=== PATIENT | female | born 1940 | race Caucasian/White ===

== ENCOUNTER 2017-08-10 02:37 | Inpatient (IN) | payer MEDICARE, OTHER ==
[2017-08-10 03:17] LABS: #Eosinphils 0.1 thou/uL (0.0-0.7); #Lymphocytes 0.9 thou/uL (1.20-3.40); #Monocytes 0.7 thou/uL (0.11-0.59); #Neutrophils 11.5 thou/uL (1.40-6.50); %Basophils 0.2 % (0.0-1.0); %Eosinophils 0.6 % (0.0-10.0); %Lymphocytes 6.7 % (21.0-51.0); %Monocytes 5.3 % (0.0-10.0); %Neutrophils 87.3 % (42.0-75.0); Hemoglobin 10.4 g/dL (12.0-16.0); Mean Corpuscular HGB CONC 31.1 g/dL (32.0-36.0); Mean Corpuscular Hemoglobin 27.3 pg (27.0-31.0); Mean Platelet Volume 6.5 fL (7.4-10.4); Platelet Count 166 thou/uL (130-400); RBC Distribution Width 15.6 % (11.5-14.5); Red Blood Cell (RBC) Count 3.81 mill/uL (4.20-5.40); White Blood Cell (WBC) Count 13.2 thou/uL (4.8-10.8)
[2017-08-10] MEDS ORDERED: Morphine 4 MG/ML VIAL ONE (03:31)
[2017-08-10 03:41] LABS: ALT (SGPT) Less than 7 U/L (8-55); AST (SGOT) 11 U/L (5-34); Alkaline Phosphatase 111 U/L (40-150); Anion Gap 15 mmol/L (10-20); BUN (Urea Nitrogen) 28 mg/dL (9.8-20.1); Bilirubin, Total 0.6 mg/dL (0.2-1.2); Calc. Creatinine Clearance 0 mL/min (70-130); Calcium 9.7 mg/dL (7.8-10.44); Carbon Dioxide 24 mmol/L (23-31); Chloride 107 mmol/L (98-107); Estimated GFR-MDRD 68; Globulin 3.3 g/dL (2.4-3.5); Glucose 126 mg/dL (83-110); Magnesium 1.8 mg/dL (1.6-2.6); Potassium 4.8 mmol/L (3.5-5.1); Protein, Total 7.3 g/dL (6.0-8.3); Sodium 141 mmol/L (136-145)
[2017-08-10 03:45] LABS: CKMB 2.3 ng/mL (0-6.6); Troponin I 0.015 ng/mL (< 0.028)
[2017-08-10] MEDS ORDERED: Acetaminophen 325 MG Suppository ONE (04:45)
[2017-08-10 04:47] LABS: Base Excess-Venous -1.8 mmol/L (0 (+/- 2.5)); Bicarbonate (HCO3v) 23.9 mmol/L (1.0-85.0); CO2 Tension (PvCO2) 43.6 mmHg (41.0-51.0); Calcium, Ionized 1.13 mmol/L (1.12-1.32); Hemoglobin - Calc 11.2 g/dL (12.0-18.0); O2 Tension (PvO2) 111.7 mmHg (35.0-45.0); Potassium 4.6 mmol/L (3.4-4.7); T. Carbon Dioxide 25.2 mmol/L (1.0-85.0); pH (Venous) 7.347 (7.35-7.45); vO2 Saturation-calc 98.1 % (94-98)
[2017-08-10] MEDS ORDERED: Vancomycin HCl 1.25 GM in Sodium Chloride 0.9% 250 ML 250 ML IVPB SCH (05:00)
[2017-08-10 06:23] LABS: Bilirubin Negative (Negative); Blood, Urine Small (Negative); Clarity CLOUDY (Clear); Glucose, Urine (Dipstick) Negative (Negative); Leukocyte Large (Negative); Nitrite Positive (Negative); Protein, Urine (Dipstick) 100 mg/dL (Neg-Trace); Specific Gravity, Urine 1.023 (1.002-1.036); pH, Urine 5.5 (5.0-9.0)
[2017-08-10 06:25] LABS: Bacteria/HPF 4+ HPF (None Seen); Hyaline Casts/LPF 4-6 HYALINE CAST LPF (0-3 Hyaline); Pathc Cast-AUWi Flag 0.94 (0-2.49); Squamous Epithelial None Seen HPF (0-3)
[2017-08-10 07:04] LABS: Lactic Acid 2.1 mmol/L (0.5-2.2)
[2017-08-10] MEDS ORDERED: Ondansetron HCl/PF 4 MG/2 ML Vial IVP PRN (07:26)
[2017-08-10] MEDS ORDERED: Ondansetron ODT 4 MG TAB PO PRN (07:26)
[2017-08-10] MEDS ORDERED: Sodium Chloride 0.9% 1,000 ML IV SCH (07:30)
--- NOTE | 2017-08-10 08:46 | RAD ---
AP CHEST: History: Dyspnea. Pneumonia. Date: 08-10-17 Comparison: 12-20-16 FINDINGS: AP chest demonstrates EKG leads seen over the chest. There is some rotation of the chest radiograph. Areas of airspace opacity seen in the right upper lob e and right midlung. Findings compatible with pneumonia. The left lung is well aerated. IMPRESSION: Areas of airspace opacity in the left upper lobe, and right midlung compatible with right lung pneumo pedro. Follow up films to resolution. POS: JED
--- NOTE | 2017-08-10 08:47 | RAD ---
ABDOMEN 1 VIEW: Date: 08/10/17 HISTORY: 76-year-old female with history of abdominal distention. COMPARISON: 02/02/16. FINDINGS: There are some prominent alveolar parenchymal changes in the visualized right lower lobe, evidence fo r pneumonia. There is some rotation to the right. Dextroscoliosis. Severe spondylosis. There appears to be some fairly extensive solid fecal material throughout the colon. There are some minimally abnor ta dilated small bowel loops in the right lower abdomen, nonspecific. Possibilities include that o f small bowel obstruction versus some focal ileus. IMPRESSION: Evidence for right lower lobe pneumonia. Considerable solid fecal material throughout the colon, poss ibly representing some degree of obstipation. Abnormally dilated small bowel loops, primarily in the right lower quadrant, possibly focal small bowel obstruction versus focal ileus. Depending on concern , short-term follow-up or additional imaging might be of benefit. POS: JED
--- NOTE | 2017-08-10 09:58 | CON ---
DATE OF CONSULTATION: 08/10/2017 Margaret Méndez is a 76[facility]year-[facility]. She presents with right-sided pneumon ia. She is able to verbalize though she clearly is markedly weak. She is short of breath. She is o n noninvasive ventilation after she got up to IMCU now on 4 liters, sats are 92%. She is having difficulty breathing, but she denies any chest pain, chills or sweats. She says she stan[place] s been bedridden for a period of time. MEDICATIONS: Her list of medicine from home includes metoprolol 25 half tablet once a day, metformin 500 two tablets twice a day, levothyroxine 75, gabapentin 300. Cardizem 120, simvastatin 40, aspiri n. PAST MEDICAL HISTORY: Pertinent otherwise for arthritis, hypothyroidism, diabetes, hypertension, CVA in 2007, atrial fibrillation. PAST SURGICAL HISTORY: Hysterectomy, cholecystectomy, amputation of toes, fingers, eye surgery, bob racts. She has had avascular necrosis, left hip which probably prevents her from walking any significant dis tance. She has had dysphagia. ALLERGIES: PENICILLIN. SOCIAL/FAMILY HISTORY: Otherwise unremarkable. Alcohol; none. Tobacco; none. REVIEW OF SYSTEMS: Negative. Please note I reviewed old medical records. No family members at bedside. I reviewed all x-rays and lab personally. She now is on vancomycin and neb treatments. No other home medication initiated. PHYSICAL EXAMINATION: VITAL SIGNS: As noted sats are 93% on 2 liters, blood pressure 112/68, temperature 99. CHEST: Chest reveals bilateral rhonchi and crackles, right greater than left. CARDIAC: Normal S1, S2, no gallops. ABDOMEN: Soft. NEURO: She is awake, alert and responsive. EXTREMITIES: She has 2+ ankle edema. LABORATORY: White count is 30,000, H&H 10 and 31, platelet count is 166, pO2 111, pCO2 43.37, lactic acid 2.5. BUN was normal. Creatinine is normal. X-ray showed left-sided pneumonia. Urine shows greater than 50 WBCs. IMPRESSION: 1. Right-sided pneumonia, probably aspiration. 2. Severe deconditioning. 3. Avascular necrosis. 4. Diabetes. 5. Negative flu. 6. Elevated BNP. PLAN: Broad spectrum antibiotics will be initiated. Neb treatments, supportive care. Speech is being consulted. Family to discuss code status. Overall prognosis is guarded. This is a 70 minute consultation, which 50% was spent in direct patient care at the bedside.
[2017-08-10] MEDS ORDERED: Dextrose 5% in Water 1,000 ML IV PRN (11:18)
[2017-08-10] MEDS ORDERED: Insulin Regular 300 UNITS/3 ML VIAL SC PRN ×2 (11:18)
[2017-08-10] MEDS ORDERED: Dextrose 50% Abboject 50 ML SYRINGE IVP PRN (11:18)
[2017-08-10] MEDS ORDERED: Vancomycin HCl 1 GM in Premix Bag 1 BAG IVPB SCH (13:00)
[2017-08-10] MEDS ORDERED: Moxifloxacin 0.5% Opth Drop 3 ML BOT L EYE SCH (15:00)
[2017-08-10] MEDS: Ciprofloxacin 0.3% Ophth Drops 2.5 ml Bottle L EYE SCH ×3 (16:55→20:50)
--- NOTE | 2017-08-10 18:05 | HP ---
DATE OF ADMISSION: 08/10/2017 CHIEF COMPLAINT: Shortness of breath, hypoxia and cough. HISTORY OF PRESENT ILLNESS: Ms. Margaret Méndez is a 76-year-old female with past medical history of diabetes mellitus, avascular necrosis of left hip and sudden onset of shortness of breath over the last night. The patient has been having some cough, also developed fever. Cough is productive with yellow sputum. The patient became hypoxic with saturation of 89% on room air , so with fever, cough, and shortness of breath and hypoxia, the patient was sent to the hospital. EMS found the patient with respiratory distress and hypoxia and was put on nonrebreather and brought her to the emergency room. In the ER, the patient was evaluated and found to have possible pneumonia and aspiration, so the patient received antibiotics with Levaquin and vancomycin, also given IV fluid bolus as well, given two nebulizer treatments and admitted for further evaluation and management. The patient was put on BiPAP and admitted to [facility]. PAST MEDICAL HISTORY: 1. Avascular necrosis of left hip with severe chronic left hip pain, severe degenerative joint disease. 2. Hypertension. 3. Hypothyroidism. 4. Chronic atrial fibrillation. 5. History of CVA. 6. Coronary artery disease, status post stent in the right coronary artery. PAST SURGICAL HISTORY: 1. Status post hysterectomy. 2. Status post hip surgery. 3. Status post multiple amputations of fingers and toes. 4. Status post cholecystectomy. 5. Status post surgery to right hand. CURRENT MEDICATIONS: The patient is on diltiazem 120 mg daily, aspirin 162 mg daily, Tylenol with Codeine q.i.d. p.r.n., levothyroxine 75 mcg daily, metoprolol 12.5 daily, multivitamin daily, Senokot daily, simvastatin 40 mg daily, metformin 1000 b.i.d. ALLERGIES: PENICILLIN and LATEX. FAMILY HISTORY: Nothing of interest. SOCIAL HISTORY: Patient lives in the correction. No history of smoking, no history of alcohol intake. REVIEW OF SYSTEMS: Cardiovascular: No chest pain. Mild shortness of breath. Respiratory: Fever, cough productive with yellow sputum. Gastrointestinal: No nausea or vomiting, no abdominal pain. Genitourinary: No dysuria or hematuria. Central nervous system: No headache or dizziness. PHYSICAL EXAMINATION: GENERAL: The patient is alert, awake, oriented x2. VITAL SIGNS: Temperature 101.8, pulse 111, respirations 28, blood pressure 150/ 116. HEENT: Head is normocephalic, atraumatic. Pupils equal and reactive to light. Left eye, conjunctiva with redness present and drainage present. Nasopharynx is pale and dry. Hard and soft palate, no lesions seen. SKIN: Turgor decreased. NECK: Supple. No JVD. LUNGS: Breath sounds diminished bilaterally. Percussion not dull bilaterally. Crackles in the right base, rhonchi present. CARDIAC: S1, S2, irregularly irregular. ABDOMEN: Soft, no distention, no tenderness. Normal bowel sounds present. RECTAL: Deferred. CENTRAL NERVOUS SYSTEM: The patient is alert, awake, oriented x3. Motor system power 3-4/5 in all extremities. Deep tendon reflexes 2+ bilaterally. Plantar downgoing. Sensory intact. Left hip area markedly tender. Range of movements markedly decreased. LABORATORY DATA AND X-RAY FINDINGS: CBC shows WBC 13,000, hemoglobin 10.5, hematocrit 33, platelets 166. Metabolic panel: Sodium 141, potassium 4.8, chloride 107, CO2 25, urea nitrogen 28, creatinine 0.8, glucose 126. Lactic acid 2.5. BNP was 689, CK-MB 2.6, troponin I 0.015. ABG showed pH 7.3, pCO2 of 43, PO2 of 111, saturation 98%. Urinalysis shows wbc greater than 15, bacteria 4+. Chest x-ray showed airspace opacity in the right mid lung, compatible with right lung pneumonia. Abdominal x-ray showed fecal material throughout the colon, also showed dilated small bowel loops with possibly focal small-bowel obstruction versus focal ileus. ASSESSMENT: 1. Aspiration pneumonia, right lower lobe, middle lung. 2. Acute respiratory failure. 3. Hypoxia. 4. ? focal bowel obstruction. 5. Severe constipation. 6. Elevated BNP. 7. Avascular necrosis of left hip. 8. Diabetes mellitus. 9. Hypertension. 10. Left eye conjunctivitis. PLAN: 1. Vital signs q.4 hours. 2. Activity as tolerated. 3. Allergies: PENICILLIN and LATEX. 4. IV fluids 1/2 normal at 70 mL per hour. 5. Cefepime 1 gram IV piggyback q.8 hours. 6. DuoNeb q.i.d. 7. Levaquin 750 mg IV piggyback daily. 8. Intake and output. 9. Diet n.p.o. 10. GI consult. 11. Vigamox eyedrops for her left eye infection. MUKESH
[2017-08-10] MEDS: Dextrose 5 %-0.45 % NaCl 1,000 ML IV SCH (18:43)
[2017-08-10] MEDS: Cefepime 1 GM, Admixture Fee 1 EACH in Sodium Chloride 0.9% 10 ML SLOW IVP SCH (20:50)
[2017-08-10] MEDS ORDERED: Cefepime 1 GM in Sodium Chloride 0.9% 100 ML IVPB SCH (21:00)
[2017-08-11] MEDS: Ciprofloxacin 0.3% Ophth Drops 2.5 ml Bottle L EYE SCH ×10 (01:36→22:07)
--- NOTE | 2017-08-11 02:03 | CON ---
DATE OF CONSULTATION: 08/10/2017 GI INPATIENT CONSULTATION NOTE REQUESTING PHYSICIAN: Dr. Miller. REASON FOR CONSULTATION: Abnormal x-ray suggesting ileus versus possible bowel obstruction. HISTORY OF PRESENT ILLNESS: Margaret Méndez is a 76-year-old woman, who has previously been seen by my GI colleague, Dr. Isra Arriaza. She had a normal EGD back in 2011. More pertinent, she has a signi ficant history of prior CVA, atrial fibrillation, and coronary artery disease. She is obese. She is bedbound, has history of severe diabetes with multiple amputations of toes and fingers. [facility] with somewhat acute onset of shortness of breath and hypoxia in the presence of productive cough, and upon admission, was found to have a right lower lobe pneumo pedro concerning for aspiration pneumonia. She is being treated with nebulizers and broad spectrum ant ibiotics at this time, and she says her breathing is a lot easier today. Upon evaluation, she had an abdominal x-ray and this demonstrated a large amount of stool throughout the colon as well as some m ild dilation of distal small bowel loops in the right lower quadrant, which was read as suggestive of possible ileus versus bowel obstruction. Clinically, the patient has not been having any abdominal pain. She states that up until yesterday she has been eating and drinking just fine. She denies any nausea. She has not had any vomiting since arrival here. She is unable to really tell me what her bowel movements have been like. She has had a small smear of stool since arrival here. I see her [facility] the [facility] include Tylenol with Codeine as well as daily Senokot. It is uncle ar whether she has ever had a colonoscopy in the past. Speech Therapy was consulted, but has not yet evaluated her formally due to this concern for possible ileus or bowel obstruction. Again, the chasity ent is not having any abdominal pain, nausea, or vomiting. REVIEW OF SYSTEMS: Difficult to obtain as the patient has difficulty expressing herself or even answ ering yes/no questions regarding her symptoms with any specificity. PAST MEDICAL HISTORY: Coronary artery disease with right coronary stent, arthritis, hypothyroidism, diabetes, hypertension, atrial fibrillation, CVA in 2007, hysterectomy, cholecystectomy, multiple amp utations of toes and fingers, avascular necrosis of the left hip, obesity. ALLERGIES: PENICILLIN and LATEX. OUTPATIENT MEDICATIONS: Metoprolol, metformin, Synthroid, gabapentin, Cardizem, Zocor, aspirin, Tyle nol with Codeine, Senokot daily. SOCIAL HISTORY: [facility]. No smoking or alcohol use. FAMILY HISTORY: Noncontributory. PHYSICAL EXAMINATION: VITAL SIGNS: Temperature 97.6, pulse 92, blood pressure 111/40, 94% oxygen saturation on 4 liters of nasal cannula. GENERAL: Obese, 76-year-old woman, lying in bed comfortably, in no distress. MENTAL: She is alert and oriented. She seems to have some word finding difficulty and is unable to be specific with answers regarding some symptoms. SKIN: No jaundice, no rash visible or palpable. Wound photodocumentation was reviewed including dec ubitus ulceration and ulcerations to her lower extremities. EYES: No scleral icterus. Extraocular movements intact. ENT: Mucous membranes moist, no oral lesions. LYMPH: No submandibular or supraclavicular lymphadenopathy. THYROID: Nontender to palpation. HEART: Regular rate and rhythm. LUNGS: Distant lung sounds, some soft crackles at the right base. ABDOMEN: Mildly distended, dull to percussion throughout. Bowel sounds hypoactive, but present, sof t and nontender to palpation. EXTREMITIES: A 1+ bilateral lower extremity edema. LABORATORY STUDIES: WBC 13.2, hemoglobin 10.4, platelets 166. BUN 28, creatinine 0.81. BNP 689.9. Troponin negative. Lactic acid 2.1. LFTs normal with total bilirubin 0.6, alkaline phosphatase 111 , AST 11, ALT 7, albumin 4.0. Urinalysis shows greater than 50 wbc's. IMAGING STUDIES: Chest x-ray shows right lower lobe pneumonia. Abdominal x-ray demonstrates solid s tool throughout the colon and some mild dilation of small bowel loops in the right lower quadrant. ASSESSMENT AND PLAN: 1. Constipation. Clinically, the patient is not really presenting like an ileus or certainly not li ke a mechanical bowel obstruction. Her colon is full of stool, so I really do not feel small bowel o bstructive process is likely, small bowel dilation is likely reactive from her severe constipation. Note that she is essentially bedbound, and I see Tylenol with Codeine on [facility] medication [facility] from the [facility]. Narcotics should be avoided. She needs to be on a more aggressive bowel regimen. I understand a CT scan has been ordered for tomorrow and will follow with those results. 2. Aspiration pneumonia. This was the primary reason for admission. Awaiting Speech Pathology asse ssment to assess for oropharyngeal dysphagia and safety for oral intake. If it is felt that she is n ot safe to take in food orally, PEG tube could be considered, although the procedure would be higher risk certainly given her body habitus and comorbidities. GI will follow along tomorrow, with the results of the CT scan. We will await Speech Pathology recom mendations for her diet, but from a GI perspective, she could eat well, whatever textures appropriate . Thank you for the consultation. Please call with questions or concerns.
[2017-08-11 04:39] LABS: #Eosinphils 0.1 thou/uL (0.0-0.7); #Lymphocytes 1.1 thou/uL (1.20-3.40); #Monocytes 0.7 thou/uL (0.11-0.59); #Neutrophils 7.6 thou/uL (1.40-6.50); %Basophils 0.2 % (0.0-1.0); %Eosinophils 0.7 % (0.0-10.0); %Lymphocytes 11.9 % (21.0-51.0); %Monocytes 7.5 % (0.0-10.0); %Neutrophils 79.7 % (42.0-75.0); Hemoglobin 8.4 g/dL (12.0-16.0); Mean Corpuscular Hemoglobin 27.3 pg (27.0-31.0); Mean Corpuscular Volume 87.8 fl (81.0-99.0); Platelet Count 130 thou/uL (130-400); RBC Distribution Width 15.3 % (11.5-14.5); Red Blood Cell (RBC) Count 3.08 mill/uL (4.20-5.40); White Blood Cell (WBC) Count 9.6 thou/uL (4.8-10.8)
[2017-08-11 04:55] LABS: Anion Gap 10 mmol/L (10-20); BUN (Urea Nitrogen) 23 mg/dL (9.8-20.1); Calc. Creatinine Clearance 76 mL/min (70-130); Calcium 8.9 mg/dL (7.8-10.44); Carbon Dioxide 24 mmol/L (23-31); Chloride 109 mmol/L (98-107); Estimated GFR-MDRD 75; Glucose 111 mg/dL (83-110); Potassium 4.4 mmol/L (3.5-5.1); Sodium 139 mmol/L (136-145)
[2017-08-11] MEDS ORDERED: Prevnar 13-Val Conj/PF 0.5 ML SYRINGE IM ONE (09:00)
[2017-08-11] MEDS ORDERED: FLU VACC TS2017-18 (>65YR) 0.5 ML SYRINGE IM ONE (09:00)
--- NOTE | 2017-08-11 09:28 | PRG ---
DATE OF SERVICE: 08/11/2017 This morning she is awake, alert, responsive. Complains of left leg pain, but no shortness of breath . PHYSICAL EXAMINATION: VITAL SIGNS: Sats 93% on 3 liters, respiration 22, temperature 98, blood pressure 140/68. CHEST: Chest reveals bilateral rhonchi or crackles. HEART: Normal S1, S2, no gallops. LABORATORY DATA: White count 11,000, H&H 8 and 27. Electrolytes are normal. IMPRESSION: 1. Right-sided pneumonia. 2. Constipation. PLAN: From a pulmonary standpoint of view, continue antibiotics, neb treatments, supportive care. S he can be transferred out of the [facility] to an unmonitored bed.
[2017-08-11] MEDS: Cefepime 1 GM, Admixture Fee 1 EACH in Sodium Chloride 0.9% 10 ML SLOW IVP SCH ×2 (10:12→21:36)
[2017-08-11] MEDS ORDERED: metFORMIN 500 MG TAB PO SCH (13:00)
[2017-08-11] MEDS ORDERED: Gabapentin 300 MG CAP PO SCH (13:00)
[2017-08-11] MEDS ORDERED: Metoprolol Tartrate 25 MG TAB PO SCH (13:00)
[2017-08-11] MEDS ORDERED: Aspirin 81 mg Enteric Coated Tablet PO SCH (13:00)
[2017-08-11] MEDS: Dextrose 5 %-0.45 % NaCl 1,000 ML IV SCH (14:07)
--- NOTE | 2017-08-11 14:48 | CT ---
CT OF ABDOMEN AND PELVIS: DATE: 08/11/17. COMPARISON: 03/20/11. HISTORY: Abdominal pain, left leg pain, constipation, ileus versus small bowel obstruction. FINDINGS: Imaged lung bases demonstrate nonspecific irregular airspace disease in the visualized right middle l obe and partial consolidation of right lower lobe with trace left pleural effusion and small incomple tely visualized right pleural effusion. The hepatic parenchyma is somewhat heterogeneous, which may be on the basis of hepatocellular disease or passive congestion. There is no free intraperitoneal air appreciated. The gallbladder appears surgically absent. The spleen is unremarkable. 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 In addition, within the left upper quadrant, there is a fat-containing lesion a nterior to the mid pole left kidney inseparable from the left adrenal gland measuring 4.8 cm, similar when compared to the prior exam, suggesting either an additional exophytic left renal angio myelolip ivana or a left adrenal myelolipoma. The pancreas and right adrenal gland appear grossly unremarkable. The right kidney demonstrates no acute findings. There is a Boyce catheter in the urinary bladder. There is dense stool within the colon from the level of the proximal descending colon through the r ectum with a rectum which is filled and expanded with dense stool suggesting impaction. There is no evidence for small bowel obstruction. There is extensive calcified plaque within the abdominal aorta and involving its branches as well as the arterial structures of the pelvis, incompletely assessed on this examination. No pelvic lymphadenopathy is seen. The bones appear somewhat demineralized with age-indeterminate an terior wedge compression fracture noted at T12 and mild age-indeterminate superior end plate fracture at L1. There is severe degenerative change involving the left hip with left femoral head irregulari ty and flattening as well as severe osteophyte formation and joint space narrowing with subchondral s clerotic change. There is an old fracture of the inferior pubic ramus on the right. IMPRESSION: 1. No free intraperitoneal air or evidence of small bowel obstruction. 2. Small bilateral pleural effusions. Nonspecific airspace disease in the right lung base may repre sent infectious pneumonitis or asymmetric edema. 3. Mottled heterogeneous appearance of the hepatic parenchyma. 4. Fat-containing left upper quadrant lesions as described above. 5. No evidence for free intraperitoneal air or small bowel obstruction. 6. Findings suggesting fecal impaction with dense stool filling and expanding the distal sigmoid col on and rectum. POS: JED
[2017-08-11] MEDS: Gabapentin 300 MG CAP PO SCH ×2 (16:20→21:35)
[2017-08-11] MEDS: metFORMIN 500 MG TAB PO SCH (16:21)
[2017-08-11] MEDS ORDERED: Polyethylene Glycol 3350 17 GM Packet PO SCH (18:15)
[2017-08-11] MEDS ORDERED: Magnesium Citrate 300 ML BOT PO SCH (18:15)
--- NOTE | 2017-08-11 18:20 | PRG ---
DATE OF SERVICE: 08/11/2017 GASTROINTESTINAL INPATIENT DAILY PROGRESS NOTE SUBJECTIVE: Mrs. Méndez was able to come out of the ICU. She feels she is breathing well. Vital sig ns have been stable. She has not had a bowel movement yet today. CT of the abdomen and pelvis did n ot show any evidence of small-bowel obstruction. There is a large amount of stool in the distal colo n. She has been tolerating her diet just fine. OBJECTIVE: VITAL SIGNS: Temperature 97.2, pulse 75, blood pressure 118/48, 96% oxygen saturation on room air. GENERAL: No acute distress. HEART: Regular rate and rhythm. LUNGS: Soft crackles in the right base. ABDOMEN: Mild distention. Dull to percussion. Bowel sounds hypoactive, soft, nontender to palpatio n. EXTREMITIES: No peripheral edema. LABORATORY STUDIES: WBC 9.6, hemoglobin 8.4, platelets 130. Sodium 139, potassium 4.4, BUN 23, crea tinine 0.75, glucose 177. Blood cultures growing gram positive cocci. ASSESSMENT AND PLAN: 1. Constipation. The patient has not yet had a bowel movement today, but is not having any abdomina l pain. There is no evidence of bowel obstruction or ileus. Due to her chronic immobility, it appea rs chronic narcotic use she is certainly at risk for further constipation episodes. She is on Senoko t. At this point, I will go ahead and add MiraLax 17 grams daily. We will also order one bottle of magnesium citrate tonight. 2. Right lower lobe pneumonia. The patient has been cleared for oral intake by Speech and antibioti c therapy per Primary Service.
[2017-08-11] MEDS: Polyethylene Glycol 3350 17 GM Packet PO SCH ×2 (21:35→21:59)
[2017-08-11] MEDS: Senokot S 8.6-50 MG TAB PO SCH (21:35)
[2017-08-11] MEDS: Atorvastatin Calcium 20 MG TAB PO SCH (21:35)
[2017-08-11] MEDS: Magnesium Citrate 300 ML BOT PO SCH ×2 (21:36→21:56)
[2017-08-12] MEDS: Dextrose 5 %-0.45 % NaCl 1,000 ML IV SCH ×2 (05:34→21:16)
[2017-08-12] MEDS: Levothyroxine Sodium 75 MCG TAB PO SCH (05:34)
[2017-08-12] MEDS: Ciprofloxacin 0.3% Ophth Drops 2.5 ml Bottle L EYE SCH ×9 (05:45→21:55)
[2017-08-12] MEDS: Multivit, Therapeutic 1 TAB PO SCH (08:47)
[2017-08-12] MEDS: metFORMIN 500 MG TAB PO SCH ×2 (08:47→16:30)
[2017-08-12] MEDS: Polyethylene Glycol 3350 17 GM Packet PO SCH (08:47)
[2017-08-12] MEDS: Gabapentin 300 MG CAP PO SCH ×3 (08:47→21:07)
[2017-08-12] MEDS: Aspirin 81 mg Enteric Coated Tablet PO SCH (08:48)
[2017-08-12] MEDS: Cefepime 1 GM, Admixture Fee 1 EACH in Sodium Chloride 0.9% 10 ML SLOW IVP SCH ×2 (08:48→21:07)
[2017-08-12] MEDS: Metoprolol Tartrate 25 MG TAB PO SCH (08:48)
--- NOTE | 2017-08-12 09:25 | PRG ---
DATE OF SERVICE: 08/12/2017 She is awake, alert and responsive. Less short of breath. PHYSICAL EXAMINATION: VITAL SIGNS: Blood pressure 166/78, sats 92% on 4 liters, temperature 99, respirations 18. CHEST: Chest revealed decreased breath sounds, no wheezing. CARDIAC: Normal S1, S2. ABDOMEN: Soft, no masses. IMPRESSION: 1. Pneumonia. 2. Hypertension., 3. Severe deconditioning. 4. Advanced age. PLAN: X-ray is being ordered. All cultures so far are negative. We will consider de-escalation. Blood is growing gram positive cocci, probably contamination.
--- NOTE | 2017-08-12 10:45 | RAD ---
UPRIGHT PORTABLE CHEST 1 VIEW: Date: 08/12/17 HISTORY: 76-year-old female with history of pneumonia. COMPARISON: 08/10/17. FINDINGS: Persistent abnormal alveolar opacities in the right mid and lower lung zone, showing some improvement in the upper lobe region. Stable increased markings in the left chest. IMPRESSION: Some improvement in the right upper lobe confluent alveolar parenchymal changes with persistent paren chymal changes in the right mid and lower lung zone. POS: JED
[2017-08-12 13:16] VITALS: BMI 28.1
--- NOTE | 2017-08-12 15:41 | PRG ---
DATE OF SERVICE: 08/12/2017 SUBJECTIVE: Ms. Méndez did not take very much of her magnesium citrate, but after 2 doses of MiraLax, this morning she had a very large nonbloody bowel movement. She says she is feeling quite a bit bet ter. There is less abdominal bloating. She has been able to eat some today. OBJECTIVE: VITAL SIGNS: Temperature 98.2, pulse 78, blood pressure 150/93, and 94% oxygen saturation on room ai r. GENERAL: No acute distress. HEART: Regular rate and rhythm. LUNGS: Clear to auscultation bilaterally. ABDOMEN: Bowel sounds present, soft, nontender to palpation throughout. EXTREMITIES: No peripheral edema. LABORATORY STUDIES: Glucose 157. No other new labs today. ASSESSMENT AND PLAN: Constipation. She has had a great response to the addition of MiraLax. Upon d ischarge, I would have her continue MiraLax 17 grams daily as well as the Senokot that she was alread y on, try to avoid any narcotics if possible. GI will go ahead and sign off. Please call back with any questions or concerns.
[2017-08-12] MEDS: Atorvastatin Calcium 20 MG TAB PO SCH (21:07)
[2017-08-12] MEDS: Senokot S 8.6-50 MG TAB PO SCH (21:07)
[2017-08-13] MEDS: Levothyroxine Sodium 75 MCG TAB PO SCH (05:03)
[2017-08-13] MEDS: Ciprofloxacin 0.3% Ophth Drops 2.5 ml Bottle L EYE SCH ×9 (05:05→21:39)
[2017-08-13] MEDS: Aspirin 81 mg Enteric Coated Tablet PO SCH (08:08)
[2017-08-13] MEDS: metFORMIN 500 MG TAB PO SCH ×2 (08:08→17:44)
[2017-08-13] MEDS: Gabapentin 300 MG CAP PO SCH ×3 (08:09→21:41)
[2017-08-13] MEDS: Metoprolol Tartrate 25 MG TAB PO SCH ×2 (08:09→21:42)
[2017-08-13] MEDS: Multivit, Therapeutic 1 TAB PO SCH (08:10)
[2017-08-13] MEDS: Polyethylene Glycol 3350 17 GM Packet PO SCH ×2 (08:11→08:35)
[2017-08-13] MEDS: Cefepime 1 GM, Admixture Fee 1 EACH in Sodium Chloride 0.9% 10 ML SLOW IVP SCH (08:13)
--- NOTE | 2017-08-13 12:46 | PRG ---
DATE OF SERVICE: 08/13/2017 SUBJECTIVE: Ms. Méndez still got cough, afebrile. X-rays shows rather impressive right-sided pneumon ia. OBJECTIVE: VITAL SIGNS: Temperature is 98, sats are 92% on 2 liters, blood pressure 169/96. CHEST: Reveals bilateral rhonchi and crackles. CARDIAC: Normal S1, S2. ABDOMEN: Soft. No masses. IMPRESSION: 1. Right-sided pneumonia. 2. Urinary tract infection, Escherichia coli. 3. Severe deconditioning. PLAN: I will switch her over to oral antibiotics, nebulizer treatments and supportive care. Resistant to Levaquin for the UTI. We will add Omnicef. We will follow.
[2017-08-13] MEDS: Dextrose 5 %-0.45 % NaCl 1,000 ML IV SCH (14:23)
[2017-08-13] MEDS: Cefdinir 300 MG CAP PO SCH (21:41)
[2017-08-13] MEDS: Atorvastatin Calcium 20 MG TAB PO SCH (21:41)
[2017-08-13] MEDS: Senokot S 8.6-50 MG TAB PO SCH (21:42)
[2017-08-13] MEDS: Acetaminophen/Codeine 30-300mg Tablet PO PRN (23:37)
[2017-08-14 05:01] LABS: #Eosinphils 0.2 thou/uL (0.0-0.7); #Lymphocytes 1.7 thou/uL (1.20-3.40); #Neutrophils 5.7 thou/uL (1.40-6.50); %Basophils 0.1 % (0.0-1.0); %Eosinophils 2.6 % (0.0-10.0); %Lymphocytes 19.2 % (21.0-51.0); %Monocytes 11.8 % (0.0-10.0); %Neutrophils 66.2 % (42.0-75.0); Hemoglobin 9.1 g/dL (12.0-16.0); Mean Corpuscular HGB CONC 31.4 g/dL (32.0-36.0); Mean Corpuscular Hemoglobin 27.7 pg (27.0-31.0); Mean Corpuscular Volume 88.2 fl (81.0-99.0); Platelet Count 175 thou/uL (130-400); RBC Distribution Width 15.3 % (11.5-14.5); Red Blood Cell (RBC) Count 3.29 mill/uL (4.20-5.40); White Blood Cell (WBC) Count 8.6 thou/uL (4.8-10.8)
[2017-08-14] MEDS: Ciprofloxacin 0.3% Ophth Drops 2.5 ml Bottle L EYE SCH ×9 (05:20→22:04)
[2017-08-14] MEDS: Levothyroxine Sodium 75 MCG TAB PO SCH (05:21)
[2017-08-14] MEDS: Dextrose 5 %-0.45 % NaCl 1,000 ML IV SCH ×2 (05:23→18:32)
[2017-08-14] MEDS: Acetaminophen/Codeine 30-300mg Tablet PO PRN ×2 (05:27→21:34)
[2017-08-14 05:43] LABS: Anion Gap 11 mmol/L (10-20); BUN (Urea Nitrogen) 8 mg/dL (9.8-20.1); Calc. Creatinine Clearance 84 mL/min (70-130); Calcium 9.1 mg/dL (7.8-10.44); Carbon Dioxide 23 mmol/L (23-31); Chloride 108 mmol/L (98-107); Estimated GFR-MDRD 82; Glucose 130 mg/dL (83-110); Potassium 3.1 mmol/L (3.5-5.1); Sodium 139 mmol/L (136-145)
[2017-08-14] MEDS: metFORMIN 500 MG TAB PO SCH ×2 (08:02→16:38)
[2017-08-14] MEDS: Cefdinir 300 MG CAP PO SCH ×2 (08:04→21:17)
[2017-08-14] MEDS: Gabapentin 300 MG CAP PO SCH ×3 (08:04→21:17)
[2017-08-14] MEDS: Aspirin 81 mg Enteric Coated Tablet PO SCH (08:04)
[2017-08-14] MEDS: Metoprolol Tartrate 25 MG TAB PO SCH ×2 (08:04→21:17)
[2017-08-14] MEDS: Multivit, Therapeutic 1 TAB PO SCH (08:04)
[2017-08-14] MEDS: Polyethylene Glycol 3350 17 GM Packet PO SCH (08:04)
[2017-08-14] MEDS: Potassium Chloride 20 MEQ TAB PO SCH ×3 (12:05→18:06)
--- NOTE | 2017-08-14 14:13 | PRG ---
DATE OF SERVICE: 08/14/2017 SUBJECTIVE: Méndez this morning she said she is less short of breath. OBJECTIVE: VITAL SIGNS: Sats 90% on 2 liters, blood pressure 146/86, temperature 98, pulse 64. CHEST: Minimal crackles in right lung. CARDIAC: Normal S1, S2. LABORATORY DATA: White count 8,000. Electrolytes are normal. Urine is growing E. coli and Proteus. IMPRESSION: 1. Urinary tract infection. 2. Chronic obstructive pulmonary disease. 3. Severe deconditioning. 4. Right-sided pneumonia. PLAN: Appears to be doing well on the present antibiotic coverage, Levaquin and Omnicef. DISPOSITION: As per primary care physician.
[2017-08-14] MEDS: Senokot S 8.6-50 MG TAB PO SCH (21:17)
[2017-08-14] MEDS: Atorvastatin Calcium 20 MG TAB PO SCH (21:17)
[2017-08-15] MEDS: Dextrose 5 %-0.45 % NaCl 1,000 ML IV SCH ×2 (05:16→20:40)
[2017-08-15] MEDS: Acetaminophen/Codeine 30-300mg Tablet PO PRN (05:18)
[2017-08-15] MEDS: Levothyroxine Sodium 75 MCG TAB PO SCH (05:18)
[2017-08-15] MEDS: Ciprofloxacin 0.3% Ophth Drops 2.5 ml Bottle L EYE SCH ×9 (05:24→22:24)
[2017-08-15 06:06] LABS: Anion Gap 10 mmol/L (10-20); BUN (Urea Nitrogen) 9 mg/dL (9.8-20.1); Calc. Creatinine Clearance 78 mL/min (70-130); Calcium 9.1 mg/dL (7.8-10.44); Carbon Dioxide 24 mmol/L (23-31); Chloride 110 mmol/L (98-107); Estimated GFR-MDRD 76; Glucose 112 mg/dL (83-110); Potassium 4.1 mmol/L (3.5-5.1); Sodium 140 mmol/L (136-145)
[2017-08-15] MEDS: Aspirin 81 mg Enteric Coated Tablet PO SCH (07:51)
[2017-08-15] MEDS: Cefdinir 300 MG CAP PO SCH ×2 (07:51→20:27)
[2017-08-15] MEDS: metFORMIN 500 MG TAB PO SCH ×2 (07:51→17:04)
[2017-08-15] MEDS: Gabapentin 300 MG CAP PO SCH ×3 (07:52→20:27)
[2017-08-15] MEDS: Metoprolol Tartrate 25 MG TAB PO SCH ×2 (07:52→20:27)
[2017-08-15] MEDS: Polyethylene Glycol 3350 17 GM Packet PO SCH (07:53)
[2017-08-15] MEDS: Multivit, Therapeutic 1 TAB PO SCH (07:53)
--- NOTE | 2017-08-15 09:07 | PRG ---
DATE OF SERVICE: 08/15/2017 This morning she appears to be better, less short of breath. PHYSICAL EXAMINATION: VITAL SIGNS: Sats are 90% on room air, temperature 97, blood pressure 125/69. CHEST: Chest reveals minimal crackles. CARDIAC: Normal S1-S2. No gallops. ABDOMEN: Soft, no masses. LABORATORY: Electrolytes are normal. IMPRESSION: Right-sided pneumonia, improved. PLAN: She can probably be transferred back to her longterm. Continue antibiotics for a total of 10 days.
--- NOTE | 2017-08-15 10:27 | RAD ---
CHEST 1 VIEW: HISTORY: Pneumonia. COMPARISON: 08/12/17. FINDINGS: There is interval improvement in the right lower mid lung airspace consolidation. No pneumothorax. There is a small right effusion. The left lung is relatively clear. Cardiac silhouette and mediastinal contours are similar. IMPRESSION: Improving right lower lobe airspace consolidation. POS: TPC
[2017-08-15] MEDS: Atorvastatin Calcium 20 MG TAB PO SCH (20:27)
[2017-08-15] MEDS: Senokot S 8.6-50 MG TAB PO SCH (20:28)
[2017-08-16] MEDS: Acetaminophen/Codeine 30-300mg Tablet PO PRN (01:39)
[2017-08-16] MEDS: Ciprofloxacin 0.3% Ophth Drops 2.5 ml Bottle L EYE SCH ×2 (05:53→08:16)
[2017-08-16] MEDS: Levothyroxine Sodium 75 MCG TAB PO SCH (05:54)
[2017-08-16 07:45] VITALS: BP 153/68; TEMP 97.4
[2017-08-16] MEDS: metFORMIN 500 MG TAB PO SCH (08:19)
[2017-08-16] MEDS: Aspirin 81 mg Enteric Coated Tablet PO SCH (08:20)
[2017-08-16] MEDS: Cefdinir 300 MG CAP PO SCH (08:21)
[2017-08-16] MEDS: Multivit, Therapeutic 1 TAB PO SCH (08:23)
[2017-08-16] MEDS: Gabapentin 300 MG CAP PO SCH (08:23)
[2017-08-16] MEDS: Metoprolol Tartrate 25 MG TAB PO SCH (08:23)
[2017-08-16] MEDS: Polyethylene Glycol 3350 17 GM Packet PO SCH (08:24)
--- NOTE | 2017-08-16 14:42 | PRG ---
DATE OF SERVICE: 08/16/2017 PHYSICAL EXAMINATION: VITAL SIGNS: Blood pressure 134/68, pulse 78, O2 sat 96% on room air, temperature 97. GENERAL: No distress. CHEST: Clear. CARDIAC: Normal S1-S2. ABDOMEN: Soft, no masses. LABORATORY AND X-RAY FINDINGS: X-ray shows much improvement in the right-sided pneumonia. IMPRESSION: 1. Right pneumonia. 2. Respiratory aspiration. DISPOSITION: Home. Follow up with the primary care physician.
--- NOTE | 2017-08-17 14:02 | DIS ---
DATE OF ADMISSION: 08/10/2017 DATE OF DISCHARGE: 08/16/2017 ADMITTING DIAGNOSES: 1. Aspiration pneumonia, right lower lobe and middle lung. 2. Acute respiratory failure, secondary to #1. 3. Hypoxia. 4. Questionable bowel obstruction. 5. Severe constipation. 6. Elevated BNP. 7. Avascular necrosis of left hip. 8. Diabetes mellitus. 9. Hypertension. 10. Left eye conjunctivitis. FINAL DIAGNOSES: 1. Aspiration pneumonia, right lung, improved. 2. Hypoxia, improved. 3. Severe constipation, resolved. 4. No evidence of small-bowel obstruction. 5. Elevated BNP, improved. 6. Avascular necrosis of left hip. 7. Diabetes mellitus. 8. Hypertension. 9. Left eye conjunctivitis, resolved. BRIEF SUMMARY OF HOSPITAL COURSE: Ms. Méndez is a 76-year-old female, admitted because of cough, fever and hypoxia. The patient was found to have pneumonia, right lung, possibly aspiration. The patient was admitted to [facility] for close monitoring. She was started on IV antibiotics with cefepime and Levaquin. The patient's abdominal x-ray revealed possible bowel obstruction. CT abdomen showed evidence of stool in the large bowel, distended small bowel, but no evidence of obstruction. The patient was given laxative, magnesium citrate, after which her constipation resolved. The patient's cough and fever gradually improved and her hypoxia improved. Her IV antibiotic changed to p.o. Omnicef and p.o. Levaquin. The patient was also started on physical therapy while in the hospital. Consults done with Pulmonary and GI. In view of improvement, the patient was discharged. At the time of discharge, she was stable. Her vital signs were stable. Lungs clear. Heart sounds regular. Abdomen, soft, nontender. Bowel sounds present. DISCHARGE MEDICATIONS: Include aspirin 162 mg daily, gabapentin 600 t.i.d., diltiazem 120 daily, simvastatin 40 mg daily, metoprolol 12.5 b.i.d., levothyroxine 75 mcg daily, metformin 1000 b.i.d., multivitamin daily, Senokot daily, MiraLax daily 17 grams, Tylenol with Codeine b.i.d. p.r.n., levofloxacin 500 mg daily for 10 days, Omnicef 300 b.i.d. for 10 days. DISCHARGE INSTRUCTIONS: The patient is still FULL CODE. Her code status was discussed with the patient. Patient wants to be FULL CODE. She will be followed up in detention. MUKESH
== END 2017-08-16 11:01 | DRG 177 ==
LOC: ERS 02:37 → IMCU/EMU 04:34 → T4-B 08-11 16:25
PROVIDERS: ADMIT Internal Medicine; ATTEND Internal Medicine
DX: J69.0 Pneumonitis due to inhalation of food and vomit (principal); J96.01 Acute respiratory failure with hypoxia; N39.0 Urinary tract infection, site not specified; M87.9 Osteonecrosis, unspecified; I48.2 Chronic atrial fibrillation; E11.9 Type 2 diabetes mellitus without complications; B96.20 Unspecified Escherichia coli [E. coli] as the cause of diseases classified elsewhere; R79.89 Other specified abnormal findings of blood chemistry; I10 Essential (primary) hypertension; E03.9 Hypothyroidism, unspecified; K59.00 Constipation, unspecified; I25.10 Atherosclerotic heart disease of native coronary artery without angina pectoris; H10.9 Unspecified conjunctivitis; J44.9 Chronic obstructive pulmonary disease, unspecified; E66.9 Obesity, unspecified; Z68.28 Body mass index [BMI] 28.0-28.9, adult; Z74.01 Bed confinement status; Z88.0 Allergy status to penicillin; Z91.040 Latex allergy status; Z79.84 Long term (current) use of oral hypoglycemic drugs; Z79.82 Long term (current) use of aspirin; Z79.899 Other long term (current) drug therapy; Z95.5 Presence of coronary angioplasty implant and graft; Z89.422 Acquired absence of other left toe(s); Z89.421 Acquired absence of other right toe(s)
CPT/HCPCS: 36415; 36416; 51703; 71045; 74018; 74177; 80048; 80053; 81003; 81015; 82330; 82553; 82803; 83605; 83735; 83880; 84484; 85025; 87040; 87077; 87086; 87149; 87186; 87804; 93005; 94640; 94760; 96361; 96365; 96375; A4216; A4353; G8996-GN-CI; G8997-GN-CI; J0692; J1956; J2270; J3370; J7050; J7620

== ENCOUNTER 2017-11-22 16:41 | Inpatient (IN) | payer MEDICARE, OTHER ==
[~2017-11-22 16:41] MED LIST: ISOVUE-370 76%-LOCM 1 ML ONE
[2017-11-22] MEDS ORDERED: Diltiazem 125 MG/25 ML ONE (17:10)
[2017-11-22] MEDS ORDERED: MEROPENEM 1 GM/50 ML 1 GM in Premix Bag 1 BAG IVPB SCH (17:15)
[2017-11-22 17:16] LABS: Bilirubin Negative (Negative); Blood, Urine Negative (Negative); Clarity CLEAR (Clear); Glucose, Urine (Dipstick) Negative (Negative); Leukocyte Negative (Negative); Nitrite Negative (Negative); Protein, Urine (Dipstick) Trace mg/dL (Neg-Trace); Specific Gravity, Urine 1.009 (1.002-1.036)
[2017-11-22 17:20] LABS: #Eosinphils 0.2 thou/uL (0.0-0.7); #Lymphocytes 1.7 thou/uL (1.20-3.40); #Monocytes 1.1 thou/uL (0.11-0.59); #Neutrophils 11.3 thou/uL (1.40-6.50); %Basophils 0.2 % (0.0-1.0); %Eosinophils 1.6 % (0.0-10.0); %Lymphocytes 12.1 % (21.0-51.0); %Monocytes 7.4 % (0.0-10.0); %Neutrophils 78.6 % (42.0-75.0); Hemoglobin 10.3 g/dL (12.0-16.0); Mean Corpuscular HGB CONC 31.1 g/dL (32.0-36.0); Mean Corpuscular Volume 86.8 fL (78.0-98.0); Mean Platelet Volume 7.1 fL (7.4-10.4); Platelet Count 166 thou/uL (130-400); RBC Distribution Width 17.5 % (11.5-14.5); Red Blood Cell (RBC) Count 3.82 mill/uL (4.20-5.40); White Blood Cell (WBC) Count 14.3 thou/uL (4.8-10.8)
--- NOTE | 2017-11-22 17:35 | RAD ---
RADIOGRAPH CHEST 1 VIEW: Date: 11/22/17 Time: 5:09 p.m. HISTORY: 76-year-old female with cough and chest pain. COMPARISON: 08/15/17. FINDINGS: There is a dense moderate sized irregularly shaped opacity overlying the right lower lung zone. There are less dense air space opacities throughout the rest of the right mid and lower lung zones and a p ortion of the upper lung zone. The apex is spared. The right sided infiltrates are all new since the prior study. In the contralateral left lung, there is pulmonary vascular engorgement and prominent interstitial ma rkings. No pneumothorax. There is cardiomegaly. IMPRESSION: 1. Evidence for right sided pneumonia: extensive right sided alveolar infiltrates, plus an area of consolidation or mass in the right lower lung zone. 2. Recommend serial followup chest radiographs until complete resolution, beginning in one week. ONOFRE [] POS: JED
[2017-11-22 17:45] LABS: Troponin I Less than 0.010 ng/mL (< 0.028)
[2017-11-22 17:46] LABS: ALT (SGPT) 12 U/L (8-55); AST (SGOT) 19 U/L (5-34); Albumin 3.9 g/dL (3.4-4.8); Alkaline Phosphatase 118 U/L (40-150); Anion Gap 15 mmol/L (10-20); BUN (Urea Nitrogen) 18 mg/dL (9.8-20.1); Bilirubin, Total 0.7 mg/dL (0.2-1.2); Calc. Creatinine Clearance 0 mL/min (70-130); Calcium 9.4 mg/dL (7.8-10.44); Carbon Dioxide 23 mmol/L (23-31); Chloride 105 mmol/L (98-107); Estimated GFR-MDRD 73; Globulin 3.7 g/dL (2.4-3.5); Glucose 146 mg/dL (83-110); Potassium 4.2 mmol/L (3.5-5.1); Protein, Total 7.6 g/dL (6.0-8.3); Sodium 139 mmol/L (136-145)
[2017-11-22] MEDS ORDERED: Acetaminophen 650 MG Suppository ONE (18:35)
--- NOTE | 2017-11-22 19:12 | CT ---
CTA THORAX WITH CONTRAST: 11/22/17 at 6:29 p.m. (Computed Tomographic Angiography, chest(noncoronary) with contrast material, and image postprocessin g) (PE protocol) HISTORY: 76-year-old female with chest pain, cough, and fever. Rule out pulmonary embolism. TECHNIQUE: IV injection of iodinated contrast: 100 mL Isovue 370. Scan acquisition timing attempted to coincide with iodinated contrast bolus reaching maximal density in pulmonary arteries. 3D MIP reconstructions. COMPARISON: 12/18/16 FINDINGS: Again noted is the approximately 4.5 cm mixed fatty and soft tissue density mass exophytically protru ding from the posterior aspect of the left renal upper pole. Also again demonstrated is the larger, b ut similar appearing 5 cm mass anterior to the left renal upper pole, arising either from the left ad renal gland or from left anterior renal cortex. These are unchanged. Previously, there were patchy in filtrates throughout the right lower lobe and right middle lobe, and to a much lesser degree right up per lobe, consistent with pneumonia. Currently, there are alveolar infiltrates throughout the right l ower lobe that are more dense and more nodular than on the previous CT. Furthermore, there are not on ly such nodular infiltrates, but also a region of central consolidation in the right middle lobe. The re are also right upper lobe nodular air space densities which are worse than in the prior study, but less severe than in the right middle lobe and right lower lobe. No such infiltrates are demonstrated in the contralateral left lung. Tiny right pleural effusion. No left pleural effusion. No pneumothor ax. Atherosclerosis, ectasia and tortuosity of the thoracic aorta. Cardiomegaly. Calcification of LAD . Diffuse, severe osteopenia. The peripheral, basilar branches of the bilateral pulmonary arteries ar e difficult to evaluate for PE because of breathing motion. There is no evidence of pulmonary thrombo embolism elsewhere in the rest of the pulmonary arteries. Trachea and left and right mainstem bronchi are patent and clear. Cholecystectomy clips. IMPRESSION: 1. No evidence of pulmonary thromboembolism. 2. Evidence for right sided pneumonia: Air space densities in the right upper lobe, right middle lobe and right lower lobe,. 3. Coronary atherosclerotic disease. 4. 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 jn[] POS: [facility]
[2017-11-22] MEDS ORDERED: Acetaminophen 325 MG TAB PO PRN (21:50)
[2017-11-22] MEDS ORDERED: Ondansetron ODT 4 MG TAB SL PRN (21:50)
[2017-11-22] MEDS ORDERED: Ondansetron HCl/PF 4 MG/2 ML Vial IVP PRN (21:50)
[2017-11-22 22:27] LABS: Lactic Acid 1.2 mmol/L (0.5-2.2)
[2017-11-23] MEDS: Sodium Chloride 0.45% 1,000 ML IV SCH (09:53)
[2017-11-23] MEDS: Acetaminophen/Codeine 30-300mg Tablet PO PRN (10:23)
--- NOTE | 2017-11-23 10:46 | HP ---
CHIEF COMPLAINT: Chest pain. HISTORY OF PRESENT ILLNESS: Ms. Méndez is a 76-year-old female with past medical history of hypertension, diabetes mellitus, avascular necrosis of the left hip, atrial fibrillation, was sent to the hospital from retirement because she complained of chest pain in the retrosternal area and also on the right side. The pain was sharp in nature. She also says she has been coughing since yesterday. Cough is productive with yellow sputum and also had low grade fever, but no nausea, vomiting, no shortness of breath, no headache, no dizziness. According to retirement staff, the patient was doing well in the morning, she was normal herself, eating and alert, cheerful, but in the evening is when she started complaining of these symptoms so she was sent to the hospital. In the ER, the patient was evaluated and found to have extensive right lung pneumonia and temp of 101. She received a dose of meropenem as well as Levaquin. She also received a dose of Diltiazem because of atrial fibrillation with RVR. The patient is admitted for further evaluation and management. The patient was treated in July for a pneumonia of the right lung at that time. PAST MEDICAL HISTORY: 1. Avascular necrosis, left hip with severe chronic left hip pain. 2. Hypertension. 3. Hypothyroidism. 4. Chronic atrial fibrillation, not on anticoagulation. 5. Coronary artery disease, status post stent. 6. History of cerebrovascular accident. 7. Degenerative joint disease. 8. History of aspiration pneumonia, right lung. PAST SURGICAL HISTORY: 1. Status post hysterectomy. 2. Status post multiple amputations of fingers and toes. 3. Status post cholecystectomy. CURRENT MEDICATIONS: The patient is on diltiazem 120 mg daily, aspirin 162 mg daily, Tylenol with codeine q.i.d. p.r.n., levothyroxine 75 mcg daily, metoprolol 12.5 daily, multivitamin daily, Senokot daily, simvastatin 40 mg daily, metformin 500 b.i.d. ALLERGIES: PENICILLIN and LATEX. FAMILY HISTORY: Nothing contributory. SOCIAL HISTORY: Patient lives in [facility]. No history of smoking. No history of alcohol intake. REVIEW OF SYSTEMS: CARDIOVASCULAR: Has pain in the chest, but no shortness of breath. RESPIRATORY: Has cough, fever. GASTROINTESTINAL: No nausea, vomiting, abdominal pain. GENITOURINARY: No dysuria. CENTRAL NERVOUS SYSTEM: No headache, no dizziness. PHYSICAL EXAMINATION: GENERAL: The patient is alert, awake, oriented x3. VITAL SIGNS: Temperature 101.6, pulse 94, respirations 20, blood pressure 130/ 80. HEENT: Head is normocephalic, atraumatic. Pupils are equal and reactive to light. Nasopharynx is pale and dry. Hard and soft palate, no lesions. SKIN: Skin turgor decreased. NECK: Supple. No JVD. LUNGS: Breath sounds diminished right side. Crackles present right side. No wheezing. CARDIAC: S1, S2 irregular, irregular. ABDOMEN: Soft, no distention, no tenderness. Normal bowel sounds present. SKIN: Showed stage II decubiti on the back. EXTREMITIES: Tender in the left hip area. LABORATORY AND X-RAY FINDINGS: CBC shows WBC 14,000, hemoglobin 10, hematocrit 33, platelets 166. Metabolic panel; sodium 139, potassium 4.2, chloride 105, CO2 of 23, urea nitrogen 18, creatinine 0.7, glucose 146. Lactic acid 2.9. Urinalysis negative. Chest x-ray shows extensive right lung infiltrates. CT of the chest, no evidence of pulmonary embolism, showed right-sided pneumonia. EKG shows atrial fibrillation with RVR. ASSESSMENT: 1. Right lung pneumonia, possible aspiration. 2. Chest pain, atypical. 3. Hypertension. 4. Diabetes mellitus. 5. Status post cerebrovascular accident. 6. Avascular necrosis, left hip. 7. Atrial fibrillation with rapid ventricular response. PLAN: 1. Vital signs q.4h. 2. Activities as tolerated. 3. Allergies: PENICILLIN AND LATEX. 4. IV fluids 1/2 normal at 80 mL per hour. 5. Diet; n.p.o. 6. Speech therapy for swallow evaluation. 7. Cefepime 1 gram IV piggyback q.8 hours. 8. Levaquin 750 IV piggyback daily. 9. Accu-Chek a.c. and at bedtime. 10. Sliding scale mild with regular insulin. 11. Continue retirement medications after swallow evaluation. 12. Pulmonary consult. MUKESH
[2017-11-23] MEDS: Metoprolol Tartrate 25 MG TAB PO SCH ×2 (11:50→20:17)
--- NOTE | 2017-11-23 11:57 | CON ---
DATE OF CONSULTATION: 11/23/2017 CONSULTING PHYSICIAN: Dr. Miller REASON FOR CONSULTATION: Pneumonia. HISTORY OF PRESENT ILLNESS: Ms. Méndez is a 76-year-old female who lives in a alf. She was brought to the emergency room last night because she was having chest pain and cough. She underwent evaluation with a chest x-ray and CT scan. CT scan demonstrated significant alveolar infiltrate in the right lung consistent with pneumonia. This patient was seen in the hospital by my partner, Dr. Schroeder, back in July. At that time, she had a right-sided pneumonia that was thought to be aspiration in origin. She had a speech therapy evaluation at that time. She was cleared by Speech to eat at that time. I am not sure if she had any follow up x-rays after that pneumonia. PAST MEDICAL HISTORY: 1. Pneumonia. 2. Hypertension. 3. Hypothyroidism. 4. Chronic atrial fibrillation and is not on anticoagulation. 5. Coronary artery disease requiring coronary stent placement. 6. Cerebrovascular accident. 7. Degenerative joint disease. 8. Hysterectomy. 9. Multiple amputations of fingers and toes. 10. Cholecystectomy. MEDICATIONS PRIOR TO ADMISSION: Diltiazem, aspirin, Tylenol, levothyroxine, metoprolol, multivitamin, Senokot, simvastatin, metformin, doses are listed on the chart. ALLERGIES: PENICILLIN and LATEX. FAMILY MEDICAL HISTORY: Unremarkable. SOCIAL HISTORY: She lives at [facility]. She is never a smoker. Does not consume alcohol. REVIEW OF SYSTEMS: Twelve point review of systems otherwise negative. PHYSICAL EXAMINATION: VITAL SIGNS: Temperature 98.5, pulse 69, respirations 17, O2 sat 94% on room air, blood pressure 124/88. GENERAL: The patient is awake and alert and is in no respiratory distress. HEENT: Pupils react. Sclerae icteric. Oropharynx clear. NECK: No adenopathy, no JVD or bruits. LUNGS: She has some crackles in the right base, best heard posteriorly. Left side is clear. CARDIAC: S1, S2 regular, without murmur or gallop. ABDOMEN: Soft, nontender, nondistended. EXTREMITIES: No clubbing, cyanosis, or edema. Micro cultures show no growth to date. LABORATORY DATA: Sodium 139, potassium 4.2, chloride 105, CO2 23, BUN 18, creatinine 0.7, glucose 146. Lactate was initially 2.9, repeat was 1.2. White blood count 14.3, hematocrit 33.2, platelet count 166. CT and chest x-ray were reviewed by myself personally. ASSESSMENT: 1. Right-sided pneumonia. 2. Acute hypoxic respiratory failure. 3. Other medical problems listed above. RECOMMENDATIONS: 1. The patient needs to continue on current antibiotics - I think cefepime and Levaquin is a reasonable choice. If she worsens, consider adding vancomycin. 2. I will notify Dr. Schroeder of the patient's admission. The above encompassed 70 minutes of time. Of that 70 minutes, >50% was spent with the patient and/or on the patient's hospital unit. MUKESH
[2017-11-23] MEDS: Aspirin 81 mg Enteric Coated Tablet PO SCH (12:03)
[2017-11-23] MEDS: Gabapentin 300 MG CAP PO SCH ×3 (12:03→20:17)
[2017-11-23] MEDS: Polyethylene Glycol 3350 17 GM Packet PO SCH (12:04)
[2017-11-23] MEDS: Ascorbic Acid 500 mg Chewable Tablet PO SCH ×2 (12:04→20:17)
[2017-11-23] MEDS: Multivit, Therapeutic 1 TAB PO SCH (12:04)
[2017-11-23] MEDS ORDERED: Cefepime 1 GM in Sodium Chloride 0.9% 100 ML IVPB SCH (14:00)
--- NOTE | 2017-11-23 14:57 | RAD ---
MODIFIED BARIUM SWALLOW: Date: 11-23-17 History: Possible aspiration, pneumonia, unspecified dysphagia, feeding difficulties. Technique: A modified barium swallow is performed in conjunction with member of the division of speec h pathology. The patient is imaged on the lateral projecting swallowing various consistencies of edvin um. FINDINGS: With mechanical soft there was prominent penetration/aspiration. There is premature spill into the va llecula and pyriform sinuses will all other consistencies. Evaluation of the nectar and thin liquids is limited secondary to issues with patient cooperation. IMPRESSION: Aspiration with mechanical soft. POS: JED
[2017-11-23] MEDS: ASPARTAME TOP SCH (20:17)
[2017-11-23] MEDS: CHOLESTYRAMINE TOP SCH (20:17)
[2017-11-23] MEDS: AQUAPHOR TOP SCH (20:17)
[2017-11-23] MEDS: Atorvastatin Calcium 20 MG TAB PO SCH (20:17)
[2017-11-23] MEDS: Senokot S 8.6-50 MG TAB PO SCH (20:17)
[2017-11-24] MEDS: Acetaminophen/Codeine 30-300mg Tablet PO PRN ×2 (01:24→22:06)
[2017-11-24] MEDS: Sodium Chloride 0.45% 1,000 ML IV SCH ×3 (01:27→22:11)
[2017-11-24] MEDS: Levothyroxine Sodium 75 MCG TAB PO SCH (05:57)
--- NOTE | 2017-11-24 07:42 | CON ---
DATE OF CONSULTATION: 11/23/2017 REASON FOR CONSULTATION: Possible pneumonia. HISTORY OF PRESENT ILLNESS: A 76-year-old patient whom I had seen in 2012 when she presented with fe peg, foot ulcers, right knee pain in a setting of type 2 diabetes, coronary artery disease, and hyper tension with prior amputations. This time, she was brought in with worsening cough, productive of ye llow sputum, fever at the [facility]. According to the nursing staff, she was doing well, just imm ediately before the development of symptoms which occurred in the evening of the same day of admissio n and was sent to the hospital. Initial evaluation showed abnormal chest x-ray with a right-sided pn eumonia, temperature 101. She was given broad-spectrum coverage. Currently, she is feeling a little better. She knew she was in the hospital in [place], but could not tell me the date. Denied any headaches, no sore throat, was hungry and thirsty. No neck pain. No joint symptoms. Cough still p resent. No chest pain, no abdominal pain. She is voiding in the diaper. PAST MEDICAL HISTORY: Avascular necrosis, left hip; hypertension; hypothyroidism; atrial fibrillatio n, not on anticoagulation; coronary artery disease; prior CVA; aspiration pneumonia. PAST SURGICAL HISTORY: Includes hysterectomy, amputations of two fingers and toes, cholecystectomy. MEDICATIONS: Tylenol, vitamin C, cefepime, levofloxacin, Synthroid. SOCIAL HISTORY: [facility], never smoker. FAMILY HISTORY: Noncontributory. PHYSICAL EXAMINATION: VITAL SIGNS: T-max 99.3, blood pressure 140/70, pulse 94, respirations 16, O2 sat 94% on 2 liters. SKIN: Area of erythema, I believe it is in fourth toe, right foot. Some intertriginous maceration a nd ulceration. This shows a little pressure area in the right ischial region, stage II, some intertr iginous maceration in the intergluteal region. Peripheral IV access. No lymphadenopathy. HEENT: Ocular movements conjugate. Sclerae white. Conjunctivae normal. Nasal passages patent. Ar tificial dentures. Oral cavity is moist, no lesions. NECK: Supple. No jugular vein distention. LUNGS: With symmetric breath sounds. HEART: S1, S2 with irregular rate. No S3. ABDOMEN: Soft, not distended or tender. No ascites. Quite prominent panniculus. No bladder disten tion. EXTREMITIES: No joint inflammatory activity. Pulses are 1+ in dorsalis pedis. NEUROLOGIC: Plantar responses are flexure. She is awake, knows her name, but not the date, recollec tion is limited, could not remember the name of the [facility]. LABORATORY DATA: She has a white cell count 14,000, hemoglobin 10, platelets 166 with predominance o f mature neutrophils. Chemistry is fairly unremarkable except for lactic acid 2.9. Liver profile no rmal. Albumin 3.9, globulin 2.7. Urinalysis was normal. Microbiology with pending blood cultures a nd urine culture. Speech Pathology evaluation showed aspiration with mechanical soft. ASSESSMENT: Prior cerebrovascular, atrial fibrillation with evidence of aspiration pneumonia. She h as no teeth, so anaerobes are not an issue in this kind of situation. Lately, the guidelines recomme nd the same management for [facility] as well as the community-acquired pneumonia events or would d iscontinue cefepime, just maintain her on quinolone. If she does not improve in her swallowing funct ion, we will need placement of gastrostomy tube if family is willing to do that.
--- NOTE | 2017-11-24 08:15 | PQF ---
CLINICAL DOCUMENTATION IMPROVEMENT CLARIFICATION FORM: ICD-10 Updated PLEASE DO AN ADDENDUM TO THE PROGRESS NOTE WITH ANY DOCUMENTATION UPDATES OR ADDITIONS AND CARRY THROUGH TO DC SUMMARY. THANK YOU. DATE: 11/24 ATTN: DR. Obed QUINTERO Please exercise your independent, professional judgment in responding to the clarification form. Clinical indicators are provided on the bottom of this form for your review. Please check appropriate box(es): [ ] Sepsis due to: (PNA, UTI, gangrenous gall bladder, etc.) [ ] with organ dysfunction [ ] without organ dysfunction [ ] Severe sepsis with acute organ dysfunction of: (Examples: respiratory failure, encephalopathy, acute kidney failure, other) [ y ] Localized infection without sepsis [ ] Other diagnosis [ ] Unable to determine For continuity of documentation, please document condition throughout progress notes and discharge summary. Thank You. CLINICAL INDICATORS - SIGNS / SYMPTOMS / LABS ER PRESENTATION 11/22: T: 101.6 RR: 36 HR: 141 WBC: 14.3 LACTIC ACID: 2.9 RA SAT: 86% ER TREATMENT 11/22: 1L NS, IV LEVAQUIN, MEROPENEM & VANCOMYCIN ER PHYSICIAN DIAGNOSES 11/22: SEPSIS, PNEUMONIA RISK FACTORS: ASPIRATION PNEUMONIA ACUTE HYPOXIC RESPIRATORY FAILURE (PULMONOLOGY DOCUMENTATION 11/23) TREATMENTS: IV ANTIBIOTICS (LEVAQUIN 11/22 - PRESENT; CEFEPIME 11/23 INFECTIOUS DX CONSULT IVF (NS 11/22 - PRESENT) THANK YOU! Christelle (This form is maintained as a part of the permanent medical record) 2014 [employer]. All Rights Reserved Christelle Mckeon RN, BSN [email or web address] Office: [phone] [facility]
[2017-11-24 09:01] VITALS: BMI 29.1
[2017-11-24] MEDS: Multivit, Therapeutic 1 TAB PO SCH (09:13)
[2017-11-24] MEDS: Ascorbic Acid 500 mg Chewable Tablet PO SCH ×2 (09:13→19:57)
[2017-11-24] MEDS: Gabapentin 300 MG CAP PO SCH ×3 (09:13→19:57)
[2017-11-24] MEDS: Metoprolol Tartrate 25 MG TAB PO SCH ×2 (09:13→19:57)
[2017-11-24] MEDS: CHOLESTYRAMINE TOP SCH ×2 (09:14→19:58)
[2017-11-24] MEDS: ASPARTAME TOP SCH ×2 (09:14→19:58)
[2017-11-24] MEDS: Polyethylene Glycol 3350 17 GM Packet PO SCH (09:14)
[2017-11-24] MEDS: AQUAPHOR TOP SCH ×2 (09:14→19:58)
--- NOTE | 2017-11-24 09:24 | PRG ---
DATE OF SERVICE: 11/24/2017 The patient is about the same. She had no acute complaints. PHYSICAL EXAMINATION: VITAL SIGNS: Temperature is 99.0, T-max 99.6, pulse 69, respirations 18, O2 sat 100%, blood pressure 153/75. HEENT: Unremarkable. NECK: No JVD. LUNGS: She has inspiratory crackles in the right mid lung. CARDIAC: S1 and S2 regular. ABDOMEN: Soft. EXTREMITIES: No edema. ASSESSMENT: Pneumonia - suspect it to be aspiration in origin. RECOMMENDATIONS: She is continuing on cefepime and Levaquin. I would agree with Dr. Lozoya that a fe eding tube may need to be considered. I think she can probably be moved to the medical floor.
[2017-11-24] MEDS: Aspirin 81 mg Enteric Coated Tablet PO SCH (11:33)
[2017-11-24] MEDS: Senokot S 8.6-50 MG TAB PO SCH (19:57)
[2017-11-24] MEDS: Atorvastatin Calcium 20 MG TAB PO SCH (19:57)
[2017-11-25] MEDS: Levothyroxine Sodium 75 MCG TAB PO SCH (05:10)
[2017-11-25] MEDS: Metoprolol Tartrate 25 MG TAB PO SCH ×2 (08:21→21:02)
[2017-11-25] MEDS: Gabapentin 300 MG CAP PO SCH ×3 (08:22→21:02)
[2017-11-25] MEDS: Multivit, Therapeutic 1 TAB PO SCH (08:23)
[2017-11-25] MEDS: Ascorbic Acid 500 mg Chewable Tablet PO SCH ×2 (08:23→21:02)
[2017-11-25] MEDS: ASPARTAME TOP SCH ×2 (08:34→21:09)
[2017-11-25] MEDS: CHOLESTYRAMINE TOP SCH ×2 (08:34→21:09)
[2017-11-25] MEDS: Polyethylene Glycol 3350 17 GM Packet PO SCH (08:34)
[2017-11-25] MEDS: AQUAPHOR TOP SCH ×2 (08:34→21:09)
--- NOTE | 2017-11-25 10:44 | PRG ---
DATE OF SERVICE: 11/25/2017 SUBJECTIVE: Ms. Méndez has no new complaints. PHYSICAL EXAMINATION: VITAL SIGNS: She is afebrile, heart rate 70, blood pressure 166/79, respiratory rate 14, oximetry is 98% on 2 liters. LUNGS: Clear anteriorly and laterally. HEART: Regular rhythm. ABDOMEN: Soft and nontender. EXTREMITIES: Without asymmetry. She appears quite weak and deconditioned. She says she feels a lit tle bit better. IMPRESSION: 1. Pneumonia. 2. Extreme deconditioning. She appears to still be a FULL CODE. 3. Hypertension. 4. Chronic atrial fibrillation. 5. History of avascular necrosis of her hip. 6. History of coronary stenting. 7. History of cerebrovascular accident. 8. History of peripheral vascular disease with multiple amputations of digits. 9. group home resident. PLAN: Continue antimicrobial therapy. We will continue to follow.
[2017-11-25] MEDS: Acetaminophen/Codeine 30-300mg Tablet PO PRN (15:31)
[2017-11-25] MEDS: Sodium Chloride 0.45% 1,000 ML IV SCH (15:34)
[2017-11-25 16:55] LABS: #Eosinphils 0.3 thou/uL (0.0-0.7); #Lymphocytes 1.1 thou/uL (1.20-3.40); #Monocytes 0.5 thou/uL (0.11-0.59); #Neutrophils 4.4 thou/uL (1.40-6.50); %Basophils 0.1 % (0.0-1.0); %Eosinophils 4.4 % (0.0-10.0); %Lymphocytes 17.6 % (21.0-51.0); %Monocytes 7.8 % (0.0-10.0); %Neutrophils 70.1 % (42.0-75.0); Hemoglobin 9.1 g/dL (12.0-16.0); Mean Corpuscular HGB CONC 31.1 g/dL (32.0-36.0); Mean Corpuscular Hemoglobin 27.2 pg (27.0-31.0); Mean Corpuscular Volume 87.4 fL (78.0-98.0); Mean Platelet Volume 7.4 fL (7.4-10.4); Platelet Count 121 thou/uL (130-400); Red Blood Cell (RBC) Count 3.34 mill/uL (4.20-5.40); White Blood Cell (WBC) Count 6.3 thou/uL (4.8-10.8)
--- NOTE | 2017-11-25 18:06 | PRG ---
DATE OF SERVICE: 11/25/2017 SUBJECTIVE: Some cough, no dyspnea, no chest pain, no abdominal pain. Having shooting pains in the left lower extremity, probably related to the left hip aseptic necrosis. OBJECTIVE: VITAL SIGNS: T-max 98.9, blood pressure 160/81, pulse 70, respirations 16, O2 sat 100%. SKIN: Shows the area of erythema in the left ischial region and some intertriginous maceration in th e right foot toe webspace fourth and fifth. ASSESSMENT AND DISCUSSION: Prior cerebrovascular accident with atrial fibrillation, left hip aseptic necrosis. No evidence of aspiration pneumonia. Recheck CBC. Eventual transition to oral antimicro bial therapy for discharge planning.
[2017-11-25] MEDS: Atorvastatin Calcium 20 MG TAB PO SCH (21:02)
[2017-11-25] MEDS: Senokot S 8.6-50 MG TAB PO SCH (21:02)
[2017-11-26] MEDS: Acetaminophen/Codeine 30-300mg Tablet PO PRN ×2 (03:09→14:51)
[2017-11-26] MEDS: Sodium Chloride 0.45% 1,000 ML IV SCH ×2 (03:19→18:15)
[2017-11-26 05:33] LABS: #Eosinphils 0.3 thou/uL (0.0-0.7); #Lymphocytes 1.1 thou/uL (1.20-3.40); #Monocytes 0.8 thou/uL (0.11-0.59); #Neutrophils 5.1 thou/uL (1.40-6.50); %Basophils 0.3 % (0.0-1.0); %Eosinophils 4.2 % (0.0-10.0); %Lymphocytes 14.5 % (21.0-51.0); %Monocytes 10.4 % (0.0-10.0); %Neutrophils 70.6 % (42.0-75.0); Hemoglobin 8.4 g/dL (12.0-16.0); Mean Corpuscular HGB CONC 30.6 g/dL (32.0-36.0); Mean Corpuscular Hemoglobin 27.4 pg (27.0-31.0); Mean Corpuscular Volume 89.5 fL (78.0-98.0); Mean Platelet Volume 7.8 fL (7.4-10.4); Platelet Count 122 thou/uL (130-400); RBC Distribution Width 17.2 % (11.5-14.5); Red Blood Cell (RBC) Count 3.07 mill/uL (4.20-5.40); White Blood Cell (WBC) Count 7.3 thou/uL (4.8-10.8)
[2017-11-26 05:43] LABS: Anion Gap 11 mmol/L (10-20); BUN (Urea Nitrogen) 10 mg/dL (9.8-20.1); Calc. Creatinine Clearance 83 mL/min (70-130); Calcium 9.1 mg/dL (7.8-10.44); Carbon Dioxide 24 mmol/L (23-31); Chloride 109 mmol/L (98-107); Estimated GFR-MDRD 90; Glucose 123 mg/dL (83-110); Potassium 3.8 mmol/L (3.5-5.1); Sodium 140 mmol/L (136-145)
[2017-11-26] MEDS: Levothyroxine Sodium 75 MCG TAB PO SCH (05:56)
[2017-11-26] MEDS: Gabapentin 300 MG CAP PO SCH ×3 (08:10→20:00)
[2017-11-26] MEDS: Multivit, Therapeutic 1 TAB PO SCH (08:11)
[2017-11-26] MEDS: Metoprolol Tartrate 25 MG TAB PO SCH ×2 (08:11→20:01)
[2017-11-26] MEDS: Ascorbic Acid 500 mg Chewable Tablet PO SCH ×2 (08:11→20:00)
[2017-11-26] MEDS: CHOLESTYRAMINE TOP SCH ×2 (08:12→20:10)
[2017-11-26] MEDS: AQUAPHOR TOP SCH ×2 (08:12→20:10)
[2017-11-26] MEDS: ASPARTAME TOP SCH ×2 (08:12→20:10)
[2017-11-26] MEDS: Polyethylene Glycol 3350 17 GM Packet PO SCH (08:12)
--- NOTE | 2017-11-26 14:48 | PRG ---
DATE OF SERVICE: 11/26/2017 SUBJECTIVE: This morning, she is better. She denies any difficulty breathing. No coughing or wheezing. OBJECTIVE: VITAL SIGNS: Sats are 90% on 1 L, blood pressure 116/79, temperature 98. CHEST: Decreased breath sounds without any wheezing. CARDIAC: Normal S1 and S2, no gallops. ABDOMEN: Soft, no masses. LABORATORY DATA: White count 7000, H and H 8 and 27, platelet count 122. Electrolytes are normal. IMPRESSION: Pneumonia, sepsis, severe deconditioning. PLAN: Levaquin by mouth. Supportive care. We will follow.
--- NOTE | 2017-11-26 15:35 | EKG ---
Test Reason : Blood Pressure : / mmHG Vent. Rate : 133 BPM Atrial Rate : 131 BPM P-R Int : 000 ms QRS Dur : 080 ms QT Int : 312 ms P-R-T Axes : 000 051 200 degrees QTc Int : 464 ms Atrial fibrillation with rapid ventricular response Marked ST abnormality, possible inferolateral subendocardial injury Abnormal ECG Confirmed by NITA MORRIS M.D. ([id number]), offline editor IMANI AVINA ([id number]) on 11/26/2017 3:34:47 PM Referred By: Confirmed By:NITA MORRIS M.D.
[2017-11-26] MEDS: Atorvastatin Calcium 20 MG TAB PO SCH (20:00)
[2017-11-26] MEDS: Senokot S 8.6-50 MG TAB PO SCH (20:00)
[2017-11-27] MEDS: Levothyroxine Sodium 75 MCG TAB PO SCH (04:22)
[2017-11-27] MEDS: Sodium Chloride 0.45% 1,000 ML IV SCH ×3 (04:29→20:33)
[2017-11-27] MEDS: Acetaminophen/Codeine 30-300mg Tablet PO PRN (04:30)
[2017-11-27] MEDS: Metoprolol Tartrate 25 MG TAB PO SCH ×2 (09:02→20:36)
[2017-11-27] MEDS: Gabapentin 300 MG CAP PO SCH ×3 (09:03→20:35)
[2017-11-27] MEDS: Multivit, Therapeutic 1 TAB PO SCH (09:03)
[2017-11-27] MEDS: Ascorbic Acid 500 mg Chewable Tablet PO SCH ×2 (09:03→20:35)
[2017-11-27] MEDS: ASPARTAME TOP SCH ×2 (09:04→22:00)
[2017-11-27] MEDS: AQUAPHOR TOP SCH ×2 (09:04→22:00)
[2017-11-27] MEDS: CHOLESTYRAMINE TOP SCH ×2 (09:04→22:00)
[2017-11-27] MEDS: Polyethylene Glycol 3350 17 GM Packet PO SCH (09:04)
--- NOTE | 2017-11-27 13:19 | PRG ---
DATE OF SERVICE: 11/27/2017 SUBJECTIVE: This morning, she said that she is feeling somewhat better. OBJECTIVE: VITAL SIGNS: Sats are 97% on 2 liters, respirations 14, blood pressure is 163/81, temperature 97. CHEST: Decreased breath sounds, no wheezing. CARDIAC: Normal S1 and S2. No gallops. ABDOMEN: Soft, without any mass. IMPRESSION: Pneumonia with deconditioning CVA. PLAN: Levaquin, continue PT and supportive care. Probably we can switch her over to oral medication .
[2017-11-27] MEDS: Senokot S 8.6-50 MG TAB PO SCH (20:35)
[2017-11-27] MEDS: Atorvastatin Calcium 20 MG TAB PO SCH (20:36)
[2017-11-28] MEDS: Levothyroxine Sodium 75 MCG TAB PO SCH (05:56)
[2017-11-28] MEDS: Sodium Chloride 0.45% 1,000 ML IV SCH ×2 (05:59→18:22)
[2017-11-28] MEDS: Polyethylene Glycol 3350 17 GM Packet PO SCH (09:14)
[2017-11-28] MEDS: AQUAPHOR TOP SCH ×2 (09:15→20:29)
[2017-11-28] MEDS: ASPARTAME TOP SCH ×2 (09:15→20:29)
[2017-11-28] MEDS: CHOLESTYRAMINE TOP SCH ×2 (09:15→20:29)
[2017-11-28] MEDS: Multivit, Therapeutic 1 TAB PO SCH (09:16)
[2017-11-28] MEDS: Gabapentin 300 MG CAP PO SCH ×3 (09:16→20:27)
[2017-11-28] MEDS: Ascorbic Acid 500 mg Chewable Tablet PO SCH ×2 (09:16→20:27)
[2017-11-28] MEDS: Metoprolol Tartrate 25 MG TAB PO SCH ×2 (09:17→20:28)
--- NOTE | 2017-11-28 11:41 | PQF ---
CLINICAL DOCUMENTATION IMPROVEMENT CLARIFICATION FORM: ICD-10 Updated PLEASE DO AN ADDENDUM TO THE PROGRESS NOTE WITH ANY DOCUMENTATION UPDATES OR ADDITIONS AND CARRY THROUGH TO DC SUMMARY. THANK YOU. DATE: 11/28 ATTN: DR. Obed QUINTERO Please exercise your independent, professional judgment in responding to the clarification form. Clinical indicators are provided on the bottom of this form for your review. Please check appropriate box(s): [ y] Aspiration Pneumonia [ ] Empirically treating Gram Negative Pneumonia [ ] Pneumonia secondary to (specify organism / underlying disease) [ ] Other diagnosis [ ] Unable to determine For continuity of documentation, please document condition throughout progress notes and discharge summary. Thank You. CLINICAL INDICATORS - SIGNS / SYMPTOMS / LABS PHYSICIAN H&P 11/22: HX OF PRESENT ILLNESS: IN THE ER, THE PT WAS EVALUATED & FOUND TO HAVE EXTENSIVE R LUNG PNEUMONIA. PAST MEDICAL HX: 8) HX OF ASPIRATION PNEUMONIA, R LUNG. CXR (11/22) SHOWS EXTENSIVE R LUNG INFILTRATES, CT CHEST (11/22) SHOWED R SIDED PNEUMONIA ASSESSMENT: 1) R LUNG PNEUMONIA, POSSIBLE ASPIRATION ATTENDING PHYSICIAN PN 11/23 & : 1) PNEUMONIA R LUNG, ASPIRATION; PN & 11/27 - 1) PNEUMONIA R LUNG PULMONOLOGY PN 11/24: PNEUMONIA - SUSPECT ASPIRATION IN ORIGIN INFECTIOUS DX PN 11/25: ASPIRATION PNEUMONIA, RULED OUT MODIFIED BARIUM SWALLOW 11/23: IMPRESSION: ASPIRATION WITH MECHANICAL SOFT RISK FACTORS: HX OF ASPIRATION PNEUMONIA ACUTE HYPOXIC RESPIRATORY FAILURE POSITIVE ASPIRATION ON MODIFIED BARIUM SWALLOW (11/23) TREATMENTS: IV ANTIBIOTICS (LEVAQUIN 11/22 - 11/27; CEFEPIME 11/23) PULMONARY CONSULT INFECTIOUS DX CONSULT THANK YOU! Christelle (This form is maintained as a part of the permanent medical record) 2014 [employer]. All Rights Reserved Christelle Mckeon RN, BSN [email or web address] Office: [phone] [facility]
--- NOTE | 2017-11-28 12:50 | PRG ---
DATE OF SERVICE: 11/28/2017 SUBJECTIVE: Margaret Méndez is in no distress. She was taking her medicines and pudding when I saw her this morning. OBJECTIVE: VITAL SIGNS: She is afebrile, heart rate 72, blood pressure is 179/99, respiratory rate is 20, oxime try is 97 on 2 liters. LUNGS: Clear. She is adequately clearing her secretions. HEART: Regular rhythm. ABDOMEN: Soft. IMPRESSION: 1. Pneumonia. 2. Extreme deconditioning. 3. History of cerebrovascular accident. PLAN: Continue supportive care.
[2017-11-28] MEDS ORDERED: cloNIDine 0.1 MG TAB PO PRN (13:43)
[2017-11-28] MEDS: Acetaminophen/Codeine 30-300mg Tablet PO PRN (16:49)
[2017-11-28] MEDS: Atorvastatin Calcium 20 MG TAB PO SCH (20:27)
[2017-11-28] MEDS: Senokot S 8.6-50 MG TAB PO SCH (20:28)
[2017-11-29 05:40] LABS: #Eosinphils 0.3 thou/uL (0.0-0.7); #Lymphocytes 1.3 thou/uL (1.20-3.40); #Monocytes 0.6 thou/uL (0.11-0.59); %Basophils 0.2 % (0.0-1.0); %Eosinophils 4.6 % (0.0-10.0); %Lymphocytes 17.9 % (21.0-51.0); %Monocytes 8.8 % (0.0-10.0); %Neutrophils 68.5 % (42.0-75.0); Hemoglobin 8.7 g/dL (12.0-16.0); Mean Corpuscular HGB CONC 31.6 g/dL (32.0-36.0); Mean Corpuscular Hemoglobin 27.6 pg (27.0-31.0); Mean Corpuscular Volume 87.4 fL (78.0-98.0); Mean Platelet Volume 7.8 fL (7.4-10.4); Platelet Count 121 thou/uL (130-400); RBC Distribution Width 16.7 % (11.5-14.5); Red Blood Cell (RBC) Count 3.17 mill/uL (4.20-5.40); White Blood Cell (WBC) Count 7.2 thou/uL (4.8-10.8)
[2017-11-29] MEDS: Levothyroxine Sodium 75 MCG TAB PO SCH (05:44)
[2017-11-29] MEDS: Sodium Chloride 0.45% 1,000 ML IV SCH ×2 (05:49→20:32)
[2017-11-29 05:59] LABS: Anion Gap 9 mmol/L (10-20); BUN (Urea Nitrogen) 11 mg/dL (9.8-20.1); Calc. Creatinine Clearance 80 mL/min (70-130); Calcium 9.6 mg/dL (7.8-10.44); Carbon Dioxide 31 mmol/L (23-31); Chloride 107 mmol/L (98-107); Estimated GFR-MDRD 87; Glucose 127 mg/dL (83-110); Potassium 3.6 mmol/L (3.5-5.1); Sodium 143 mmol/L (136-145)
[2017-11-29] MEDS: Gabapentin 300 MG CAP PO SCH ×3 (08:23→20:31)
[2017-11-29] MEDS: Multivit, Therapeutic 1 TAB PO SCH (08:24)
[2017-11-29] MEDS: Metoprolol Tartrate 25 MG TAB PO SCH ×2 (08:24→20:31)
[2017-11-29] MEDS: Ascorbic Acid 500 mg Chewable Tablet PO SCH ×2 (08:24→20:30)
[2017-11-29] MEDS: ASPARTAME TOP SCH ×2 (08:34→20:32)
[2017-11-29] MEDS: AQUAPHOR TOP SCH ×2 (08:34→20:32)
[2017-11-29] MEDS: Polyethylene Glycol 3350 17 GM Packet PO SCH (08:34)
[2017-11-29] MEDS: CHOLESTYRAMINE TOP SCH ×2 (08:34→20:32)
[2017-11-29] MEDS: Acetaminophen/Codeine 30-300mg Tablet PO PRN (20:30)
[2017-11-29] MEDS: Atorvastatin Calcium 20 MG TAB PO SCH (20:31)
[2017-11-29] MEDS: Senokot S 8.6-50 MG TAB PO SCH (20:31)
[2017-11-30] MEDS: Levothyroxine Sodium 75 MCG TAB PO SCH (05:22)
[2017-11-30] MEDS: Acetaminophen/Codeine 30-300mg Tablet PO PRN (05:39)
[2017-11-30] MEDS: Polyethylene Glycol 3350 17 GM Packet PO SCH (07:28)
[2017-11-30] MEDS: Gabapentin 300 MG CAP PO SCH (07:28)
[2017-11-30] MEDS: Metoprolol Tartrate 25 MG TAB PO SCH (07:29)
[2017-11-30] MEDS: Multivit, Therapeutic 1 TAB PO SCH (07:29)
[2017-11-30] MEDS: Ascorbic Acid 500 mg Chewable Tablet PO SCH (07:29)
[2017-11-30] MEDS: Sodium Chloride 0.45% 1,000 ML IV SCH (07:30)
[2017-11-30 07:36] VITALS: BP 144/74; TEMP 98.4
[2017-11-30] MEDS: ASPARTAME TOP SCH (07:40)
[2017-11-30] MEDS: AQUAPHOR TOP SCH (07:40)
[2017-11-30] MEDS: CHOLESTYRAMINE TOP SCH (07:40)
--- NOTE | 2017-12-01 12:43 | DIS ---
ADMITTING DIAGNOSIS: 1. Right lung pneumonia, possible aspiration. 2. Chest pain, atypical. 3. Hypertension. 4. Diabetes mellitus. 5. Status post cerebrovascular accident. 6. Avascular necrosis, left hip. 7. Atrial fibrillation with rapid ventricular response. FINAL DIAGNOSES: 1. Aspiration pneumonia, right lung, improving. 2. Atypical chest pain, resolved. 3. Atrial fibrillation with rapid ventricular rate, improved. 4. Hypertension, uncontrolled, improved. 5. Diabetes mellitus. 6. Status post cerebrovascular accident. 7. History of avascular necrosis of left hip. BRIEF SUMMARY OF HOSPITAL COURSE: Ms. Méndez is a 76-year-old female admitted because of ch est pain, cough and fever. The patient was found to have right lung pneumonia, possibly due to aspir ation. The patient was started on IV antibiotics initially with cefepime and Levaquin. A consultati on was done with Infectious Disease. The patient was seen by Dr. Lozoya. He says the patient possibl y has aspiration pneumonia, suggested to continue with Levaquin and discontinue cefepime as per the l atest guidelines for pneumonia in the jail patients. The patient was also seen by Pulmonary. She was seen by Dr. Hess. He says to continue IV antibiotics for the pneumonia. 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 So, in the next few days, the patient markedly impr zachery. Her fever resolved, cough better, chest pain resolved. Her atrial fibrillation was controlled . The patient's blood pressure was initially elevated, but later it came down with adjustment of med ication. So in view of improvement, the patient was discharged. At the time of discharge, she was s table. Her vital signs were stable. Lungs clear. Heart sounds regular. Abdomen soft. Bowel sound s present. DISCHARGE MEDICATIONS: Aspirin 162 mg daily, gabapentin 600 t.i.d., simvastatin 40 mg daily, levothy roxine 5 mcg daily, metformin 1000 b.i.d., multivitamin daily, Senokot daily, Tylenol with codeine p. r.n., MiraLax daily 17 grams. Clonidine p.r.n., metoprolol 25 mg b.i.d., levofloxacin 750 daily for 10 days, Cardizem 180 mg daily, Lipitor 20 mg daily. FOLLOWUP: The [facility] will be [facility] up at the jail.
== END 2017-11-30 09:18 | DRG 177 ==
LOC: ERS 16:41 → 2NO 18:06 → T4-B 11-24 11:32
PROVIDERS: ADMIT Internal Medicine; ATTEND Internal Medicine
DX: J69.0 Pneumonitis due to inhalation of food and vomit (principal); J96.01 Acute respiratory failure with hypoxia; M87.9 Osteonecrosis, unspecified; I10 Essential (primary) hypertension; E11.9 Type 2 diabetes mellitus without complications; I48.2 Chronic atrial fibrillation; E03.9 Hypothyroidism, unspecified; I25.10 Atherosclerotic heart disease of native coronary artery without angina pectoris; L89.312 Pressure ulcer of right buttock, stage 2; I73.9 Peripheral vascular disease, unspecified; Z86.73 Personal history of transient ischemic attack (TIA), and cerebral infarction without residual deficits; Z88.0 Allergy status to penicillin; Z91.040 Latex allergy status; Z95.5 Presence of coronary angioplasty implant and graft; Z79.84 Long term (current) use of oral hypoglycemic drugs; Z79.82 Long term (current) use of aspirin; Z79.899 Other long term (current) drug therapy
CPT/HCPCS: 36415; 36416; 51701; 71045; 71275; 74230; 80048; 80053; 81003; 83605; 84484; 85025; 87040; 87086; 93005; 94760; 96361; 96365; 96367; 96375; A4216; A4353; G8996-GN-CL; G8996-GN-CM; G8997-GN-CK; J0692; J1956; J2185; J3370; J7050

== ENCOUNTER 2017-12-07 15:33 | Emergency (ER) | payer MEDICARE, OTHER | END 2017-12-07 17:07 | disposition home or self-care (01) | LOC: ERS 15:33 | DX: I73.9 Peripheral vascular disease, unspecified (principal); E78.5 Hyperlipidemia, unspecified; Z86.73 Personal history of transient ischemic attack (TIA), and cerebral infarction without residual deficits; E03.9 Hypothyroidism, unspecified; E11.9 Type 2 diabetes mellitus without complications; I10 Essential (primary) hypertension; I48.91 Unspecified atrial fibrillation | CPT/HCPCS: 99283 ==

== ENCOUNTER 2017-12-23 13:50 | Inpatient (IN) | payer MEDICARE, OTHER ==
[2017-12-23 14:20] LABS: #Eosinphils 0.5 thou/uL (0.0-0.7); #Lymphocytes 1.4 thou/uL (1.20-3.40); #Monocytes 0.5 thou/uL (0.11-0.59); #Neutrophils 6.4 thou/uL (1.40-6.50); %Basophils 0.1 % (0.0-1.0); %Eosinophils 5.1 % (0.0-10.0); %Lymphocytes 16.1 % (21.0-51.0); %Monocytes 5.8 % (0.0-10.0); %Neutrophils 72.9 % (42.0-75.0); Mean Corpuscular HGB CONC 31.7 g/dL (32.0-36.0); Mean Corpuscular Hemoglobin 27.6 pg (27.0-31.0); Mean Corpuscular Volume 87.3 fL (78.0-98.0); Platelet Count 124 thou/uL (130-400); RBC Distribution Width 17.4 % (11.5-14.5); Red Blood Cell (RBC) Count 3.24 mill/uL (4.20-5.40); White Blood Cell (WBC) Count 8.8 thou/uL (4.8-10.8)
--- NOTE | 2017-12-23 14:35 | RAD ---
RADIOGRAPH CHEST 1 VIEW: Date: 12-23-17 Time: 2:11 p.m. HISTORY: 76-year-old female with chest pain. COMPARISON: 11-22-17 FINDINGS: Alveolar infiltrate at right lower lung zone has improved. There is cardiomegaly. No pneumothorax. IMPRESSION: 1. Right lower lobe pneumonia has improved, but significant infiltrate remains. 2. Cardiomegaly. ONOFRE POS: JED
[2017-12-23 14:44] LABS: ALT (SGPT) 13 U/L (8-55); AST (SGOT) 18 U/L (5-34); Albumin 3.4 g/dL (3.4-4.8); Alkaline Phosphatase 94 U/L (40-150); Anion Gap 9 mmol/L (10-20); BUN (Urea Nitrogen) 19 mg/dL (9.8-20.1); Bilirubin, Total 1.1 mg/dL (0.2-1.2); Calc. Creatinine Clearance 0 mL/min (70-130); Calcium 9.1 mg/dL (7.8-10.44); Carbon Dioxide 26 mmol/L (23-31); Chloride 109 mmol/L (98-107); Estimated GFR-MDRD 77; Glucose 124 mg/dL (83-110); Potassium 4.1 mmol/L (3.5-5.1); Protein, Total 6.4 g/dL (6.0-8.3); Sodium 140 mmol/L (136-145)
[2017-12-23 14:48] LABS: CKMB 1.1 ng/mL (0-6.6); Troponin I Less than 0.010 ng/mL (< 0.028)
[2017-12-23] MEDS ORDERED: Cefepime 2 GM VIAL ONE (16:04)
[2017-12-23 17:58] LABS: Troponin I 0.016 ng/mL (< 0.028)
[2017-12-23] MEDS ORDERED: Ondansetron HCl/PF 4 MG/2 ML Vial IVP PRN (18:35)
[2017-12-23] MEDS ORDERED: Ondansetron ODT 4 MG TAB SL PRN (18:35)
[2017-12-23] MEDS ORDERED: Vancomycin HCl 1 GM in Premix Bag 1 BAG IVPB SCH (18:45)
[2017-12-23 18:51] VITALS: BMI 24.4
[2017-12-23 20:54] LABS: Troponin I 0.022 ng/mL (< 0.028)
[2017-12-23] MEDS ORDERED: Dextrose 50% Abboject 50 ML SYRINGE IVP PRN (21:07)
[2017-12-23] MEDS ORDERED: Dextrose 5% in Water 1,000 ML IV PRN (21:07)
[2017-12-23] MEDS ORDERED: Ondansetron ODT 4 MG TAB PO PRN (21:09)
[2017-12-23] MEDS ORDERED: cloNIDine 0.1 MG TAB PO PRN (21:10)
[2017-12-24] MEDS: Cefepime 1 GM in Sodium Chloride 0.9% 100 ML IVPB SCH ×3 (02:51→17:18)
[2017-12-24] MEDS: Acetaminophen/Codeine 30-300mg Tablet PO PRN ×2 (03:16→20:55)
[2017-12-24] MEDS: Levothyroxine Sodium 75 MCG TAB PO SCH (05:48)
[2017-12-24] MEDS: Polyethylene Glycol 3350 17 GM Packet PO SCH (08:33)
[2017-12-24] MEDS: Multivit, Therapeutic 1 TAB PO SCH (08:35)
[2017-12-24] MEDS: Gabapentin 300 MG CAP PO SCH ×3 (08:35→20:55)
[2017-12-24] MEDS: Ascorbic Acid 500 mg Chewable Tablet PO SCH ×2 (08:36→20:53)
[2017-12-24] MEDS: Metoprolol Tartrate 25 MG TAB PO SCH ×2 (08:36→20:55)
[2017-12-24] MEDS: metFORMIN 500 MG TAB PO SCH ×2 (08:36→17:17)
[2017-12-24] MEDS: Nystatin Powder 15 GM BOT TOP SCH ×2 (08:37→20:56)
--- NOTE | 2017-12-24 14:42 | CON ---
DATE OF CONSULTATION: 12/24/2017 REASON FOR CONSULTATION: Chest pain. PRIMARY CARE PROVIDER: Dr. Karan Miller. HISTORY OF PRESENT ILLNESS: Ms. Méndez is a very pleasant 68-year-old woman who recently presented wi th chest pain. She states this as left upper chest. It is reproducible. It is sharp in nature, wor se with deep breath. No associated ameliorating or exacerbating factors present. PAST MEDICAL HISTORY: Avascular necrosis of left hip, hypertension, hypothyroidism, previous CVA, as piration pneumonia, CAD. PAST SURGICAL HISTORY: Hysterectomy and cholecystectomy. SOCIAL HISTORY: She currently resides in a fpc. FAMILY HISTORY: Negative for CAD. HOME MEDICATIONS: Metformin, clonidine, simvastatin, multivitamin, metoprolol, levothyroxine, gabape ntin, aspirin, ascorbic acid, Zofran, nystatin and diltiazem. REVIEW OF SYSTEMS: Ten-point review of systems is reviewed as above, otherwise negative. PHYSICAL EXAMINATION: GENERAL: Patient is a pleasant female who is in no acute distress. The patient appears her stated a ge. VITAL SIGNS: Blood pressure 142/61, pulse 66, temperature 98.3. NEUROLOGIC: The patient is alert and oriented times 3 with no focal neurologic deficits. HEENT: Sclerae without icterus. Mouth has moist mucous membranes with normal pallor. NECK: No JVD. Carotid upstroke brisk. No bruits bilaterally. LUNGS: Clear to auscultation with unlabored respirations. Pain noted to the right upper chest regio n that is moderately painful to palpation.. BACK: No scoliosis or kyphosis. CARDIAC: Regular rate and rhythm with normal S1 and S2. No S3 or S4 noted. No significant rubs, mu rmurs, thrills, or gallops noted throughout the precordium. PMI is not displaced. There is no emma ternal heave. ABDOMEN: Soft, nontender, nondistended. No peritoneal signs present. No hepatosplenomegaly. No ab normal striae. EXTREMITIES: 2+ femoral and 2+ dorsalis pedis pulses. No cyanosis, clubbing, or edema. SKIN: No gross abnormalities. PERTINENT LABORATORY DATA: CK and troponin negative. Hemoglobin 9. BNP of 460. IMPRESSION: Chest pain. RECOMMENDATIONS: Ms. Méndez's symptoms are not felt to be consistent with angina. Her symptoms are r eproducible. This is likely musculoskeletal in origin. Her heart score is estimated at 3. Her hemo globin is also 9. At this point, I recommend conservative therapy. May consider anti-inflammatory t reatment. This is discussed with Dr. Karan Miller. From my standpoint, it would be okay to tra nsfer to medical if her hospitalization is felt to be longer than several days. Dr. Steph Crockett, h primary commercial specialist.
[2017-12-24] MEDS: Senokot S 8.6-50 MG TAB PO SCH (20:55)
[2017-12-24] MEDS: Simvastatin 40 MG TAB PO SCH (20:56)
--- NOTE | 2017-12-24 20:58 | CON ---
DATE OF CONSULTATION: 12/24/2017 HISTORY OF PRESENT ILLNESS: Ms. Méndez is an unfortunate 76-year-old female from the long term, o presents to the hospital yesterday with symptoms of left-sided chest pain, but no shortness of patrick th, coughing or wheezing. She has a residual right-sided infiltrate which has been improved, stable since the last several corey hs. EKG was abnormal. She was admitted. Cardiology has been consulted. This morning, she says she is feeling somewhat better. She was seen in 07/2017, pulmonary mishra, right lower lobe pneumonia, which has since improved. She is very weak. PAST MEDICAL HISTORY: Pertinent for CVA in 2007, chronic atrial fibrillation, arthritis, hypothyroid ism, diabetes and hypertension. PAST SURGICAL HISTORY: Hysterectomy, cholecystectomy, amputation of toes and fingers, eye surgery, c ataracts, swallow study. MEDICATIONS: From home includes metformin 1000 twice a day, Catapres 0.1, simvastatin 40, Lopressor 25 b.i.d., Synthroid 75, gabapentin 600, Cardizem 180. She is now started on Maxipime. ALLERGIES: PENICILLIN. REVIEW OF SYSTEMS: Otherwise, 10-point negative. SOCIAL HISTORY: No tobacco or alcohol abuse. PHYSICAL EXAMINATION: VITAL SIGNS: This morning, her sats are 95% on room air, respirations 14, temperature 99, blood pres sure 140/81. CHEST: Decreased breath sounds, no wheezing, minimal crackles. CARDIAC: Normal S1, S2. No gallops. ABDOMEN: Soft, no masses. All cultures are negative. LABORATORY DATA AND IMAGING: Shows BUN and creatinine are normal. White count was only 8,000, H&H 9 and 28 and platelet count 124. X-ray as mentioned, improving right pneumonia. IMPRESSION: 1. Right pneumonia. 2. Congestive heart failure. 3. Chest pain. 4. Cerebrovascular accident. 5. Hypertension. 6. Hypothyroidism. PLAN: Agree with Maxipime. I am not so sure what she has is residual scarring, pneumonia or actuall y a new infection. She has a normal white count. I may suggest switching over to an oral antibiotic in the next 24-48 h ours. Await cardiac input. Consultation note, 70 minutes, 50% in direct patient care.
[2017-12-25] MEDS: Cefepime 1 GM in Sodium Chloride 0.9% 100 ML IVPB SCH ×3 (01:09→15:30)
[2017-12-25] MEDS: Levothyroxine Sodium 75 MCG TAB PO SCH (06:44)
--- NOTE | 2017-12-25 07:35 | HP ---
DATE OF ADMISSION: 12/23/2017 REASON FOR ADMISSION AND CHIEF COMPLAINT: Chest pain on the left side and cough. HISTORY OF PRESENT ILLNESS: Ms. Méndez is a 76-year-old female with past medical history of hypertension, diabetes, chronic pain left hip due to avascular necrosis, came because the patient started complaining of pain in the left side of the chest. No shortness of breath. No nausea or vomiting. The patient also has cough productive with yellow sputum. No fever. The patient was recently treated for pneumonia in the right side. So, the patient was sent to the hospital because of this pain. In the ER, the patient was evaluated. The patient's chest pain has improved, but she was found to have an infiltrate in the right lower lobe in the right lung. The ER physician felt patient still has pneumonia, persistent, though improved from the previous chest x-ray. So, the patient was given antibiotics with cefepime, vancomycin, and gentamicin and admitted for further evaluation and management, also recent bolus of 500 mL normal saline. Currently, the patient does complain of pain in the left side of the chest. PAST MEDICAL HISTORY: 1. Hypertension. 2. Diabetes mellitus. 3. Hyperlipidemia. 4. Hypothyroidism. 5. Peripheral vascular disease. 6. Chronic atrial fibrillation. 7. Coronary artery disease, status post stent. 8. History of cerebrovascular disease. 9. Degenerative joint disease. 10. History of aspiration pneumonia, right lung. PAST SURGICAL HISTORY: 1. Status post hysterectomy. 2. Status post multiple amputations of fingers and toes. 3. Status post cholecystectomy. CURRENT MEDICATIONS: The patient is on Tylenol with codeine 1 q.4-6 h., p.r.n. , vitamin C 500 mg b.i.d., aspirin 162 mg daily, clonidine p.r.n. and Cardizem CD 180 mg daily, gabapentin 600 mg t.i.d., levothyroxine 75 mcg daily, metformin 1000 mg b.i.d., metoprolol 25 b.i.d., multivitamin daily, Nystatinpowder daily,, MiraLax 17 grams daily, Senokot daily, and Zocor 40 mg daily. ALLERGIES: PENICILLIN AND LATEX. FAMILY HISTORY: Nothing of interest. SOCIAL HISTORY: The patient is a resident of [facility]. No history of smoking. No history of alcohol intake. REVIEW OF SYSTEMS: Cardiovascular: Has chest pain, sharp in the left side. No diaphoresis, no shortness of breath. Respiratory: No fever. Has cough. Gastrointestinal: No nausea, vomiting, or abdominal pain. Genitourinary: No dysuria or hematuria. Central nervous system: No headache, no dizziness. PHYSICAL EXAMINATION: GENERAL: The patient is alert, awake, oriented x3. VITAL SIGNS: Temperature is 98, pulse 75, respiration 20, and blood pressure 130/60. HEENT: Head is normocephalic and atraumatic. Pupils are equal and reactive to light. Nasopharynx is pale and dry. Hard and soft palate, no lesions seen. SKIN: Turgor decreased. NECK: Supple. No JVD. CHEST: Chest wall tender on the left side. LUNGS: Breath sounds diminished bilaterally. Percussion dull bilaterally. No rales, no rhonchi CARDIAC: S1 and S2. Irregularly irregular. ABDOMEN: Soft, no distention, no tenderness. No organomegaly. Bowel sounds present. RECTAL: Deferred. CENTRAL NERVOUS SYSTEM: No focal deficit. LABORATORY AND X-RAY FINDINGS: CBC shows WBC 8.8, hemoglobin 9, hematocrit 28, platelets 124. Metabolic panel: Sodium 140, potassium 4.1, chloride 109, CO2 of 26, urea nitrogen 19, creatinine 0.7, glucose 124. BNP 450. CK-MB 1.1, troponin I less than 0.010. Chest x-ray shows infiltrate in the right lower lobe and . EKG shows atrial fibrillation with controlled ventricular rate , no acute ST-T wave changes seen. ASSESSMENT: 1. Possible pneumonia, right lower lobe. 2. Chest wall pain, left side. 3. Hypertension. 4. Diabetes mellitus. 5. Dementia. 6. Avascular necrosis, left hip. 7. Peripheral vascular disease. 8. Status post cerebrovascular accident. PLAN: 1. Vital signs q.4 hours. 2. Activity: As tolerated. 3. Allergies: PENICILLIN, LATEX. 4. Hep-Lock. 5. Cefepime 1 gram IV piggyback q.8 hours. 6. Continue her longterm medication. 7. Diet: ADA. 8. Tylenol with codeine p.r.n. We will give an injection with Toradol 1 dose. MTDD
[2017-12-25] MEDS: metFORMIN 500 MG TAB PO SCH ×2 (09:12→17:29)
[2017-12-25] MEDS: Gabapentin 300 MG CAP PO SCH ×3 (09:12→20:27)
[2017-12-25] MEDS: Ascorbic Acid 500 mg Chewable Tablet PO SCH ×2 (09:12→20:27)
[2017-12-25] MEDS: Metoprolol Tartrate 25 MG TAB PO SCH ×2 (09:13→20:27)
[2017-12-25] MEDS: Multivit, Therapeutic 1 TAB PO SCH (09:13)
[2017-12-25] MEDS: Nystatin Powder 15 GM BOT TOP SCH ×2 (09:15→20:27)
[2017-12-25] MEDS: Polyethylene Glycol 3350 17 GM Packet PO SCH (09:16)
--- NOTE | 2017-12-25 10:16 | PDOC.CTH ---
Cardiology Progress Note - Subjective Patient with c/o left leg pain due to arthritis. No CP/SOB or palpitations. - Objective Vital Signs Temp Pulse Resp BP BP Pulse Ox 12/25/17 09:14 183/92 H 12/25/17 08:06 98.7 F 88 18 183/92 H 94 L 12/25/17 04:56 98.0 F 70 18 178/88 H 93 L Admit Weight 151 lb Weight 151 lb 3.2 oz 12/24/17 12/25/17 12/26/17 06:59 06:59 06:59 Intake Total 340 1140 Balance 340 1140 - Physical Examination General/Neuro: alert & oriented x3 Lungs: CTA Heart: other: (IRR) Abdomen: NT/ND Extremities: other: (no edema) - Telemetry Telemetry Rhythm: AF, rate controlled - Labs Result Diagrams: 12/23/17 14:13 12/23/17 14:13 Troponin/CKMB CK-MB (CK-2) 1.1 ng/mL (0-6.6) 12/23/17 14:13 Troponin I 0.022 ng/mL (< 0.028) 12/23/17 20:16 - Assessment/Plan 1. CP 2. Chronic AF 3. PNA 4. HTN 5. PAD CP thought to be atypical and now completely resolved. HR controlled. Ok for transfer to medical. Will s/o for now, but please call if needed again.
[2017-12-25] MEDS: Insulin Regular 300 UNITS/3 ML VIAL SC PRN (11:35)
--- NOTE | 2017-12-25 15:47 | PRG ---
DATE OF SERVICE: 12/25/2017 SUBJECTIVE: This morning, he is still complaining of a cough that is productively clear. As mention ed, x-ray shows a right-sided infiltrate, which is probably chronic. I doubt it is an acute process. PHYSICAL EXAMINATION: VITAL SIGNS: Sats are 94% on room air, respirations 18, temperature 98, blood pressure is 183/92. CHEST: No wheezing, no crackles. CARDIAC: Normal S1 and S2, no gallops. ABDOMEN: Soft, no mass. IMPRESSION: Congestive heart failure, severe deconditioning, right-sided pneumonia. PLAN: I would try and switch over to oral antibiotics. She can be transferred out of the telemetry unit. We will follow.
[2017-12-25] MEDS: Mometasone/Formoterol 120 PUFF INHALER INH SCH (19:10)
[2017-12-25] MEDS: Senokot S 8.6-50 MG TAB PO SCH (20:26)
[2017-12-25] MEDS: Simvastatin 40 MG TAB PO SCH (20:27)
[2017-12-26] MEDS: Cefepime 1 GM in Sodium Chloride 0.9% 100 ML IVPB SCH ×3 (01:58→15:08)
[2017-12-26] MEDS: Levothyroxine Sodium 75 MCG TAB PO SCH (05:30)
[2017-12-26] MEDS: Mometasone/Formoterol 120 PUFF INHALER INH SCH ×2 (06:47→18:13)
[2017-12-26] MEDS: Gabapentin 300 MG CAP PO SCH ×3 (08:24→20:56)
[2017-12-26] MEDS: metFORMIN 500 MG TAB PO SCH ×2 (08:25→16:57)
[2017-12-26] MEDS: Metoprolol Tartrate 25 MG TAB PO SCH ×2 (08:26→20:56)
[2017-12-26] MEDS: Polyethylene Glycol 3350 17 GM Packet PO SCH (08:27)
[2017-12-26] MEDS: Multivit, Therapeutic 1 TAB PO SCH (08:27)
[2017-12-26] MEDS: Ascorbic Acid 500 mg Chewable Tablet PO SCH ×2 (08:27→20:56)
[2017-12-26] MEDS: Nystatin Powder 15 GM BOT TOP SCH ×2 (08:27→20:57)
--- NOTE | 2017-12-26 12:20 | PRG ---
DATE OF SERVICE: 12/26/2017 SUBJECTIVE: Margaret Méndez still complains of a cough. OBJECTIVE: VITAL SIGNS: Sats are 92% on room air, temperature is 98, blood pressure 140/70. CHEST: With no wheezing, no crackles. CARDIAC: Normal S1, S2. No gallops. ABDOMEN: Soft, no masses. IMPRESSION: 1. Recurrent aspiration. Cultures are all negative. 2. Dysphagia. 3. Chest pain. PLAN: Switch over to oral medication. She can be discharged home anytime. Pulmonary has nothing ad ditional to offer.
--- NOTE | 2017-12-26 14:27 | PQF ---
ERIKA GARCIA VENKAT R MD [id number] [facility]284 [id number] CLINICAL DOCUMENTATION IMPROVEMENT CLARIFICATION FORM: ICD-10 Updated PLEASE DO AN ADDENDUM TO THE PROGRESS NOTE WITH ANY DOCUMENTATION UPDATES OR ADDITIONS AND CARRY THROUGH TO DC SUMMARY. THANK YOU. DATE: 12-26-17 ATTN: DR. QUINTERO Please exercise your independent, professional judgment in responding to the clarification form. Clinical indicators are provided on the bottom of this form for your review Please check appropriate box(s): [ ] Aspiration Pneumonia [ ] Empirically treating Gram Negative Pneumonia [ ] Simple Pneumonia (community acquired - nosocomial) [ y] Pneumonia of unknown etiology [ ] Other diagnosis [ ] Unable to determine In addition, please specify: Present on Admission (POA): [ y] Yes [ ] No [ ] Unable to determine For continuity of documentation, please document condition throughout progress notes and discharge summary. Thank You. CLINICAL INDICATORS - SIGNS / SYMPTOMS / LABS ED: CP / PNA WILL TREAT FOR HCAP AND CP WORK UP TEMP 99.6 ORAL; 93% ON RA - 93-100% ON 2LNC RESP -12-23 BNP 460.1 12-23 H&P (THADAREDDY) HX ASPIRATION PNA; CXR - INFILTRATE IN RIGHT LOWER LOBE IN RIGHT LUNG 12-24 (AVALOS): PNA; CHF; 12-24 (MORENO): CP LIKELY MUSCULOSKELETAL IN ORIGIN 12-25 (AVALOS): CHF; SEVERE DECONDITIONING, RIGHT SIDED PNA 12-26 (AVALOS): RECURRENT ASPIRATION - CULTURES ARE ALL NEGATIVE; DYSPHAGIA; RISK FACTORS 12-23 H&P (THADAREDDY) HX ASPIRATION PNA RIGHT LUNG HX CVA TREATMENTS: ED: 12-23 VANCOMYCIN / GENTAMICIN/ CEFEPIME MAR: MAXIPIME IV 12-24 / 12-25 / 12-26 THANK YOU, MAYRA (This form is maintained as a part of the permanent medical record) 2015 [employer]. All Rights Reserved Mayra Ryan RN, BS [email or web address]
--- NOTE | 2017-12-26 14:35 | PQF ---
ERIKA GARCIA VENKAT R MD [id number] [facility]-284 [id number] CLINICAL DOCUMENTATION IMPROVEMENT CLARIFICATION FORM: ICD-10 Updated PLEASE DO AN ADDENDUM TO THE PROGRESS NOTE WITH ANY DOCUMENTATION UPDATES OR ADDITIONS AND CARRY THROUGH TO DC SUMMARY. THANK YOU. DATE: 12-26-17 ATTN: DR. QUINTERO Please exercise your independent, professional judgment in responding to the clarification form. Clinical indicators are provided on the bottom of this form for your review Please check appropriate box(s): HEART FAILURE: A. TYPE: [ ] Systolic / HFrEF [ ] Diastolic / HFpEF [ ] Combined Systolic / Diastolic B. ACUITY [ ] Acute [ ] Acute on Chronic [ ] Chronic [ y] Other diagnosis __chest wall pain [ ] Unable to determine In addition, please specify: Present on Admission (POA): [ y] Yes [ ] No [ ] Unable to determine For continuity of documentation, please document condition throughout progress notes and discharge summary. Thank You. CLINICAL INDICATORS - SIGNS / SYMPTOMS / LABS 12-23 BNP 460.1 12-24 (AVALOS) PNA / CHF 12-25 (AVALOS) CHF; SEVERE DECONDITIONING; RIGHT SIDED PNA RISKS: 12-23 H&P (LEON) HTN; DM; HLD; CAD S/P STENT TREATMENTS: MAR: METOPROLOL CPOE: TELEMETRY MONITORING 12-23 / 07-27 THANK YOU, MAYRA (This form is maintained as a part of the permanent medical record) 2014 [employer]. All Rights Reserved Mayra Ryan RN, BS [email or web address]
[2017-12-26] MEDS: Simvastatin 40 MG TAB PO SCH (20:56)
[2017-12-26] MEDS: Senokot S 8.6-50 MG TAB PO SCH (20:56)
[2017-12-27] MEDS: Cefepime 1 GM in Sodium Chloride 0.9% 100 ML IVPB SCH ×2 (01:49→08:51)
[2017-12-27 05:01] LABS: #Basophils 0.1 thou/uL (0.0-0.2); #Eosinphils 0.4 thou/uL (0.0-0.7); #Lymphocytes 1.5 thou/uL (1.20-3.40); #Monocytes 0.7 thou/uL (0.11-0.59); #Neutrophils 5.9 thou/uL (1.40-6.50); %Basophils 0.6 % (0.0-1.0); %Eosinophils 4.7 % (0.0-10.0); %Lymphocytes 17.4 % (21.0-51.0); %Monocytes 7.8 % (0.0-10.0); %Neutrophils 69.5 % (42.0-75.0); Hemoglobin 9.7 g/dL (12.0-16.0); Mean Corpuscular HGB CONC 32.3 g/dL (32.0-36.0); Mean Corpuscular Volume 86.8 fL (78.0-98.0); Platelet Count 143 thou/uL (130-400); RBC Distribution Width 17.5 % (11.5-14.5); Red Blood Cell (RBC) Count 3.47 mill/uL (4.20-5.40); White Blood Cell (WBC) Count 8.5 thou/uL (4.8-10.8)
[2017-12-27 05:12] LABS: Anion Gap 12 mmol/L (10-20); BUN (Urea Nitrogen) 14 mg/dL (9.8-20.1); Calc. Creatinine Clearance 80 mL/min (70-130); Calcium 9.8 mg/dL (7.8-10.44); Carbon Dioxide 25 mmol/L (23-31); Chloride 108 mmol/L (98-107); Estimated GFR-MDRD Greater than 90; Glucose 125 mg/dL (83-110); Sodium 141 mmol/L (136-145)
[2017-12-27] MEDS: Levothyroxine Sodium 75 MCG TAB PO SCH (05:44)
[2017-12-27] MEDS: Mometasone/Formoterol 120 PUFF INHALER INH SCH ×2 (07:57→18:42)
[2017-12-27] MEDS: Gabapentin 300 MG CAP PO SCH ×3 (08:51→20:15)
[2017-12-27] MEDS: Metoprolol Tartrate 25 MG TAB PO SCH ×2 (08:51→20:14)
[2017-12-27] MEDS: Multivit, Therapeutic 1 TAB PO SCH (08:51)
[2017-12-27] MEDS: Ascorbic Acid 500 mg Chewable Tablet PO SCH ×2 (08:51→20:14)
[2017-12-27] MEDS: Nystatin Powder 15 GM BOT TOP SCH ×2 (08:52→20:15)
[2017-12-27] MEDS: metFORMIN 500 MG TAB PO SCH ×2 (08:52→18:02)
[2017-12-27] MEDS: Polyethylene Glycol 3350 17 GM Packet PO SCH (08:53)
--- NOTE | 2017-12-27 12:58 | PRG ---
DATE OF SERVICE: 12/27/2017 SUBJECTIVE: This morning, she is better. OBJECTIVE: VITAL SIGNS: She is afebrile with a temperature of 98, respirations 16, sats 90 on room air, blood p ressure 136/62. GENERAL: She is still choking on her food, which I personally witnessed. CHEST: Decreased breath sounds, no wheezing. CARDIAC: Normal S1 and S2. No gallops. ABDOMEN: Soft, no masses. LABORATORY DATA: White count 8000, H and H unremarkable. ____ IMPRESSION: Recurrent coughing, probably silent aspiration. X-ray showed chronic finding. I sugges t switching over to oral medication. Pulmonary will follow at a distance. Call if needed.
[2017-12-27] MEDS: Insulin Regular 300 UNITS/3 ML VIAL SC PRN (18:03)
[2017-12-27] MEDS: Senokot S 8.6-50 MG TAB PO SCH (20:10)
[2017-12-27] MEDS: Simvastatin 40 MG TAB PO SCH (20:15)
[2017-12-27] MEDS: Guaifenesin DM 100-10/5 ML UDCUP PO PRN (21:23)
[2017-12-28] MEDS: Levothyroxine Sodium 75 MCG TAB PO SCH (05:52)
[2017-12-28] MEDS: Mometasone/Formoterol 120 PUFF INHALER INH SCH ×2 (07:40→18:35)
[2017-12-28] MEDS: metFORMIN 500 MG TAB PO SCH ×2 (08:51→16:04)
[2017-12-28] MEDS: Ascorbic Acid 500 mg Chewable Tablet PO SCH ×2 (08:51→21:18)
[2017-12-28] MEDS: Gabapentin 300 MG CAP PO SCH ×3 (08:52→21:18)
[2017-12-28] MEDS: Metoprolol Tartrate 25 MG TAB PO SCH ×2 (08:53→21:18)
[2017-12-28] MEDS: Multivit, Therapeutic 1 TAB PO SCH (08:53)
[2017-12-28] MEDS: Nystatin Powder 15 GM BOT TOP SCH ×2 (08:53→21:19)
[2017-12-28] MEDS: Polyethylene Glycol 3350 17 GM Packet PO SCH (08:54)
[2017-12-28] MEDS: Simvastatin 40 MG TAB PO SCH (21:18)
[2017-12-28] MEDS: Senokot S 8.6-50 MG TAB PO SCH (21:18)
[2017-12-28] MEDS: Guaifenesin DM 100-10/5 ML UDCUP PO PRN (21:19)
[2017-12-29] MEDS: Mometasone/Formoterol 120 PUFF INHALER INH SCH (05:59)
[2017-12-29] MEDS: Levothyroxine Sodium 75 MCG TAB PO SCH (06:03)
[2017-12-29] MEDS: Ascorbic Acid 500 mg Chewable Tablet PO SCH (09:27)
[2017-12-29] MEDS: metFORMIN 500 MG TAB PO SCH (09:27)
[2017-12-29] MEDS: Metoprolol Tartrate 25 MG TAB PO SCH (09:28)
[2017-12-29] MEDS: Multivit, Therapeutic 1 TAB PO SCH (09:28)
[2017-12-29] MEDS: Gabapentin 300 MG CAP PO SCH (09:28)
[2017-12-29] MEDS: Nystatin Powder 15 GM BOT TOP SCH (09:28)
[2017-12-29] MEDS: Polyethylene Glycol 3350 17 GM Packet PO SCH (09:29)
[2017-12-29 11:49] VITALS: BP 117/71; TEMP 98.3
== END 2017-12-29 13:19 | DRG 194 ==
LOC: ERS 13:50 → 2NO 18:20 → T4-B 12-25 13:18
PROVIDERS: ADMIT Internal Medicine; ATTEND Internal Medicine
DX: J18.9 Pneumonia, unspecified organism (principal); M87.852 Other osteonecrosis, left femur; E03.9 Hypothyroidism, unspecified; E78.5 Hyperlipidemia, unspecified; I48.2 Chronic atrial fibrillation; I25.10 Atherosclerotic heart disease of native coronary artery without angina pectoris; Z87.820 Personal history of traumatic brain injury; E11.51 Type 2 diabetes mellitus with diabetic peripheral angiopathy without gangrene; Z88.0 Allergy status to penicillin; Z91.040 Latex allergy status; F03.90 Unspecified dementia, unspecified severity, without behavioral disturbance, psychotic disturbance, mood disturbance, and anxiety; R13.10 Dysphagia, unspecified; I11.0 Hypertensive heart disease with heart failure; I50.9 Heart failure, unspecified
CPT/HCPCS: 36415; 36416; 71045; 80048; 80053; 82553; 83880; 84484; 85025; 87040; 93005; 94664; 96361; 96365; 96367; A4216; J0692; J1580; J1815; J7050; Q0162

== ENCOUNTER 2018-11-04 21:06 | Observation (INO) | payer MEDICARE, OTHER ==
[2018-11-04 21:30] LABS: #Basophils 0.1 thou/uL (0.0-0.2); #Eosinphils 0.5 thou/uL (0.0-0.7); #Lymphocytes 2.1 thou/uL (1.20-3.40); #Monocytes 0.8 thou/uL (0.11-0.59); %Basophils 0.6 % (0.0-1.0); %Eosinophils 5.7 % (0.0-10.0); %Lymphocytes 21.8 % (21.0-51.0); %Monocytes 8.5 % (0.0-10.0); %Neutrophils 63.5 % (42.0-75.0); Hemoglobin 9.9 g/dL (12.0-16.0); Mean Corpuscular HGB CONC 30.7 g/dL (32.0-36.0); Mean Corpuscular Hemoglobin 25.9 pg (27.0-31.0); Mean Corpuscular Volume 84.4 fL (78.0-98.0); Mean Platelet Volume 7.9 fL (7.4-10.4); Platelet Count 136 thou/uL (130-400); RBC Distribution Width 17.4 % (11.5-14.5); White Blood Cell (WBC) Count 9.5 thou/uL (4.8-10.8)
--- NOTE | 2018-11-04 21:50 | RAD ---
RADIOGRAPH CHEST 1 VIEW: DATE: 11/04/2018 TIME: 9:20 PM HISTORY: 77-year-old female with chest pain COMPARISON: 12/23/2018 FINDINGS: The previously demonstrated right lower lobe pneumonia is no longer visualized. There is cardiomegaly . There is pulmonary venous engorgement. No consolidation or pneumothorax. IMPRESSION: Cardiomegaly and pulmonary venous congestion
[2018-11-04 21:51] LABS: ALT (SGPT) 9 U/L (8-55); AST (SGOT) 10 U/L (5-34); Albumin 3.7 g/dL (3.4-4.8); Alkaline Phosphatase 98 U/L (40-150); Anion Gap 14 mmol/L (10-20); BUN (Urea Nitrogen) 28 mg/dL (9.8-20.1); Bilirubin, Total 0.7 mg/dL (0.2-1.2); CK (CPK) 19 U/L (29-168); Calc. Creatinine Clearance 0 mL/min (70-130); Calcium 9.4 mg/dL (7.8-10.44); Carbon Dioxide 24 mmol/L (23-31); Chloride 107 mmol/L (98-107); Estimated GFR-MDRD 65; Globulin 2.7 g/dL (2.4-3.5); Glucose 151 mg/dL (83-110); Lipase 39 U/L (8-78); Potassium 4.6 mmol/L (3.5-5.1); Protein, Total 6.4 g/dL (6.0-8.3); Sodium 140 mmol/L (136-145)
[2018-11-05] MEDS ORDERED: Ondansetron ODT 4 MG TAB SL PRN (00:45)
[2018-11-05] MEDS ORDERED: Acetaminophen 325 MG TAB PO PRN (00:45)
[2018-11-05] MEDS ORDERED: Ondansetron PF 4 MG/2 ML Vial IVP PRN (00:45)
[2018-11-05] MEDS ORDERED: Sodium Chloride 0.9% 1,000 ML IV SCH (00:45)
[2018-11-05 00:59] LABS: Troponin I 0.019 ng/mL (< 0.028)
[2018-11-05 04:55] LABS: Troponin I 0.026 ng/mL (< 0.028)
[2018-11-05] MEDS: Aspirin 325 MG TAB PO SCH ×2 (08:51→09:04)
[2018-11-05] MEDS ORDERED: Ondansetron ODT 4 MG TAB PO PRN (09:38)
[2018-11-05] MEDS ORDERED: Nitroglycerin 0.4 MG TAB (25 Tab Bottle) SL PRN (09:38)
[2018-11-05] MEDS ORDERED: cloNIDine 0.1 MG TAB PO PRN (09:40)
[2018-11-05] MEDS ORDERED: HYDROcodone/Acetaminophen 7.5/325 mg Tablet PO PRN (09:41)
[2018-11-05] MEDS ORDERED: Milk Of Magnesia 30 ML UDCUP PO PRN (09:42)
[2018-11-05] MEDS: Gabapentin 300 MG CAP PO SCH ×2 (15:36→20:20)
[2018-11-05] MEDS ORDERED: Insulin Regular 300 UNITS/3 ML VIAL SC PRN (16:57)
[2018-11-05] MEDS ORDERED: Dextrose 5% in Water 1,000 ML IV PRN (16:57)
[2018-11-05] MEDS ORDERED: Dextrose 50% Abboject 50 ML SYRINGE IVP PRN (16:57)
[2018-11-05] MEDS: Metoprolol Tartrate 25 MG TAB PO SCH (20:16)
[2018-11-05] MEDS ORDERED: Simvastatin 40 MG TAB PO SCH (21:00)
[2018-11-05] MEDS ORDERED: Senokot S 8.6-50 MG TAB PO SCH (21:00)
--- NOTE | 2018-11-05 21:33 | HP ---
CHIEF COMPLAINT: Chest pain. HISTORY OF PRESENT ILLNESS: Ms. Méndez is a 77-year-old female with past medical history of coronary artery disease, hypertension, diabetes, and hyperlipidemia, came because of sudden onset of pain, but it is mainly on the right side, radiates down, sharp in nature associated with some shortness of breath. No diaphoresis. No nausea or vomiting. No headache. No dizziness. The patient was sent to the hospital for risk factors because it is sudden onset chest pain. The patient woke up because of the pain. In the ER, the patient was evaluated. At that time, she did not have any more pain, found to have normal cardiac enzymes and EKG. She is being admitted to rule out myocardial infarction. PAST MEDICAL HISTORY: 1. Diabetes mellitus. 2. Hypertension. 3. Hyperlipidemia. 4. Coronary artery disease, status post stent. 5. Peripheral vascular disease. 6. Hypothyroidism. 7. Chronic atrial fibrillation. 8. History of cerebrovascular accident. 9. Degenerative joint disease. 10. Avascular necrosis of left hip with chronic pain. PAST SURGICAL HISTORY: Status post hysterectomy, status post multiple amputations, status post cholecystectomy. CURRENT MEDICATIONS: The patient is on; 1. Vitamin C 500 mg daily. 2. Aspirin 81 mg daily. 3. Clonidine 0.1 q.6 hours p.r.n. 4. Diltiazem 180 mg daily. 5. Benadryl p.r.n. 6. Gabapentin 600 mg t.i.d. 7. [place] p.r.n. 8. Levothyroxine 75 mcg daily. 9. Milk of magnesia p.r.n. 10. Metformin 1000 b.i.d. 11. Metoprolol 25 b.i.d. 12. Multivitamin daily. 13. Nitroglycerin p.r.n. 14. Zofran p.r.n. 15. MiraLAX 17 g daily. 16. simvastatin 40 mg daily ALLERGIES: PENICILLIN AND LATEX. FAMILY HISTORY: Nothing contributory. SOCIAL HISTORY: Patient lives in [facility]. No history of smoking. REVIEW OF SYSTEMS: Unremarkable except for the chest pain. PHYSICAL EXAMINATION: GENERAL: The patient is alert, awake, and oriented x3. VITAL SIGNS: Temperature 98, pulse 50, respirations 20, blood pressure 113/70. HEENT: Head is normocephalic, atraumatic. Pupils are equal and reactive. Nasopharynx is pale and dry. Hard and soft palate, no lesions. SKIN: Turgor decreased. NECK: Supple. No JVD. LUNGS: Bilateral air entry. No rales, no rhonchi. HEART: S1, S2 regular. ABDOMEN: Soft. No distention. No tenderness. Normal bowel sounds. RECTAL: Deferred. CENTRAL NERVOUS SYSTEM: No focal deficit. LABORATORY DATA: CBC shows WBC 9.5, hemoglobin 9.9, hematocrit 32, platelets 136. Metabolic panel; sodium 140, potassium 4.6, chloride 107, CO2 of 24, BUN 28, creatinine 0.8, glucose 150. Troponin less than 0.01. Chest x-ray, cardiomegaly, mild, pulmonary venous congestion. EKG shows atrial fibrillation with controlled ventricular rate. No acute ST-T changes seen. ASSESSMENT: 1. Atypical chest pain, rule out myocardial infarction. 2. Diabetes mellitus. 3. Hypertension. 4. Coronary artery disease, status post stent. 5. Avascular necrosis of left hip. 6. Status post CVA. 7. Hyperlipidemia. PLAN: 1. Vital signs q.4 hours. 2. Activities as tolerated. 3. Allergies, penicillin and latex. 4. Diet, cardiac and ADA. 5. Continue [facility] medications. 6. Troponin I q.6 hours x2. 7. Accu-Chek before meals and at bedtime. 8. Sliding scale mildly with regular insulin. Job ID: [id number] [facility]
[2018-11-06] MEDS ORDERED: Levothyroxine Sodium 75 MCG TAB PO SCH (06:00)
[2018-11-06] MEDS: Metoprolol Tartrate 25 MG TAB PO SCH (08:14)
[2018-11-06] MEDS: Gabapentin 300 MG CAP PO SCH (08:14)
[2018-11-06] MEDS ORDERED: Ascorbic Acid 500 mg Chewable Tablet PO SCH (09:00)
[2018-11-06] MEDS ORDERED: Polyethylene Glycol 3350 17 GM Packet PO SCH (09:00)
[2018-11-06] MEDS ORDERED: Aspirin 81 mg Enteric Coated Tablet PO SCH (09:00)
[2018-11-06] MEDS ORDERED: Multivit, Therapeutic 1 TAB PO SCH (09:00)
[2018-11-06 11:06] VITALS: BP 148/68; TEMP 98.2
--- NOTE | 2018-11-07 10:14 | DIS ---
DATE OF ADMISSION: 11/04/2018 DATE OF DISCHARGE: 11/06/2018 ADMITTING DIAGNOSES: 1. Atypical chest pain, rule out myocardial infarction. 2. Diabetes mellitus. 3. Hypertension. 4. Hyperlipidemia. 5. Coronary artery disease, status post stent. 6. Avascular necrosis of left hip. 7. Status post cerebrovascular accident. FINAL DIAGNOSES: 1. Atypical chest pain on right side. No evidence of acute myocardial infarction. 2. Hypertension. 3. Diabetes mellitus. 4. Coronary artery disease, status post stent. 5. Avascular necrosis of left hip. 6. Status post cerebrovascular accident. BRIEF SUMMARY/HOSPITAL COURSE: Ms. Margaret Méndez is a 77-year-old female admitted because of pain in the right side of the chest, mainly sharp in nature, associated with shortness of breath. No nausea or vomiting. No diaphoresis. In view of her risk factor, the patient was admitted to rule out myocardial infarction. Serial cardiac enzymes were done. Her second troponin was 0.019 and third one was 0.026. The patient was monitored next day. She did not have any more chest pain. It was mainly chest wall pain. Blood pressure and everything were remained stable. In view of that, the patient is being [facility] back to the [facility]. At the time of discharge, she was stable. Her vital signs were stable. Lungs clear. Heart sounds regular. Abdomen is soft and nontender. Bowel sounds present. DISCHARGE MEDICATIONS: Include: 1. Aspirin 81 mg daily. 2. Gabapentin 600 mg t.i.d. 3. Simvastatin 40 mg at bedtime. 4. Levothyroxine 75 mcg daily. 5. Metformin 1000 mg b.i.d. 6. Multivitamin daily. 7. Senokot daily. 8. MiraLAX 17 g daily. 9. Clonidine 0.1 q.6 p.r.n. 10. Metoprolol 25 b.i.d. 11. Zofran p.r.n. 12. Diltiazem 180 daily. 13. Nitroglycerin p.r.n. sublingual. 14. Milk of magnesia p.r.n. 15. Benadryl p.r.n. 16. Gardner 7.5/325 q.i.d. p.r.n. 17. Vitamin C 500 mg daily. The patient will be followed up in the [facility]. Job ID: [id number]
--- NOTE | 2018-11-10 21:34 | EKG ---
Test Reason : Blood Pressure : / mmHG Vent. Rate : 058 BPM Atrial Rate : 057 BPM P-R Int : 000 ms QRS Dur : 078 ms QT Int : 456 ms P-R-T Axes : 000 064 144 degrees QTc Int : 447 ms Atrial fibrillation with slow ventricular response Nonspecific ST abnormality Abnormal QRS-T angle, consider primary T wave abnormality Abnormal ECG Confirmed by Jayro GARCES ([id number]) on 11/10/2018 9:34:20 PM Referred By: Confirmed By:Jayro GARCES
== END 2018-11-06 14:12 ==
LOC: ERS 21:06 → 2SW 23:26 → 2NO 11-05 00:10
PROVIDERS: ADMIT Internal Medicine; ATTEND Internal Medicine
DX: R07.89 Other chest pain (principal); R06.02 Shortness of breath; I25.10 Atherosclerotic heart disease of native coronary artery without angina pectoris; I10 Essential (primary) hypertension; E11.9 Type 2 diabetes mellitus without complications; I48.2 Chronic atrial fibrillation; I73.9 Peripheral vascular disease, unspecified; E03.9 Hypothyroidism, unspecified; M19.90 Unspecified osteoarthritis, unspecified site; M87.052 Idiopathic aseptic necrosis of left femur; Z79.82 Long term (current) use of aspirin; Z79.84 Long term (current) use of oral hypoglycemic drugs; Z79.899 Other long term (current) drug therapy; Z86.73 Personal history of transient ischemic attack (TIA), and cerebral infarction without residual deficits; Z88.0 Allergy status to penicillin; Z91.040 Latex allergy status; Z95.5 Presence of coronary angioplasty implant and graft
CPT/HCPCS: 71045; 80053; 82550; 82962 ×2; 83690; 84484 ×3; 85025; 93005; 94760; 99285; G0378 ×2; 36415; 36416

== ENCOUNTER 2019-03-08 16:35 | Emergency (ER) | payer MEDICARE, OTHER ==
[2019-03-08] MEDS ORDERED: Ondansetron PF 4 MG/2 ML Vial ONE (17:19)
[2019-03-08 17:26] LABS: #Basophils 0.1 thou/uL (0.0-0.2); #Eosinphils 0.4 thou/uL (0.0-0.7); #Lymphocytes 1.7 thou/uL (1.20-3.40); #Monocytes 0.7 thou/uL (0.11-0.59); %Basophils 0.8 % (0.0-1.0); %Eosinophils 5.2 % (0.0-10.0); %Neutrophils 62.9 % (42.0-75.0); Hemoglobin 11.4 g/dL (12.0-16.0); Mean Corpuscular HGB CONC 30.4 g/dL (32.0-36.0); Mean Corpuscular Hemoglobin 25.8 pg (27.0-31.0); Mean Corpuscular Volume 84.6 fL (78.0-98.0); Mean Platelet Volume 8.8 fL (7.4-10.4); Platelet Count 123 thou/uL (130-400); Red Blood Cell (RBC) Count 4.44 mill/uL (4.20-5.40); White Blood Cell (WBC) Count 7.9 thou/uL (4.8-10.8)
[2019-03-08 17:47] LABS: ALT (SGPT) 8 U/L (8-55); AST (SGOT) 9 U/L (5-34); Albumin 3.7 g/dL (3.4-4.8); Alkaline Phosphatase 101 U/L (40-110); Anion Gap 12 mmol/L (10-20); BUN (Urea Nitrogen) 32 mg/dL (9.8-20.1); Bilirubin, Total 0.5 mg/dL (0.2-1.2); CK (CPK) 23 U/L (29-168); Calc. Creatinine Clearance 0 mL/min (70-130); Calcium 9.5 mg/dL (7.8-10.44); Carbon Dioxide 27 mmol/L (23-31); Chloride 102 mmol/L (98-107); Estimated GFR-MDRD 34; Glucose 127 mg/dL (83-110); Lipase 12 U/L (8-78); Potassium 4.9 mmol/L (3.5-5.1); Protein, Total 6.7 g/dL (6.0-8.3); Sodium 136 mmol/L (136-145)
[2019-03-08 18:17] LABS: Bilirubin Negative (Negative); Blood, Urine 2+ (Negative); Clarity Extra Turbid (Clear); Glucose, Urine (Dipstick) Normal (Negative); Leukocyte 500 Leu/uL (Negative); Nitrite Negative (Negative); Protein, Urine (Dipstick) 300 mg/dL (Neg-Trace)
[2019-03-08 18:22] LABS: Bacteria/HPF 4+ HPF (None Seen); Squamous Epithelial 0-3 HPF (0-3); WBC/HPF Greater Than 50 HPF (0-3)
--- NOTE | 2019-03-08 18:41 | CT ---
CT Abdomen Pelvis W Con History: Abdominal pain Comparison: CT abdomen and pelvis July 2017 Findings: Moderate right pleural effusion. Left lung base is relatively clear. No significant pericar dial fluid. Moderate perihepatic ascites. Mild free fluid within the pelvis. Extensive third spacing of fluid. Large peripherally calcified left renal angiomyolipoma. Mild perisplenic ascites. There is a heteroge neous appearance of the liver likely chronic reflux from elevated right heart pressure. Hepatic hypodensity hepatic segment 5 is unchanged statistically likely cysts. There is rectal prolapse. No dilated loops of large or small bowel. No hydronephrosis. The aortic con tour is nonaneurysmal. Small reactive iliac lymph nodes. Severe degenerative disease left hip with articular surface flattening coxa magna deformity as well a s enlargement of the left acetabulum. Wedge compression fracture of T12 has approximately 60% height loss with retropulsion of the posterior superior endplate 2 mm. This finding is relatively sim ilar. Old pelvic fractures including the pubic rami. Visualized posterior ribs are without fracture. No acu te sacral fracture appreciated. Severe paraspinal muscle atrophy including gluteus muscle atrophy. High-grade soft tissue swelling about the lateral left thigh. No evidence for bowel obstruction. No free intraperitoneal gas. Impression: 1. Similar appearance of the moderate to large right and small left effusion although the intrahepati c ascites has increased as well as a third spacing of fluid. 2. Heterogeneous appearance of the liver likely from increased intraparenchymal pressure from diastol ic dysfunction. 3. Unchanged large left renal angiomyolipoma. 4. Compression fracture of T12 is relatively similar. 5. No evidence for bowel obstruction. 6. Severe degenerative disease of left hip. 7. Rectal prolapse.
== END 2019-03-08 19:48 | disposition home or self-care (01) ==
LOC: ERS 16:35
DX: N30.00 Acute cystitis without hematuria (principal); E78.5 Hyperlipidemia, unspecified; M19.90 Unspecified osteoarthritis, unspecified site; E03.9 Hypothyroidism, unspecified; E11.9 Type 2 diabetes mellitus without complications; I10 Essential (primary) hypertension; I48.91 Unspecified atrial fibrillation; Z79.82 Long term (current) use of aspirin; Z79.899 Other long term (current) drug therapy; Z79.84 Long term (current) use of oral hypoglycemic drugs; Z86.73 Personal history of transient ischemic attack (TIA), and cerebral infarction without residual deficits
CPT/HCPCS: 51701; 74177; 80053; 81003; 81015; 82550; 83605; 83690; 83880; 84484; 85025; 93005; 96361; 96374; A4353; J2405; Q9966

== ENCOUNTER 2019-03-15 11:01 | Inpatient (IN) | payer MEDICARE, OTHER ==
--- NOTE | 2019-03-15 11:25 | RAD ---
Portable chest: HISTORY: Mental status change COMPARISON: 11/04/2018 FINDINGS:Mild cardiomegaly. Mild vascular congestion. No focal infiltrate. No significant interval ch queenie. IMPRESSION: No acute finding
[2019-03-15 11:30] LABS: Bilirubin Moderate (Negative); Blood, Urine Large (Negative); Glucose, Urine (Dipstick) Negative (Negative); Leukocyte Large (Negative); Nitrite Negative (Negative); Protein, Urine (Dipstick) > or equal to 300 mg/dL (Neg-Trace); Urobilinogen 0.2 mg/dL (Less than 2)
[2019-03-15 11:32] LABS: #Basophils 0.1 thou/uL (0.0-0.2); #Eosinphils 0.1 thou/uL (0.0-0.7); #Lymphocytes 2.1 thou/uL (1.20-3.40); #Neutrophils 13.1 thou/uL (1.40-6.50); %Basophils 0.3 % (0.0-1.0); %Eosinophils 0.9 % (0.0-10.0); %Lymphocytes 12.6 % (21.0-51.0); %Monocytes 5.9 % (0.0-10.0); %Neutrophils 80.3 % (42.0-75.0); Hemoglobin 11.3 g/dL (12.0-16.0); Mean Corpuscular HGB CONC 29.1 g/dL (32.0-36.0); Mean Corpuscular Hemoglobin 25.6 pg (27.0-31.0); Mean Corpuscular Volume 87.8 fL (78.0-98.0); Mean Platelet Volume 8.8 fL (7.4-10.4); Platelet Count 142 thou/uL (130-400); RBC Distribution Width 17.3 % (11.5-14.5); Red Blood Cell (RBC) Count 4.41 mill/uL (4.20-5.40); White Blood Cell (WBC) Count 16.3 thou/uL (4.8-10.8)
[2019-03-15 11:34] LABS: Clarity Opaque (Clear)
[2019-03-15 11:50] LABS: Bacteria/HPF 4+ HPF (None Seen); RBC/HPF Greater than 50 HPF (0-3); WBC/HPF Greater Than 50 HPF (0-3)
[2019-03-15 11:53] LABS: MDiff Complete? YES; Ovalocytes SLIGHT = 2-5 cells (100X) (0-1/hpf); Platelet Morphology Comment Appears Adequate; Polychromasia SLIGHT = 2-3 cells (100X) (0-2/hpf); Tear Drops SLIGHT = 2-5 cells (100X) (0-1/hpf)
--- NOTE | 2019-03-15 11:56 | CT ---
CT BRAIN WITHOUT CONTRAST: HISTORY: Altered mental status. FINDINGS: Comparison is made with exam of 01/01/2015. Posterior left cerebral hemispheric encephalomalacia with associated ex vacuo dilatation to the left lateral ventricle is again seen and stable. Bilateral basal ganglia calcifications are again noted. No evidence of acute infarct, hemorrhage, midline shift, or abnormal extraaxial fluid collections is seen. The basilar cisterns are patent. The bony calvarium is intact. There is mucosal lesion in t he paranasal sinuses. IMPRESSION: Stable exam. No CT evidence of acute intracranial process. POS: [facility]
[2019-03-15 12:02] LABS: ALT (SGPT) 8 U/L (8-55); AST (SGOT) 15 U/L (5-34); Albumin 3.4 g/dL (3.4-4.8); Alkaline Phosphatase 87 U/L (40-110); Anion Gap 16 mmol/L (10-20); BUN (Urea Nitrogen) 47 mg/dL (9.8-20.1); Bilirubin, Total 0.7 mg/dL (0.2-1.2); Calc. Creatinine Clearance 0 mL/min (70-130); Calcium 8.4 mg/dL (7.8-10.44); Carbon Dioxide 17 mmol/L (23-31); Chloride 106 mmol/L (98-107); Estimated GFR-MDRD 19; Globulin 2.6 g/dL (2.4-3.5); Glucose 131 mg/dL (83-110); Lipase 5 U/L (8-78); Magnesium 1.6 mg/dL (1.6-2.6); Sodium 132 mmol/L (136-145)
[2019-03-15 12:05] LABS: Potassium 6.7 mmol/L (3.5-5.1)
[2019-03-15] MEDS ORDERED: Calcium Gluc 4.6 MEQ/10 ML (100 MG/ML) ONE (12:13)
[2019-03-15] MEDS ORDERED: Dextrose 50% Abboject 50 ML SYRINGE ONE (12:13)
[2019-03-15] MEDS ORDERED: Insulin Regular 300 UNITS/3 ML VIAL ONE (12:13)
[2019-03-15] MEDS ORDERED: cefTRIAXone\\ROCEPHIN 2 GM VIAL ONE (12:13)
[2019-03-15] MEDS ORDERED: Sodium Bicarb 50 MEQ/50 ML VIAL ONE ×2 (12:13→14:26)
[2019-03-15] MEDS ORDERED: Dextrose 5 % And 0.9 % NaCl 1,000 ML IV SCH (13:30)
[2019-03-15 13:38] VITALS: BMI 30.5
[2019-03-15] MEDS ORDERED: Dextrose 50% Abboject 50 ML SYRINGE SLOW IVP PRN (14:12)
[2019-03-15] MEDS ORDERED: Dextrose 5% in Water 1,000 ML IV PRN (14:12)
[2019-03-15] MEDS ORDERED: DOBUTamine 500 mg/250 ml 250 ML ONE (14:13)
[2019-03-15] MEDS ORDERED: Meropenem 1 GM in Sodium Chloride 0.9% 100 ML IVPB SCH (14:15)
[2019-03-15] MEDS ORDERED: DOBUTamine 500 mg/250 ml 250 ML IVPB SCH (14:15)
[2019-03-15 14:23] LABS: Base Excess (BEa) -11.7 mEq/L (-2.0 to +3.0); CO2 Tension 59.3 mmHg (35.0-45.0); Calcium, Ionized 1.17 mmol/L (1.12-1.30); Carboxyhemoglobin (COHb) 1.2 gm% (0.0-3.0); Hemoglobin (Hb) 10.7 g/dL (12.0-16.0); O2 Tension (PaO2) 113.9 mmHg (> 60.0); Potassium - ABG Lab 5.62 mmol/L (3.70-5.30)
[2019-03-15 14:27] LABS: ALV-art Gradient 40.135 (0-20); Puncture Site RRA
[2019-03-15] MEDS ORDERED: Midazolam HCl 2 mg/2 ml Vial ONE (14:32)
[2019-03-15] MEDS ORDERED: Midazolam HCl 2 mg/2 ml Vial SLOW IVP SCH (14:45)
[2019-03-15] MEDS ORDERED: Ventilator Sedation Protocol 1 EACH FS SCH (14:45)
[2019-03-15] MEDS ORDERED: MEROPENEM 1 GM/50 ML 1 GM in Premix Bag 1 BAG IVPB SCH (15:00)
[2019-03-15] MEDS ORDERED: Sodium Bicarb 50 MEQ/50 ML VIAL IVP SCH (15:00)
[2019-03-15] MEDS ORDERED: Propofol 1,000 MG/100 ML VIAL IV PRN (15:01)
[2019-03-15] MEDS ORDERED: Lorazepam 2 MG/ML VIAL SLOW IVP PRN (15:01)
[2019-03-15] MEDS ORDERED: fentaNYL Citrate/PF 2,000 MCG in Sodium Chloride 0.9% 60 ML IV SCH (15:01)
[2019-03-15] MEDS ORDERED: Fentanyl BOLUS 250 ML IVPB PRN (15:01)
[2019-03-15] MEDS ORDERED: Propofol BOLUS 1,000 MG/100 ML VIAL IV PRN (15:01)
--- NOTE | 2019-03-15 15:03 | RAD ---
EXAM: Single view of the chest HISTORY: Respiratory failure. Ventilated patient. COMPARISON: 03/15/2019 FINDINGS: Single view of the chest shows an enlarged but stable cardiomediastinal silhouette. An end otracheal tube is seen with its tip just above the madyson. An NG tube courses off the inferior aspect of the film. There are are small bilateral pleural effusions, right greater than left. The kailash inder are unremarkable. IMPRESSION: 1. Appropriate position of lines and tubes 2. Small bilateral pleural effusions.
[2019-03-15 16:11] LABS: Actual Bicarbonate (HCO3v) 19 mEq/L (22-28); Base Excess -7.1 mEq/L (-2.0 to +3.0); Calcium, Ionized 1.07 mmol/L (1.16-1.32); Chloride (ABG LAB) 97 mmol/L (98-106); Hemoglobin (Hb) 9.7 g/dL (11.7-16.1); Sodium 133.6 mmol/L (133-146); pH (venous) 7.31 (7.32-7.43)
--- NOTE | 2019-03-15 16:23 | CON ---
DATE OF CONSULTATION: 03/15/2019 SERVICE: Pulmonary Medicine. REASON FOR CONSULTATION: ICU patient. HISTORY OF PRESENT ILLNESS: The patient is an 78-year-old white female with past medical history significant for chronic debility and some degree of volume overload. She has a chronic history of atrial fibrillation. Recently, she has an aversion for food and had decreased p.o. intake. She had some abdominal discomfort and presented to the emergency department. This happened about a week ago. At that time, she underwent a CT of the abdomen and pelvis. Nothing true fluids revealed there. At that point, she had an acute kidney injury. She was discharged from the emergency department. No pulse rate was recorded. On the CT scan, she had extensive third spacing of fluid and diffuse edema present. Diastolic dysfunction was suggested. She had a large left renal growth. This had been unchanged. There was also compression fracture noted, but no evidence of bowel obstruction was present. She was returned to the nursing facility. She had increasing altered mentation, was subsequently brought to the emergency department. They were concerned about hyperkalemia and this was treated. She was subsequently placed in the ICU. She was completely encephalopathic and poorly responsive, so we got a stat ABG demonstrating combined metabolic and respiratory acidosis. We immediately intubated her and gave her some bicarb. We also put her on some dobutamine in order to help mobilize her heart. With this, her blood pressures actually improved remarkably. We intubated her and started hyperventilating a touch. She became more responsive to the point where we needed to give her a bit of sedation to keep her comfortable. Panculture has been initiated, she was placed on some broad- spectrum antibiotics that covered gram-negative and anaerobic organisms (GI/ seda). She cannot provide any additional elements of the history at this point. As such, everything that I have below via chart review. PAST MEDICAL HISTORY: 1. Hypertension. 2. Dyslipidemia. 3. Type 2 diabetes mellitus. 4. Hypothyroidism. 5. Peripheral vascular disease, severe. 6. Atrial fibrillation, permanent. 7. Coronary artery disease, status post stent placement. 8. Degenerative joint disease. 9. Oropharyngeal dysphagia with history of aspiration. PAST SURGICAL HISTORY: 1. Hysterectomy. 2. Amputations, multiple. 3. Cholecystectomy. ALLERGIES: PENICILLIN AND LASIX. MEDICATIONS: List of all the patient's inpatient and outpatient medications was reviewed. No specific updates were made at this time. FAMILY HISTORY: Noncontributory. SOCIAL HISTORY: She is currently a resident at [facility]. She has no history of smoking or alcohol intake. REVIEW OF SYSTEMS: This cannot be obtained as the patient is currently encephalopathic. PHYSICAL EXAMINATION: VITAL SIGNS: Afebrile, pulse 66 (on dobutamine, she was in the low 30s prior to dobutamine). Blood pressure 108/55, respirations 17, and saturation 97% on 23% FiO2 and a PEEP of 5. GENERAL: The patient is intubated. She requiring a little bit of sedation at this point. HEENT: Normocephalic and atraumatic. Sclerae white. Conjunctivae pink. Oral mucosa is moist without lesions. LUNGS: Decent air entry. I do not actually hear any crackles. HEART: Normal rate. Regular. ABDOMEN: Soft. Distended. Bowel sounds are hypoactive. : Boyce catheter in place. A little bit hematuria is present. MUSCULOSKELETAL: No cyanosis or clubbing. There is diffuse 2 to 3+ pitting throughout. LABORATORY DATA: WBC 16.3, hemoglobin 11.3, platelets 142,000. A pH 7.1, pCO2 of 55, pO2 is 150 on 3 L nasal cannula. Potassium 6.7. Creatinine 2.49, basic metabolic profile and liver function studies are otherwise unremarkable. BNP 1300, troponin is negative x1, lactate 4.6. Urinalysis is significant for pyuria and hematuria. There is large amount of blood and leukocyte esterase, though nitrites are positive. Minimal proteinuria is present. IMAGING: Chest x-ray demonstrates endotracheal tube, which is a little bit deep , though it has subsequently been retracted by 1 cm. The enteric catheter courses midline below the level of the diaphragm and out of the field of view. There are bibasilar pleural parenchymal changes, which could be soft tissue attenuation versus true pulmonary edema versus pneumonia, which I actually doubt. CT of the brain demonstrates no acute intracranial abnormality. ASSESSMENT: 1. Cardiogenic shock. 2. Atrial fibrillation with slow rate (likely calcium-channel bridger overdose associated with acute kidney injury and long-acting medication). 3. Anion gap metabolic acidosis. 4. Respiratory acidosis. 5. Severe sepsis, possible. 6. Urinary tract infection, possible. 7. Acute kidney injury. 8. Metabolic encephalopathy. 9. Hyperkalemia (this is a function of her elevated hydronium ion and does not require treatment presently). 10. History of oropharyngeal dysphagia. DISCUSSION AND PLAN: At this point, I think the patient developed an acute kidney injury secondary to abdominal pain and decreased PO intake. She then got a contrast load 6 days ago. This is most likely caused decreased clearance of long-acting calcium-channel bridger resulting in cardiogenic shock. There may be an infection that precipitated this whole thing. We will empirically put her on meropenem, and I will give her some steroids. She has already been intubated. We will watch her blood pressures closely and if her MAPS are low, she will get a central line and Levophed. For the time being, we will continue the dobutamine, which has had a wonderful effect on her heart rate. Once her blood pressures firm up, she will require frequent doses of Lasix in order to expedite fluid removal. She remains in critical condition. Hopefully over the next 24 to 48 hours, however, things will defervesce. It is reassuring to see her mentation improved slightly after intubation. CRITICAL CARE TIME: 30 minutes. Job ID: [id number] MTDD
[2019-03-15] MEDS ORDERED: Calcium Gluc 4.6 MEQ/10 ML (100 MG/ML) SLOW IVP SCH (17:49)
[2019-03-15 17:54] LABS: Anion Gap 17 mmol/L (10-20); BUN (Urea Nitrogen) 46 mg/dL (9.8-20.1); Calc. Creatinine Clearance 25 mL/min (70-130); Calcium 8.3 mg/dL (7.8-10.44); Carbon Dioxide 18 mmol/L (23-31); Chloride 107 mmol/L (98-107); Estimated GFR-MDRD 20; Glucose 111 mg/dL (83-110); Potassium 5.8 mmol/L (3.5-5.1); Sodium 136 mmol/L (136-145)
[2019-03-15] MEDS: Morphine 2 MG/ML SYRINGE SLOW IVP PRN (17:59)
[2019-03-15] MEDS: methylPREDNISolone Sod Succ 40 MG VIAL IVP SCH (18:03)
[2019-03-15 18:05] LABS: Lactic Acid 5.5 mmol/L (0.5-2.2)
[2019-03-15 19:13] LABS: Thyroid Stimulating Hormone 4.6637 uIU/mL (0.35-4.94)
[2019-03-15] MEDS: Meropenem 500 MG in Sodium Chloride 0.9% 100 ML IVPB SCH (22:29)
[2019-03-16] MEDS: methylPREDNISolone Sod Succ 40 MG VIAL IVP SCH ×4 (00:03→17:23)
--- NOTE | 2019-03-16 00:56 | OP ---
DATE OF PROCEDURE: 03/15/2019 SERVICE: Pulmonary Medicine. PROCEDURE PERFORMED: Emergent endotracheal intubation. CONSENT: This was performed emergently secondary to clinical deterioration, and respiratory failure. MEDICATIONS USED: Versed 2 mg IV push. PREPROCEDURE DIAGNOSES: 1. Metabolic acidosis. 2. Respiratory acidosis. POSTPROCEDURE DIAGNOSES: 1. Metabolic acidosis. 2. Respiratory acidosis. DESCRIPTION OF PROCEDURE: Vital sign monitoring was accomplished by noninvasive hemodynamic monitoring, pulse oximetry, and telemetry. In the supine position, the patient was preoxygenated with [id number] ventilation and maintained with saturations of 100%. Following induction anesthesia, a #4 GlideScope was inserted through the mouth offering clear identification of the posterior oropharynx and laryngeal structures with a grade 1 view. A 7.5-Italian endotracheal tube was visualized passing through the vocal cords. Placement was confirmed by condensation in endotracheal tube, color metric capnography, and bi-axillary chest auscultation. The endotracheal tube was secured at 23 cm, measured at the gums. The patient was placed on mechanical ventilation with good return of volumes. Postprocedure, chest x-ray showed the tube was a touch deep, so it was retracted by 1 cm and secured at 22 cm. ESTIMATED BLOOD LOSS: None. COMPLICATIONS: None. Job ID: [id number]
--- NOTE | 2019-03-16 01:19 | HP ---
CHIEF COMPLAINT: Altered mental status. HISTORY OF PRESENT ILLNESS: Ms. Méndez is an 78-year-old female with past medical history of chronic atrial fibrillation, diabetes mellitus, coronary artery disease, peripheral vascular disease, and status post CVA, was found to be unresponsive in the senior care. The patient was recently seen in the ER a week ago for not eating well. She was evaluated and had CT of the abdomen done and was released, but since then she has not been doing that well, now she became unresponsive. In the ER, she was found to be in septic shock with hypotension with possible urosepsis. The patient received IV fluids as well as IV antibiotics with vancomycin and Zosyn. Blood pressure marginally improved only and she was admitted to the ICU for further management. After admitting to the ICU, patient was seen by the shipping and receiving specialist who felt the patient is poorly responsive and also has metabolic and respiratory acidosis, so she was intubated and further on ventilator support as well as dobutamine infusion. Her blood pressure improved after that. She was started on meropenem. PAST MEDICAL HISTORY: 1. Hypertension. 2. Diabetes mellitus. 3. Peripheral vascular disease. 4. Coronary artery disease, status post stent. 5. Hyperlipidemia. 6. Hypothyroidism. 7. Chronic atrial fibrillation. 8. History of CVA. 9. Degenerative joint disease. 10. Avascular necrosis of left hip with chronic pain. PAST SURGICAL HISTORY: 1. Status post hysterectomy. 2. Status post cholecystectomy. 3. Status post multiple amputations of toes. CURRENT MEDICATIONS: The patient is on; 1. Lexapro 10 mg daily. 2. Diltiazem 180 mg daily. 3. Aspirin 81 mg daily. 4. Milk of magnesia p.r.n. 5. Levothyroxine 75 mcg daily. 6. Sandwich p.r.n. 7. Gabapentin 600 t.i.d. 8. Multivitamin daily. 9. Metoprolol 25 b.i.d. 10. Senokot p.r.n. at bedtime. 11. Clonidine p.r.n. 12. Simvastatin 40 mg at bedtime. 13. Vitamin C daily. 14. Metformin 1000 b.i.d. 15. Milk of magnesia p.r.n. ALLERGIES: PENICILLIN AND LATEX. FAMILY HISTORY: Nothing contributory. SOCIAL HISTORY: Patient lives in senior care. No history of smoking. REVIEW OF SYSTEMS: Unable to obtain because the patient is intubated now and sedated. PHYSICAL EXAMINATION: GENERAL: Patient is on vent support. VITAL SIGNS: Temperature 98, pulse 50, blood pressure 90/60. HEENT: Head is normal atraumatic. LUNGS: Bilateral air entry. No rhonchi. No wheezing. HEART: S1-S2 irregular. ABDOMEN: Soft. Slightly distended. No guarding. No rigidity. Bowel sounds heard. RECTAL: Deferred. CENTRAL NERVOUS SYSTEM: Patient moves all extremities. LABORATORY DATA: CBC shows WBC 16, hemoglobin 11, hematocrit 38, platelets 142. Metabolic panel; sodium 132, potassium 6.7, chloride 106, CO2 of 17, BUN 47, creatinine 2.4, glucose 131. Lactic acid 4.6. BNP of 1309. Urinalysis revealed wbc greater than 50, bacteria 4+. Chest x-ray negative. ASSESSMENT: 1. Possible cardiogenic shock. 2. Urinary tract infection with sepsis. 3. Hypotension. 4. Metabolic acidosis. 5. Chronic atrial fibrillation with slow rate. 6. Acute kidney injury. 7. Metabolic encephalopathy. 8. Severe hyperkalemia. 9. History of avascular necrosis of left hip. 10. History of CVA. 11. Diabetes mellitus. 12. Peripheral vascular disease. PLAN: 1. Ventilator support. 2. Hep-Lock. 3. Dobutamine infusion. 4. Diet, n.p.o. 5. Meropenem 500 mg IV piggyback q.8 hours. 6. lovenox 40 mg s/q daily 7. pulmonary consult 8. echo. CONDITION: Critical. PROGNOSIS: guarded. Job ID: [id number] [facility] [place]
[2019-03-16] MEDS: Meropenem 500 MG in Sodium Chloride 0.9% 100 ML IVPB SCH ×2 (05:37→17:23)
[2019-03-16 05:52] LABS: #Lymphocytes 0.7 thou/uL (1.20-3.40); #Monocytes 0.1 thou/uL (0.11-0.59); #Neutrophils 7.4 thou/uL (1.40-6.50); %Basophils 0.4 % (0.0-1.0); %Eosinophils 0.1 % (0.0-10.0); %Lymphocytes 8.5 % (21.0-51.0); %Monocytes 1.2 % (0.0-10.0); %Neutrophils 89.8 % (42.0-75.0); Hemoglobin 10.1 g/dL (12.0-16.0); Mean Corpuscular HGB CONC 30.6 g/dL (32.0-36.0); Mean Corpuscular Hemoglobin 25.6 pg (27.0-31.0); Mean Corpuscular Volume 83.9 fL (78.0-98.0); Mean Platelet Volume 9.6 fL (7.4-10.4); Platelet Count 117 thou/uL (130-400); RBC Distribution Width 17.2 % (11.5-14.5); Red Blood Cell (RBC) Count 3.95 mill/uL (4.20-5.40); White Blood Cell (WBC) Count 8.2 thou/uL (4.8-10.8)
[2019-03-16 06:03] LABS: Phosphorus 3.3 mg/dL (2.3-4.7)
[2019-03-16 06:04] LABS: Lactic Acid 2.8 mmol/L (0.5-2.2)
[2019-03-16 06:52] LABS: Calcium 8.5 mg/dL (7.8-10.44); Chloride 106 mmol/L (98-107); Potassium 5.8 mmol/L (3.5-5.1); Sodium 138 mmol/L (136-145)
[2019-03-16 06:53] LABS: Glucose 148 mg/dL (83-110)
[2019-03-16 06:54] LABS: Anion Gap 17 mmol/L (10-20); Carbon Dioxide 21 mmol/L (23-31)
[2019-03-16 06:56] LABS: Calc. Creatinine Clearance 29 mL/min (70-130); Estimated GFR-MDRD 22
[2019-03-16 06:57] LABS: BUN (Urea Nitrogen) 46 mg/dL (9.8-20.1)
[2019-03-16 06:58] LABS: Magnesium 1.4 mg/dL (1.6-2.6)
--- NOTE | 2019-03-16 09:42 | PRG ---
DATE OF SERVICE: 03/16/2019 SUBJECTIVE: This is an 78-year-old female, who is intubated yesterday with progressive respiratory failure. She now is on Diprivan. She presented to the hospital with mental status change, pH was 7.1. She was recently here with abdominal pain, [facility] patient. She became bradycardic, rates in the 20s, probably secondary to multiple medications that she is getting. OBJECTIVE: GENERAL: Blood pressure is 90/63, pulse 90, sats 98%, and respiratory rate 18. CHEST: Decreased breath sounds. No wheezing. CARDIAC: Normal S1 and S2. No gallops. ABDOMEN: No masses. LABORATORY DATA: Creatinine is 2.12, BUN is 46. Lactic acid is 2.8. White count 8000, H and H 10 and 30, platelet count is low at 117. Chest x-ray shows chronic bilateral changes. CT of brain shows no evidence of any acute intracranial process. X-ray shows chronic changes. Small bilateral pleural effusion. Respiratory failure, encephalopathy, pneumonia, recurrent Escherichia coli, and chronic pain. Continue present treatment, steroids, neb treatments, and supportive care. We will follow. One-half hour of critical time. Job ID: [id number]
[2019-03-16] MEDS: Famotidine/PF 20 mg/2ml Vial SLOW IVP SCH (09:43)
[2019-03-16] MEDS: Furosemide 40 MG/4 ML VIAL SLOW IVP SCH (09:43)
[2019-03-16] MEDS: Morphine 2 MG/ML SYRINGE SLOW IVP PRN (11:15)
[2019-03-16] MEDS ORDERED: DC Sedation Protocol FS ONE (11:50)
[2019-03-16] MEDS: HumaLOG 300 UNITS/3 ML VIAL SC PRN ×2 (12:00→18:22)
[2019-03-16] MEDS ORDERED: Milk Of Magnesia 30 ML UDCUP PO PRN (12:54)
[2019-03-16] MEDS: Gabapentin 300 MG CAP PO SCH ×2 (15:57→21:15)
[2019-03-16] MEDS ORDERED: Potassium Chloride 20 MEQ TAB PO PRN (16:07)
[2019-03-16] MEDS ORDERED: Potassium Chloride 40 MEQ in Sodium Chloride 0.9% 250 ML 250 ML IVPB PRN (16:07)
[2019-03-16] MEDS ORDERED: PHOS-NAK 1 PKT PACK PO PRN ×2 (16:07)
[2019-03-16] MEDS ORDERED: Magnesium Oxide 400 MG TAB PO PRN (16:07)
[2019-03-16] MEDS ORDERED: Potassium Phosphate 12 MMOL in Sodium Chloride 0.9% 250 ML 250 ML IV PRN (16:07)
[2019-03-16] MEDS ORDERED: CCU ELECTROLYTE REPLACEMENT PROTOCOL FS PRN (16:07)
[2019-03-16] MEDS ORDERED: Magnesium 2 GM/50 ML 2 GM in Premix Bag 1 BAG IVPB PRN (16:07)
[2019-03-16] MEDS ORDERED: Potassium Phosphate 9 MMOL in Sodium Chloride 0.9% 100 ML IVPB PRN (16:07)
[2019-03-16] MEDS ORDERED: Potassium Phosphate 15 MMOL in Sodium Chloride 0.9% 250 ML 250 ML IV PRN (16:07)
[2019-03-16] MEDS ORDERED: Potassium Chloride 40 MEQ in Premix Bag 1 BAG IVPB PRN (16:07)
[2019-03-16] MEDS: Senokot S 8.6-50 MG TAB PO SCH (21:15)
[2019-03-16] MEDS: Metoprolol Tartrate 25 MG TAB PO SCH (21:15)
[2019-03-16] MEDS: Atorvastatin Calcium 20 MG TAB PO SCH (21:15)
--- NOTE | 2019-03-17 | CON ---
DATE OF CONSULTATION: HISTORY OF PRESENT ILLNESS: Margaret Méndez is an 78-year-old white female, who in July 2011, had a drug-eluting stent-Promus 2.75 x 24 mm stent placed in the distal right coronary artery. She was evaluated by Dr. Crocktet in June 2013 and underwent repeat catheterization. She had plaquing of the LAD and the first obtuse marginal. There was 30-40 percent mid RCA stenosis. There continued to be excellent previous stent result. She now is admitted with being found unresponsive at the long-term. In the ER, she was hypotensive, possible urosepsis, had been given vancomycin and Zosyn. She also had episodes of slow ventricular response with her chronic atrial fibrillation with heart rate in the 30s. She was placed on dobutamine for a time. She was intubated and ultimately has been extubated. She no longer is bradycardic. PAST MEDICAL HISTORY: Coronary artery disease, history of CVA, chronic atrial fibrillation, hypertension, diabetes, peripheral vascular disease, hyperlipidemia, hypothyroidism, avascular necrosis of the left hip with chronic pain. OPERATIONS: Include hysterectomy, cholecystectomy, coronary artery stent placement, multiple amputation of toes. MEDICATIONS: 1. Diltiazem 180 daily. 2. Aspirin 81 daily. 3. Lexapro 10 daily. 4. Levothyroxine 75 mcg daily. 5. Gabapentin 600 t.i.d. 6. Multivitamin daily. 7. Metoprolol 25 b.i.d. 8. Senokot p.r.n. 9. Simvastatin 40 at bedtime. 10. Metformin 1000 b.i.d. 11. Milk of magnesia p.r.n. ALLERGIES: PENICILLIN AND LATEX. SOCIAL HISTORY: She does not smoke. REVIEW OF SYSTEMS: Unobtainable at this time 129/92, pulse of 95, dobutamine drip has been discontinued. HEENT: PERRL. NECK: Supple. CHEST: Reveals some rhonchi on the right. CARDIOVASCULAR: S1 and S2 normal without any S3, S4 or murmurs. ABDOMEN: Normal bowel sounds without tenderness. EXTREMITIES: Revealed 1+ pedal edema. NEUROLOGIC: Patient moves all extremities and is conversant. LABORATORY DATA: EKG revealed atrial fibrillation with slow ventricular response of 59 per minute, nonspecific T-waves. Hemoglobin 10.1, hematocrit 33.1, white count 8200, platelets 117,000. pH on admission 7.10, pCO2 59.3, pO2 113.9. Sodium 138, potassium 5.8, chloride 106, carbon dioxide 21, BUN 46, creatinine 2.12. In October, her creatinine was 0.85. BNP 941.0. Lactic acid 5.5. TSH is normal. Urine revealed 4+ bacteria, greater than 50 rbcs, greater than 50 wbcs. Urine cultures presumptively grown E. coli. IMPRESSION: 1. Probable urosepsis. 2. Chronic atrial fibrillation. However, with acute kidney injury and sepsis, she was significantly bradycardic. Cardizem and metoprolol have been held. However , current rate is around 100. I think this probably would need to be resumed tomorrow. 3. Coronary artery disease, status post drug-eluting stent placed in the distal right coronary artery in 2011. 4. Hypertension. 5. Diabetes. 6. Hyperlipidemia. 7. Peripheral vascular disease. 8. History of stroke. 9. Hypothyroidism, under good control. PLAN: The patient will continue to be monitored and as her blood pressure and pulse rate improve, metoprolol and Cardizem will need to be resumed for rate control. Job ID: [id number] MTDD
[2019-03-17] MEDS: methylPREDNISolone Sod Succ 40 MG VIAL IVP SCH ×3 (00:27→20:19)
[2019-03-17] MEDS: HumaLOG 300 UNITS/3 ML VIAL SC PRN ×3 (00:27→17:14)
[2019-03-17] MEDS: Levothyroxine Sodium 75 MCG TAB PO SCH (06:03)
[2019-03-17] MEDS: Meropenem 500 MG in Sodium Chloride 0.9% 100 ML IVPB SCH (06:03)
[2019-03-17 06:17] LABS: #Lymphocytes 0.4 thou/uL (1.20-3.40); #Monocytes 0.3 thou/uL (0.11-0.59); #Neutrophils 8.1 thou/uL (1.40-6.50); %Basophils 0.1 % (0.0-1.0); %Eosinophils 0.2 % (0.0-10.0); %Monocytes 3.1 % (0.0-10.0); %Neutrophils 91.7 % (42.0-75.0); Hemoglobin 9.7 g/dL (12.0-16.0); Mean Corpuscular HGB CONC 30.6 g/dL (32.0-36.0); Mean Corpuscular Hemoglobin 25.3 pg (27.0-31.0); Mean Corpuscular Volume 82.9 fL (78.0-98.0); Mean Platelet Volume 8.4 fL (7.4-10.4); Platelet Count 150 thou/uL (130-400); RBC Distribution Width 17.2 % (11.5-14.5); Red Blood Cell (RBC) Count 3.83 mill/uL (4.20-5.40); White Blood Cell (WBC) Count 8.8 thou/uL (4.8-10.8)
[2019-03-17 06:37] LABS: Phosphorus 4.3 mg/dL (2.3-4.7)
[2019-03-17 06:38] LABS: Anion Gap 14 mmol/L (10-20); BUN (Urea Nitrogen) 51 mg/dL (9.8-20.1); Calc. Creatinine Clearance 29 mL/min (70-130); Calcium 8.6 mg/dL (7.8-10.44); Carbon Dioxide 25 mmol/L (23-31); Chloride 104 mmol/L (98-107); Estimated GFR-MDRD 23; Glucose 185 mg/dL (83-110); Potassium 5.2 mmol/L (3.5-5.1); Sodium 138 mmol/L (136-145)
[2019-03-17] MEDS: Ascorbic Acid 500 mg Chewable Tablet PO SCH (08:31)
[2019-03-17] MEDS: Escitalopram Oxalate 10 mg Tablet PO SCH (08:31)
[2019-03-17] MEDS: Aspirin 81 mg Enteric Coated Tablet PO SCH (08:31)
[2019-03-17] MEDS: Metoprolol Tartrate 25 MG TAB PO SCH ×2 (08:32→20:19)
[2019-03-17] MEDS: Gabapentin 300 MG CAP PO SCH ×3 (08:32→20:15)
[2019-03-17] MEDS: Multivit, Therapeutic 1 TAB PO SCH (08:32)
[2019-03-17] MEDS: Enoxaparin Sodium 30 MG/0.3 ML SYRINGE SC SCH (08:33)
[2019-03-17] MEDS: Famotidine/PF 20 mg/2ml Vial SLOW IVP SCH (08:33)
[2019-03-17] MEDS: Furosemide 40 MG/4 ML VIAL SLOW IVP SCH (08:37)
--- NOTE | 2019-03-17 09:45 | RAD ---
PORTABLE CHEST: HISTORY: CCU followup. Shortness of breath. COMPARISON: 03/15/2019. ET tube and NG tube have been removed. Borderline cardiomegaly. Mild vascular engorgement. Bibasil ar infiltrates or atelectasis and small bilateral effusions. Findings have not significantly changed when compared to the prior study. POS: [facility]
--- NOTE | 2019-03-17 10:23 | PRG ---
DATE OF SERVICE: 03/17/2019 SUBJECTIVE: An 78-year-old female who was extubated yesterday. She remains encephalopathic, having some dysphagia. OBJECTIVE: VITAL SIGNS: Sats are 100% on 2 L, pulse 112, blood pressure , respiratory rate 19. GENERAL: She is awake, alert, responsive. CHEST: Decreased breath sounds without any wheezing. CARDIAC: Normal S1 and S2. No gallops. ABDOMEN: No masses. IMPRESSION: 1. Status post respiratory failure. 2. Severe bradycardia. 3. Hypotension. 4. Bilateral pleural effusion. 5. Speech to see her again. 6. Continue supportive care. 7. Await input from Cardiology. Prognosis is guarded. Job ID: [id number]
[2019-03-17] MEDS: cefTRIAXone\\ROCEPHIN 1 GM in Sodium Chloride 0.9% 100 ML IVPB SCH (10:24)
--- NOTE | 2019-03-17 15:48 | EKG ---
Test Reason : Blood Pressure : / mmHG Vent. Rate : 059 BPM Atrial Rate : 065 BPM P-R Int : 000 ms QRS Dur : 082 ms QT Int : 510 ms P-R-T Axes : 000 080 148 degrees QTc Int : 504 ms Atrial fibrillation with slow ventricular response Nonspecific T wave abnormality Prolonged QT Abnormal ECG Confirmed by LINDA ESTRELLA ([id number]), associate entertainment editor IMANI AVINA ([id number]) on 03/17/2019 3:47:58 PM Referred By: Confirmed By:LINDA ESTRELLA
[2019-03-17] MEDS ORDERED: Metoprolol Tartrate 5 MG/5 ML VIAL IVP SCH (16:00)
[2019-03-17] MEDS: Senokot S 8.6-50 MG TAB PO SCH (20:19)
[2019-03-17] MEDS: Atorvastatin Calcium 20 MG TAB PO SCH (20:19)
[2019-03-18 05:16] LABS: #Lymphocytes 0.8 thou/uL (1.20-3.40); #Monocytes 0.4 thou/uL (0.11-0.59); #Neutrophils 13.9 thou/uL (1.40-6.50); %Basophils 0.1 % (0.0-1.0); %Eosinophils 0.2 % (0.0-10.0); %Lymphocytes 5.5 % (21.0-51.0); %Monocytes 2.9 % (0.0-10.0); %Neutrophils 91.4 % (42.0-75.0); Hemoglobin 10.4 g/dL (12.0-16.0); Mean Corpuscular HGB CONC 30.5 g/dL (32.0-36.0); Mean Corpuscular Hemoglobin 25.3 pg (27.0-31.0); Mean Corpuscular Volume 83.1 fL (78.0-98.0); Mean Platelet Volume 8.8 fL (7.4-10.4); Platelet Count 158 thou/uL (130-400); Red Blood Cell (RBC) Count 4.09 mill/uL (4.20-5.40); White Blood Cell (WBC) Count 15.2 thou/uL (4.8-10.8)
[2019-03-18 05:32] LABS: Phosphorus 3.9 mg/dL (2.3-4.7)
[2019-03-18 05:37] LABS: Anion Gap 15 mmol/L (10-20); BUN (Urea Nitrogen) 58 mg/dL (9.8-20.1); Calc. Creatinine Clearance 31 mL/min (70-130); Calcium 8.4 mg/dL (7.8-10.44); Carbon Dioxide 22 mmol/L (23-31); Chloride 106 mmol/L (98-107); Estimated GFR-MDRD 25; Glucose 202 mg/dL (83-110); Magnesium 1.9 mg/dL (1.6-2.6); Potassium 5.3 mmol/L (3.5-5.1); Sodium 138 mmol/L (136-145)
[2019-03-18] MEDS: Levothyroxine Sodium 75 MCG TAB PO SCH (06:27)
[2019-03-18] MEDS: HumaLOG 300 UNITS/3 ML VIAL SC PRN ×4 (06:32→21:09)
[2019-03-18] MEDS: Escitalopram Oxalate 10 mg Tablet PO SCH (08:55)
[2019-03-18] MEDS: Enoxaparin Sodium 30 MG/0.3 ML SYRINGE SC SCH (08:55)
[2019-03-18] MEDS: Famotidine/PF 20 mg/2ml Vial SLOW IVP SCH (08:55)
[2019-03-18] MEDS: Gabapentin 300 MG CAP PO SCH ×3 (08:55→21:08)
[2019-03-18] MEDS: Aspirin 81 mg Enteric Coated Tablet PO SCH (08:55)
[2019-03-18] MEDS: Magnesium Oxide 400 MG TAB PO PRN ×2 (08:56→14:45)
[2019-03-18] MEDS: Multivit, Therapeutic 1 TAB PO SCH (08:56)
[2019-03-18] MEDS: Metoprolol Tartrate 25 MG TAB PO SCH ×2 (08:56→21:08)
[2019-03-18] MEDS: Ascorbic Acid 500 mg Chewable Tablet PO SCH (08:57)
[2019-03-18] MEDS: methylPREDNISolone Sod Succ 40 MG VIAL IVP SCH (08:57)
[2019-03-18] MEDS: cefTRIAXone\\ROCEPHIN 1 GM in Sodium Chloride 0.9% 100 ML IVPB SCH (09:06)
[2019-03-18] MEDS: Furosemide 40 MG/4 ML VIAL SLOW IVP SCH (09:08)
[2019-03-18] MEDS ORDERED: Furosemide 40 MG/4 ML VIAL SLOW IVP SCH (09:15)
--- NOTE | 2019-03-18 09:15 | RAD ---
RADIOGRAPH CHEST 1 VIEW: DATE: 03/18/2019 TIME: 4:28 AM HISTORY: 78-year-old female in respiratory distress COMPARISON: 03/17/2019 FINDINGS: Airspace opacity occupying right mid and lower lung zones, unchanged. Possible bilateral pleural effu sions. Haziness at the left base, mild. No pneumothorax. No interval change. IMPRESSION: No significant interval change.
--- NOTE | 2019-03-18 11:13 | PRG ---
DATE OF SERVICE: 03/18/2019 SUBJECTIVE: Margaret Méndez appears to be doing well. OBJECTIVE: VITAL SIGNS: Saturations 99% on 2 L, blood pressure 145/85, respirations 18, and pulse 80. I's and O's have been consistently negative. CHEST: Decreased breath sounds. CARDIAC: Normal S1 and S2. No gallops. ABDOMEN: No masses. LABORATORY DATA: Creatinine is 1.96 and elevated, BUN is 58 . ASSESSMENT: Urinary tract infection, respiratory failure, congestive heart failure, bilateral pleural effusions, and advanced age. PLAN: From the pulmonary standpoint of view, switch over to oral antibiotics, continue aggressive cardiac care. Disposition as per primary care physician. Job ID: [id number]
[2019-03-18] MEDS: Senokot S 8.6-50 MG TAB PO SCH (21:08)
[2019-03-18] MEDS: Atorvastatin Calcium 20 MG TAB PO SCH (21:08)
[2019-03-18] MEDS: Cefdinir 300 MG CAP PO SCH (21:09)
[2019-03-19 05:08] LABS: #Lymphocytes 0.8 thou/uL (1.20-3.40); #Monocytes 0.6 thou/uL (0.11-0.59); %Eosinophils 0.1 % (0.0-10.0); %Lymphocytes 9.4 % (21.0-51.0); %Monocytes 7.2 % (0.0-10.0); %Neutrophils 83.4 % (42.0-75.0); Hemoglobin 9.2 g/dL (12.0-16.0); Mean Corpuscular Hemoglobin 25.8 pg (27.0-31.0); Mean Corpuscular Volume 83.3 fL (78.0-98.0); Mean Platelet Volume 8.6 fL (7.4-10.4); Platelet Count 125 thou/uL (130-400); RBC Distribution Width 16.6 % (11.5-14.5); Red Blood Cell (RBC) Count 3.58 mill/uL (4.20-5.40); White Blood Cell (WBC) Count 8.4 thou/uL (4.8-10.8)
[2019-03-19 05:23] LABS: Phosphorus 3.3 mg/dL (2.3-4.7)
[2019-03-19 05:25] LABS: Anion Gap 14 mmol/L (10-20); BUN (Urea Nitrogen) 60 mg/dL (9.8-20.1); Calc. Creatinine Clearance 36 mL/min (70-130); Calcium 8.4 mg/dL (7.8-10.44); Carbon Dioxide 24 mmol/L (23-31); Chloride 107 mmol/L (98-107); Estimated GFR-MDRD 30; Glucose 172 mg/dL (83-110); Magnesium 1.9 mg/dL (1.6-2.6); Potassium 4.8 mmol/L (3.5-5.1); Sodium 140 mmol/L (136-145)
[2019-03-19] MEDS: Levothyroxine Sodium 75 MCG TAB PO SCH (06:25)
[2019-03-19] MEDS: HumaLOG 300 UNITS/3 ML VIAL SC PRN ×3 (06:25→17:35)
[2019-03-19] MEDS ORDERED: Famotidine 20 MG TAB PO SCH (09:00)
[2019-03-19] MEDS ORDERED: Furosemide 40 MG TAB PO SCH (09:00)
[2019-03-19] MEDS: Enoxaparin Sodium 30 MG/0.3 ML SYRINGE SC SCH (09:22)
[2019-03-19] MEDS: Gabapentin 300 MG CAP PO SCH ×3 (09:22→21:17)
[2019-03-19] MEDS: Ascorbic Acid 500 mg Chewable Tablet PO SCH (09:23)
[2019-03-19] MEDS: Multivit, Therapeutic 1 TAB PO SCH (09:23)
[2019-03-19] MEDS: Aspirin 81 mg Enteric Coated Tablet PO SCH (09:23)
[2019-03-19] MEDS: predniSONE 20 MG TAB PO SCH (09:23)
[2019-03-19] MEDS: Escitalopram Oxalate 10 mg Tablet PO SCH (09:23)
[2019-03-19] MEDS: Cefdinir 300 MG CAP PO SCH ×2 (09:23→21:17)
[2019-03-19] MEDS: Metoprolol Tartrate 25 MG TAB PO SCH ×2 (09:23→21:17)
--- NOTE | 2019-03-19 11:21 | PRG ---
DATE OF SERVICE: 03/19/2019 SUBJECTIVE: This morning, she is doing better, less short of breath. OBJECTIVE: VITAL SIGNS: Saturations are 93% on room air, blood pressure 142/69, respiratory rate 18, pulse 80. I's and O's are negative. CHEST: Decreased breath sounds. No wheezing. CARDIAC: Normal S1, S2. No gallops. ABDOMEN: No masses. LABORATORY DATA: BUN is 62 and creatinine 1.6. ASSESSMENT: Congestive heart failure, bilateral pleural effusion, diastolic dysfunction, and respiratory failure. PLAN: She is on p.o. Lasix. PT and supportive care. She can be transferred out of the MICU. Job ID: [id number]
[2019-03-19] MEDS: Senokot S 8.6-50 MG TAB PO SCH (21:17)
[2019-03-19] MEDS: Atorvastatin Calcium 20 MG TAB PO SCH (21:17)
[2019-03-20 03:52] LABS: #Lymphocytes 0.8 thou/uL (1.20-3.40); #Monocytes 0.6 thou/uL (0.11-0.59); #Neutrophils 5.4 thou/uL (1.40-6.50); %Basophils 0.4 % (0.0-1.0); %Eosinophils 0.2 % (0.0-10.0); %Lymphocytes 11.2 % (21.0-51.0); %Monocytes 9.2 % (0.0-10.0); Hemoglobin 9.1 g/dL (12.0-16.0); Mean Corpuscular HGB CONC 30.5 g/dL (32.0-36.0); Mean Corpuscular Hemoglobin 25.5 pg (27.0-31.0); Mean Corpuscular Volume 83.6 fL (78.0-98.0); Mean Platelet Volume 8.7 fL (7.4-10.4); Platelet Count 124 thou/uL (130-400); RBC Distribution Width 16.8 % (11.5-14.5); Red Blood Cell (RBC) Count 3.57 mill/uL (4.20-5.40); White Blood Cell (WBC) Count 6.8 thou/uL (4.8-10.8)
[2019-03-20 04:19] LABS: Anion Gap 13 mmol/L (10-20); BUN (Urea Nitrogen) 58 mg/dL (9.8-20.1); Calc. Creatinine Clearance 42 mL/min (70-130); Calcium 8.6 mg/dL (7.8-10.44); Carbon Dioxide 27 mmol/L (23-31); Chloride 108 mmol/L (98-107); Estimated GFR-MDRD 36; Glucose 224 mg/dL (83-110); Magnesium 1.8 mg/dL (1.6-2.6); Potassium 4.3 mmol/L (3.5-5.1); Sodium 144 mmol/L (136-145)
[2019-03-20] MEDS: Levothyroxine Sodium 75 MCG TAB PO SCH (06:14)
[2019-03-20] MEDS: HumaLOG 300 UNITS/3 ML VIAL SC PRN ×3 (06:29→16:53)
[2019-03-20] MEDS: Escitalopram Oxalate 10 mg Tablet PO SCH (09:25)
[2019-03-20] MEDS: Aspirin 81 mg Enteric Coated Tablet PO SCH (09:25)
[2019-03-20] MEDS: Furosemide 20 MG TAB PO SCH (09:25)
[2019-03-20] MEDS: predniSONE 20 MG TAB PO SCH (09:25)
[2019-03-20] MEDS: Gabapentin 300 MG CAP PO SCH ×2 (09:25→15:24)
[2019-03-20] MEDS: Cefdinir 300 MG CAP PO SCH ×2 (09:26→20:47)
[2019-03-20] MEDS: Enoxaparin Sodium 30 MG/0.3 ML SYRINGE SC SCH (09:26)
[2019-03-20] MEDS: Multivit, Therapeutic 1 TAB PO SCH (09:26)
[2019-03-20] MEDS: Ascorbic Acid 500 mg Chewable Tablet PO SCH (09:26)
[2019-03-20] MEDS: Metoprolol Tartrate 25 MG TAB PO SCH ×2 (09:26→20:47)
--- NOTE | 2019-03-20 09:37 | PRG ---
DATE OF SERVICE: 03/20/2019 SUBJECTIVE: Appears to be lethargic this morning, though her saturations are 98% on room air. OBJECTIVE: VITAL SIGNS: Pulse 65 and blood pressure 120/65. CHEST: Decreased breath sounds, no wheezing. CARDIAC: Normal S1 and S2. No gallops. ABDOMEN: No masses. LABORATORY DATA: Creatinine is 1.4. White count 6000, H and H 9 and 28. IMPRESSION: Respiratory failure, bilateral pleural effusion, diastolic dysfunction, and dementia. Continue aggressive PT and supportive care. Eventually placement. Job ID: [id number]
--- NOTE | 2019-03-20 13:01 | CT ---
CT HEAD WITHOUT CONTRAST: 03/20/2019 HISTORY: Altered mental status. Lethargy. COMPARISON: 03/15/2019 TECHNIQUE: Axial CT imaging at 5 mm intervals from the vertex through the skull base without contrast. FINDINGS: The visualized paranasal sinuses/mastoid air cells are well aerated. There is no displaced calvarial fracture. There is no intracranial hemorrhage, midline shift or mass effect. There is extensive encephalomalacia within the temporal and parietal lobe posteriorly on the left, st able when compared to the prior examination, evidence of prior insult/infarction. There is stable pro minence of the lateral ventricles. There is no intracranial hemorrhage, midline shift or mass effect. IMPRESSION: Stable head CT. No evidence for intracranial hemorrhage. If symptoms persist brain MRI is recommended . POS: [facility]
--- NOTE | 2019-03-20 19:03 | PRG ---
DATE OF SERVICE: 03/20/2019 SUBJECTIVE: Ms. Méndez is sleeping now. No complaints. She is resting comfortably. OBJECTIVE: VITAL SIGNS: Her blood pressure 130/60, pulse is in the low 60s, it is atrial fibrillation sometimes in low 70s. LUNGS: Clear. CARDIAC: Irregularly irregular. ABDOMEN: Soft and nontender. EXTREMITIES: No edema. ASSESSMENT: 1. Chronic atrial fibrillation. 2. Coronary artery disease. 3. Recent sepsis. PLAN: 1. Reduce diltiazem to 120 mg a day. We wished to avoid bradycardia. 2. The patient should be transferred to telemetry from my standpoint. Job ID: [id number]
[2019-03-20] MEDS: Atorvastatin Calcium 20 MG TAB PO SCH (20:47)
[2019-03-20] MEDS: Senokot S 8.6-50 MG TAB PO SCH (20:48)
[2019-03-21 02:39] LABS: #Lymphocytes 0.7 thou/uL (1.20-3.40); #Monocytes 0.6 thou/uL (0.11-0.59); #Neutrophils 5.6 thou/uL (1.40-6.50); %Basophils 0.1 % (0.0-1.0); %Eosinophils 0.5 % (0.0-10.0); %Lymphocytes 9.8 % (21.0-51.0); %Monocytes 8.1 % (0.0-10.0); %Neutrophils 81.5 % (42.0-75.0); Hemoglobin 9.4 g/dL (12.0-16.0); Mean Corpuscular HGB CONC 30.2 g/dL (32.0-36.0); Mean Corpuscular Hemoglobin 25.3 pg (27.0-31.0); Mean Corpuscular Volume 83.9 fL (78.0-98.0); Mean Platelet Volume 9.8 fL (7.4-10.4); Platelet Count 101 thou/uL (130-400); RBC Distribution Width 16.8 % (11.5-14.5); Red Blood Cell (RBC) Count 3.71 mill/uL (4.20-5.40); White Blood Cell (WBC) Count 6.9 thou/uL (4.8-10.8)
[2019-03-21 03:08] LABS: Phosphorus 2.5 mg/dL (2.3-4.7)
[2019-03-21 03:09] LABS: Anion Gap 14 mmol/L (10-20); BUN (Urea Nitrogen) 12 mg/dL (9.8-20.1); Calc. Creatinine Clearance 73 mL/min (70-130); Calcium 8.5 mg/dL (7.8-10.44); Carbon Dioxide 24 mmol/L (23-31); Chloride 109 mmol/L (98-107); Estimated GFR-MDRD 67; Glucose 181 mg/dL (83-110); Magnesium 1.6 mg/dL (1.6-2.6); Potassium 3.9 mmol/L (3.5-5.1); Sodium 143 mmol/L (136-145)
[2019-03-21 03:37] LABS: Thyroid Stimulating Hormone 0.7868 uIU/mL (0.35-4.94)
[2019-03-21 04:54] LABS: Free T4 (Free Thyroxine) 0.84 ng/dL (0.70-1.48)
[2019-03-21] MEDS: HumaLOG 300 UNITS/3 ML VIAL SC PRN ×2 (06:12→17:11)
[2019-03-21] MEDS: Levothyroxine Sodium 75 MCG TAB PO SCH (06:13)
[2019-03-21] MEDS: Magnesium Oxide 400 MG TAB PO PRN ×2 (06:13→21:04)
[2019-03-21] MEDS: Ascorbic Acid 500 mg Chewable Tablet PO SCH (09:35)
[2019-03-21] MEDS: Multivit, Therapeutic 1 TAB PO SCH (09:39)
[2019-03-21] MEDS: Furosemide 20 MG TAB PO SCH (09:39)
[2019-03-21] MEDS: Cefdinir 300 MG CAP PO SCH ×2 (09:39→21:04)
[2019-03-21] MEDS: Aspirin 81 mg Enteric Coated Tablet PO SCH (09:39)
[2019-03-21] MEDS: Metoprolol Tartrate 25 MG TAB PO SCH ×2 (09:39→21:04)
[2019-03-21] MEDS: Enoxaparin Sodium 30 MG/0.3 ML SYRINGE SC SCH (09:40)
[2019-03-21] MEDS: predniSONE 20 MG TAB PO SCH (09:40)
--- NOTE | 2019-03-21 09:42 | PRG ---
DATE OF SERVICE: 03/21/2019 SUBJECTIVE: Ms. Méndez is doing fine. She is more awake and alert today. No complaints. OBJECTIVE: VITAL SIGNS: Blood pressure 135/68, pulse 70 and it is irregular. LUNGS: Clear. CARDIAC: Irregularly irregular. ASSESSMENT: 1. Chronic atrial fibrillation, rate controlled. 2. Diltiazem dose has been reduced. 3. She is on low-dose enoxaparin. PLAN: Consider increasing to full anticoagulation and stopping aspirin. Job ID: [id number]
--- NOTE | 2019-03-21 09:50 | PRG ---
DATE OF SERVICE: 03/21/2019 SUBJECTIVE: Margaret Méndez this morning is more awake, more responsive. OBJECTIVE: VITAL SIGNS: 96% saturation on 0.5 L, respiratory rate 20, pulse 69, blood pressure 135/68. CHEST: Decreased breath sounds. No wheezing. CARDIAC: Normal S1 and S2. No gallops. ABDOMEN: No masses. IMPRESSION: Respiratory failure, congestive heart failure, pleural effusion, chronic obstructive pulmonary disease, and encephalopathy. PLAN: At this stage, Pulmonary has nothing additional to offer. Disposition as per primary care physician. She can be transferred out of the MICU. Job ID: [id number]
[2019-03-21] MEDS: Senokot S 8.6-50 MG TAB PO SCH (21:04)
[2019-03-21] MEDS: Atorvastatin Calcium 20 MG TAB PO SCH (21:04)
[2019-03-22 04:40] LABS: #Eosinphils 0.1 thou/uL (0.0-0.7); #Lymphocytes 1.4 thou/uL (1.20-3.40); #Monocytes 0.9 thou/uL (0.11-0.59); #Neutrophils 7.4 thou/uL (1.40-6.50); %Basophils 0.1 % (0.0-1.0); %Eosinophils 1.1 % (0.0-10.0); %Lymphocytes 14.1 % (21.0-51.0); %Monocytes 9.4 % (0.0-10.0); %Neutrophils 75.3 % (42.0-75.0); Hemoglobin 9.1 g/dL (12.0-16.0); Mean Corpuscular Hemoglobin 24.9 pg (27.0-31.0); Mean Corpuscular Volume 82.9 fL (78.0-98.0); Platelet Count 109 thou/uL (130-400); RBC Distribution Width 16.5 % (11.5-14.5); Red Blood Cell (RBC) Count 3.65 mill/uL (4.20-5.40); White Blood Cell (WBC) Count 9.8 thou/uL (4.8-10.8)
[2019-03-22 04:59] LABS: Anion Gap 10 mmol/L (10-20); BUN (Urea Nitrogen) 32 mg/dL (9.8-20.1); Calc. Creatinine Clearance 73 mL/min (70-130); Calcium 8.4 mg/dL (7.8-10.44); Carbon Dioxide 29 mmol/L (23-31); Chloride 106 mmol/L (98-107); Estimated GFR-MDRD 66; Glucose 177 mg/dL (83-110); Magnesium 1.4 mg/dL (1.6-2.6); Phosphorus 1.9 mg/dL (2.3-4.7); Potassium 3.6 mmol/L (3.5-5.1); Sodium 141 mmol/L (136-145)
[2019-03-22] MEDS: HumaLOG 300 UNITS/3 ML VIAL SC PRN (05:22)
[2019-03-22] MEDS: Levothyroxine Sodium 75 MCG TAB PO SCH (05:23)
[2019-03-22] MEDS: Magnesium Oxide 400 MG TAB PO PRN (05:23)
[2019-03-22] MEDS: Cefdinir 300 MG CAP PO SCH ×2 (08:41→21:02)
[2019-03-22] MEDS: Multivit, Therapeutic 1 TAB PO SCH (08:41)
[2019-03-22] MEDS: predniSONE 20 MG TAB PO SCH (08:41)
[2019-03-22] MEDS: Enoxaparin Sodium 40 MG/0.4 ML SYRINGE SC SCH (08:41)
[2019-03-22] MEDS: Furosemide 20 MG TAB PO SCH (08:41)
[2019-03-22] MEDS: Ascorbic Acid 500 mg Chewable Tablet PO SCH (08:41)
[2019-03-22] MEDS: Metoprolol Tartrate 25 MG TAB PO SCH (08:41)
[2019-03-22] MEDS: Aspirin 81 mg Enteric Coated Tablet PO SCH (08:42)
[2019-03-22] MEDS ORDERED: Escitalopram Oxalate 10 mg Tablet PO SCH (09:00)
--- NOTE | 2019-03-22 09:26 | PRG ---
DATE OF SERVICE: 03/22/2019 SUBJECTIVE: Ms. Méndez is sleeping now. No complaints. OBJECTIVE: VITAL SIGNS: Her blood pressure 144/98 and pulse is 70 to 80, it is irregular. LUNGS: Clear. CARDIAC: Irregularly irregular. ASSESSMENT: 1. Chronic atrial fibrillation, rate controlled. 2. Status post sepsis. PLAN: 1. She is on diltiazem CD 120 mg a day. 2. Low-dose enoxaparin. 3. Also on metoprolol. I would go ahead and stop the metoprolol to try to avoid bradycardia. No other changes at this time. Job ID: [id number]
--- NOTE | 2019-03-22 09:41 | PRG ---
DATE OF SERVICE: 03/22/2019 SUBJECTIVE: Margaret Méndez this morning is awake, is still lethargic, but no distress. LABORATORY DATA: Labs are unremarkable. H and H unremarkable, platelet count 109. OBJECTIVE: VITAL SIGNS: Blood pressure is 144/98, sats 100%, temperature 98, pulse 63. CHEST: No wheezing or crackles. CARDIAC: Normal S1 and S2. No gallops. ABDOMEN: Soft. ASSESSMENT: Chronic atrial fibrillation, encephalopathy, congestive heart failure, pleural effusion, diastolic dysfunction, and advanced age. At this stage, nothing additional to offer pulmonary mishra. I will minimize medication as much as possible. She can be transferred out of the MICU. Continue aggressive PT. Eventually placement. Job ID: [id number]
[2019-03-22] MEDS: Atorvastatin Calcium 20 MG TAB PO SCH (21:02)
[2019-03-22] MEDS: Senokot S 8.6-50 MG TAB PO SCH (21:02)
[2019-03-23] MEDS ORDERED: Potassium Chloride 20 MEQ TAB PO SCH ×2 (00:15→08:00)
[2019-03-23] MEDS: Levothyroxine Sodium 75 MCG TAB PO SCH (05:19)
[2019-03-23 06:11] LABS: #Eosinphils 0.3 thou/uL (0.0-0.7); #Lymphocytes 1.3 thou/uL (1.20-3.40); #Neutrophils 10.3 thou/uL (1.40-6.50); %Basophils 0.1 % (0.0-1.0); %Eosinophils 2.4 % (0.0-10.0); %Lymphocytes 9.7 % (21.0-51.0); %Neutrophils 79.8 % (42.0-75.0); Hemoglobin 9.3 g/dL (12.0-16.0); Mean Corpuscular HGB CONC 29.9 g/dL (32.0-36.0); Mean Corpuscular Hemoglobin 25.1 pg (27.0-31.0); Mean Corpuscular Volume 83.8 fL (78.0-98.0); Mean Platelet Volume 9.4 fL (7.4-10.4); Platelet Count 118 thou/uL (130-400); RBC Distribution Width 16.5 % (11.5-14.5); Red Blood Cell (RBC) Count 3.71 mill/uL (4.20-5.40); White Blood Cell (WBC) Count 12.9 thou/uL (4.8-10.8)
[2019-03-23 06:17] LABS: Anion Gap 10 mmol/L (10-20); BUN (Urea Nitrogen) 21 mg/dL (9.8-20.1); Calc. Creatinine Clearance 86 mL/min (70-130); Calcium 8.6 mg/dL (7.8-10.44); Carbon Dioxide 31 mmol/L (23-31); Chloride 103 mmol/L (98-107); Estimated GFR-MDRD 81; Glucose 155 mg/dL (83-110); Magnesium 1.4 mg/dL (1.6-2.6); Potassium 3.7 mmol/L (3.5-5.1); Sodium 140 mmol/L (136-145)
[2019-03-23 06:25] LABS: Phosphorus 1.8 mg/dL (2.3-4.7)
[2019-03-23] MEDS ORDERED: Magnesium 2 GM/50 ML 2 GM in Premix Bag 1 BAG IVPB SCH (08:15)
[2019-03-23] MEDS ORDERED: PHOS-NAK 1 PKT PACK PO SCH (08:15)
[2019-03-23] MEDS ORDERED: Escitalopram Oxalate 10 mg Tablet PO SCH (09:00)
[2019-03-23] MEDS ORDERED: Magnesium Oxide 400 MG TAB PO SCH (09:00)
--- NOTE | 2019-03-23 09:29 | PRG ---
DATE OF SERVICE: 03/23/2019 SUBJECTIVE: Margaret Méndez this morning appears to be at her baseline. OBJECTIVE: VITAL SIGNS: Saturations are 97% on 1 L, respiratory rate 20, temperature 99, blood pressure 150/83. CHEST: Decreased breath sounds, no wheezing. CARDIAC: Normal S1, S2. No gallops. ABDOMEN: No masses. LABORATORY DATA: Blood sugar is 174. Magnesium and phosphorus are normal. White count 83171. ASSESSMENT: Respiratory failure, encephalopathy, cardiac arrhythmias, hypothyroidism, congestive heart failure, pleural effusion, diastolic dysfunction. Pulmonary has nothing to offer at this stage. Disposition as per primary care physician. Some one needs to talk to the family regarding ongoing comfort care. Job ID: [id number]
[2019-03-23] MEDS: Aspirin 81 mg Enteric Coated Tablet PO SCH (10:10)
[2019-03-23] MEDS: predniSONE 20 MG TAB PO SCH (10:11)
[2019-03-23] MEDS: Cefdinir 300 MG CAP PO SCH (10:11)
[2019-03-23] MEDS: Enoxaparin Sodium 40 MG/0.4 ML SYRINGE SC SCH (10:12)
[2019-03-23] MEDS: Ascorbic Acid 500 mg Chewable Tablet PO SCH (10:12)
[2019-03-23] MEDS: Furosemide 20 MG TAB PO SCH (10:12)
[2019-03-23] MEDS: Multivit, Therapeutic 1 TAB PO SCH (10:12)
[2019-03-23 12:04] VITALS: BP 161/88; TEMP 99.8
[2019-03-23] MEDS ORDERED: metFORMIN XR 500 MG TAB PO SCH (17:00)
--- NOTE | 2019-03-26 09:38 | DIS ---
DATE OF ADMISSION: 03/15/2019 DATE OF DISCHARGE: 03/23/2019 ADMITTING DIAGNOSES: 1. Possible cardiogenic shock. 2. Urinary tract infection with sepsis. 3. Hypotension. 4. Metabolic acidosis. 5. Chronic obstructive pulmonary disease. 6. Chronic atrial fibrillation with slow rate. 7. Acute kidney injury. 8. Anemia. 9. Metabolic encephalopathy. 10. Severe hyperkalemia. 11. History of avascular necrosis of left hip. 12. History of cerebrovascular accident. 13. Diabetes mellitus. 14. Peripheral vascular disease. FINAL DIAGNOSES: 1. Sepsis with shock. 2. Acute respiratory failure. 3. Metabolic encephalopathy, improved. 4. Hallucinations, improved. 5. Chronic atrial fibrillation, slow ventricular rate. 6. Diastolic heart failure. 7. Hypothyroidism. 8. Pleural effusion. 9. Diabetes mellitus. 10. Hypertension. BRIEF SUMMARY OF HOSPITAL COURSE: Ms. Méndez is an 78-year-old female with past medical history of diabetes, hypertension, peripheral vascular disease, brought in because of change in mental status, in which she was very unresponsive, in respiratory failure. She was intubated, admitted to the ICU. The patient was put on ventilator support. She was thought to have initially cardiogenic shock as well as sepsis. The patient has seen Dr. Martinez. He gave a dose of Lasix and started her on IV antibiotics with meropenem. The patient was monitored in ICU for a couple of days and she was extubated and after extubation, the patient became more alert, awake, as well as started on a diet. Her atrial fibrillation had slow ventricular rate. The cardiology consult was also done in the ER for possible CHF. The patient is seen by Dr. Kimbrough. He felt the patient has urosepsis with shock as well as diastolic heart failure. Her medications were adjusted because of the slow ventricular rate. Her Cardizem dose was decreased and metoprolol dose was also decreased. Eventually, metoprolol was completely stopped because of the bradycardia. Her echocardiogram showed normal LV function with ejection fraction 55% with diastolic dysfunction. The patient transferred to [facility] for close monitoring. She was continued on medications and started on diet and physical therapy. The patient did have episodes of hallucinations there. Her medication [place] was stopped as well as her gabapentin was stopped. Benadryl was also stopped and Lexapro dose was decreased and then stopped. With these, her mental status improved as well as her hallucinations resolved and her infection is under control. Her vital signs remained stable. In view of that, the patient is being discharged back to long term. At the time of discharge, she was stable. Her vital signs were stable. Lungs clear. Heart sounds regular. Abdomen is soft and nontender. Bowel sounds present. DISCHARGE MEDICATIONS: Include; 1. Aspirin 81 mg daily. 2. Gabapentin was discontinued. 3. Simvastatin 40 mg at bedtime. 4. Levothyroxine 75 mcg daily. 5. Metformin ER 500 mg b.i.d. 6. Multivitamin daily. 7. Senokot daily. 8. Clonidine p.r.n. 9. Diltiazem 180 mg daily. 10. Milk of magnesia p.r.n. 11. Vitamin C 500 mg daily. 12. Omnicef 300 b.i.d. for 1 week. 13. Lexapro 5 mg daily. 14. Lasix 20 mg daily. 15. Magnesium oxide 400 b.i.d. 16. KCl 20 mEq daily. 17. Prednisone 10 mg daily for 2 days. 18. DuoNebs q.i.d. 19. Macrobid 100 b.i.d. for 1 week. The patient will be followed up in long term in 2 weeks. Job ID: [id number]
== END 2019-03-23 15:40 | DRG 871 ==
LOC: ERS 11:01 → CCU 13:19 → IMCU/EMU 03-17 13:17 → T4-A 03-22 12:18
PROVIDERS: ADMIT Internal Medicine; ATTEND Internal Medicine
PROC: 0BH18EZ Insertion of Endotracheal Airway into Trachea, Via Natural or Artificial Opening Endoscopic (ICD-10-PCS; principal; 2019-03-15)
PROC: 5A1945Z Respiratory Ventilation, 24-96 Consecutive Hours (ICD-10-PCS; 2019-03-15)
DX: A41.9 Sepsis, unspecified organism (principal); R65.21 Severe sepsis with septic shock; G93.41 Metabolic encephalopathy; J96.00 Acute respiratory failure, unspecified whether with hypoxia or hypercapnia; I48.20 Chronic atrial fibrillation, unspecified; N39.0 Urinary tract infection, site not specified; N17.9 Acute kidney failure, unspecified; I10 Essential (primary) hypertension; E11.9 Type 2 diabetes mellitus without complications; I73.9 Peripheral vascular disease, unspecified; I25.10 Atherosclerotic heart disease of native coronary artery without angina pectoris; Z95.5 Presence of coronary angioplasty implant and graft; E78.5 Hyperlipidemia, unspecified; E03.9 Hypothyroidism, unspecified; M19.90 Unspecified osteoarthritis, unspecified site; E87.5 Hyperkalemia
CPT/HCPCS: 36415; 36416; 51702; 70450; 71045; 80048; 80053; 81003; 81015; 82140; 82805; 83605; 83690; 83735; 83880; 84100; 84145; 84439; 84443; 84484; 85025; 87040; 87086; 87186; 93005; 93306; 94002; 94003; 94640; 96361; 96365; 96374; 96375; J0696; J1250; J1650; J1815; J1940; J2185; J2250; J2270; J2704; J2920; J3370; J3475; J3490; J7512; J7620; S0028

== ENCOUNTER 2019-03-24 15:34 | Inpatient (IN) | payer MEDICARE, OTHER ==
[2019-03-24 16:33] LABS: #Lymphocytes 0.7 thou/uL (1.20-3.40); #Monocytes 0.9 thou/uL (0.11-0.59); #Neutrophils 10.3 thou/uL (1.40-6.50); %Basophils 0.2 % (0.0-1.0); %Eosinophils 0.3 % (0.0-10.0); %Lymphocytes 6.2 % (21.0-51.0); %Monocytes 7.4 % (0.0-10.0); Hemoglobin 7.9 g/dL (12.0-16.0); Mean Corpuscular HGB CONC 30.4 g/dL (32.0-36.0); Mean Corpuscular Hemoglobin 25.6 pg (27.0-31.0); Mean Corpuscular Volume 84.2 fL (78.0-98.0); Mean Platelet Volume 9.7 fL (7.4-10.4); Platelet Count 110 thou/uL (130-400); RBC Distribution Width 17.1 % (11.5-14.5); White Blood Cell (WBC) Count 11.9 thou/uL (4.8-10.8)
[2019-03-24 16:47] LABS: ALT (SGPT) 21 U/L (8-55); AST (SGOT) 12 U/L (5-34); Albumin 3.3 g/dL (3.4-4.8); Alkaline Phosphatase 68 U/L (40-110); Anion Gap 15 mmol/L (10-20); BUN (Urea Nitrogen) 17 mg/dL (9.8-20.1); Bilirubin, Total 1.8 mg/dL (0.2-1.2); Calc. Creatinine Clearance 0 mL/min (70-130); Calcium 8.9 mg/dL (7.8-10.44); Carbon Dioxide 25 mmol/L (23-31); Chloride 102 mmol/L (98-107); Estimated GFR-MDRD 81; Globulin 2.4 g/dL (2.4-3.5); Glucose 199 mg/dL (83-110); Lipase 22 U/L (8-78); Potassium 3.4 mmol/L (3.5-5.1); Protein, Total 5.7 g/dL (6.0-8.3); Sodium 139 mmol/L (136-145)
[2019-03-24 17:07] LABS: CKMB 1.4 ng/mL (0-6.6)
--- NOTE | 2019-03-24 17:36 | RAD ---
PORTABLE CHEST ONE VIEW: 03/24/19 at 4:43 p.m. HISTORY: Dyspnea. FINDINGS/IMPRESSION: Comparison made with exam of 03/18/19. The heart size is stable. There is pulmonary vascular congesti on with bibasilar infiltrates and effusions. No pneumothoraces are seen. POS: [facility]
--- NOTE | 2019-03-24 17:44 | CT ---
CT ABDOMEN AND PELVIS WITH IV CONTRAST: 03/24/19 HISTORY: Abdominal pain, vomiting, diarrhea. COMPARISON: 03/08/19. There has been interval development of a small left pleural effusion with adjacent atelectatic change . Moderate sized right pleural effusion is again seen. Heterogeneity in the liver is likely due to in creased intraparenchymal pressure from diastolic dysfunction. Spleen, pancreas, adrenal glands and ri ght kidney are normal. The large left renal angiomyolipoma is stable. No free air is seen. There is mild increase in the amount of ascites since the last exam. There are vascular calcifications without evidence of aneurysmal dilatation of the abdominal aorta. Compression fracture of T12 is stable. There is edema in the subcutaneous fat. The small bowel loops are not abnormally dilated. There are degenerative changes in the spine and hip joints, worse on the left. Old pelvic fractures are again seen. IMPRESSION: 1. Interval development of small left pleural effusion since 03/08/19. 2. Mild interval increase in amount of ascites since the last exam. 3. Remainder of the exam is otherwise stable. POS: [facility]
[2019-03-24] MEDS ORDERED: Pantoprazole 40 MG VIAL ONE (17:45)
[2019-03-24 17:57] LABS: INR-International Normal Ratio 1.3; PTT 29.1 SEC (22.9-36.1); Prothrombin Time 16.2 SEC (12.0-14.7)
[2019-03-24 19:40] LABS: Troponin I 0.115 ng/mL (< 0.028)
[2019-03-24 22:59] LABS: Troponin I 0.074 ng/mL (< 0.028)
[2019-03-25] MEDS ORDERED: Hydrocortisone 1% Cream 30 GM TUBE TOP PRN (02:43)
[2019-03-25] MEDS ORDERED: Pantoprazole 40 MG VIAL IVP SCH (02:45)
[2019-03-25] MEDS ORDERED: Sodium Chloride 0.9% (PF) 10 ML VIAL FS PRN (02:46)
[2019-03-25] MEDS ORDERED: Sodium Chloride 0.9% 1,000 ML IV SCH (03:00)
[2019-03-25 06:00] LABS: #Lymphocytes 0.9 thou/uL (1.20-3.40); #Monocytes 0.8 thou/uL (0.11-0.59); #Neutrophils 7.4 thou/uL (1.40-6.50); %Basophils 0.1 % (0.0-1.0); %Eosinophils 0.4 % (0.0-10.0); %Lymphocytes 9.9 % (21.0-51.0); %Monocytes 8.5 % (0.0-10.0); %Neutrophils 81.2 % (42.0-75.0); Hemoglobin 7.3 g/dL (12.0-16.0); Mean Corpuscular HGB CONC 30.8 g/dL (32.0-36.0); Mean Corpuscular Hemoglobin 25.9 pg (27.0-31.0); Mean Corpuscular Volume 84.2 fL (78.0-98.0); Platelet Count 99 thou/uL (130-400); Red Blood Cell (RBC) Count 2.83 mill/uL (4.20-5.40); White Blood Cell (WBC) Count 9.1 thou/uL (4.8-10.8)
[2019-03-25 06:06] LABS: Anion Gap 10 mmol/L (10-20); BUN (Urea Nitrogen) 15 mg/dL (9.8-20.1); Calc. Creatinine Clearance 82 mL/min (70-130); Calcium 8.7 mg/dL (7.8-10.44); Carbon Dioxide 30 mmol/L (23-31); Chloride 102 mmol/L (98-107); Estimated GFR-MDRD 83; Glucose 151 mg/dL (83-110); Iron 31 ug/dL (50-170); Iron Binding Capacity, Total 283 mcg/dL (265-497); Magnesium 1.5 mg/dL (1.6-2.6); Potassium 3.3 mmol/L (3.5-5.1); Sodium 139 mmol/L (136-145)
[2019-03-25] MEDS ORDERED: Potassium Chloride 20 MEQ/100 ML PREMIX BAG IVPB SCH (06:30)
[2019-03-25] MEDS ORDERED: Magnesium 2 GM/50 ML 2 GM in Premix Bag 1 BAG IVPB SCH (06:30)
[2019-03-25] MEDS ORDERED: Potassium Chloride 20 MEQ in Premix Bag 1 BAG IVPB SCH (06:30)
[2019-03-25] MEDS ORDERED: FLU VACC TS2019-20(65YR UP)/PF 180 MCG/0.5 ML SYRINGE IM ONE (09:00)
[2019-03-25] MEDS: Pantoprazole 40 MG VIAL IVP SCH ×2 (09:50→22:12)
[2019-03-25] MEDS ORDERED: HumaLOG 300 UNITS/3 ML VIAL SC PRN ×2 (12:53)
[2019-03-25] MEDS ORDERED: Dextrose 50% Abboject 50 ML SYRINGE SLOW IVP PRN (12:53)
[2019-03-25] MEDS ORDERED: Ondansetron PF 4 MG/2 ML Vial IVP PRN (12:53)
[2019-03-25] MEDS ORDERED: hydrALAZINE 20 MG/ML VIAL SLOW IVP PRN (12:53)
[2019-03-25] MEDS ORDERED: Dextrose 5% in Water 1,000 ML IV PRN (12:53)
[2019-03-25] MEDS ORDERED: Ondansetron ODT 4 MG TAB PO PRN (12:53)
[2019-03-25] MEDS ORDERED: cloNIDine 0.1 MG TAB PO PRN (12:53)
[2019-03-25] MEDS ORDERED: Furosemide 20 MG/2 ML VIAL SLOW IVP SCH (13:15)
[2019-03-25] MEDS ORDERED: Saccharomyces boulardii 250 MG CAP PO SCH (13:15)
[2019-03-25 13:23] LABS: Hemoglobin 7.7 g/dL (12.0-16.0)
--- NOTE | 2019-03-25 16:36 | PDOC.CPN ---
- Subjective Date: 03/25/19 Time: 16:47 Interval history: The pt seen and examined. She was discharged from hospital yesterday and came back due to worsening of ABD pain with dark stool. Occluded stool has been negative. She is confused; however, she denied any cardiac complaints at this moment. - Objective Allergies/Adverse Reactions: Allergies Allergy/AdvReac Type Severity Reaction Status Date / Time Penicillins Allergy Severe Verified 11/05/18 00:48 latex Allergy Verified 11/05/18 00:48 Visit Medications: Current Medications Acetaminophen (Tylenol) 1,000 mg PO Q6H PRN PRN Reason: Mild Pain (1-3) Albuterol/Ipratropium (Duoneb) 3 ml NEB [id number] ELISSA Last Admin: 03/25/19 13:54 Dose: 3 ml Ascorbic Acid (Vitamin C) 500 mg PO DAILY ELISSA Clonidine (Catapres) 0.1 mg PO Q6H PRN PRN Reason: Blood Pressure Systolic >180 Dextrose/Water (Dextrose 50%) 25 gm SLOW IVP PRN PRN PRN Reason: Hypoglycemia Diltiazem HCl (Cardizem Cd) 180 mg PO DAILY [facility] Escitalopram Oxalate (Lexapro) 5 mg PO DAILY ELISAS Glucagon (Glucagon) 1 mg IM PRN PRN PRN Reason: Hypoglycemia Hydralazine HCl (Apresoline) 10 mg SLOW IVP Q4H PRN PRN Reason: SBP > 180 and HR < 70 Hydrocortisone/Aloe (Hydrocortisone 1% Cream) 0 gm TOP BIDPRN PRN PRN Reason: Vaginal Irritation Last Admin: 03/25/19 06:21 Dose: 1 unit Dextrose/Water (D5w) 1,000 mls @ 0 mls/hr IV .Q0M PRN PRN Reason: Hypoglycemia Insulin Human Lispro (Humalog) 0 units SC .MILD SLIDING SCALE PRN PRN Reason: Mild Correctional Scale Insulin Human Lispro (Humalog) 0 units SC .BEDTIME SLIDING SC PRN PRN Reason: Bedtime Correctional Scale Iron/Minerals/Multivitamins (Theragran M) 1 tab PO DAILY [facility] Levothyroxine Sodium (Synthroid) 75 mcg PO 0600 [facility] Magnesium Oxide (Magnesium Oxide) 400 mg PO BID [facility] Metformin HCl (Glucophage) 500 mg PO BID[facility] Nystatin (Mycostatin Powder) 0 gm TOP BIDPRN PRN PRN Reason: Topical Irritations Ondansetron HCl (Zofran Odt) 4 mg PO Q6H PRN PRN Reason: Nausea/Vomiting Ondansetron HCl (Zofran) 4 mg IVP Q6H PRN PRN Reason: Nausea/Vomiting Pantoprazole Sodium (Protonix) 40 mg IVP Q12HR ELISSA Last Admin: 03/25/19 09:50 Dose: 40 mg Potassium Chloride (K-Dur) 20 meq PO DAILY ELISSA Saccharomyces Boulardii (Florastor) 250 mg PO DAILY ELISSA Vital Signs & Weight: Vital Signs Temp Pulse Resp BP Pulse Ox 03/25/19 15:47 98.1 F 81 16 122/90 98 03/25/19 13:54 81 16 99 03/25/19 12:53 98.8 F 62 16 151/84 H 97 03/25/19 11:45 98.8 F 62 16 151/84 H 97 03/25/19 08:00 99 Weight 173 lb 6.4 oz - Physical Exam General: other (confused; lethergic) Cardiac: irregularly regular Lungs: decreased breath sounds Abdomen: firm, distended Extremities: 2+ LE edema, 2+ femoral Musculoskeletal: decreased range of motion - Labs Result Diagrams: 03/25/19 13:05 03/25/19 04:28 Troponin/CKMB CK-MB (CK-2) 1.4 ng/mL (0-6.6) 03/24/19 16:16 Troponin I 0.074 ng/mL (< 0.028) H 03/24/19 22:34 - Telemetry Supraventricular conduction: atrial fibrillation - Assessment/Plan Assessment/Plan: 1. Acute on Chronic Diastolic HF with BNP > 1900 on 03/24/2019; The pt reviewed Lasix 20mg IV x 1 dose today; stable with 2LNC, but still have pitting BLE edema and distended ABD; May start more Diuretic, BBlocker and/or EVI/ARB with stable VS 2. chronic Afib - well controlled HR with diltiazem 180mg qd; Not on ASA or OAC for now due to dark stool with low Hgb 3. CAD with hx of stent in RCA in 2011 and another C in 2013 with 30-40% stenosis in RCA and plaque in LAD and OM1 - asymptomatic; not on ASA due to dark stool and low Hgb; will start BBlocker or EVI/ARB 4. HTN - stable 5. DM type 2 6. HLD - will resume statin when her condition is more stable 7. PVD with hx of multiple toe amputations 8. hypothyroidism 9. Hx of CVA 10. Anemia - Occluded stool has been negative. MAR reviewed * Echo on 03/16/2019 with EF 55-60%, mild ERV, mild dilated LA, mild MR, mild- mod TR, and mild ID * Dr Crockett's pt
[2019-03-25] MEDS: Magnesium Oxide 400 MG TAB PO SCH (22:12)
--- NOTE | 2019-03-26 03:21 | CON ---
DATE OF CONSULTATION: 03/25/2019 HISTORY OF PRESENT ILLNESS: We were asked to see Mrs. Méndez on 03/25/2019. She was just recently discharged from the hospital in the last 24 to 48 hours and presented again with abdominal discomfort and anemia. Cardiac enzymes were obtained and were found to be abnormal and we were asked to see her. Recently, this lady was in the hospital, but presented again to the emergency room at this time for some nausea and vomiting. She had been just discharged from the hospital and in the fdc, it was noted that she was having some dark stools and also had some abdominal distention. There was some history also of some nosebleeds and patient was then presented again to the emergency room. She has had no significant chest discomfort that I can determine from the patient, but she does have significant anemia now and I believe most likely that the elevated cardiac enzymes are due to the demand ischemia associated with the anemia. Her hemoglobin was 7.9 yesterday and then today was 7.3 and repeated was 7.7. Her hematocrit was 25.2 at the last evaluation. She has always been anemic as far back as 2015. Her hemoglobin had been as low as 8.7. The highest I saw was back in February of this year and that perhaps was after blood transfusion. On March 08, she was at 11.4 and since that time, it is continued to drift downwards. For her further information, please refer to the consultation that was done by Dr. Kimbrough on 03/16/2019. There has been no other significant change. She does have a history of coronary artery disease, has undergone angioplasty and stent placement. She has multitude of other problems which include diabetes, hypertension, hyperlipidemia, and peripheral vascular disease. She suffered a stroke in the past. She has chronic atrial fibrillation. Obviously, she is not a candidate for oral anticoagulation due to her significant anemia. She does take an aspirin apparently though and this may be contributing some to the overall anemia, just may be anemia of chronic disease or with perhaps other etiologies, but there is no overt. I can determine there has been no significant area that has been identified as the bleeding problem, but appears that she does have a GI bleed. She did have a CT scan of the abdomen performed yesterday, which did show a small left pleural effusion and also some ascites. She did have an echocardiogram which showed an ejection fraction of 55% to 60%, which was performed on her last admission, just a few days ago. She did have a moderately enlarged right ventricle as well as mildly enlarged right atrium and left atrium with mild mitral valve regurgitation and [id number] tricuspid valve regurgitation. Her EKG does not show any acute changes of ischemia. She does have evidence of underlying atrial fibrillation. She has some nonspecific changes with some T-wave flattening and T-wave inversions in the inferior and lateral leads but no ST-segment elevation is appreciated. PHYSICAL EXAMINATION: VITAL SIGNS: Blood pressure 122/90. She is afebrile. Heart rates in the 80s with her atrial fibrillation. Respiratory rate 16 to 18. GENERAL: She appears to be very fatigued. She gives very little information. CHEST: Actually appears to be clear. HEENT: Unremarkable. CARDIOVASCULAR: Reveals an irregular rhythm. ABDOMEN: Soft. She has what appears to be possible ascites, but she has no tenderness that I can elicit. EXTREMITIES: Show 1 to 2+ lower extremity edema. Pedal pulses are difficult to palpate. NEUROLOGIC: Again, the patient appears to be very fatigued or either this may be her baseline mental status. IMPRESSION: 1. Most likely gastrointestinal bleed with gastrointestinal blood loss, but apparently the guaiacs have been negative, but the significant anemia, which may be multifactorial, most likely is unless she has had a bleed and then stop, but she has had chronic anemia for several years now. 2. Abnormal cardiac enzymes, which most likely due to demand ischemia. She is not a candidate for further evaluation at this time due to the severe anemia. 3. Atrial fibrillation. The rate is under good control. We will continue with her present medications for rate control. If she is able to tolerate the aspirin, then we will continue the aspirin. 4. Diabetes. She is being given metformin. We will continue these medications. 5. Hypertension. Blood pressure is under relatively reasonable control, is still on the high side at times, but this evening was lower at 122/90. Dr. Crockett will visit with the patient tomorrow, but overall prognosis obviously is not good in this elderly lady with multiple problems and continued anemia of uncertain etiology. Please note that she did her cardiac catheterization in 2013 that showed single-vessel coronary artery disease with a patent stent in the right coronary artery with no significant stenosis and a normal left ventricular systolic function. She did have some plaque formation noted also in the proximal right coronary artery, but this had remained patent without other compromise to the flow. Job ID: [id number]
[2019-03-26] MEDS ORDERED: Levothyroxine Sodium 50 MCG TAB PO SCH (06:00)
[2019-03-26] MEDS: Levothyroxine Sodium 75 MCG TAB PO SCH (06:06)
[2019-03-26 06:44] LABS: Band 3 % (5-11); Elliptocytes SLIGHT = 2-5 cells (100X) (0-1/hpf); Eosinophils 2 % (0-10); Hemoglobin 7.1 g/dL (12.0-16.0); Lymphocytes 14 % (21-51); MDiff Complete? YES; Mean Corpuscular Hemoglobin 25.7 pg (27.0-31.0); Mean Corpuscular Volume 85.6 fL (78.0-98.0); Mean Platelet Volume 9.9 fL (7.4-10.4); Monocytes 1 % (0-10); Neutrophil 80 % (42-75); Platelet Count 111 thou/uL (130-400); Platelet Morphology Comment Appears Decreased; RBC Distribution Width 17.5 % (11.5-14.5); Red Blood Cell (RBC) Count 2.74 mill/uL (4.20-5.40); White Blood Cell (WBC) Count 7.6 thou/uL (4.8-10.8)
[2019-03-26] MEDS ORDERED: Potassium Chloride 20 MEQ TAB PO SCH ×2 (08:00→09:00)
--- NOTE | 2019-03-26 08:13 | PDOC.HOSPP ---
- Subjective Encounter Date: 03/26/19 Encounter Time: 07:50 Subjective: f/u for GI bleed with Hgb in the 7 range currently. Dark stool noted per nursing but pt without complaints. Denies abd pain, fever, N/V. - Objective Vital Signs & Weight: Vital Signs (12 hours) Temp Pulse Resp BP Pulse Ox 03/26/19 03:10 98 F 81 15 138/70 98 03/26/19 02:07 82 18 100 03/25/19 23:20 97.7 F 70 19 156/68 H 99 03/25/19 20:23 83 18 100 Weight Weight 170 lb 4 oz I&O: 03/25/19 03/26/19 03/27/19 06:59 06:59 06:59 Intake Total 120 Balance 120 Result Diagrams: 03/26/19 05:58 03/25/19 04:28 Additional Labs: Accuchecks 03/26/19 03/25/19 03/25/19 05:14 20:09 16:37 POC Glucose 128 H 148 H 146 H Laboratory Tests 03/24/19 03/24/19 03/25/19 16:16 16:16 04:28 Hgb 7.9 L Plt Count 110 L Potassium 3.4 L Magnesium 1.5 L Iron 31 L TIBC 283 Ferritin 03/25/19 03/25/19 03/25/19 04:28 04:28 13:05 Hgb 7.3 L 7.7 L Plt Count 99 L Potassium Magnesium Iron TIBC Ferritin 95.25 EKG Reviewed by me: Yes (Tele - A-fib in 's) Hospitalist ROS - Medication Medications: Active Medications Generic Name Dose Route Start Last Admin Trade Name Freq PRN Reason Stop Dose Admin Albuterol/Ipratropium 3 ml 03/25/19 13:00 03/26/19 02:07 Duoneb NEB 3 ml [id number] ELISSA Administration Hydrocortisone/Aloe 0 gm 03/25/19 02:43 03/25/19 06:21 Hydrocortisone 1% Cream TOP 1 unit BIDPRN PRN Administration Vaginal Irritation Levothyroxine Sodium 75 mcg 03/26/19 06:00 03/26/19 06:06 Synthroid PO 75 mcg 0600 ELISSA Administration Magnesium Oxide 400 mg 03/25/19 21:00 03/25/19 22:12 Magnesium Oxide PO 400 mg BID ELISSA Administration Pantoprazole Sodium 40 mg 03/25/19 09:00 03/25/19 22:12 Protonix IVP 40 mg Q12HR ELISSA Administration - Exam General Appearance: NAD, awake alert Eye: PERRL, anicteric sclera ENT: normocephalic atraumatic, no oropharyngeal lesions Neck: supple, symmetric, no JVD, no thyromegaly, no lymphadenopathy Heart: no murmur, no gallops, no rubs, irregular Respiratory: CTAB, no wheezes, no rales Gastrointestinal: soft, non-tender, non-distended, normal bowel sounds, no palpable masses Extremities: no cyanosis, 1+ LE edema Extremities - other findings: multiple amputated toes bilat(chronic) Skin: normal turgor Neurological: cranial nerve grossly intact, no new deficit Musculoskeletal: generalized weakness Musculoskeletal - other findings: bedbound Psychiatric: oriented to person Hosp A/P (1) GI bleed Code(s): K92.2 - GASTROINTESTINAL HEMORRHAGE, UNSPECIFIED Status: Acute Plan: Continue Protonix 40mg IV BID, transfuse 1u PRBC's today, serial H/H monitoring , hold ASA and anticoagulation (2) Acute blood loss anemia Code(s): D62 - ACUTE POSTHEMORRHAGIC ANEMIA Status: Acute Plan: Transfuse 1u PRBC's today, see above (3) Abdominal pain Code(s): R10.9 - UNSPECIFIED ABDOMINAL PAIN Status: Acute Plan: Resolved (4) Hypokalemia Code(s): E87.6 - HYPOKALEMIA Status: Acute Plan: KCL supplementation, serial K+ monitoring (5) Chronic atrial fibrillation Code(s): I48.20 - CHRONIC ATRIAL FIBRILLATION, UNSPECIFIED Status: Chronic Plan: Rate-controlled, no anticoagulation due to GI bleeding (6) NSTEMI (non-ST elevated myocardial infarction) Code(s): I21.4 - NON-ST ELEVATION (NSTEMI) MYOCARDIAL INFARCTION Status: Acute Plan: Type II due to demand ischemia, supportive mgmt, holding ASA currently due to GI bleed (7) DM II (diabetes mellitus, type II), controlled Code(s): E11.9 - TYPE 2 DIABETES MELLITUS WITHOUT COMPLICATIONS Status: Chronic Plan: Continue ISS, Metformin - 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
[2019-03-26 09:13] LABS: Anion Gap 14 mmol/L (10-20); BUN (Urea Nitrogen) 14 mg/dL (9.8-20.1); Calc. Creatinine Clearance 78 mL/min (70-130); Carbon Dioxide 30 mmol/L (23-31); Chloride 102 mmol/L (98-107); Estimated GFR-MDRD 81; Glucose 151 mg/dL (83-110); Potassium 3.6 mmol/L (3.5-5.1); Sodium 142 mmol/L (136-145)
[2019-03-26 09:15] LABS: Anion Gap 14 mmol/L (10-20); BUN (Urea Nitrogen) 14 mg/dL (9.8-20.1); Calc. Creatinine Clearance 76 mL/min (70-130); Carbon Dioxide 30 mmol/L (23-31); Chloride 103 mmol/L (98-107); Estimated GFR-MDRD 78; Potassium 3.7 mmol/L (3.5-5.1); Sodium 143 mmol/L (136-145)
[2019-03-26 09:16] LABS: ALT (SGPT) 17 U/L (8-55); AST (SGOT) 9 U/L (5-34); Albumin 3.4 g/dL (3.4-4.8); Alkaline Phosphatase 65 U/L (40-110); Bilirubin, Total 1.9 mg/dL (0.2-1.2); Calcium 8.9 mg/dL (7.8-10.44); Globulin 2.1 g/dL (2.4-3.5); Glucose 151 mg/dL (83-110); Protein, Total 5.5 g/dL (6.0-8.3)
--- NOTE | 2019-03-26 10:21 | PRG ---
DATE OF SERVICE: 03/26/2019 SUBJECTIVE: Ms. Méndez is breathing comfortably. No complaints. She knows that she is in the hospital. OBJECTIVE: VITAL SIGNS: Her blood pressure 138/70, pulse is variable between 80 and 110, atrial fibrillation. LUNGS: Clear. CARDIAC: Irregularly irregular. ABDOMEN: Soft, nontender. EXTREMITIES: No edema. ASSESSMENT: 1. Chronic atrial fibrillation. 2. Iron deficiency anemia. 3. Heart rate is faster than ideal. PLAN: 1. We will add low-dose beta blockers. 2. Give her intravenous iron. 3. Long-term prognosis appears guarded to poor. Job ID: [id number]
--- NOTE | 2019-03-26 10:57 | CON ---
DATE OF CONSULTATION: REASON FOR THE CONSULTATION: Abdominal pain, nausea and vomiting, history of passing dark stool. HISTORY OF PRESENT ILLNESS: Ms. Margaret Méndez is a very pleasant 78-year-old female, appears very fragile and came to the ER with abdominal pain, nausea, vomiting, and also has had 2 loose stools. The stool was dark as per the patient's nurses in the prison. When she came to the ER, she had a fecal occult blood testing done for blood. The occult blood test came back negative. The patient's stools as per the nurses were more of a dark green than black. The patient was hospitalized recently here with urosepsis, unresponsiveness, and also respiratory failure. An IV was also subsequently extubated. Also seen by Cardiology System because of atrial fibrillation with slow ventricular response. Dr. Corbin Kimbrough and also group. The patient actually was discharged home yesterday from the hospital. She went to the prison. The prison felt her abdomen was more bloated than before. She also had 2 episodes of nausea and vomiting. The patient did not vomit any blood or any coffee-ground material. She had 2 stools and the stools are dark and black as per the nurses in the prison. However, the stool for occult blood was negative. I spoke to the nurses this morning in the floor and they told me she had 2 stools today, more stools of dark green and not black. She has had no more nausea or vomiting, she is n.p.o. Last admission, she received antibiotic because of urosepsis and respiratory failure. The stool was sent for C. difficile and stool studies are pending. The patient appears very comfortable, in no acute distress. 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 The patient has no relevant history. MEDICAL ILLNESSES: 1. . 2. Hyperlipidemia. 3. Osteoarthritis. 4. TIA. 5. Coronary artery disease, status post stent placement. 6. Atrial fibrillation. 7. Hypothyroidism. 8. Diabetes mellitus. 9. Hypertension. 10. sepsis. 11. . 12. Peripheral vascular disease. SURGERIES: 1. Appendectomy. 2. Open cholecystectomy. 3. Hysterectomy. 4. Multiple amputations of toes . ALLERGIES: LATEX, PENICILLIN. MEDICATIONS: 1. . 2. Vitamin C. 3. Benadryl. 4. Catapres. 5. . 6. . 7. Levothyroxine. 8. . 9. Gabapentin. 10. . 11. multivitamins. 12. . REVIEW OF SYSTEMS: Not able to obtain as she is not a very good historian except for some abdominal pain and nausea. Denies any chest pain, any difficulty bleeding. PHYSICAL EXAMINATION: GENERAL: She is an elderly, fragile looking female, appears very comfortable. VITAL SIGNS: She is afebrile. Pulse is 81 and blood pressure HEENT: Conjunctivae are clear CARDIOVASCULAR SYSTEM: First and second heard sounds are normal. LUNGS: Clear to auscultation. ABDOMEN: Mildly protuberant. Abdomen is soft, but she is tender over the right lower quadrant and also right lumbar area She has an operative scar over the midline and also No rebound or guarding. EXTREMITIES: LABORATORY DATA: On admission, WBC 11,900, dropping down to 9100; hemoglobin dropping down to 7.3; platelet count is 110,000, polymorphs 86, lymphocytes 2, monocytes Chem-7 from today, sodium potassium 3.3, chloride 102, bicarb 30, BUN is creatinine calcium Troponin is 0.04. Abdominal CAT scan done on admission pathology. She does have ascites C. difficile toxin and antigen, both are negative. CLINICAL IMPRESSION: 1. 78-year-old female came back from prison after few days of staying in this hospital. She actually went back to prison came back yesterday with this abdominal pain, nausea and vomiting, also passing some dark stool. However, the stools for occult blood is negative. The nurse tells me the stool is more of dark green. She appears to have anemia of chronic disease. 2. Abdominal pain, nausea and vomiting. She does have ascites from previous admission . 3. Urosepsis . 4. . 5. Atrial fibrillation. 6. Coronary artery disease. 7. Diabetes mellitus. 8. Hypertension. 9. . 10. GI bleeding stool is negative for C. difficile and also negative for occult blood. 11. . 12. Ascites . RECOMMENDATIONS: 1. Clear liquid diet and advance diet as tolerated. 2. If tolerates clear liquid diet, may advance to 4 g sodium diet. 3. Follow up H and H. 4. May transfuse as needed. 5. I will follow along with you and decide whether she needs any further workup. Job ID: [id number]
[2019-03-26] MEDS: metFORMIN 500 MG TAB PO SCH ×2 (11:01→17:05)
[2019-03-26] MEDS: Escitalopram Oxalate 10 mg Tablet PO SCH (11:01)
[2019-03-26] MEDS: Ascorbic Acid 500 mg Chewable Tablet PO SCH (11:01)
[2019-03-26] MEDS: Multivitamin W/ Minerals 1 TAB PO SCH (11:01)
[2019-03-26] MEDS: Potassium Chloride 20 MEQ TAB PO SCH (11:02)
[2019-03-26] MEDS: Saccharomyces boulardii 250 MG CAP PO SCH (11:02)
[2019-03-26] MEDS: Magnesium Oxide 400 MG TAB PO SCH ×2 (11:02→21:43)
[2019-03-26] MEDS: Pantoprazole 40 MG VIAL IVP SCH ×2 (11:03→21:46)
--- NOTE | 2019-03-26 11:18 | HP ---
PRIMARY CARE PROVIDER: Dr. Miller. CHIEF COMPLAINT: Nausea and vomiting. HISTORY OF PRESENT ILLNESS: This is an 78-year-old female, who was recently admitted to [facility] from 03/15/2019 through 03/23/2019 for sepsis secondary to urinary tract infection. Urine culture from 03/15/2019 positive for E coli species, at which point the patient transitioned to oral Omnicef and Macrobid at discharge on 03/23/2019. The patient discharged back to her residence at [facility]; however, returned within 24 hours for evaluation due to nausea, vomiting, and concern for GI bleed. senior care staff apparently noticed dark stools with associated nosebleed and abdominal distention. The alf staff became concerned as the patient was more lethargic and was placed on recent antibiotics for urinary tract infection. The patient does take chronic aspirin as well as was placed on prednisone for a short course of outpatient treatment. The patient does admit to some abdominal discomfort, which has improved in the last 24 hours and has taken clear liquids according to nursing staff. The patient was also noted with hemoglobin in the 7.5 range, previously noted 9 after discharge on 03/23/2019. Stool Hemoccult was tested; however, negative as reported by nursing personnel. The rest of the history is obtained after review of electronic medical record as well as discussions with nursing staff as the patient is a poor historian. In the emergency room, the patient received Protonix 40 mg IV push and underwent evaluation by CT of the abdomen and pelvis, showing interval development of small left pleural effusion with mild interval increase in the amount of ascites since previous exam on 03/08/2019. The patient was transferred to the telemetry unit for further evaluation. PAST MEDICAL HISTORY: 1. Sepsis secondary to urinary tract infection with recent hospitalization from 03/15/2019 through 03/23/2019. 2. Hypertension. 3. Diabetes mellitus, type 2, on oral hypoglycemics. 4. Peripheral vascular disease. 5. Coronary artery disease status post cardiac stent placement. 6. Hyperlipidemia. 7. Hypothyroidism. 8. Chronic atrial fibrillation without anticoagulation. 9. Status post CVA. 10. Bedbound status. 11. Degenerative joint disease. 12. 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 PAST SURGICAL HISTORY: 1. Status post hysterectomy. 2. Status post cholecystectomy. 3. Status post multiple amputations of the toes. CURRENT MEDICATIONS: 1. Lexapro 5 mg p.o. daily. 2. Diltiazem 180 mg p.o. daily. 3. Enteric-coated aspirin 81 mg p.o. daily. 4. Levothyroxine 75 mcg p.o. daily. 5. Gabapentin 600 mg p.o. t.i.d. 6. Multivitamin one tablet p.o. daily. 7. Metoprolol 25 mg p.o. b.i.d. 8. Senokot as needed and nightly. 9. Simvastatin 40 mg p.o. nightly. 10. Vitamin C 500 mg p.o. daily. 11. Omnicef 300 mg p.o. b.i.d. 12. . 13. Lasix 20 mg p.o. daily. 14. DuoNeb 3 mL nebulized q.i.d. p.r.n. 15. Magnesium oxide 400 mg p.o. b.i.d. 16. Metformin 500 mg p.o. b.i.d. 17. Macrobid 100 mg p.o. b.i.d. 18. K-Dur 20 mEq p.o. daily. 19. Prednisone 10 mg p.o. daily. ALLERGIES: PENICILLIN AND LATEX. FAMILY HISTORY: No inheritable diseases per the patient's report. SOCIAL HISTORY: The patient resides at [facility]. No alcohol, tobacco, or illicit drug use. Nonambulatory status. REVIEW OF SYSTEMS: Unable to obtain due to the patient with altered mentation and poor historian. PHYSICAL EXAMINATION: VITAL SIGNS: Currently. Blood pressure 151/84, pulse 62, respiratory rate 16, temperature 98.8 degrees Fahrenheit, O2 saturation 97% on 2L/minute by nasal cannula. GENERAL APPEARANCE: This is an 78-year-old female, ill appearing, pale, alert to name, and answers questions slowly. HEENT: Pupils are equal, round, and reactive to light and accommodation. Extraocular muscles were intact. No scleral icterus. No conjunctival injection. Nares patent. OP is clear. Oral mucosa dry. NECK: Supple. No cervical adenopathy. No thyromegaly. No carotid bruits. No JVD appreciated. Cervical spine with full active and passive range of motion. No meningeal signs noted. CHEST: Diminished breath sounds in the bases bilaterally. CARDIOVASCULAR: S1 and S2 with irregular rate and rhythm. ABDOMEN: Obese, distended with diminished bowel sounds in all 4 quadrants. EXTREMITIES: Warm and dry with fair turgor. Mild edema to the lower extremities bilaterally. Pulses diminished at the dorsalis pedis and posterior tibial arteries. Postsurgical changes noted with multiple amputations of the toes. Generalized lower extremity muscle atrophy noted. NEUROLOGIC: Cranial nerves 2 through 12 are grossly intact. Alert and oriented x1. Nonambulatory status at baseline. PERTINENT LABORATORY AND X-RAY FINDINGS: Sodium 139, potassium 3.4, chloride 102, CO2 of 25, BUN 17, creatinine 0.70, estimated GFR of 81, glucose 199, and calcium 8.9. Magnesium 1.5. Serum iron level 31, TIBC 283, and ferritin 95.25. Total bilirubin 1.8, AST 12, ALT 21, and alkaline phosphatase 68. Troponin I ranged between 0.074 to 0.126 and BNP 1949 and previously on 03/16/2019 at 941. Lipase 22. CBC showed a white blood cell count ranging between 9.1 to 11.9, hemoglobin ranged between 7.3 to 7.9, platelet count ranged between 99 to 110 with 86% neutrophilia. PT 16.2, INR 1.3, and PTT 29.1. C difficile antigen and toxin on 03/25/2019, negative. Stool Hemoccult x1 dated 03/24/2019, negative. Portable chest x-ray, dated 03/24/2019, showed vascular congestion bilaterally with bibasilar infiltrates and effusions. CT of the abdomen and pelvis, dated 03/24/2019, showed bilateral pleural effusions. Mild interval increase in ascites. EKG, dated 03/24/2019, by my interpretation shows atrial fibrillation with rapid ventricular response, heart rate is in the low 110s. Attenuated R-waves noted in the precordial leads. Normal axis. T-wave flattening in leads V4 through V6 and leads II through F. ASSESSMENT AND PLAN: 1. Gastrointestinal bleed, suspected after initial presentation. We will continue to trend serial hemoglobin. Repeat hemoglobin at 1300 hours. Consult GI Service for any further recommendations. Continue Protonix 40 mg IV q.12 h. Initial Hemoccult negative x1. Hold aspirin and prednisone. 2. Abdominal pain. Etiology unclear. Suspect related to ascites. We will initiate a trial of Lasix 20 mg IV x1 now. Continue to monitor for clinical response. No initial evidence of bowel obstruction. 3. [id number] myocardial infarction, type 2. Appears related to demand ischemia in the context of #1 and #2. We will consult Cardiology Service for any further recommendations. Review of recent 2D transthoracic echocardiogram on 03/16/2019, showed preserved ejection fraction of 55% to 60%. Hold aspirin secondary to #1. 4. Hypokalemia. Potassium chloride supplementation with serial potassium monitoring. 5. Chronic atrial fibrillation. Rate variable. Resume diltiazem 180 mg daily. 6. Diabetes mellitus, type 2. Resume metformin 500 mg b.i.d. Insulin sliding scale for reflexive coverage. Serial Accu-Cheks a.c. and at bedtime. 7. Prophylaxis. Sequential compression devices while in bed. Protonix 40 mg IV q.12 h. General fall risk precautions. Speech therapy evaluation due to concern for dysphagia. 8. Code status is full. Surrogate medical decision maker is Karol Mosleyshakeel, daughter. Job ID: [id number]
[2019-03-26] MEDS ORDERED: Metoprolol Tartrate 25 MG TAB PO SCH (11:30)
[2019-03-26] MEDS: Iron, Sodium Ferric Gluconate 250 MG in Sodium Chloride 0.9% 100 ML IVPB SCH ×2 (11:50→22:33)
[2019-03-26 18:51] LABS: Hemoglobin 8.4 g/dL (12.0-16.0); Platelet Count 105 thou/uL (130-400)
[2019-03-26] MEDS: Metoprolol Tartrate 25 MG TAB PO SCH (21:43)
[2019-03-27] MEDS: Levothyroxine Sodium 75 MCG TAB PO SCH (05:28)
[2019-03-27 08:54] LABS: Hemoglobin 8.3 g/dL (12.0-16.0); Mean Corpuscular HGB CONC 30.9 g/dL (32.0-36.0); Mean Corpuscular Hemoglobin 26.5 pg (27.0-31.0); Mean Corpuscular Volume 85.7 fL (78.0-98.0); Mean Platelet Volume 9.2 fL (7.4-10.4); Platelet Count 127 thou/uL (130-400); RBC Distribution Width 17.6 % (11.5-14.5); Red Blood Cell (RBC) Count 3.14 mill/uL (4.20-5.40); White Blood Cell (WBC) Count 12.3 thou/uL (4.8-10.8)
[2019-03-27 08:57] LABS: Anion Gap 15 mmol/L (10-20); BUN (Urea Nitrogen) 11 mg/dL (9.8-20.1); Calc. Creatinine Clearance 88 mL/min (70-130); Calcium 8.3 mg/dL (7.8-10.44); Carbon Dioxide 24 mmol/L (23-31); Chloride 104 mmol/L (98-107); Estimated GFR-MDRD Greater than 90; Glucose 117 mg/dL (83-110); Potassium 4.2 mmol/L (3.5-5.1); Sodium 139 mmol/L (136-145)
[2019-03-27] MEDS: Multivitamin W/ Minerals 1 TAB PO SCH (09:13)
[2019-03-27] MEDS: Potassium Chloride 20 MEQ TAB PO SCH (09:13)
[2019-03-27] MEDS: Escitalopram Oxalate 10 mg Tablet PO SCH (09:14)
[2019-03-27] MEDS: metFORMIN 500 MG TAB PO SCH ×2 (09:15→17:36)
[2019-03-27] MEDS: Ascorbic Acid 500 mg Chewable Tablet PO SCH (09:15)
[2019-03-27] MEDS: Saccharomyces boulardii 250 MG CAP PO SCH (09:15)
[2019-03-27] MEDS: Pantoprazole 40 MG VIAL IVP SCH ×2 (09:16→20:55)
[2019-03-27] MEDS: Metoprolol Tartrate 25 MG TAB PO SCH ×2 (09:16→20:53)
[2019-03-27] MEDS: Magnesium Oxide 400 MG TAB PO SCH ×2 (09:17→20:53)
[2019-03-27 10:01] LABS: Band 7 % (5-11); Bite Cells SLIGHT = 2-5 cells (100X) (0-1/hpf); Eosinophils 1 % (0-10); Hypochromia SLIGHT = 6-15 cells (100X) (0-5/hpf); Lymphocytes 14 % (21-51); MDiff Complete? YES; Monocytes 4 % (0-10); Neutrophil 74 % (42-75); Platelet Morphology Comment Appears Decreased; Polychromasia SLIGHT = 2-3 cells (100X) (0-2/hpf); Schistocytes SLIGHT = 2-5 cells (100X) (0-1/hpf)
[2019-03-27] MEDS: Acetaminophen 500 MG TAB PO PRN (17:36)
[2019-03-27] MEDS: Clobetasol 0.05% Cream 15 gm Tube TOP SCH ×2 (20:55→21:08)
[2019-03-28] MEDS: Acetaminophen 500 MG TAB PO PRN (01:32)
[2019-03-28] MEDS: Levothyroxine Sodium 75 MCG TAB PO SCH (05:28)
[2019-03-28 06:03] LABS: Anion Gap 14 mmol/L (10-20); BUN (Urea Nitrogen) 11 mg/dL (9.8-20.1); Calc. Creatinine Clearance 90 mL/min (70-130); Calcium 8.2 mg/dL (7.8-10.44); Carbon Dioxide 23 mmol/L (23-31); Chloride 105 mmol/L (98-107); Estimated GFR-MDRD Greater than 90; Glucose 115 mg/dL (83-110); Potassium 4.7 mmol/L (3.5-5.1); Sodium 137 mmol/L (136-145)
[2019-03-28 06:41] LABS: #Eosinphils 0.3 thou/uL (0.0-0.7); #Lymphocytes 1.3 thou/uL (1.20-3.40); #Neutrophils 9.2 thou/uL (1.40-6.50); %Basophils 0.1 % (0.0-1.0); %Eosinophils 2.2 % (0.0-10.0); %Lymphocytes 11.2 % (21.0-51.0); %Monocytes 8.5 % (0.0-10.0); Elliptocytes SLIGHT = 2-5 cells (100X) (0-1/hpf); Hemoglobin 8.8 g/dL (12.0-16.0); MDiff Complete? YES; Mean Corpuscular HGB CONC 30.5 g/dL (32.0-36.0); Mean Corpuscular Hemoglobin 26.6 pg (27.0-31.0); Mean Corpuscular Volume 87.2 fL (78.0-98.0); Mean Platelet Volume 11.5 fL (7.4-10.4); Platelet Count 87 thou/uL (130-400); Platelet Morphology Comment Appears Decreased; RBC Distribution Width 18.5 % (11.5-14.5); Red Blood Cell (RBC) Count 3.32 mill/uL (4.20-5.40); Schistocytes SLIGHT = 2-5 cells (100X) (0-1/hpf); White Blood Cell (WBC) Count 11.8 thou/uL (4.8-10.8)
[2019-03-28] MEDS: metFORMIN 500 MG TAB PO SCH ×2 (09:26→17:30)
[2019-03-28] MEDS: Metoprolol Tartrate 25 MG TAB PO SCH ×2 (09:33→20:21)
[2019-03-28] MEDS: Saccharomyces boulardii 250 MG CAP PO SCH (09:34)
[2019-03-28] MEDS: Multivitamin W/ Minerals 1 TAB PO SCH (09:34)
[2019-03-28] MEDS: Magnesium Oxide 400 MG TAB PO SCH ×2 (09:34→20:21)
--- NOTE | 2019-03-28 09:34 | PRG ---
DATE OF SERVICE: 03/28/2019 SUBJECTIVE: Ms. Méndez is sleeping, looks comfortable. OBJECTIVE: VITAL SIGNS: Blood pressure 124/63, pulse 70s, irregular. LUNGS: Clear. CARDIAC: Irregularly irregular. ABDOMEN: Soft and nontender. ASSESSMENT: 1. Atrial fibrillation, chronic, rate controlled. 2. Anemia. PLAN: 1. Continue diltiazem CD 180 mg a day. 2. Metoprolol 12.5 mg twice a day. 3. Cannot be anticoagulated due to recurrent anemia. 4. Plan okay to discontinue telemetry. Okay with me to move to Medical. Job ID: [id number]
[2019-03-28] MEDS: Potassium Chloride 20 MEQ TAB PO SCH (09:37)
[2019-03-28] MEDS: Ascorbic Acid 500 mg Chewable Tablet PO SCH (09:37)
[2019-03-28] MEDS: Clobetasol 0.05% Cream 15 gm Tube TOP SCH ×2 (09:37→20:27)
[2019-03-28] MEDS: Pantoprazole 40 MG VIAL IVP SCH (09:37)
[2019-03-28] MEDS: Escitalopram Oxalate 10 mg Tablet PO SCH (09:37)
[2019-03-28 15:11] LABS: Bilirubin Negative (Negative); Blood, Urine Negative (Negative); Clarity Clear (Clear); Glucose, Urine (Dipstick) Normal (Negative); Leukocyte Negative Leu/uL (Negative); Nitrite Negative (Negative); Protein, Urine (Dipstick) 200 mg/dL (Neg-Trace); RBC/HPF 0-3 HPF (0-3); Squamous Epithelial 0-3 HPF (0-3); Urobilinogen Normal mg/dL (Less than 2)
[2019-03-28 15:14] LABS: Bacteria/HPF 1+ HPF (None Seen)
[2019-03-28 15:15] LABS: Urine Culture Reflex Yes Yes
--- NOTE | 2019-03-28 16:38 | PRG ---
DATE OF SERVICE: 03/28/2019 SUBJECTIVE: GI was called back to see Ms. Méndez today regarding diarrhea and her anemia. Dr. Lemus had seen her over the weekend. She is a patient previously seen by Dr. Arriaza. Briefly, we saw her back in July 2017, at which time, she was dealing with some constipation in the context of an aspiration pneumonia that all evidently passed without incident. Her last EGD was in 2011. It does not appear she has ever gone undergone any colonoscopy. She was admitted to the hospital here on 03/24/2019 with concern for nausea and vomiting in the context of recent hospitalization for urosepsis. A CT of the abdomen and pelvis demonstrates increasing fluid retention with a small left pleural effusion and mild interval increase in ascites. She has been seen by Cardiology for her diastolic heart failure. She has been found to be chronically anemic with baseline hemoglobin in the 7 to 9 range. She has been taken off her anticoagulation. There was initially some concern for dark stools, but repeated FOBT testing here has been negative and stool for at least the past several days has been greenish or brown. That being said, nursing reports that she has had diarrhea, essentially liquid stools throughout the day at least the past couple of days. The patient denies any abdominal pain, nausea, or vomiting at this time. The patient declines any endoscopic investigation. C difficile was checked upon admission and was negative. OBJECTIVE: VITAL SIGNS: Temperature 98.3, pulse 79, blood pressure 119/57, and oxygen saturation 92% on 1 L nasal cannula. GENERAL: Frail, but nontoxic-appearing 78-year-old woman, lying in bed comfortably, in no distress. HEART: Regular rate and rhythm. LUNGS: Bibasilar crackles. No respiratory distress. ABDOMEN: Mild distention. Tympanitic. No fluid wave. Bowel sounds are active. The abdomen is essentially nontender to palpation. EXTREMITIES: No peripheral edema. LABORATORY STUDIES: WBC 11.8; hemoglobin 8.8, stable this admission after 1 unit of RBC transfusion several days ago; and platelets 87. INR 1.3. Sodium 137, potassium 4.7, BUN 11, creatinine 0.62, and glucose 156. C difficile antigen and toxin negative. FOBT is negative x2. ASSESSMENT AND PLAN: 1. Chronic anemia, stable this admission. Note that her ferritin is normal. This likely represents anemia of chronic disease. There has been concern for possible melenic stools on presentation, but note FOBT has been negative on 2 occasions this admission. Stool certainly do not appear melenic today. I see no evidence of brisk gastrointestinal bleeding. Occult gastrointestinal bleeding remains a possibility. I discussed endoscopic workup with the patient. She declines this. Given her overall frailty, I think this is very reasonable. 2. Diarrhea, somewhat acute. C difficile assay was negative 3 days ago. The patient declines any endoscopic investigation. We will expand stool studies to include stool culture, fecal lactoferrin, etc. 3. Ascites, this is not very prominent, likely secondary to right heart failure and passive hepatic congestion. We would not recommend sending for paracentesis at this time. No signs of peritonitis. Job ID: [id number]
[2019-03-28] MEDS: Famotidine 20 MG TAB PO SCH (20:21)
[2019-03-29] MEDS: Levothyroxine Sodium 75 MCG TAB PO SCH (06:02)
[2019-03-29 06:20] LABS: #Eosinphils 0.3 thou/uL (0.0-0.7); #Lymphocytes 1.1 thou/uL (1.20-3.40); #Monocytes 0.8 thou/uL (0.11-0.59); #Neutrophils 9.1 thou/uL (1.40-6.50); %Basophils 0.2 % (0.0-1.0); %Eosinophils 2.2 % (0.0-10.0); %Lymphocytes 9.9 % (21.0-51.0); %Monocytes 7.4 % (0.0-10.0); %Neutrophils 80.2 % (42.0-75.0); Hemoglobin 7.8 g/dL (12.0-16.0); Mean Corpuscular HGB CONC 30.2 g/dL (32.0-36.0); Mean Corpuscular Hemoglobin 26.5 pg (27.0-31.0); Mean Corpuscular Volume 87.7 fL (78.0-98.0); Mean Platelet Volume 8.4 fL (7.4-10.4); Platelet Count 140 thou/uL (130-400); Red Blood Cell (RBC) Count 2.93 mill/uL (4.20-5.40); White Blood Cell (WBC) Count 11.3 thou/uL (4.8-10.8)
[2019-03-29 06:44] LABS: Anion Gap 12 mmol/L (10-20); BUN (Urea Nitrogen) 10 mg/dL (9.8-20.1); Calc. Creatinine Clearance 83 mL/min (70-130); Calcium 8.5 mg/dL (7.8-10.44); Carbon Dioxide 28 mmol/L (23-31); Chloride 105 mmol/L (98-107); Estimated GFR-MDRD 85; Glucose 101 mg/dL (83-110); Potassium 4.4 mmol/L (3.5-5.1); Sodium 141 mmol/L (136-145)
[2019-03-29] MEDS: Potassium Chloride 20 MEQ TAB PO SCH (09:15)
[2019-03-29] MEDS: Magnesium Oxide 400 MG TAB PO SCH ×2 (09:15→21:42)
[2019-03-29] MEDS: Ascorbic Acid 500 mg Chewable Tablet PO SCH (09:15)
[2019-03-29] MEDS: Escitalopram Oxalate 10 mg Tablet PO SCH (09:15)
[2019-03-29] MEDS: Metoprolol Tartrate 25 MG TAB PO SCH ×2 (09:16→21:42)
[2019-03-29] MEDS: Multivitamin W/ Minerals 1 TAB PO SCH (09:16)
[2019-03-29] MEDS: Famotidine 20 MG TAB PO SCH ×2 (09:16→21:42)
[2019-03-29] MEDS: Saccharomyces boulardii 250 MG CAP PO SCH (09:16)
[2019-03-29] MEDS: Clobetasol 0.05% Cream 15 gm Tube TOP SCH ×2 (09:18→21:42)
[2019-03-29] MEDS: Acetaminophen 500 MG TAB PO PRN (10:54)
[2019-03-29] MEDS ORDERED: Nitrofurantoin Monohyd/M-Cryst 100 MG CAP PO SCH (11:00)
--- NOTE | 2019-03-29 17:38 | PRG ---
DATE OF SERVICE: 03/29/2019 SUBJECTIVE: The patient was seen lying in bed, alert and looks comfortable. She has had four loose bowels with urine today. Stool finally was collected for studies. The patient denies nausea, vomiting, or abdominal pain. She is eating better according to the nursing staff. PHYSICAL EXAMINATION: VITAL SIGNS: Temperature is 98.8, blood pressure 120/65, and pulse of 71. GENERAL: She is alert, elderly female, in no distress. HEENT: Shows anicteric sclerae. Oropharynx is moist. CV: Shows normal S1 and S2. Regular rate and rhythm. CHEST: Shows bilateral breath sounds. ABDOMEN: Protuberant, but no distention. No tympany. Soft diffusely without tenderness. She has active bowel sounds. EXTREMITIES: Shows no pedal edema. LABORATORY DATA: Electrolytes within normal range. Creatinine 0.67. Hemoglobin 7.8, hematocrit 25.7, and platelet count of 140. ASSESSMENT: 1. Nausea, vomiting, and abdominal pain on admission from correction, resolved. The patient's oral intake is improving. 2. Diarrhea, negative stool Clostridium difficile. Stool study is pending. I suspect this could be just antibiotic-associated diarrhea. 3. Chronic anemia. No evidence of active gastrointestinal blood loss. 4. Ascites in context of bilateral pleural effusion, likely from heart failure. RECOMMENDATION: 1. Overall stable and slowly improving from GI standpoint. 2. Continue with the Florastor probiotic. 3. If bowel movement and diarrhea do not further improve, we will discontinue magnesium oxide that she is taking 400 mg b.i.d. for now. 4. We will follow. Job ID: [id number]
[2019-03-29] MEDS: Nitrofurantoin Monohyd/M-Cryst 100 MG CAP PO SCH (21:42)
[2019-03-30] MEDS: Levothyroxine Sodium 75 MCG TAB PO SCH (05:07)
[2019-03-30] MEDS: Escitalopram Oxalate 10 mg Tablet PO SCH (08:11)
[2019-03-30] MEDS: Famotidine 20 MG TAB PO SCH ×2 (08:12→20:00)
[2019-03-30] MEDS: Multivitamin W/ Minerals 1 TAB PO SCH (08:12)
[2019-03-30] MEDS: Potassium Chloride 20 MEQ TAB PO SCH (08:13)
[2019-03-30] MEDS: Ascorbic Acid 500 mg Chewable Tablet PO SCH (08:13)
[2019-03-30] MEDS: Magnesium Oxide 400 MG TAB PO SCH ×2 (08:13→20:00)
[2019-03-30] MEDS: Metoprolol Tartrate 25 MG TAB PO SCH ×2 (08:13→20:01)
[2019-03-30] MEDS: Nitrofurantoin Monohyd/M-Cryst 100 MG CAP PO SCH ×2 (08:14→20:01)
[2019-03-30] MEDS: Saccharomyces boulardii 250 MG CAP PO SCH (08:14)
[2019-03-30] MEDS: Nystatin Powder 15 GM BOT TOP PRN (08:21)
[2019-03-30] MEDS: Clobetasol 0.05% Cream 15 gm Tube TOP SCH ×2 (08:22→20:00)
--- NOTE | 2019-03-30 15:11 | PRG ---
DATE OF SERVICE: 03/30/2019 SUBJECTIVE: The patient has rather flat affect, lying in bed. She reports eating fine, which I did confirm with her nurse. She has had one bowel movement over the last 12 hours with more consistency. PHYSICAL EXAMINATION: VITAL SIGNS: Temperature is 98.4, blood pressure 156/75, pulse of 84. GENERAL: She is alert, not very conversant. HEENT: Shows anicteric sclerae. Oropharynx is moist. CV: Shows normal S1 and S2. Regular rate and rhythm. CHEST: Shows breath sounds but poor excursion. ABDOMEN: Protuberant but soft. No distention. No tympany. She has diffusely active bowel sounds. EXTREMITIES: Show no edema. LABORATORY DATA: No lab work today. Stool culture thus far normal enteric seda, negative for Campylobacter and E coli toxin and negative screen (C diff toxin was negative from four days ago). ASSESSMENT: 1. Symptoms of nausea, vomiting, and abdominal pain on admission, have largely resolved. The patient's intake is much improved. 2. Diarrhea, resolving with only one episode over the last 12 hours. Stool studies are negative for infectious etiology. Etiology is likely from antibiotic-associated diarrhea. 3. Chronic anemia, no evidence of gastrointestinal blood loss. 4. Mild ascites in context of bilateral pleural effusion, likely from heart failure. RECOMMENDATION: 1. Overall doing well from GI standpoint. 2. We will continue with probiotic Florastor for her antibiotic-associated diarrhea. 3. No other GI test or study is recommended. 4. GI Service will sign off for now, please recall if needed. Job ID: [id number]
[2019-03-30] MEDS: Acetaminophen 500 MG TAB PO PRN (20:00)
[2019-03-31] MEDS: Levothyroxine Sodium 75 MCG TAB PO SCH (05:34)
[2019-03-31 07:22] LABS: #Eosinphils 0.3 thou/uL (0.0-0.7); #Lymphocytes 1.4 thou/uL (1.20-3.40); #Monocytes 0.8 thou/uL (0.11-0.59); #Neutrophils 7.7 thou/uL (1.40-6.50); %Basophils 0.3 % (0.0-1.0); %Eosinophils 2.8 % (0.0-10.0); %Lymphocytes 13.4 % (21.0-51.0); %Monocytes 7.9 % (0.0-10.0); %Neutrophils 75.6 % (42.0-75.0); Hemoglobin 8.7 g/dL (12.0-16.0); Mean Corpuscular HGB CONC 31.1 g/dL (32.0-36.0); Mean Corpuscular Hemoglobin 27.9 pg (27.0-31.0); Mean Corpuscular Volume 89.7 fL (78.0-98.0); Mean Platelet Volume 8.3 fL (7.4-10.4); Platelet Count 137 thou/uL (130-400); Red Blood Cell (RBC) Count 3.11 mill/uL (4.20-5.40); White Blood Cell (WBC) Count 10.1 thou/uL (4.8-10.8)
[2019-03-31 07:30] LABS: Hemoglobin A1c 6.7 % (4.0-6.0)
[2019-03-31 07:43] LABS: Anion Gap 14 mmol/L (10-20); BUN (Urea Nitrogen) 8 mg/dL (9.8-20.1); Calc. Creatinine Clearance 90 mL/min (70-130); Calcium 9.1 mg/dL (7.8-10.44); Carbon Dioxide 23 mmol/L (23-31); Chloride 105 mmol/L (98-107); Estimated GFR-MDRD 89; Glucose 123 mg/dL (83-110); Magnesium 1.5 mg/dL (1.6-2.6); Potassium 4.4 mmol/L (3.5-5.1); Sodium 138 mmol/L (136-145)
[2019-03-31] MEDS: Magnesium Oxide 400 MG TAB PO SCH ×2 (08:18→21:24)
[2019-03-31] MEDS: Ascorbic Acid 500 mg Chewable Tablet PO SCH (08:18)
[2019-03-31] MEDS: Multivitamin W/ Minerals 1 TAB PO SCH (08:18)
[2019-03-31] MEDS: Escitalopram Oxalate 10 mg Tablet PO SCH (08:18)
[2019-03-31] MEDS: Nitrofurantoin Monohyd/M-Cryst 100 MG CAP PO SCH ×2 (08:18→21:24)
[2019-03-31] MEDS: Potassium Chloride 20 MEQ TAB PO SCH (08:18)
[2019-03-31] MEDS: Metoprolol Tartrate 25 MG TAB PO SCH ×2 (08:19→21:24)
[2019-03-31] MEDS: Saccharomyces boulardii 250 MG CAP PO SCH (08:19)
[2019-03-31] MEDS: Furosemide 20 MG TAB PO SCH (08:19)
[2019-03-31] MEDS: Clobetasol 0.05% Cream 15 gm Tube TOP SCH ×2 (08:20→21:25)
[2019-03-31] MEDS: Nystatin Powder 15 GM BOT TOP PRN (08:20)
[2019-03-31] MEDS: Famotidine 20 MG TAB PO SCH ×2 (08:20→21:23)
[2019-03-31] MEDS ORDERED: Magnesium 2 GM/50 ML 2 GM in Premix Bag 1 BAG IVPB SCH (17:00)
[2019-03-31] MEDS: Acetaminophen 500 MG TAB PO PRN (21:27)
[2019-04-01] MEDS: Levothyroxine Sodium 75 MCG TAB PO SCH (05:17)
[2019-04-01] MEDS: Furosemide 20 MG TAB PO SCH (08:12)
[2019-04-01] MEDS: Potassium Chloride 20 MEQ TAB PO SCH (08:12)
[2019-04-01] MEDS: Saccharomyces boulardii 250 MG CAP PO SCH (08:12)
[2019-04-01] MEDS: Multivitamin W/ Minerals 1 TAB PO SCH (08:13)
[2019-04-01] MEDS: Nitrofurantoin Monohyd/M-Cryst 100 MG CAP PO SCH ×2 (08:13→20:21)
[2019-04-01] MEDS: Metoprolol Tartrate 25 MG TAB PO SCH ×2 (08:13→20:14)
[2019-04-01] MEDS: Magnesium Oxide 400 MG TAB PO SCH ×2 (08:13→20:14)
[2019-04-01] MEDS: Famotidine 20 MG TAB PO SCH ×2 (08:14→20:14)
[2019-04-01] MEDS: Escitalopram Oxalate 10 mg Tablet PO SCH (08:14)
[2019-04-01] MEDS: Ascorbic Acid 500 mg Chewable Tablet PO SCH (08:14)
[2019-04-01] MEDS: Clobetasol 0.05% Cream 15 gm Tube TOP SCH ×2 (08:15→20:22)
[2019-04-02 05:36] LABS: #Basophils 0.1 thou/uL (0.0-0.2); #Eosinphils 0.2 thou/uL (0.0-0.7); #Lymphocytes 1.2 thou/uL (1.20-3.40); #Monocytes 0.8 thou/uL (0.11-0.59); #Neutrophils 4.8 thou/uL (1.40-6.50); %Basophils 1.1 % (0.0-1.0); %Eosinophils 2.6 % (0.0-10.0); %Lymphocytes 17.5 % (21.0-51.0); %Monocytes 11.6 % (0.0-10.0); %Neutrophils 67.2 % (42.0-75.0); Hemoglobin 8.2 g/dL (12.0-16.0); Mean Corpuscular HGB CONC 30.3 g/dL (32.0-36.0); Mean Corpuscular Hemoglobin 26.8 pg (27.0-31.0); Mean Corpuscular Volume 88.4 fL (78.0-98.0); Mean Platelet Volume 8.5 fL (7.4-10.4); Platelet Count 123 thou/uL (130-400); RBC Distribution Width 20.6 % (11.5-14.5); Red Blood Cell (RBC) Count 3.06 mill/uL (4.20-5.40); White Blood Cell (WBC) Count 7.1 thou/uL (4.8-10.8)
[2019-04-02 05:52] LABS: Anion Gap 10 mmol/L (10-20); BUN (Urea Nitrogen) 7 mg/dL (9.8-20.1); Calc. Creatinine Clearance 84 mL/min (70-130); Calcium 9.2 mg/dL (7.8-10.44); Carbon Dioxide 28 mmol/L (23-31); Chloride 104 mmol/L (98-107); Estimated GFR-MDRD 85; Glucose 127 mg/dL (83-110); Magnesium 1.5 mg/dL (1.6-2.6); Potassium 4.1 mmol/L (3.5-5.1); Sodium 138 mmol/L (136-145)
[2019-04-02] MEDS: Levothyroxine Sodium 75 MCG TAB PO SCH (06:30)
[2019-04-02] MEDS: Multivitamin W/ Minerals 1 TAB PO SCH (09:27)
[2019-04-02] MEDS: Furosemide 20 MG TAB PO SCH (09:27)
[2019-04-02] MEDS: Magnesium Oxide 400 MG TAB PO SCH ×2 (09:27→22:31)
[2019-04-02] MEDS: Escitalopram Oxalate 10 mg Tablet PO SCH (09:27)
[2019-04-02] MEDS: Saccharomyces boulardii 250 MG CAP PO SCH (09:27)
[2019-04-02] MEDS: Potassium Chloride 20 MEQ TAB PO SCH (09:28)
[2019-04-02] MEDS: Famotidine 20 MG TAB PO SCH ×2 (09:28→22:31)
[2019-04-02] MEDS: Nitrofurantoin Monohyd/M-Cryst 100 MG CAP PO SCH (09:28)
[2019-04-02] MEDS: Ascorbic Acid 500 mg Chewable Tablet PO SCH (09:28)
[2019-04-02] MEDS: Metoprolol Tartrate 25 MG TAB PO SCH ×2 (09:28→22:31)
[2019-04-02] MEDS: Sodium Chloride 0.9% 10 ML ONE (09:29)
[2019-04-02] MEDS: Nystatin Powder 15 GM BOT TOP PRN (09:32)
[2019-04-02] MEDS: Clobetasol 0.05% Cream 15 gm Tube TOP SCH ×2 (09:32→22:32)
--- NOTE | 2019-04-02 17:25 | PRG ---
DATE OF SERVICE: 04/02/2019 SUBJECTIVE: Ms. Méndez had to be transferred back down to telemetry. She had atrial fibrillation with rapid ventricular response. She responded to intravenous Cardizem. The patient is resting comfortably now and her heart rate is controlled. OBJECTIVE: VITAL SIGNS: Blood pressure 140/66, pulse is 80 and it is irregular. LUNGS: Clear. CARDIAC: Irregularly irregular. ASSESSMENT: 1. Atrial fibrillation with occasional rapid ventricular response. 2. Anemia. PLAN: 1. We will increase metoprolol to 25 mg twice a day. 2. Continue Cardizem CD 180 mg a day. 3. If she gets bradycardic, may need pacemaker insertion. Job ID: [id number]
[2019-04-03 05:45] LABS: #Eosinphils 0.2 thou/uL (0.0-0.7); #Lymphocytes 1.1 thou/uL (1.20-3.40); #Monocytes 0.6 thou/uL (0.11-0.59); #Neutrophils 3.8 thou/uL (1.40-6.50); %Basophils 0.7 % (0.0-1.0); %Lymphocytes 18.9 % (21.0-51.0); %Monocytes 10.8 % (0.0-10.0); %Neutrophils 66.7 % (42.0-75.0); Hemoglobin 8.6 g/dL (12.0-16.0); Mean Corpuscular HGB CONC 30.6 g/dL (32.0-36.0); Mean Corpuscular Hemoglobin 27.5 pg (27.0-31.0); Mean Corpuscular Volume 89.9 fL (78.0-98.0); Mean Platelet Volume 9.5 fL (7.4-10.4); Platelet Count 110 thou/uL (130-400); RBC Distribution Width 20.8 % (11.5-14.5); Red Blood Cell (RBC) Count 3.12 mill/uL (4.20-5.40); White Blood Cell (WBC) Count 5.6 thou/uL (4.8-10.8)
[2019-04-03] MEDS: Levothyroxine Sodium 75 MCG TAB PO SCH (05:48)
[2019-04-03 05:57] LABS: Anion Gap 14 mmol/L (10-20); BUN (Urea Nitrogen) 8 mg/dL (9.8-20.1); Calc. Creatinine Clearance 91 mL/min (70-130); Calcium 8.9 mg/dL (7.8-10.44); Carbon Dioxide 21 mmol/L (23-31); Chloride 104 mmol/L (98-107); Estimated GFR-MDRD Greater than 90; Glucose 122 mg/dL (83-110); Potassium 4.4 mmol/L (3.5-5.1); Sodium 135 mmol/L (136-145)
[2019-04-03] MEDS: Magnesium Oxide 400 MG TAB PO SCH (09:57)
[2019-04-03] MEDS: Multivitamin W/ Minerals 1 TAB PO SCH (09:57)
[2019-04-03] MEDS: Ascorbic Acid 500 mg Chewable Tablet PO SCH (09:57)
[2019-04-03] MEDS: Saccharomyces boulardii 250 MG CAP PO SCH (09:57)
[2019-04-03] MEDS: Escitalopram Oxalate 10 mg Tablet PO SCH (09:57)
[2019-04-03] MEDS: Metoprolol Tartrate 25 MG TAB PO SCH ×2 (09:57→19:40)
[2019-04-03] MEDS: Potassium Chloride 20 MEQ TAB PO SCH (09:57)
[2019-04-03] MEDS: Nystatin Powder 15 GM BOT TOP PRN (09:58)
[2019-04-03] MEDS: Clobetasol 0.05% Cream 15 gm Tube TOP SCH ×2 (09:58→19:41)
[2019-04-03] MEDS: Sodium Chloride 0.9% 10 ML ONE (09:59)
[2019-04-03] MEDS: Famotidine 20 MG TAB PO SCH ×2 (10:04→19:40)
[2019-04-03] MEDS: Furosemide 20 MG TAB PO SCH (10:04)
[2019-04-03] MEDS: Acetaminophen 500 MG TAB PO PRN (17:19)
[2019-04-04 05:44] LABS: Bacteria/HPF None Seen HPF (None Seen); Bilirubin Negative (Negative); Blood, Urine Negative (Negative); Clarity Clear (Clear); Glucose, Urine (Dipstick) Normal (Negative); Leukocyte Negative Leu/uL (Negative); Nitrite Negative (Negative); Protein, Urine (Dipstick) 70 mg/dL (Neg-Trace); RBC/HPF 0-3 HPF (0-3); Squamous Epithelial 0-3 HPF (0-3); Urobilinogen Normal mg/dL (Less than 2); WBC/HPF 0-3 HPF (0-3)
[2019-04-04] MEDS: Levothyroxine Sodium 75 MCG TAB PO SCH (05:44)
[2019-04-04] MEDS: Ascorbic Acid 500 mg Chewable Tablet PO SCH (09:48)
[2019-04-04] MEDS: Clobetasol 0.05% Cream 15 gm Tube TOP SCH ×2 (09:49→21:19)
[2019-04-04] MEDS: Escitalopram Oxalate 10 mg Tablet PO SCH (09:49)
[2019-04-04] MEDS: Saccharomyces boulardii 250 MG CAP PO SCH (09:50)
[2019-04-04] MEDS: Famotidine 20 MG TAB PO SCH ×2 (09:50→21:18)
[2019-04-04] MEDS: Potassium Chloride 20 MEQ TAB PO SCH (09:50)
[2019-04-04] MEDS: Multivitamin W/ Minerals 1 TAB PO SCH (09:50)
[2019-04-04] MEDS: Metoprolol Tartrate 25 MG TAB PO SCH ×2 (09:50→21:18)
[2019-04-04] MEDS: Furosemide 20 MG TAB PO SCH (09:50)
--- NOTE | 2019-04-04 13:52 | PRG ---
DATE OF SERVICE: 04/04/2019 SUBJECTIVE: Ms. Méndez is resting comfortably. No complaints. OBJECTIVE: VITAL SIGNS: Her blood pressure 125/74, pulse is between 55 to 88 and irregular. LUNGS: Clear. CARDIAC: Irregularly irregular. ASSESSMENT: 1. Chronic atrial fibrillation, rate controlled. 2. Mild anemia. PLAN: 1. She is on Cardizem CD 180 mg a day. 2. Metoprolol tartrate 25 mg twice a day. 3. Okay to me to be released at any time. Job ID: [id number]
[2019-04-04 13:54] VITALS: BMI 29.1
[2019-04-05] MEDS: Levothyroxine Sodium 75 MCG TAB PO SCH (06:25)
[2019-04-05] MEDS: Potassium Chloride 20 MEQ TAB PO SCH (09:50)
--- NOTE | 2019-04-05 09:53 | PRG ---
DATE OF SERVICE: 04/05/2019 SUBJECTIVE: Ms. Méndez is resting comfortably. No complaints. OBJECTIVE: VITAL SIGNS: Her blood pressure 136/76, pulse 60 to 70. LUNGS: Clear. CARDIAC: Irregularly irregular. The patient did have pauses and heart rates in the 30s last night and also had 3-second pause. ASSESSMENT: Tachycardia-bradycardia syndrome. We tried to reduce the Cardizem dose. She has tachycardic, even requiring intravenous Cardizem, when on the current doses of Cardizem and beta bridger, she is intermittently very bradycardic, almost certainly would have to be readmitted with either tachycardia or bradycardia if she is left in this situation. PLAN: Recommend pacemaker insertion tomorrow. Discussed risks with the patient, bleeding, infection, air around the lung, lead dislodgement. She understands. We will consult Dr. Ferguson for that. Job ID: [id number]
[2019-04-05] MEDS: Saccharomyces boulardii 250 MG CAP PO SCH (09:58)
[2019-04-05] MEDS: Famotidine 20 MG TAB PO SCH ×2 (09:58→20:42)
[2019-04-05] MEDS: Escitalopram Oxalate 10 mg Tablet PO SCH (09:58)
[2019-04-05] MEDS: Multivitamin W/ Minerals 1 TAB PO SCH (10:02)
[2019-04-05] MEDS: Furosemide 20 MG TAB PO SCH (10:02)
[2019-04-05] MEDS: Clobetasol 0.05% Cream 15 gm Tube TOP SCH ×2 (10:02→20:42)
[2019-04-05] MEDS: Metoprolol Tartrate 25 MG TAB PO SCH ×2 (10:02→20:42)
[2019-04-05] MEDS: Ascorbic Acid 500 mg Chewable Tablet PO SCH (10:02)
[2019-04-06] MEDS: Levothyroxine Sodium 75 MCG TAB PO SCH (05:51)
[2019-04-06 06:09] LABS: #Basophils 0.1 thou/uL (0.0-0.2); #Eosinphils 0.2 thou/uL (0.0-0.7); #Lymphocytes 1.1 thou/uL (1.20-3.40); #Monocytes 0.7 thou/uL (0.11-0.59); #Neutrophils 4.1 thou/uL (1.40-6.50); %Basophils 0.9 % (0.0-1.0); %Eosinophils 2.6 % (0.0-10.0); %Lymphocytes 17.9 % (21.0-51.0); %Monocytes 10.9 % (0.0-10.0); %Neutrophils 67.7 % (42.0-75.0); Hemoglobin 8.3 g/dL (12.0-16.0); Mean Corpuscular HGB CONC 30.3 g/dL (32.0-36.0); Mean Corpuscular Hemoglobin 27.7 pg (27.0-31.0); Mean Corpuscular Volume 91.5 fL (78.0-98.0); Mean Platelet Volume 8.5 fL (7.4-10.4); Platelet Count 146 thou/uL (130-400); RBC Distribution Width 21.1 % (11.5-14.5); Red Blood Cell (RBC) Count 2.99 mill/uL (4.20-5.40); White Blood Cell (WBC) Count 6.1 thou/uL (4.8-10.8)
[2019-04-06 06:27] LABS: Anion Gap 10 mmol/L (10-20); BUN (Urea Nitrogen) 12 mg/dL (9.8-20.1); Calc. Creatinine Clearance 85 mL/min (70-130); Calcium 8.6 mg/dL (7.8-10.44); Carbon Dioxide 30 mmol/L (23-31); Chloride 104 mmol/L (98-107); Estimated GFR-MDRD 89; Glucose 115 mg/dL (83-110); Potassium 4.2 mmol/L (3.5-5.1); Sodium 140 mmol/L (136-145)
[2019-04-06] MEDS ORDERED: Lidocaine 1% (PF) 30 ML VIAL ONE (06:36)
[2019-04-06] MEDS ORDERED: Levofloxacin 500 mg/D5W 100 ml Premix Bag ONE (06:38)
[2019-04-06] MEDS ORDERED: Clindamycin/D5W 900 mg/50 ml Premix Bag ONE (06:38)
[2019-04-06] MEDS: Metoprolol Tartrate 25 MG TAB PO SCH ×2 (06:45→20:26)
[2019-04-06] MEDS ORDERED: Vancomycin HCl 500 MG VIAL ONE (06:56)
--- NOTE | 2019-04-06 09:24 | RAD ---
Exam: Chest one view HISTORY:Status post cardiac device placement Comparison: 03/24/2014 FINDINGS: Cardiac device: Interval placement of a left-sided transvenous pacemaker, with single lead. Knee posi tion terminates in the region right ventricle. Cardiac silhouette:Upper normal cardiac silhouette Aorta: Unremarkable Pulmonary vessels: Slightly prominent Costophrenic angles: Bilateral pleural effusions LUNGS: Patchy interstitial and alveolar opacities lung parenchyma. Pneumothorax: No definite pneumothorax. Osseous abnormalities: None IMPRESSION: 1. Interval placement of a left-sided single lead transvenous pacemaker. 2. Congestive heart failure. 3. No definite pneumothorax.
[2019-04-06] MEDS: Potassium Chloride 20 MEQ TAB PO SCH (09:36)
[2019-04-06] MEDS: Saccharomyces boulardii 250 MG CAP PO SCH (09:37)
[2019-04-06] MEDS: Multivitamin W/ Minerals 1 TAB PO SCH (09:37)
[2019-04-06] MEDS: Furosemide 20 MG TAB PO SCH (09:38)
[2019-04-06] MEDS: Famotidine 20 MG TAB PO SCH ×2 (09:38→20:25)
[2019-04-06] MEDS: Escitalopram Oxalate 10 mg Tablet PO SCH (09:38)
[2019-04-06] MEDS: Acetaminophen 500 MG TAB PO PRN (09:38)
[2019-04-06] MEDS: Ascorbic Acid 500 mg Chewable Tablet PO SCH (09:38)
[2019-04-06] MEDS: Clobetasol 0.05% Cream 15 gm Tube TOP SCH ×2 (09:39→20:24)
--- NOTE | 2019-04-06 15:47 | CCL ---
DATE OF PROCEDURE: 04/06/19 INDICATIONS: This is an 78-year-old female with sick sinus syndrome with chronic atrial fibrillation with symptoma tic bradycardia who has been on medications who needs to be continued on medications. She was advised to undergo a single chamber pacemaker to avoid the severe bradycardia. She was taken to the cardiac medical laboratory technician, where she was prepped and draped in a sterile fashion. Using the left subclavian approach, the pacemaker was easily inserted without difficulties or complications. The full dictated note can be found in the chart. He was implanted with a single chamber pacemaker from [employer] an [place] [employer] c ompatible device with one screw-in lead into the right ventricle. The pacemaker was set with the uppe r rate at 110 and the lower rate was set at 60. She was not given any conscious sedation through the procedure, but maintained stable throughout the procedure.
[2019-04-07] MEDS: Levothyroxine Sodium 75 MCG TAB PO SCH (06:03)
[2019-04-07] MEDS: Metoprolol Tartrate 25 MG TAB PO SCH ×2 (09:27→20:27)
[2019-04-07] MEDS: Famotidine 20 MG TAB PO SCH ×2 (09:27→20:27)
[2019-04-07] MEDS: Ascorbic Acid 500 mg Chewable Tablet PO SCH (09:27)
[2019-04-07] MEDS: Saccharomyces boulardii 250 MG CAP PO SCH (09:27)
[2019-04-07] MEDS: Multivitamin W/ Minerals 1 TAB PO SCH (09:27)
[2019-04-07] MEDS: Potassium Chloride 20 MEQ TAB PO SCH (09:28)
[2019-04-07] MEDS: Clobetasol 0.05% Cream 15 gm Tube TOP SCH ×2 (09:28→20:27)
[2019-04-07] MEDS: Escitalopram Oxalate 10 mg Tablet PO SCH (09:28)
[2019-04-07] MEDS: Furosemide 20 MG TAB PO SCH (09:28)
--- NOTE | 2019-04-07 17:55 | PDOC.CPN ---
- Subjective Date: 04/07/19 Time: 17:53 Interval history: No new issues. Her pacer site is a little sore but doing well otherwise. - Review of Systems General: denies: fever/chills, weight/appetite/sleep changes, night sweats, fatigue Respiratory: denies: cough, congestion, shortness of breath, exercise intolerance Cardiovascular: denies: chest pain, palpitation, edema, paroxysmal nocturnal dyspnea, orthopnea Gastrointestinal: denies: nausea, vomiting, diarrhea, constipation, abd pain, GI bleeding Musculoskeletal: denies: pain, tenderness, stiffness, swelling, arthritis/ arthralgias Neurological: denies: numbness, syncope, seizure, weakness - Objective Allergies/Adverse Reactions: Allergies Allergy/AdvReac Type Severity Reaction Status Date / Time Penicillins Allergy Severe Verified 11/05/18 00:48 latex Allergy Verified 11/05/18 00:48 Visit Medications: Current Medications Acetaminophen (Tylenol) 1,000 mg PO Q6H PRN PRN Reason: Mild Pain (1-3) Last Admin: 04/06/19 09:38 Dose: 1,000 mg Albuterol/Ipratropium (Duoneb) 3 ml NEB [id number] PENDING SALE TO [facility] Last Admin: 04/07/19 12:33 Dose: 3 ml Ascorbic Acid (Vitamin C) 500 mg PO DAILY PENDING SALE TO [facility] Last Admin: 04/07/19 09:27 Dose: 500 mg Clobetasol Propionate (Temovate 0.05% Cream) 0 gm TOP BID PENDING SALE TO [facility] Last Admin: 04/07/19 09:28 Dose: 1 applic Clonidine (Catapres) 0.1 mg PO Q6H PRN PRN Reason: Blood Pressure Systolic >180 Dextrose/Water (Dextrose 50%) 25 gm SLOW IVP PRN PRN PRN Reason: Hypoglycemia Diltiazem HCl (Cardizem Cd) 180 mg PO DAILY PENDING SALE TO [facility] Last Admin: 04/07/19 09:28 Dose: 180 mg Escitalopram Oxalate (Lexapro) 5 mg PO DAILY PENDING SALE TO [facility] Last Admin: 04/07/19 09:28 Dose: 5 mg Famotidine (Pepcid) 20 mg PO BID PENDING SALE TO [facility] Last Admin: 04/07/19 09:27 Dose: 20 mg Furosemide (Lasix) 20 mg PO QAM PENDING SALE TO [facility] Last Admin: 04/07/19 09:28 Dose: 20 mg Glucagon (Glucagon) 1 mg IM PRN PRN PRN Reason: Hypoglycemia Dextrose/Water (D5w) 1,000 mls @ 0 mls/hr IV .Q0M PRN PRN Reason: Hypoglycemia Insulin Human Lispro (Humalog) 0 units SC .MILD SLIDING SCALE PRN PRN Reason: Mild Correctional Scale Last Admin: 03/28/19 12:09 Dose: 2 unit Insulin Human Lispro (Humalog) 0 units SC .BEDTIME SLIDING SC PRN PRN Reason: Bedtime Correctional Scale Iron/Minerals/Multivitamins (Theragran M) 1 tab PO DAILY PENDING SALE TO [facility] Last Admin: 04/07/19 09:27 Dose: 1 tab Levothyroxine Sodium (Synthroid) 75 mcg PO 0600 PENDING SALE TO [facility] Last Admin: 04/07/19 06:03 Dose: 75 mcg Metoprolol Tartrate (Lopressor) 25 mg PO BID PENDING SALE TO [facility] Last Admin: 04/07/19 09:27 Dose: 25 mg Nystatin (Mycostatin Powder) 0 gm TOP BIDPRN PRN PRN Reason: Topical Irritations Last Admin: 04/03/19 09:58 Dose: 1 applic Potassium Chloride (K-Dur) 20 meq PO DAILY PENDING SALE TO [facility] Last Admin: 04/07/19 09:28 Dose: 20 meq Saccharomyces Boulardii (Florastor) 250 mg PO DAILY PENDING SALE TO [facility] Last Admin: 04/07/19 09:27 Dose: 250 mg Vital Signs & Weight: Vital Signs Temp Pulse Pulse Pulse Resp BP BP 04/07/19 16:00 98.4 F 61 18 04/07/19 12:33 71 20 04/07/19 11:52 98.2 F 82 20 04/07/19 09:58 85 73 120/67 124/58 L 04/07/19 07:59 98.9 F 76 20 04/07/19 07:24 04/07/19 07:23 83 16 BP Pulse Ox Pulse Ox Pulse Ox 04/07/19 16:00 125/59 L 96 04/07/19 12:33 98 04/07/19 11:52 132/63 95 04/07/19 09:58 97 92 L 04/07/19 07:59 164/70 H 99 04/07/19 07:24 98 04/07/19 07:23 98 Admit Weight 173 lb 6.4 oz Weight 170 lb - Physical Exam General: alert & oriented x3 HEENT: mucus membranes moist Neck: supple neck Cardiac: regular rate and rhythm Lungs: clear to auscultation Neuro: grossly intact Abdomen: active bowel sounds, soft, non-tender Extremities: no edema Skin: clear Musculoskeletal: no pain - Labs Result Diagrams: 04/06/19 04:43 04/06/19 04:43 Troponin/CKMB CK-MB (CK-2) 1.4 ng/mL (0-6.6) 03/24/19 16:16 Troponin I 0.074 ng/mL (< 0.028) H 03/24/19 22:34 - Telemetry Sinus rhythms and dysrhythmias: other (V-paced) - Assessment/Plan Assessment/Plan: 1. Tachy jules syndrome 2. S/P PPM placement. 3. GI bleeding 4. HTN 5. Demand ischemia PLAN: - May discharge at any time from cardiac perspective. - Will follow while in house.
[2019-04-08] MEDS: Levothyroxine Sodium 75 MCG TAB PO SCH (05:33)
[2019-04-08] MEDS: Escitalopram Oxalate 10 mg Tablet PO SCH (09:01)
[2019-04-08] MEDS: Potassium Chloride 20 MEQ TAB PO SCH (09:02)
[2019-04-08] MEDS: Famotidine 20 MG TAB PO SCH (09:02)
[2019-04-08] MEDS: Metoprolol Tartrate 25 MG TAB PO SCH (09:02)
[2019-04-08] MEDS: Ascorbic Acid 500 mg Chewable Tablet PO SCH (09:02)
[2019-04-08] MEDS: Clobetasol 0.05% Cream 15 gm Tube TOP SCH (09:02)
[2019-04-08] MEDS: Multivitamin W/ Minerals 1 TAB PO SCH (09:02)
[2019-04-08] MEDS: Furosemide 20 MG TAB PO SCH (09:02)
[2019-04-08] MEDS: Saccharomyces boulardii 250 MG CAP PO SCH (09:02)
[2019-04-08 11:56] VITALS: BP 128/64; TEMP 96.6
--- NOTE | 2019-04-09 16:53 | EKG ---
Test Reason : Blood Pressure : / mmHG Vent. Rate : 074 BPM Atrial Rate : 031 BPM P-R Int : 000 ms QRS Dur : 084 ms QT Int : 426 ms P-R-T Axes : 000 076 184 degrees QTc Int : 472 ms Demand pacemaker; interpretation is based on intrinsic rhythm Atrial fibrillation with many paced beats Prolonged QT Abnormal ECG When compared with ECG of 01-APR-2019 20:28, Electronic demand pacing is now Present Vent. rate has decreased BY [address] no longer depressed in Lateral leads Confirmed by DR. Goldie HOYT ([id number]) on 04/09/2019 4:52:57 PM Referred By: JUANJOSE Confirmed By:DR. Goldie HOYT
== END 2019-04-08 13:13 | DRG 981 ==
LOC: ERS 15:34 → 2NO 17:33 → T4-A 03-28 14:53 → 2NO 04-01 21:26
PROVIDERS: ADMIT Internal Medicine; ATTEND Internal Medicine
PROC: 30233N1 Transfusion of Nonautologous Red Blood Cells into Peripheral Vein, Percutaneous Approach (ICD-10-PCS; principal; 2019-03-26)
PROC: 0JH604Z Insertion of Pacemaker, Single Chamber into Chest Subcutaneous Tissue and Fascia, Open Approach (ICD-10-PCS; 2019-04-06)
PROC: 02HK3JZ Insertion of Pacemaker Lead into Right Ventricle, Percutaneous Approach (ICD-10-PCS; 2019-04-06)
DX: D64.9 Anemia, unspecified (principal); I21.A1 Myocardial infarction type 2; I50.33 Acute on chronic diastolic (congestive) heart failure; I48.20 Chronic atrial fibrillation, unspecified; R18.8 Other ascites; K52.1 Toxic gastroenteritis and colitis; K92.2 Gastrointestinal hemorrhage, unspecified; D62 Acute posthemorrhagic anemia; I49.5 Sick sinus syndrome; E78.5 Hyperlipidemia, unspecified; E03.9 Hypothyroidism, unspecified; E87.6 Hypokalemia; I25.10 Atherosclerotic heart disease of native coronary artery without angina pectoris; M19.91 Primary osteoarthritis, unspecified site; I11.0 Hypertensive heart disease with heart failure; T36.95XA Adverse effect of unspecified systemic antibiotic, initial encounter; Z90.49 Acquired absence of other specified parts of digestive tract; Z90.710 Acquired absence of both cervix and uterus; Z88.0 Allergy status to penicillin; Z91.040 Latex allergy status; Z79.899 Other long term (current) drug therapy; E11.51 Type 2 diabetes mellitus with diabetic peripheral angiopathy without gangrene
CPT/HCPCS: 33207; 36415; 36416; 36430; 71045; 74177; 80048; 80053; 81001; 81003; 81015; 82274; 82553; 82728; 83036; 83540; 83550; 83630; 83690; 83735; 83880; 84484; 85007; 85025; 85027; 85610; 85730; 86850; 86900; 86901; 87045; 87046; 87086; 87324; 87328; 87329; 87427; 87449; 93005; 93010; 93798; 94640; 96374; A4353; C1785; C1898; C9113; J1940; J1956; J2001; J2916; J3370; J3475; J3480; J3490; J7620; P9016; Q9966

== ENCOUNTER 2019-04-26 19:18 | Inpatient (IN) | payer MEDICARE, OTHER ==
[~2019-04-26 19:18] MED LIST changes: -ISOVUE-370 76%-LOCM 1 ML ONE; +Iopamidol 370 76% 100 ML VIAL ONE
[2019-04-26 19:50] LABS: #Lymphocytes 0.6 thou/uL (1.20-3.40); #Monocytes 0.2 thou/uL (0.11-0.59); #Neutrophils 8.2 thou/uL (1.40-6.50); %Basophils 0.1 % (0.0-1.0); %Eosinophils 0.1 % (0.0-10.0); %Lymphocytes 7.2 % (21.0-51.0); %Monocytes 1.9 % (0.0-10.0); %Neutrophils 90.8 % (42.0-75.0); Hemoglobin 9.3 g/dL (12.0-16.0); Mean Corpuscular HGB CONC 30.9 g/dL (32.0-36.0); Mean Corpuscular Hemoglobin 29.3 pg (27.0-31.0); Mean Corpuscular Volume 94.7 fL (78.0-98.0); Mean Platelet Volume 7.7 fL (7.4-10.4); Platelet Count 150 thou/uL (130-400); RBC Distribution Width 17.6 % (11.5-14.5); Red Blood Cell (RBC) Count 3.16 mill/uL (4.20-5.40)
[2019-04-26 20:04] LABS: INR-International Normal Ratio 1.2; Prothrombin Time 15.6 SEC (12.0-14.7)
[2019-04-26 20:05] LABS: PTT 38.4 SEC (22.9-36.1)
[2019-04-26 20:06] LABS: D-Dimer Test 3.4 *mcg/mL (0.27-0.43)
--- NOTE | 2019-04-26 20:10 | RAD ---
RADIOGRAPH CHEST 1 VIEW: DATE: 04/26/2019 TIME: 7:44 PM HISTORY: 78-year-old female status post pacemaker placement. COMPARISON: 04/06/2019 FINDINGS: Single lead left subclavian pacemaker remains. No pneumothorax. Interval improved aeration of the chel g bases. Mild hazy-patchy pulmonary densities at right mid lung zone stable, and right lower lung lung zone improved. IMPRESSION: 1. Interval improved aeration of bilateral lung bases with decrease in size of pleural effusions. 2. Nonspecific pulmonary densities on the right. 3. Single lead pacemaker.
[2019-04-26 20:14] LABS: ALT (SGPT) 18 U/L (8-55); AST (SGOT) 12 U/L (5-34); Albumin 3.3 g/dL (3.4-4.8); Alkaline Phosphatase 121 U/L (40-110); Anion Gap 12 mmol/L (10-20); BUN (Urea Nitrogen) 16 mg/dL (9.8-20.1); Bilirubin, Total 0.8 mg/dL (0.2-1.2); Calc. Creatinine Clearance 0 mL/min (70-130); Calcium 8.7 mg/dL (7.8-10.44); Carbon Dioxide 26 mmol/L (23-31); Chloride 105 mmol/L (98-107); Estimated GFR-MDRD 68; Globulin 2.6 g/dL (2.4-3.5); Glucose 331 mg/dL (83-110); Lipase 15 U/L (8-78); Magnesium 1.6 mg/dL (1.6-2.6); Potassium 4.3 mmol/L (3.5-5.1); Protein, Total 5.9 g/dL (6.0-8.3); Sodium 139 mmol/L (136-145)
[2019-04-26 21:12] LABS: Bacteria/HPF None Seen HPF (None Seen); Bilirubin Negative (Negative); Blood, Urine Trace (Negative); Clarity Clear (Clear); Glucose, Urine (Dipstick) Greater than 1000 mg/dL (Negative); Leukocyte Negative Leu/uL (Negative); Nitrite Negative (Negative); Protein, Urine (Dipstick) 20 mg/dL (Neg-Trace); RBC/HPF 0-3 HPF (0-3); Squamous Epithelial 0-3 HPF (0-3); Urobilinogen Normal mg/dL (Less than 2); WBC/HPF 0-3 HPF (0-3)
[2019-04-26 21:25] LABS: Actual Bicarbonate (HCO3a) 26.3 mEq/L (22-28); Analyzer IN Cardio ER; Base Excess (BEa) 0.3 mEq/L (-2.0 to +3.0); CO2 Tension 49.4 mmHg (35.0-45.0); Calcium, Ionized 1.22 mmol/L (1.12-1.30); Carboxyhemoglobin (COHb) 0.5 gm% (0.0-3.0); Hemoglobin (Hb) 9.4 g/dL (12.0-16.0); O2 Tension (PaO2) 131.7 mmHg (> 60.0); Potassium - ABG Lab 3.89 mmol/L (3.70-5.30); pH, Arterial 7.34 (7.35-7.45)
[2019-04-26 21:27] LABS: Puncture Site RBR
[2019-04-26] MEDS ORDERED: Furosemide 40 MG/4 ML VIAL ONE (21:58)
--- NOTE | 2019-04-26 22:03 | CT ---
CT BRAIN NONCONTRAST: DATE: 04/26/2019 HISTORY: 78-year-old female with altered mental status. COMPARISON: 03/20/2019 FINDINGS: There is no evidence of acute intra-axial or extra-axial hemorrhage. There is no midline shift or any other mass effect. There is no extra-axial fluid collection. Mild ventriculomegaly involving lateral and third ventricles, unchanged Calvarium is intact. Previously there was a small region of e ncephalomalacia and gliosis involving right occipital lobe. This area of low attenuation has become larger and is now moderate sized. Previously demonstrated moderate size region of encephalomalacia an d gliosis involving the left occipital lobe is again noted. Moderately large region of evidence of malacia and gliosis in the left parietal lobe unchanged. New finding of severe partial opacification of bilateral ethmoid air cells and right maxillary sinus. Mucosal thickening in left maxillary sinus incompletely imaged. IMPRESSION: 1. Evidence for subacute infarction in right posterior cerebral artery territory at right occipital l obe, larger than the old infarction demonstrated on the previous CT in this area.. 2 No acute intracranial hemorrhage or mass effect. 3. New finding of bilateral maxillary and ethmoid mucosal sinus disease. 4. Moderately large old infarction in the left middle cerebral artery territory at left parietal lobe . 5. Moderate-sized old infarction in left posterior cerebral artery territory at left occipital lobe.
--- NOTE | 2019-04-26 22:38 | CT ---
CT ANGIOGRAM THORAX WITH CONTRAST: (CTA pulmonary angiogram) DATE: 04/26/2019 HISTORY: 78-year-old female with mild hypoxemia and altered mental status. Rule out PE as cause.. TECHNIQUE: IV injection of iodinated contrast. Scan acquisition timing attempted to coincide with iodinated contrast bolus reaching maximal density in pulmonary arteries. 3-D MIP reconstructions. FINDINGS: Right pleural effusion occupies approximately 10-20% volume of right hemithoracic cavity. Left pleura l effusion occupies approximately 5-10% volume of left hemithoracic cavity. Mild bilateral scattered groundglass densities in the upper lobes and lower lobes. This is nonspecific, but one poss ibility is very mild pulmonary interstitial edema. AP diameter of the trachea is moderate to severely narrowed because of deep indentation by esophagus. No pneumothorax. Atherosclerosis, ectasia , and tortuosity of thoracic aorta but no dissection or rupture. Calcification of LAD. No pericardial effusion. Nonspecific mildly enlarged bilateral hilar and mediastinal lymph nodes. Periph eral branches of bilateral lower lobe pulmonary arteries are difficult to evaluate because of streak artifact and breathing motion artifact. Otherwise no pulmonary thromboembolism identified else where. Small amounts of free fluid around the liver and spleen. Left subclavian pacemaker. Small focal consolidations at posterior segment right upper lobe and adjacent portion of superior segment r ight lower lobe. IMPRESSION: 1) no pulmonary thromboembolism identified. 2.) Small bilateral pleural effusions, right greater than left. 3) small consolidations at posterior segment right upper lobe and superior segment right lower lobe. 4) ascites. 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 6) scattered bilateral groundglass densities, nonspecific but probably represent mild pulmonary inter stitial edema. 7) coronary atherosclerotic disease. 8) pacemaker.
[2019-04-26 23:24] LABS: Troponin I 0.016 ng/mL (< 0.028)
[2019-04-26] MEDS ORDERED: Labetalol HCl 100 MG/20 ML VIAL SLOW IVP PRN (23:54)
[2019-04-26] MEDS ORDERED: Ondansetron PF 4 MG/2 ML Vial IVP PRN (23:54)
[2019-04-26] MEDS ORDERED: Ondansetron ODT 4 MG TAB PO PRN (23:54)
[2019-04-26] MEDS ORDERED: Dextrose 5% in Water 1,000 ML IV PRN (23:54)
[2019-04-26] MEDS ORDERED: HumaLOG 300 UNITS/3 ML VIAL SC PRN (23:54)
[2019-04-26] MEDS ORDERED: Dextrose 50% Abboject 50 ML SYRINGE SLOW IVP PRN (23:54)
[2019-04-26] MEDS ORDERED: hydrALAZINE 20 MG/ML VIAL SLOW IVP PRN (23:54)
--- NOTE | 2019-04-27 01:40 | HP ---
PRIMARY CARE PROVIDER: Karan Miller MD CHIEF COMPLAINT: Altered mental status. HISTORY OF PRESENT ILLNESS: This is an 78-year-old female, who presents to [facility] Emergency Department in transfer from [facility], where patient has been a current resident since 2016. The family reports the patient was reported to them as being somnolent, unresponsive, at which point they directed the care home personnel to transport the patient to the emergency room for evaluation. The patient was recently admitted 03/24 through 04/08 for suspected GI bleed and acute on chronic anemia. The patient was also evaluated for abdominal pain, nausea, vomiting, and hypokalemia. The patient underwent a pacemaker placement during the admission and received general supportive management after review of the electronic medical record. No specific acute intervention occurred regarding the anemia or GI bleed, and the patient was monitored with serial hemoglobins. The family reports the patient's baseline status is nonambulatory, transferring with assistance to wheelchair, but able to feed herself. The patient has had previous CVAs as well as difficulty with intermittent dysphagia. The patient had been alert and interactive according to the family in the last 24 to 48 hours. EMS personnel apparently evaluated the patient at the care home with an initial glucose noted at 450. The patient received intravenous normal saline and was noted with a GCS of 14. In the emergency room, the patient also underwent general evaluation including chest imaging showing bilateral pleural effusions, actually decreased from previous chest imaging. The patient did receive Lasix 40 mg IV push x1 dose and placed on oxygen supplementation. CT of the brain in the emergency room showed a subacute infarct of the right posterior cerebral artery in the right occipital distribution. Exact time course was unclear and this imaging was compared with previous CT imaging dated 03/20/2019. PAST MEDICAL HISTORY: 1. History of recurrent sepsis due to urinary tract infections. Recent hospitalizations 03/15/2019 through 03/23/2019, and 03/24/2019 through 04/08/2019. 2. Hypertension. 3. Diabetes mellitus type 2, on oral hypoglycemics. 4. Peripheral vascular disease. 5. Coronary artery disease, status post cardiac stent placement. 6. Tachycardia bradycardia syndrome, status post pacemaker placement. 7. Hyperlipidemia. 8. Hypothyroidism. 9. Nonambulatory status. 10. Chronic atrial fibrillation without anticoagulation. 11. Acute on chronic anemia secondary to chronic disease state. 12. Multiple CVAs/TIAs. 13. Degenerative joint disease. 14. 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 PAST SURGICAL HISTORY: 1. Status post cholecystectomy. 2. Status post hysterectomy. 3. Status post multiple amputations of the toes. 4. Status post pacemaker placement. CURRENT MEDICATIONS: 1. Enteric-coated aspirin 81 mg p.o. daily. 2. Diltiazem 180 mg p.o. daily. 3. Levothyroxine 75 mcg p.o. daily. 4. Multivitamin 1 capsule p.o. daily. 5. Simvastatin 40 mg p.o. nightly. 6. Ascorbic acid 500 mg p.o. daily. 7. Lexapro 5 mg p.o. daily. 8. Pepcid 20 mg p.o. b.i.d. 9. Lasix 20 mg p.o. daily. 10. DuoNeb 3 mL nebulized q.6 hours p.r.n. 11. Magnesium oxide 400 mg p.o. daily. 12. Metoprolol tartrate 25 mg p.o. b.i.d. 13. K-Dur 20 mEq p.o. daily. 14. Florastor 250 mg p.o. daily. ALLERGIES: PENICILLIN AND LATEX. FAMILY HISTORY: No inheritable diseases per family report. SOCIAL HISTORY: The patient resides in [facility] since 2015. Nonambulatory status. Requires assistance with all activities of daily living. Able to feed herself. No alcohol, tobacco, or illicit drug use. Accompanied by her son and [id number] in the emergency room. REVIEW OF SYSTEMS: Unobtainable due to patient's altered mentation and somnolence. PHYSICAL EXAMINATION: VITAL SIGNS: On admission, blood pressure 173/79, pulse 64, respiratory rate 16, temperature 97.7 degrees Fahrenheit, and O2 saturation 100% on room air. GENERAL APPEARANCE: This is an 78-year-old female, pale appearing, lethargic, minimally responsive to questions or name, in mild distress. HEENT: Pupils are equal, round, reactive to light and accommodation. Extraocular muscles are intact. No scleral icterus. No conjunctival injection. Nares patent. OP is clear. Oral mucosa dry. NECK: Supple. No cervical adenopathy. No thyromegaly. No carotid bruits. No JVD appreciated. Cervical spine with full active and passive range of motion. No meningeal signs noted. CHEST: Lungs are clear to auscultation bilaterally. CARDIOVASCULAR: S1, S2 without noted murmur, rub, or gallop. ABDOMEN: Obese, nontender, and nondistended. Bowel sounds are positive in all 4 quadrants. No palpable mass. No rebound or guarding noted. EXTREMITIES: Warm and dry with fair turgor. Minimal edema to the lower extremities bilaterally. Pulses palpable at the dorsalis pedis and posterior tibial arteries. Multiple amputations of the toes noted. Generalized atrophy of the lower extremity musculature. NEUROLOGIC: Alert and oriented x1. Minimally responsive to name and direct verbal contact. PERTINENT LABORATORY AND X-RAY FINDINGS: Sodium 139, potassium 4.3, chloride 105, CO2 of 26, BUN 16, creatinine 0.81, estimated GFR 68, glucose 331, calcium 8.7. LFTs within normal limits. BNP 1839, previously noted 1949 on 03/24/2019. Lipase 15. CBC showed a white blood cell count of 9.0, hemoglobin 9.3, hematocrit 30, platelet count 150 with 91% neutrophils. PT 15.6, INR 1.2, PTT 38.4, D-dimer 3.4. ABG dated 04/26/2019, showed a pH of 7.34, pCO2 of 49.4, pO2 131.7, bicarbonate 26.3, O2 saturation 99% on 28% FiO2. Urinalysis dated 04/26/2019, showed greater than 1000 glucose. Influenza A and B antigen dated 04/26/2019, negative. CT of the brain without contrast dated 04/26/2019, showed subacute infarct of the right posterior cerebral artery territory at right occipital lobe; larger than previous old infarct demonstrated on the previous CT in the same area. No acute intracranial hemorrhage or mass effect. Moderately large old infarct in the left middle cerebral artery territory at left parietal lobe. Moderate-sized old infarcts in the left posterior cerebral artery territory at left occipital lobe. Portable chest x-ray dated 04/26/2019, showed improved aeration of bilateral lung bases with decrease in size of the pleural effusions. Nonspecific pulmonary dense disease on the right. Single lead pacemaker device. CT angiogram of the chest dated 04/26/2019, showed no thromboembolism. Small bilateral pleural effusions, right greater than left. Tracheomalacia with tracheal narrowing. EKG dated 04/26/2019, by my interpretation shows demand pacing with heart rates in the 60s. Attenuated R-waves noted in the precordial leads. Left axis deviation. ASSESSMENT AND PLAN: 1. Acute metabolic encephalopathy. Multifactorial process including component of subacute cerebrovascular accident and questionable healthcare-associated pneumonia. We will continue general supportive management. Family for reorientation techniques. Treat underlying conditions as outlined below. 2. Subacute cerebrovascular accident of the right posterior cerebral artery. Continue aspirin 325 mg daily. Continue general stroke protocol. Consult Neurology Service for any further recommendations. 3. Healthcare-associated pneumonia. Suspected in the right lower lobe. We will continue Levaquin 500 mg IV daily. Continue general supportive pulmonary measures. 4. Diabetes mellitus type 2. Insulin sliding scale for reflexive coverage. Serial Accu-Cheks before meals and at bedtime. ADA diet. 5. Nonambulatory status. General fall risk precautions. PT evaluation for functional assessment. 6. Dysphagia. Suspected. Consult Speech Therapy Service for dysphagia screening in the a.m. 7. Status post pacemaker placement. Continue telemetry monitoring as outlined previously. 8. Prophylaxis. SCDs while in bed. Pepcid 20 mg IV b.i.d. CODE STATUS: Full. Surrogate medical decision maker is the patient's daughter. Job ID: [id number]
[2019-04-27 03:48] LABS: Anion Gap 8 mmol/L (10-20); BUN (Urea Nitrogen) 14 mg/dL (9.8-20.1); Calc. Creatinine Clearance 65 mL/min (70-130); Calcium 9.4 mg/dL (7.8-10.44); Carbon Dioxide 33 mmol/L (23-31); Cardiac Risk 2.4 (Less than 4.5); Chloride 103 mmol/L (98-107); Cholesterol 87 mg/dl (< 200 Desired); Estimated GFR-MDRD 72; Glucose 250 mg/dL (83-110); HDL Cholesterol 36 mg/dL (>60 Neg Risk); LDL Cholesterol, Calculated 42 mg/dL; Sodium 140 mmol/L (136-145); Triglycerides 46 mg/dL (Less than 150)
[2019-04-27 03:51] LABS: Troponin I Less than 0.010 ng/mL (< 0.028)
[2019-04-27 04:18] LABS: Band 4 % (5-11); Hemoglobin 9.1 g/dL (12.0-16.0); Hypochromia SLIGHT = 6-15 cells (100X) (0-5/hpf); Lymphocytes 7 % (21-51); MDiff Complete? YES; Mean Corpuscular HGB CONC 30.5 g/dL (32.0-36.0); Mean Corpuscular Hemoglobin 28.5 pg (27.0-31.0); Mean Corpuscular Volume 93.4 fL (78.0-98.0); Mean Platelet Volume 7.8 fL (7.4-10.4); Monocytes 6 % (0-10); Neutrophil 83 % (42-75); Platelet Count 154 thou/uL (130-400); Platelet Morphology Comment Appears Adequate; RBC Distribution Width 17.3 % (11.5-14.5); Red Blood Cell (RBC) Count 3.18 mill/uL (4.20-5.40); White Blood Cell (WBC) Count 9.2 thou/uL (4.8-10.8)
[2019-04-27] MEDS: Levothyroxine Sodium 75 MCG TAB PO SCH (05:19)
[2019-04-27] MEDS: Saccharomyces boulardii 250 MG CAP PO SCH (09:15)
[2019-04-27] MEDS: Famotidine/PF 20 mg/2ml Vial SLOW IVP SCH ×2 (09:15→21:25)
[2019-04-27] MEDS: Aspirin 325 mg Enteric Coated Tablet PO SCH (09:15)
[2019-04-27] MEDS: Furosemide 20 MG TAB PO SCH (09:15)
[2019-04-27] MEDS: Magnesium Oxide 400 MG TAB PO SCH (09:15)
[2019-04-27] MEDS: Metoprolol Tartrate 25 MG TAB PO SCH (09:16)
[2019-04-27] MEDS ORDERED: Iopamidol 370 76% 50 ML VIAL FS ONE (12:12)
--- NOTE | 2019-04-27 12:30 | PRG ---
DATE OF SERVICE: 04/27/2019 SUBJECTIVE: The patient is seen and examined at the bedside. She seems to be doing quite well. She has some mildly productive deep cough. She is not short of breath. She did not eat this morning because she is n.p.o. awaiting for Speech therapies to evaluate her swallowing since she had possible stroke. OBJECTIVE: VITAL SIGNS: Blood pressure is 138/71, pulse is 66, respiratory rate is 16, O2 saturation is 92% on 2 L by nasal cannula. HEENT: Her pupils are responding to light. Sclerae are nonicteric. Conjunctivae pinkish. Oral mucosa is slightly dry. NECK: Supple. LUNGS: Breath sounds diminished at both bases. Few rales and wheezes bilaterally. HEART: S1, S2 normal. No S3. No S4. ABDOMEN: Soft, nontender, nondistended. EXTREMITIES: 1+ peripheral edema similar bilaterally on both lower extremities. NEUROLOGICAL EXAMINATION: She follows my commands. She moves her all 4 extremities. There is no any significant motor focal deficits I can appreciate. She is alert and oriented x1. LABORATORY DATA: White count of 9.2, hemoglobin 9.1, hematocrit 29.7, platelet count is 154,000. Sodium of 140, potassium 4.0, chloride 103, CO2 33, BUN 14, creatinine 0.77, glycemia is ranging from 197 to 331. Two sets of troponins are 0.016 and 0.010. Triglycerides 46, total cholesterol 87, LDL 42, HDL 36. IMPRESSION: 1. Acute metabolic encephalopathy, most likely multifactorial. The imaging studies showed possible subacute cerebrovascular accident and questionable healthcare-associated pneumonia. 2. Subacute cerebrovascular accident in the right posterior cerebral artery, on aspirin and statin. We will cut back on her statin dose since her total cholesterol is below 100. Neurologic consultation is requested. 3. Possible pneumonia. The patient is placed on Levaquin IV piggyback q.24 hours. 4. Diabetes mellitus, getting better. Her glycemia improved from 300s to 100s. 5. Dysphagia suspected and Speech Therapy is consulted for evaluation. 6. Pacemaker. Job ID: [id number]
--- NOTE | 2019-04-27 14:50 | CON ---
DATE OF CONSULTATION: 04/27/2019 CHIEF COMPLAINT: Altered mental status. HISTORY OF PRESENT ILLNESS: The patient was not able to give much history. We also talked to the nurse. The patient is an 78-year-old lady, who was brought to the hospital after transfer from [facility] where she was found to be somnolent and unresponsive, and the patient was admitted recently for anemia. The patient was also evaluated for multiple medical issues. She underwent a pacemaker placement during the recent admission and was discharged. The patient is not ambulatory, usually uses a wheelchair, but can feed herself. At this time, the patient is improving with regard to her mental status. The patient was noted to be somewhat obtunded and sleepy by the admitting physician as well yesterday, and the question being asked is whether this patient had a new onset CVA. PAST MEDICAL HISTORY: The patient has history of recurrent sepsis and UTIs, hypertension and multiple hospitalizations in the last 2 months, hypertension, diabetes, peripheral vascular disease, coronary artery disease, tachycardia-bradycardia syndrome, status post pacemaker placement, hyperlipidemia, hypothyroidism, chronic atrial fibrillation, multiple CVAs, degenerative joint disease, avascular necrosis of left hip, and chronic pain syndrome. PAST SURGICAL HISTORY: Cholecystectomy, hysterectomy, multiple amputations of her toes, pacemaker placement. MEDICATION LIST: She is on aspirin 81 mg along with statin at the [facility]. ALLERGIES: SHE IS ALLERGIC TO PENICILLIN AND LATEX. FAMILY HISTORY: None reported in the chart. SOCIAL HISTORY: She is a [facility] resident. No alcohol or tobacco per chart. REVIEW OF SYSTEMS: Unobtainable due to the patient's mental status. LABORATORY DATA: White count 9.2, hemoglobin 9.1, hematocrit 29.7, platelet count is 154. Chemistry; sodium 140, potassium 4, chloride 103, bicarb is 33, BUN 14, creatinine 0.77, glucose 250. Urinalysis is negative for leukocyte esterase. IMAGING STUDIES: Her MRI is pending. CT of the head shows evidence of subacute infarct in the right [employer] territory at the right occipital lobe, larger than the old infarct, demonstrated on the previous CT in this area, no acute hemorrhage, and also moderately large old infarct in the left MCA territory at left parietal lobe. Moderate-sized old infarct in the left [employer] territory. Last CT angiogram available at this visit is within the past 1 year, and I will request a CTA later. PHYSICAL EXAMINATION: VITAL SIGNS: Temperature 97.6, pulse 67, respiratory rate 18, and blood pressure 121/56. GENERAL APPEARANCE: Thin built, well nourished, very frail lady, who is able to answer some questions. She is oriented to place and self, but not to year or month. She knows she is at a hospital. CHEST: Clear vesicular breathing. CARDIOVASCULAR: S1 and S2 heard. No murmurs. ABDOMEN: Soft. NEUROLOGIC: Higher intellectual function: She is able to talk and answer some questions and follow commands. She is oriented to place and self. She is not oriented to year or month. Cranial nerves: Normal extraocular movements. Pupils 2 mm bilaterally. Normal sensation of face bilaterally. No facial asymmetry noted. Tongue midline. Motor: Bulk normal. Tone normal. She is able to follow commands to do a limited strength exam, and upper extremity strength is 5/5. Lower extremity; 3/5 on the right, 3-/5 on the left. She can briefly elevate her leg against gravity. Deep tendon reflexes were absent. Cerebellar difficult to perform. IMPRESSION AND PLAN: The patient with history of decreased ability to wake up yesterday and altered mental status. She seems to be improving. She is a [facility] resident and sleeps mostly in a wheelchair. Her examination shows amputated toes bilaterally. At this time, she seems to have slight improvement of her mental status. Considering the degree of ischemic areas on the scan, I wonder whether she was having some minor seizure like event which was not picked up, and the encephalopathy is slowly resolving. I would like to see what her vascular status is, so I will request a CT angiogram. We will follow up the patient with you tomorrow. Job ID: [id number] [facility]
[2019-04-27] MEDS ORDERED: Atorvastatin Calcium 40 MG TAB PO SCH (21:00)
[2019-04-27] MEDS: Atorvastatin Calcium 10 MG TAB PO SCH (21:25)
--- NOTE | 2019-04-27 22:40 | CT ---
CT ANGIOGRAM NECK WITH CONTRAST CT ANGIOGRAM BRAIN WITH AND WITHOUT CONTRAST: DATE: 04/27/2019 10:02 PM HISTORY: 78-year-old female with stroke. Altered mental status. TECHNIQUE: Standard noncontrast brain CT performed. After IV contrast injection, arterial bolus chasing technique scan performed from [place] to vertex of head. Coronal and sagittal 3-D MIP reconstructions. FINDINGS: Findings of the noncontrast brain CT are unchanged compared to brain CT of 04/26/2019 at 9:38 PM Scattered atherosclerotic calcification of aortic arch, right distal common carotid artery, right car otid bulb, and brachiocephalic and bilateral subclavian arteries. All major arteries are tortuous. Bilateral distal common carotid arteries and internal carotid arteries are tortuous, taking retrophar yngeal courses. Brachiocephalic: No high-grade stenosis. Right subclavian: No high-grade stenosis. Left subclavian: No high-grade stenosis. Right common carotid: No high-grade stenosis. Left common carotid: No high-grade stenosis. Cervical Right internal carotid: Short segment moderate to severe stenosis at origin of right interna l carotid. Cervical Left internal carotid: No high-grade stenosis. Cervical right vertebral: Moderate stenosis at origin. No other high-grade stenosis. Cervical left vertebral: Dominant. No stenosis. Intracranial posterior circulation: Vertebral, basilar, P1 and P2 segments of bilateral retail interior designer, and pro ximal superior cerebellars normal. Intracranial anterior circulation: Calcified plaque bilateral carotid siphons. No M1 segment thrombos is, high-grade stenosis, or occlusion of bilateral MCAs. A1 and A2 segments of bilateral ACAs intact. IMPRESSION: 1. Evidence for subacute infarction in right posterior cerebral artery territory at right occipital l obe, larger than the old infarction demonstrated on the previous CT in this area.. 2 No acute intracranial hemorrhage or mass effect. 3. New finding of bilateral maxillary and ethmoid mucosal sinus disease. 4. Moderately large old infarction in the left middle cerebral artery territory at left parietal lobe . 5. Moderate-sized old infarction in left posterior cerebral artery territory at left occipital lobe. 6. Moderate to severe stenosis at origin of right internal carotid. 7. Moderate stenosis at origin of right vertebral artery. 8. No M1 segment middle cerebral artery occlusion, thrombosis, or high-grade stenosis.
[2019-04-28] MEDS: Metoprolol Tartrate 25 MG TAB PO SCH ×3 (01:08→22:18)
[2019-04-28] MEDS: Levothyroxine Sodium 75 MCG TAB PO SCH (05:59)
[2019-04-28] MEDS: Famotidine/PF 20 mg/2ml Vial SLOW IVP SCH ×2 (09:04→22:18)
[2019-04-28] MEDS: Furosemide 20 MG TAB PO SCH (09:04)
[2019-04-28] MEDS: Saccharomyces boulardii 250 MG CAP PO SCH (09:04)
[2019-04-28] MEDS: Magnesium Oxide 400 MG TAB PO SCH (09:04)
[2019-04-28] MEDS: Aspirin 325 mg Enteric Coated Tablet PO SCH (09:04)
--- NOTE | 2019-04-28 11:32 | PRG ---
DATE OF SERVICE: 04/28/2019 SUBJECTIVE: The patient is seen and examined at the bedside. She is quite confused. She does not know where she is. She believes that she is at home. Her appetite is fair. She does not have much complaints to offer. She has some dry cough. OBJECTIVE: VITAL SIGNS: Blood pressure is 132/74, pulse is 98, respiratory rate is 18, temperature is 99.3 and that is the maximal temperature. Her O2 saturation is 96% on 1 L by nasal cannula. HEENT: Her pupils are responding to light properly. Sclerae are nonicteric. Oral mucosa is slightly dry. NECK: Supple. LUNGS: Bilateral rales and wheezes present, mild. HEART: S1 and S2. Somewhat irregular. No S3. No S4. ABDOMEN: Soft and nontender. Bowel sounds are present. EXTREMITIES: No clubbing, cyanosis, or edema. NEUROLOGIC: She is alert and oriented x0. There are no any motor deficits. LABORATORY DATA: Glycemia is ranging from 110 to 171. Echocardiogram showed LVEF estimated at 50% to 55% with moderately enlarged right ventricle, and the pacer wires were visualized in the right ventricle with moderate mitral regurgitation, [id number] aortic regurgitation, and severe tricuspid regurgitation along with [id number]-xp-[id number] pulmonic regurgitation present. CT angiogram of the [place] showed: 1. Evidence for subacute infarction in the right posterior cerebral artery territory at right occipital lobe, larger than the old infarction demonstrated on the previous CT in this area. 2. Moderately large old infarction in the left middle cerebral artery territory at left parietal lobe. 3. Moderate-sized old infarction in the left posterior cerebral artery territory at left occipital lobe. 4. Euhfckwk-uj-uhgxmv stenosis at origin of the right internal carotid. 5. Moderate stenosis at origin of right vertebral artery and new finding of bilateral maxillary and ethmoidal mucosal sinus disease, but there was no M1 segment middle cerebral artery occlusion, thrombosis, or high-grade stenosis. IMPRESSION: 1. Subacute cerebrovascular accident involving the right posterior cerebral artery. The patient is on aspirin and statin. The dose was reduced to 10 mg of statin since her cholesterol level was below 100. The patient was seen by Dr. Liz for Neurology consultation, and CT angiogram of [place] was done, which did not show any vascular issues. 2. Acute metabolic encephalopathy, most likely multifactorial, improved. 3. Dementia. 4. Possible pneumonia, on Levaquin at this point. 5. Diabetes mellitus, improved. 6. Pacemaker. PLAN: Plan is to continue levofloxacin IV piggyback for possible pneumonia, to get the chest x-ray, continue statin and aspirin, PT and OT, and I do not recommend any vascular intervention for her findings on CT angiogram, which would bring a lot of additional risk in view of quite significant dementia patient. Job ID: [id number]
[2019-04-28] MEDS: HumaLOG 300 UNITS/3 ML VIAL SC PRN (13:23)
[2019-04-28] MEDS: Atorvastatin Calcium 10 MG TAB PO SCH (22:18)
[2019-04-28] MEDS: Acetaminophen 500 MG TAB PO PRN (22:23)
[2019-04-29 08:08] LABS: #Eosinphils 0.4 thou/uL (0.0-0.7); #Lymphocytes 1.6 thou/uL (1.20-3.40); #Monocytes 0.8 thou/uL (0.11-0.59); #Neutrophils 5.4 thou/uL (1.40-6.50); %Basophils 0.2 % (0.0-1.0); %Lymphocytes 19.6 % (21.0-51.0); %Monocytes 9.6 % (0.0-10.0); %Neutrophils 65.7 % (42.0-75.0); Hemoglobin 8.4 g/dL (12.0-16.0); Mean Corpuscular Hemoglobin 28.7 pg (27.0-31.0); Mean Corpuscular Volume 92.8 fL (78.0-98.0); Mean Platelet Volume 6.9 fL (7.4-10.4); Platelet Count 181 thou/uL (130-400); RBC Distribution Width 17.4 % (11.5-14.5); Red Blood Cell (RBC) Count 2.92 mill/uL (4.20-5.40); White Blood Cell (WBC) Count 8.2 thou/uL (4.8-10.8)
[2019-04-29 08:26] LABS: Anion Gap 12 mmol/L (10-20); BUN (Urea Nitrogen) 11 mg/dL (9.8-20.1); Calc. Creatinine Clearance 75 mL/min (70-130); Calcium 9.1 mg/dL (7.8-10.44); Carbon Dioxide 30 mmol/L (23-31); Chloride 104 mmol/L (98-107); Estimated GFR-MDRD 85; Glucose 101 mg/dL (83-110); Potassium 3.5 mmol/L (3.5-5.1); Sodium 142 mmol/L (136-145)
[2019-04-29] MEDS: Levothyroxine Sodium 75 MCG TAB PO SCH (09:51)
[2019-04-29] MEDS: Aspirin 325 mg Enteric Coated Tablet PO SCH (09:51)
[2019-04-29] MEDS: Furosemide 20 MG TAB PO SCH (09:51)
[2019-04-29] MEDS: Metoprolol Tartrate 25 MG TAB PO SCH ×2 (09:51→21:48)
[2019-04-29] MEDS: Magnesium Oxide 400 MG TAB PO SCH (09:51)
[2019-04-29] MEDS: Famotidine/PF 20 mg/2ml Vial SLOW IVP SCH ×2 (09:51→21:48)
[2019-04-29] MEDS: Saccharomyces boulardii 250 MG CAP PO SCH (09:51)
--- NOTE | 2019-04-29 12:01 | PRG ---
DATE OF SERVICE: 04/29/2019 SUBJECTIVE: The patient is seen and examined at the bedside. Her mental condition is more lucent this morning. She remembers me from yesterday. She does not remember her daughter being here yesterday. She knows that she is in the hospital today. OBJECTIVE: VITAL SIGNS: Blood pressure is 140/77, pulse is 80, temperature is 98.0, respiratory rate is 16, O2 saturation 97% on 1 L by nasal cannula. HEENT: Her pupils are responding to light properly. Sclerae are nonicteric. LUNGS: Bilateral wheezes and rales present. HEART: S1 and S2, somewhat irregular. No S3. No S4. ABDOMEN: Soft, nontender, nondistended. EXTREMITIES: 1+ peripheral edema, similar bilaterally. NEUROLOGIC: She follows my commands. She moves her all 4 extremities. There is some mild weakness in both lower extremities. Upper extremities have normal strength. LABORATORY DATA: White count of 8.2, hemoglobin 8.4, hematocrit 27.1, platelet count is 181,000. Sodium of 142, potassium 3.5, chloride 104, CO2 of 30, BUN 11, creatinine 0.67, glucose 101, glycemia is ranging from 99 to 159. IMPRESSION: 1. Subacute cerebrovascular accident involving the right posterior cerebral artery. The patient is on statin and aspirin. Statin dose was reduced to 10 mg secondary to total cholesterol level below 100. The patient was seen by Dr. Liz for Neurology consultation. 2. Acute metabolic encephalopathy, multifactorial, improved. 3. Possible pneumonia, on Levaquin. We will get the chest x-ray in the morning. 4. Dementia. 5. Diabetes mellitus, improved. 6. Pacemaker. PLAN: To continue current regimen. Continue PT and OT. Do the chest x-ray. Continue statin and aspirin. Continue p.r.tristen Abarca, and she should be able to [facility] back to [facility] in the next 24 to 48 hours. Job ID: [id number]
[2019-04-29] MEDS: Acetaminophen 500 MG TAB PO PRN (21:47)
[2019-04-29] MEDS: Atorvastatin Calcium 10 MG TAB PO SCH (21:48)
[2019-04-30] MEDS: Levothyroxine Sodium 75 MCG TAB PO SCH (06:38)
--- NOTE | 2019-04-30 08:29 | RAD ---
Chest one view HISTORY: Pneumonia. COMPARISON: 04/26/2019. FINDINGS: Cardiac silhouette is magnified and upper limits of normal in size. Pulmonary vasculature i s more engorged with patchy areas of bilateral perihilar and bibasilar infiltrate. Small amount of bilateral pleural fluid. Mediastinum is midline with a single lead left subclavian cardiac electronic device. No evidence of p neumothorax. IMPRESSION: Pulmonary vascular congestion, greater than on the previous exam. Bilateral pleural fluid is favored to be stable. Consider fluid overload. No lobar consolidation is evident.
[2019-04-30] MEDS: Furosemide 20 MG TAB PO SCH (08:48)
[2019-04-30] MEDS: Aspirin 325 mg Enteric Coated Tablet PO SCH (08:48)
[2019-04-30] MEDS: Famotidine/PF 20 mg/2ml Vial SLOW IVP SCH (08:48)
[2019-04-30] MEDS: Magnesium Oxide 400 MG TAB PO SCH (08:49)
[2019-04-30] MEDS: Saccharomyces boulardii 250 MG CAP PO SCH (08:49)
[2019-04-30] MEDS: Metoprolol Tartrate 25 MG TAB PO SCH ×2 (08:49→20:39)
[2019-04-30] MEDS: HumaLOG 300 UNITS/3 ML VIAL SC PRN (12:10)
[2019-04-30 13:09] VITALS: BMI 26.8
[2019-04-30] MEDS ORDERED: Milk Of Magnesia 30 ML UDCUP PO SCH ×2 (14:30→21:00)
[2019-04-30] MEDS ORDERED: Milk Of Magnesia 30 ML UDCUP PO PRN (18:40)
[2019-04-30] MEDS ORDERED: Furosemide 20 MG/2 ML VIAL SLOW IVP SCH (18:45)
[2019-04-30] MEDS: Acetaminophen 500 MG TAB PO PRN (20:38)
[2019-04-30] MEDS: Atorvastatin Calcium 10 MG TAB PO SCH (20:39)
[2019-04-30] MEDS: Famotidine 20 MG TAB PO SCH (20:39)
[2019-05-01 05:01] LABS: #Eosinphils 0.5 thou/uL (0.0-0.7); #Lymphocytes 1.6 thou/uL (1.20-3.40); #Monocytes 0.8 thou/uL (0.11-0.59); #Neutrophils 4.7 thou/uL (1.40-6.50); %Basophils 0.6 % (0.0-1.0); %Eosinophils 6.7 % (0.0-10.0); %Monocytes 9.9 % (0.0-10.0); %Neutrophils 61.9 % (42.0-75.0); Hemoglobin 8.5 g/dL (12.0-16.0); Mean Corpuscular HGB CONC 30.6 g/dL (32.0-36.0); Mean Corpuscular Hemoglobin 28.2 pg (27.0-31.0); Mean Corpuscular Volume 91.9 fL (78.0-98.0); Mean Platelet Volume 6.8 fL (7.4-10.4); Platelet Count 217 thou/uL (130-400); RBC Distribution Width 17.3 % (11.5-14.5); Red Blood Cell (RBC) Count 3.03 mill/uL (4.20-5.40); White Blood Cell (WBC) Count 7.6 thou/uL (4.8-10.8)
[2019-05-01 05:28] LABS: Anion Gap 10 mmol/L (10-20); BUN (Urea Nitrogen) 11 mg/dL (9.8-20.1); Calc. Creatinine Clearance 67 mL/min (70-130); Calcium 9.2 mg/dL (7.8-10.44); Carbon Dioxide 32 mmol/L (23-31); Chloride 104 mmol/L (98-107); Estimated GFR-MDRD 74; Glucose 120 mg/dL (83-110); Potassium 3.6 mmol/L (3.5-5.1); Sodium 142 mmol/L (136-145)
[2019-05-01] MEDS: Levothyroxine Sodium 75 MCG TAB PO SCH (05:42)
[2019-05-01] MEDS: Furosemide 20 MG TAB PO SCH (09:36)
[2019-05-01] MEDS: Saccharomyces boulardii 250 MG CAP PO SCH (09:36)
[2019-05-01] MEDS: Famotidine 20 MG TAB PO SCH ×2 (09:36→21:30)
[2019-05-01] MEDS: Metoprolol Tartrate 25 MG TAB PO SCH ×2 (09:36→21:30)
[2019-05-01] MEDS: Magnesium Oxide 400 MG TAB PO SCH (09:36)
[2019-05-01] MEDS: Aspirin 325 mg Enteric Coated Tablet PO SCH (09:36)
[2019-05-01] MEDS: HumaLOG 300 UNITS/3 ML VIAL SC PRN (12:16)
[2019-05-01] MEDS ORDERED: Potassium Chloride 20 MEQ TAB PO SCH (19:00)
[2019-05-01] MEDS: Atorvastatin Calcium 10 MG TAB PO SCH (21:30)
[2019-05-01] MEDS: Acetaminophen 500 MG TAB PO PRN (23:45)
[2019-05-02] MEDS ORDERED: Levothyroxine Sodium 75 MCG TAB ONE (06:48)
[2019-05-02] MEDS: Potassium Chloride 20 MEQ TAB PO SCH ×2 (10:58→15:24)
[2019-05-02] MEDS: Famotidine 20 MG TAB PO SCH ×3 (10:58→20:26)
[2019-05-02] MEDS: Furosemide 40 MG TAB PO SCH ×2 (10:58→15:25)
[2019-05-02] MEDS: Saccharomyces boulardii 250 MG CAP PO SCH ×2 (10:58→15:25)
[2019-05-02] MEDS: Magnesium Oxide 400 MG TAB PO SCH ×2 (10:58→15:25)
[2019-05-02] MEDS: Metoprolol Tartrate 25 MG TAB PO SCH ×3 (10:58→20:27)
[2019-05-02] MEDS: Aspirin 325 mg Enteric Coated Tablet PO SCH ×2 (10:58→15:24)
[2019-05-02] MEDS: Levothyroxine Sodium 75 MCG TAB PO SCH (15:24)
[2019-05-02] MEDS: Atorvastatin Calcium 10 MG TAB PO SCH (20:26)
[2019-05-03] MEDS: Levothyroxine Sodium 75 MCG TAB PO SCH (06:16)
[2019-05-03] MEDS: Aspirin 325 mg Enteric Coated Tablet PO SCH (08:59)
[2019-05-03] MEDS: Magnesium Oxide 400 MG TAB PO SCH (08:59)
[2019-05-03] MEDS: Famotidine 20 MG TAB PO SCH (08:59)
[2019-05-03] MEDS: Saccharomyces boulardii 250 MG CAP PO SCH (08:59)
[2019-05-03] MEDS: Furosemide 40 MG TAB PO SCH (09:00)
[2019-05-03] MEDS: Metoprolol Tartrate 25 MG TAB PO SCH (09:00)
[2019-05-03] MEDS: Potassium Chloride 20 MEQ TAB PO SCH (09:00)
[2019-05-03 12:17] VITALS: BP 153/77; TEMP 98.7
--- NOTE | 2019-05-04 04:43 | PQF ---
[employer] Transition Manager [employer] Reports Winform TobyPOERIKA ELI ZBIGNIEW A MD [id number] CLINICAL DOCUMENTATION CLARIFICATION FORM: POST DISCHARGE Addendum to original discharge summary date: ____ Late entry note date: __ DATE: 05/04/2019 ATTN: SAL TUCKER MD Please exercise your independent, professional judgment in responding to the clarification form. Clinical indicators are provided on the bottom of this form for your review Please check appropriate box(s): [ ] Subacute CVA is a complication of current/recent surgery [ x ] Subacute CVA is not a complication of current/recent surgery [ ] Other diagnosis [ ] Unable to determine In addition, please specify: Present on Admission (POA): [ ] Yes [ ] No [ ] Unable to determine CLINICAL INDICATORS - SIGNS / SYMPTOMS / LABS Subacute CVA - Documented in PNs on 04/26 by SAL TUCKER MD Patient recently admitted 03/24 through 04/08 for suspected GI bleed and acute chronic anemia - Documented in H&P on 04/26 by SAL TUCKER MD Patient underwent Pacemaker placement during the admission and received general supportive management - Documented in H&P on 04/26 by SAL TUCKER RISK FACTORS Acute metabolic Encephalopathy - Documented in PNs on 04/26 by SAL TUCKER MD DM TREATMENT: patient is on statin and aspirin - Documented in PNs on 04/26 by SAL TUCKER MD Statin dose was reduced to 10mg 2/2 total cholesterol level below 100 - Documented in PNs on 04/26 by SAL TUCKER MD (This form is maintained as a part of the permanent medical record) 2015 [employer] All Rights Reserved [email or web address] [not provided] MTDD
== END 2019-05-03 13:46 | DRG 64 ==
LOC: ERS 19:18 → 2NO 23:53 → 2SE 04-27 14:28
PROVIDERS: ADMIT Internal Medicine; ATTEND Internal Medicine
DX: I63.59 Cerebral infarction due to unspecified occlusion or stenosis of other cerebral artery (principal); G93.41 Metabolic encephalopathy; J18.9 Pneumonia, unspecified organism; I48.20 Chronic atrial fibrillation, unspecified; E11.9 Type 2 diabetes mellitus without complications; I25.10 Atherosclerotic heart disease of native coronary artery without angina pectoris; Z95.0 Presence of cardiac pacemaker; E78.5 Hyperlipidemia, unspecified; E03.9 Hypothyroidism, unspecified; M19.91 Primary osteoarthritis, unspecified site; Z90.49 Acquired absence of other specified parts of digestive tract; Z90.710 Acquired absence of both cervix and uterus; Z79.899 Other long term (current) drug therapy; Z88.0 Allergy status to penicillin; Z91.040 Latex allergy status; R13.10 Dysphagia, unspecified; R40.2412 Glasgow coma scale score 13-15, at arrival to emergency department; F03.90 Unspecified dementia, unspecified severity, without behavioral disturbance, psychotic disturbance, mood disturbance, and anxiety; M19.90 Unspecified osteoarthritis, unspecified site; I11.0 Hypertensive heart disease with heart failure; I50.9 Heart failure, unspecified; I49.5 Sick sinus syndrome; G89.4 Chronic pain syndrome
CPT/HCPCS: 36415; 36416; 51701; 70450; 70496; 70498; 71045; 71275; 80048; 80053; 80061; 81003; 81015; 82805; 83690; 83735; 83880; 84484; 85007; 85025; 85027; 85379; 85610; 85730; 87804; 93005; 93306; 94640; 96374; A4353; J1940; J1956; J7620; Q9967; S0028

== ENCOUNTER 2019-07-25 13:03 | Inpatient (IN) | payer MEDICARE, OTHER ==
[~2019-07-25 13:03] MED LIST changes: +Heparin 1,000 UNITS/ML VIAL ONE; -Iopamidol 370 76% 100 ML VIAL ONE
[2019-07-25] MEDS ORDERED: Albuterol Sulfate 2.5 mg/3 ml Neb ONE (13:55)
[2019-07-25] MEDS ORDERED: Iopamidol-370 76% 500 ML 1 ML ONE (13:55)
--- NOTE | 2019-07-25 14:01 | RAD ---
EXAM: CHEST ONE VIEW HISTORY: Cough. Increasing congestion with fever. COMPARISON: 04/30/2019 FINDINGS: Single lead left subclavian cardiac pacemaking device remains in place. Cardiac silhouette is magnifi ed by projection stable in size. Pulmonary vasculature is within normal limits. There is been interval resolution of the bilateral perihilar interstitial and alveolar opacities on the prior exam. No pleural effusion or consolidation is seen on the current study. Bilateral glenohumeral osteoarthropathy is present. Right humeral head is high riding suggesting chronic rotator cuff tear. IMPRESSION: No acute cardiopulmonary process.
[2019-07-25 14:20] LABS: Bilirubin Negative (Negative); Blood, Urine Negative (Negative); Clarity Turbid (Clear); Glucose, Urine (Dipstick) Normal (Negative); Leukocyte 250 Leu/uL (Negative); Nitrite Negative (Negative); Protein, Urine (Dipstick) 30 mg/dL (Neg-Trace); RBC/HPF 0-3 HPF (0-3); Renal Epithelial 0-3 HPF (None Seen); Squamous Epithelial 0-3 HPF (0-3); Transitional Epithelial 0-3 HPF (None Seen); Urobilinogen Normal mg/dL (Less than 2)
[2019-07-25 14:30] LABS: Bacteria/HPF Rare-Few HPF (None Seen)
[2019-07-25 14:33] LABS: INR-International Normal Ratio 1.3; PTT 33.7 SEC (22.9-36.1); Prothrombin Time 16.4 SEC (12.0-14.7)
[2019-07-25 14:33] LABS: #Lymphocytes 0.7 thou/uL (1.20-3.40); #Monocytes 0.8 thou/uL (0.11-0.59); #Neutrophils 4.3 thou/uL (1.40-6.50); %Basophils 0.1 % (0.0-1.0); %Eosinophils 0.3 % (0.0-10.0); %Lymphocytes 12.4 % (21.0-51.0); %Neutrophils 74.2 % (42.0-75.0); Mean Corpuscular HGB CONC 31.6 g/dL (32.0-36.0); Mean Corpuscular Hemoglobin 29.3 pg (27.0-31.0); Mean Corpuscular Volume 92.6 fL (78.0-98.0); Mean Platelet Volume 8.4 fL (7.4-10.4); Platelet Count 87 thou/uL (130-400); RBC Distribution Width 14.5 % (11.5-14.5); Red Blood Cell (RBC) Count 3.42 mill/uL (4.20-5.40); White Blood Cell (WBC) Count 5.8 thou/uL (4.8-10.8)
[2019-07-25 14:46] LABS: MDiff Complete? YES; Ovalocytes SLIGHT = 2-5 cells (100X) (0-1/hpf); Platelet Morphology Comment Appears Decreased; Polychromasia SLIGHT = 2-3 cells (100X) (0-2/hpf)
[2019-07-25 14:54] LABS: ALT (SGPT) 20 U/L (8-55); AST (SGOT) 42 U/L (5-34); Albumin 3.2 g/dL (3.4-4.8); Alkaline Phosphatase 109 U/L (40-110); Anion Gap 13 mmol/L (10-20); BUN (Urea Nitrogen) 51 mg/dL (9.8-20.1); Bilirubin, Total 0.5 mg/dL (0.2-1.2); Calc. Creatinine Clearance 0 mL/min (70-130); Calcium 8.3 mg/dL (7.8-10.44); Carbon Dioxide 25 mmol/L (23-31); Chloride 105 mmol/L (98-107); Estimated GFR-MDRD 43; Globulin 2.5 g/dL (2.4-3.5); Glucose 223 mg/dL (83-110); Lipase 30 U/L (8-78); Potassium 4.4 mmol/L (3.5-5.1); Protein, Total 5.7 g/dL (6.0-8.3); Sodium 139 mmol/L (136-145)
[2019-07-25 15:11] LABS: CKMB 0.7 ng/mL (0-6.6)
--- NOTE | 2019-07-25 15:22 | CT ---
CT Brain WO Con History: Altered mental status Comparison: CT brain March 2019 Findings: Left peripheral parietal temporal encephalomalacia. Expected dilatation left lateral ventri ashia. No acute superimposed hemorrhage or infarct. Senile calcifications of the basal ganglia. Mild microvascular ischemic change. No midline shift. No mass effect. Extensive mucosal sinus thicken ing with air-fluid levels in both maxillary sinuses. Calvarium is intact. Old right posterior cerebral artery territorial infarction. Impression: Chronic findings. No acute intracranial hemorrhage or infarct.
--- NOTE | 2019-07-25 15:32 | CT ---
CT Abdomen Pelvis W Con History: Abdominal pain. Altered mental status Comparison: None. Findings: Small right pleural effusion. Mild atelectasis in the lung bases. No significant pericardia l effusion. Small volume. Pelvic fluid. Prior cholecystectomy. Heterogeneous appearance of the liver. Small volume of perisplenic fluid. The aortic contour is nonaneurysmal. Moderate atherosclerotic plaq ue. Moderate volume free intraperitoneal ascites. No dilated loops of large or small bowel. No hydronephrosis. Symmetric renal enhancement. 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 There is a left adrenal myelolipoma measuring approximately 4.8 cm in size. Evidence of pelvic floor insufficiency. Bones are demineralized. Compression deformity at T12 and L1 are similar with T12 retropulsion. Old right inferior pubic ramus fracture. Severe degenerative disease left hip with collapse of the articular surface. Impression: 1. Small right pleural effusion, improved from the comparison exam. 2. Similar appearance of the free intraperitoneal ascites. 3. Slightly heterogeneous appearance of the liver likely sequelae of chronic congestive changes from diastolic dysfunction. 4. No hydronephrosis or evidence of obstructive uropathy. 5. No evidence for bowel obstruction. 6. Unchanged appearance of the compression deformities thoracolumbar junction. 7. Likely avascular necrosis left femoral head with high-grade secondary degenerative changes. 8. Nondisplaced fracture left inferior pubic ramus.
[2019-07-25 19:53] LABS: Troponin I 0.079 ng/mL (< 0.028)
[2019-07-25] MEDS ORDERED: Sodium Chloride 0.9% 1,000 ML IV SCH (20:15)
--- NOTE | 2019-07-25 20:33 | HP ---
REASON FOR ADMISSION/CHIEF COMPLAINT: Cough, altered mental status. HISTORY OF PRESENT ILLNESS: Ms. Méndez is an 78-year-old female with past medical history of hypertension, chronic atrial fibrillation, diabetes, avascular necrosis of left hip, has been having cough for last few days, but no fever. Coughing has been getting worse. She had a chest x-ray done, did not reveal any infiltrate in the alf, but she had a fever of 100.7. Also, the patient has been lethargic and confused, not eating well. Also, abdomen was more distended than usual. She also came in with high blood sugar. So, the patient was sent to the hospital for evaluation. In the ER, the patient was found to have fever as well as positive for influenza A. While in the ER, the patient also became hypotensive, received a bolus of IV fluids and received DuoNeb treatments as well, but did not get the Tamiflu. The patient still has altered mental status while in the ER. The patient is being admitted for further evaluation and management. Also, it was reported the patient has a few beats of ventricular tachycardia. Currently, the patient is awake but not well oriented. She does not say any chest pain or any nausea or vomiting. No abdominal pain. PAST MEDICAL HISTORY: 1. Hypertension. 2. Hyperlipidemia. 3. Hypothyroidism. 4. Chronic anemia. 5. Diabetes mellitus. 6. Avascular necrosis of left hip. 7. History of sepsis due to UTI with hospitalizations. 8. Peripheral vascular disease. 9. Coronary artery disease status post stent placement. 10. Status post pacemaker for tachycardia bradycardia syndrome. 11. History of multiple CVAs and TIA. 12. Degenerative joint disease. PAST SURGICAL HISTORY: Status post cholecystectomy, status post hysterectomy, status post multiple amputations of the toes, and status post pacemaker placement. CURRENT MEDICATIONS: The patient is on: 1. Aspirin 81 mg daily. 2. tyelenol prn. 3. Levothyroxine 75 mcg daily. 4. Multivitamin daily. 5. Simvastatin 40 mg daily. 6. Vitamin C 500 mg daily. 7. Pepcid 20 mg daily. 8. Lexapro 5 mg daily. 9. Lasix 20 mg daily. 10. DuoNeb q.i.d. 11. Metoprolol 25 b.i.d. 12. K-Dur 20 mEq daily. 13. Florastor 250 daily. ALLERGIES: PENICILLIN AND LATEX. FAMILY HISTORY: Nothing contributory. SOCIAL HISTORY: The patient lives in [place] [facility]. No history of smoking. No history of alcohol. REVIEW OF SYSTEMS: CARDIOVASCULAR: No chest pain or shortness of breath. RESPIRATORY: Has cough and fever. GASTROINTESTINAL: Has abdominal distention. No pain. No nausea or vomiting. CENTRAL NERVOUS SYSTEM: No headache. No dizziness. PHYSICAL EXAMINATION: GENERAL: The patient is awake, not well oriented. VITAL SIGNS: Temperature 100.1, pulse 74, respirations 20, blood pressure is 90 /60. HEENT: Head is normocephalic, atraumatic. Pupils equal and reactive. Nasopharynx is pale and dry. NECK: Supple. No JVD. LUNGS: Breath sounds diminished bilaterally. Percussion dull bilaterally. No rales. No rhonchi. HEART: S1 and S2, irregularly irregular. ABDOMEN: Mild distention. No guarding. Bowel sounds present. RECTAL: Deferred. CENTRAL NERVOUS SYSTEM: No new neurological deficits. LABORATORY DATA: CBC shows WBC 5.8, hemoglobin 10, hematocrit 33, platelets 87. Metabolic panel; sodium 139, potassium 4.6, chloride 105, CO2 of 25, BUN 51, creatinine 1.2, glucose 223. Urinalysis, leukocyte esterase negative, wbc 7-10, bacteria rare. Chest x-ray negative. CT scan of the brain unremarkable. CT scan of the abdomen and pelvis showed small right pleural effusion, but improved from previous comparison. There is a nondisplaced fracture of the left inferior pubic rami. There is no evidence of any bowel obstruction. No hydronephrosis. EKG shows atrial fibrillation with controlled ventricular rate. Influenza screen was positive for influenza A. ASSESSMENT: 1. Influenza A. 2. Hypotension. 3. Acute metabolic encephalopathy. 4. Acute kidney injury. 5. Coronary artery disease, status post stent. 6. Chronic atrial fibrillation. 7. Chronic anemia. 8. Avascular necrosis of left hip. 9. Hypothyroidism. 10. Diabetes mellitus. PLAN: 1. Vital signs q.4 hours. 2. Activity, as tolerated. 3. Allergies to penicillin, latex. 4. IV fluids normal saline 80 mL/h. 5. Tamiflu 75 mg b.i.d. p.o. 6. Accu-Chek before meals and sliding scale mild with regular insulin. 7. Continue alf medications. 8. CBC and basic metabolic panel in the morning. 9. The patient is full code. Job ID: [id number] MTDD
[2019-07-25] MEDS ORDERED: Sodium Chloride 0.9% (PF) 10 ML VIAL FS PRN (20:38)
[2019-07-25] MEDS ORDERED: Dextrose 50% Abboject 50 ML SYRINGE IVP PRN (20:39)
[2019-07-25] MEDS ORDERED: Dextrose 5% in Water 1,000 ML IV PRN (20:39)
[2019-07-25] MEDS: Insulin Regular 300 UNITS/3 ML VIAL SC PRN (21:56)
[2019-07-25] MEDS: Oseltamivir 75 MG CAP PO SCH (21:56)
[2019-07-25] MEDS: Sodium Chloride 0.9% 1,000 ML IV SCH (21:56)
--- NOTE | 2019-07-25 21:59 | CON ---
DATE OF CONSULTATION: 07/25/2019 HISTORY OF PRESENT ILLNESS: The patient is an 78-year-old woman, who presented with altered mental status. The patient has a previous history of coronary artery disease. She has previously undergone PTCA and stent placement into the right coronary artery. The patient also has had placement of electronic pacemaker. The patient has suffered previous CVAs. She presented to the emergency room with altered mental status. The patient is unable to give a coherent history. PAST MEDICAL HISTORY: 1. Coronary artery disease. 2. Hypertension. 3. Diabetes mellitus. 4. History of CVA. 5. Peripheral vascular disease. PAST SURGICAL HISTORY: 1. Hysterectomy. 2. Cholecystectomy. 3. Amputation of her toes. MEDICATIONS: See nursing list. ALLERGIES: LASIX, PENICILLIN. SOCIAL HISTORY: Not obtainable. PHYSICAL EXAMINATION: VITAL SIGNS: This is a confused woman with a blood pressure of 120/70. NECK: No jugular venous distention. LUNGS: Clear to auscultation. HEART: Irregular rate and rhythm. Normal S1, S2. No murmurs. ABDOMEN: Nondistended. EXTREMITIES: Status post toe amputations. LABORATORY DATA: Sodium 139, potassium 4.4, chloride 105, bicarb 25, BUN 51, creatinine 1.2. Troponin was 0.079. White blood cell count is 5.8, hemoglobin is 10.0, hematocrit is 31.7, and platelets are 87. IMPRESSION AND PLAN: 1. Influenza. 2. Altered mental status. 3. History of pacemaker placement. 4. History of percutaneous transluminal coronary angioplasty and stent placement. 5. Hypertension. 6. Dyslipidemia. This patient was admitted with influenza. She was initially hypotensive and has been hydrated.From a cardiac standpoint,she apparently had some ventricular arrhythmias. We will interrogate the patient's pacemaker. We will follow this patient with you throughout her hospitalization. Job ID: [id number] [facility]
[2019-07-26 03:43] LABS: #Lymphocytes 0.4 thou/uL (1.20-3.40); #Monocytes 0.5 thou/uL (0.11-0.59); #Neutrophils 3.1 thou/uL (1.40-6.50); %Eosinophils 0.1 % (0.0-10.0); %Lymphocytes 10.4 % (21.0-51.0); %Monocytes 12.5 % (0.0-10.0); Hemoglobin 9.4 g/dL (12.0-16.0); Mean Corpuscular HGB CONC 31.4 g/dL (32.0-36.0); Mean Corpuscular Hemoglobin 29.3 pg (27.0-31.0); Mean Corpuscular Volume 93.5 fL (78.0-98.0); Platelet Count 82 thou/uL (130-400); RBC Distribution Width 14.5 % (11.5-14.5); White Blood Cell (WBC) Count 4.1 thou/uL (4.8-10.8)
[2019-07-26 04:07] LABS: Anion Gap 11 mmol/L (10-20); BUN (Urea Nitrogen) 49 mg/dL (9.8-20.1); Calc. Creatinine Clearance 49 mL/min (70-130); Calcium 8.3 mg/dL (7.8-10.44); Carbon Dioxide 26 mmol/L (23-31); Chloride 106 mmol/L (98-107); Estimated GFR-MDRD 47; Glucose 171 mg/dL (83-110); Potassium 4.2 mmol/L (3.5-5.1); Sodium 139 mmol/L (136-145)
[2019-07-26] MEDS: Insulin Regular 300 UNITS/3 ML VIAL SC PRN (06:31)
[2019-07-26] MEDS: Sodium Chloride 0.9% 1,000 ML IV SCH ×2 (06:37→21:25)
[2019-07-26] MEDS ORDERED: cloNIDine 0.1 MG TAB PO PRN (08:03)
[2019-07-26] MEDS ORDERED: guaiFENesin 100 MG/5 ML UDCUP PO PRN (08:07)
[2019-07-26] MEDS ORDERED: Dextrose 50% Abboject 50 ML SYRINGE IVP PRN (08:09)
[2019-07-26] MEDS ORDERED: Dextrose 5% in Water 1,000 ML IV PRN (08:09)
[2019-07-26] MEDS ORDERED: Milk Of Magnesia 30 ML UDCUP PO PRN (08:12)
[2019-07-26] MEDS ORDERED: Senokot 8.6 MG TAB PO PRN (08:15)
[2019-07-26] MEDS ORDERED: HumaLOG 300 UNITS/3 ML VIAL SC PRN (08:27)
[2019-07-26] MEDS ORDERED: Oseltamivir 75 MG CAP PO SCH (09:00)
[2019-07-26] MEDS ORDERED: Famotidine 20 MG TAB PO SCH (09:00)
[2019-07-26] MEDS ORDERED: Furosemide 40 MG TAB PO SCH (09:00)
--- NOTE | 2019-07-26 10:05 | CON ---
DATE OF CONSULTATION: 07/26/2019 REASON FOR CONSULTATION: IMCU placement. HISTORY OF PRESENT ILLNESS: An 78-year-old, who was admitted with influenza with hypotension and some ventricular arrhythmias last night. She is better this morning after defervescing. She tested positive for type A flu. She has been started on Tamiflu and has been stable from respiratory standpoint. PAST MEDICAL HISTORY: 1. She is a long term patient. 2. Hypertension. 3. Hyperlipidemia. 4. Anemia. 5. Diabetes mellitus. 6. Peripheral vascular disease. 7. Cerebrovascular disease. 8. Multiple amputations of fingers and toes. 9. Cholecystectomy. ALLERGIES: PENICILLIN AND LATEX. FAMILY HISTORY: Unremarkable. SOCIAL HISTORY: Never smoked. Does not consume alcohol. MEDICATIONS: Prior to admission, these were reviewed. [facility]. PHYSICAL EXAMINATION: VITAL SIGNS: Temperature 99.6, pulse 113, blood pressure 115/60, O2 saturation 96%. GENERAL: She does not appear to be in any distress. HEENT: She has blood coming out of her right nostril. Oropharynx clear. NECK: No JVD. LUNGS: Clear. CARDIAC: S1 and S2. Regular. ABDOMEN: Soft. EXTREMITIES: No edema. LABORATORY DATA: Sodium 139, potassium 4.2, BUN 49, creatinine 1.1, glucose 171. White count 4.1, hematocrit 29.9, and platelet count 82. IMAGING STUDIES: X-ray shows no acute findings. ASSESSMENT: 1. Influenza. 2. Dehydration/prerenal azotemia. 3. Chronic medical problems listed above. PLAN: Agree with current measures including the Tamiflu, IV fluids, and generalized supportive care. She is stable for transfer to telemetry. Job ID: [id number]
[2019-07-26] MEDS: Magnesium Oxide 400 MG TAB PO SCH (10:07)
[2019-07-26] MEDS: Lactinex Tablet PO SCH (10:07)
[2019-07-26] MEDS: Multivitamin W/ Minerals 1 TAB PO SCH (10:07)
[2019-07-26] MEDS: Oseltamivir 75 MG CAP PO SCH ×2 (10:07→21:22)
[2019-07-26] MEDS: Ascorbic Acid 500 mg Chewable Tablet PO SCH (10:07)
[2019-07-26] MEDS: Aspirin 81 mg Enteric Coated Tablet PO SCH (10:08)
[2019-07-26] MEDS: Potassium Chloride 20 MEQ TAB PO SCH (10:08)
[2019-07-26] MEDS: Escitalopram Oxalate 10 mg Tablet PO SCH (10:08)
[2019-07-26] MEDS: Metoprolol Tartrate 25 MG TAB PO SCH ×2 (10:08→21:22)
[2019-07-26] MEDS: Enoxaparin Sodium 30 MG/0.3 ML SYRINGE SC SCH (10:09)
[2019-07-26] MEDS: Pantoprazole 40 MG VIAL IVP SCH (10:09)
--- NOTE | 2019-07-26 16:43 | EKG ---
Test Reason : REPEAT/CHANGE Blood Pressure : / mmHG Vent. Rate : 065 BPM Atrial Rate : 250 BPM P-R Int : 000 ms QRS Dur : 082 ms QT Int : 472 ms P-R-T Axes : 000 060 244 degrees QTc Int : 490 ms paced rhythm with some spontaneous beats Prolonged QT Abnormal ECG Confirmed by DR. Goldie HOYT ([id number]) on 07/26/2019 4:43:10 PM Referred By: Confirmed By:DR. Goldie HOYT
[2019-07-26] MEDS ORDERED: methylPREDNISolone Sod Succ/PF 125 MG/2 ML VIAL IVP SCH (18:15)
[2019-07-26] MEDS: Mirtazapine 15 MG TAB PO SCH (21:21)
[2019-07-26] MEDS: Atorvastatin Calcium 20 MG TAB PO SCH (21:22)
[2019-07-26] MEDS: Acetaminophen 325 MG TAB PO PRN (21:23)
[2019-07-27] MEDS: methylPREDNISolone Sod Succ 40 MG VIAL IVP SCH ×4 (00:27→17:18)
[2019-07-27 04:46] LABS: Hemoglobin 10.6 g/dL (12.0-16.0)
[2019-07-27 05:01] LABS: Anion Gap 16 mmol/L (10-20); BUN (Urea Nitrogen) 47 mg/dL (9.8-20.1); Calc. Creatinine Clearance 37 mL/min (70-130); Carbon Dioxide 21 mmol/L (23-31); Chloride 106 mmol/L (98-107); Estimated GFR-MDRD 34; Glucose 299 mg/dL (83-110); Potassium 4.5 mmol/L (3.5-5.1); Sodium 138 mmol/L (136-145)
[2019-07-27] MEDS: Levothyroxine Sodium 75 MCG TAB PO SCH (05:10)
[2019-07-27] MEDS: Lactinex Tablet PO SCH (09:10)
[2019-07-27] MEDS: Aspirin 81 mg Enteric Coated Tablet PO SCH (09:10)
[2019-07-27] MEDS: Ascorbic Acid 500 mg Chewable Tablet PO SCH (09:10)
[2019-07-27] MEDS: Multivitamin W/ Minerals 1 TAB PO SCH (09:11)
[2019-07-27] MEDS: Famotidine 20 MG TAB PO SCH (09:11)
[2019-07-27] MEDS: Magnesium Oxide 400 MG TAB PO SCH (09:11)
[2019-07-27] MEDS: Oseltamivir 75 MG CAP PO SCH ×2 (09:11→21:20)
[2019-07-27] MEDS: Escitalopram Oxalate 10 mg Tablet PO SCH (09:11)
[2019-07-27] MEDS: Potassium Chloride 20 MEQ TAB PO SCH (09:11)
[2019-07-27] MEDS: Enoxaparin Sodium 30 MG/0.3 ML SYRINGE SC SCH (09:13)
[2019-07-27] MEDS: Pantoprazole 40 MG VIAL IVP SCH (09:13)
[2019-07-27] MEDS: Sodium Chloride 0.9% 1,000 ML IV SCH (09:14)
--- NOTE | 2019-07-27 09:16 | PRG ---
DATE OF SERVICE: 07/27/2019 SUBJECTIVE: Ms. Méndez states she is breathing somewhat better. She has no complaints. OBJECTIVE: VITAL SIGNS: Her blood pressure 109/59 and pulse in the 60 to 70 range, it is irregular. LUNGS: Clear. CARDIAC: Irregularly irregular. ASSESSMENT: 1. Chronic atrial fibrillation. 2. Previous pacemaker insertion. 3. Mild wheezing on examination. 4. Pneumonia with influenza. PLAN: 1. Reduce beta bridger. 2. Okay to me to be taken off the monitor, she can go off telemetry. Job ID: [id number]
--- NOTE | 2019-07-27 09:16 | PRG ---
DATE OF SERVICE: 07/27/2019 SUBJECTIVE: Margaret Méndez is an 78-year-old morbidly obese female, whom I only seen in the hospital, admitted last time with cough and influenza A. This morning, she is somewhat better. She is lying in bed with no respiratory distress. OBJECTIVE: VITAL SIGNS: Maximum temperature 97. Pulse 58, sats 96% on 4 L, respiratory rate 20, and blood pressure 130/80. CHEST: No wheezing or crackles. CARDIAC: Normal S1 and S2. No gallops. ABDOMEN: No masses. LABORATORY DATA: Creatinine 1.46 and glucose 130. IMPRESSION: Morbid obesity, chronic obstructive pulmonary disease, influenza A, congestive heart failure, automatic implantable cardioverter-defibrillator, hypothyroidism, and severe deconditioning. PLAN: Probably can be switched over to oral prednisone, neb treatments, and supportive care. We will follow. Job ID: [id number]
[2019-07-27] MEDS: Insulin Regular 300 UNITS/3 ML VIAL SC PRN ×2 (11:10→17:18)
[2019-07-27] MEDS: Mirtazapine 15 MG TAB PO SCH (21:20)
[2019-07-27] MEDS: Atorvastatin Calcium 20 MG TAB PO SCH (21:20)
[2019-07-28] MEDS: methylPREDNISolone Sod Succ 40 MG VIAL IVP SCH ×3 (01:05→12:20)
[2019-07-28] MEDS: Sodium Chloride 0.9% 1,000 ML IV SCH ×2 (01:12→12:22)
[2019-07-28] MEDS: Levothyroxine Sodium 75 MCG TAB PO SCH (06:04)
[2019-07-28] MEDS: Insulin Regular 300 UNITS/3 ML VIAL SC PRN ×4 (06:04→20:27)
[2019-07-28] MEDS: Pantoprazole 40 MG VIAL IVP SCH (09:18)
[2019-07-28] MEDS: Oseltamivir 75 MG CAP PO SCH ×2 (09:19→20:06)
[2019-07-28] MEDS: Multivitamin W/ Minerals 1 TAB PO SCH (09:19)
[2019-07-28] MEDS: Escitalopram Oxalate 10 mg Tablet PO SCH (09:19)
[2019-07-28] MEDS: Magnesium Oxide 400 MG TAB PO SCH (09:20)
[2019-07-28] MEDS: Potassium Chloride 20 MEQ TAB PO SCH (09:20)
[2019-07-28] MEDS: Famotidine 20 MG TAB PO SCH (09:20)
[2019-07-28] MEDS: Ascorbic Acid 500 mg Chewable Tablet PO SCH (09:21)
[2019-07-28] MEDS: Aspirin 81 mg Enteric Coated Tablet PO SCH (09:21)
[2019-07-28] MEDS: Lactinex Tablet PO SCH (09:21)
[2019-07-28] MEDS: Enoxaparin Sodium 30 MG/0.3 ML SYRINGE SC SCH (09:22)
--- NOTE | 2019-07-28 16:26 | PRG ---
DATE OF SERVICE: 07/28/2019 SERVICE: Pulmonary Medicine. INTERVAL HISTORY: The patient is doing okay from respiratory standpoint. She has been weaned down to room air. She denies any current chest discomfort, nausea or vomiting. She indicates she is thirsty. She is coughing, but not bringing up any phlegm. Otherwise, there has been no interval change to her condition. PHYSICAL EXAMINATION: VITAL SIGNS: Afebrile, pulse 72, blood pressure 106/55, respirations 20, and saturation 100%, currently on 2 L nasal cannula. GENERAL: The patient is awake and alert, in no apparent distress. LUNGS: Good air entry bilaterally. There is a prolonged expiratory phase. Rhonchi and wheezing are both present, but no crackles. HEART: Normal rate, regular. ABDOMEN: Soft, nontender, and nondistended. Bowel sounds are positive. MUSCULOSKELETAL: No cyanosis or clubbing. There is no pitting in the bilateral lower extremities. She has skin tenting throughout. NEUROLOGIC: Grossly nonfocal. LABORATORY DATA: Hemoglobin 10.6. INR 1.3. Creatinine 1.46 and gently up-trending. Basic metabolic profile is otherwise unremarkable. Urinalysis is negative. Her BUN is 47. Interestingly, her bicarb is low with a near-normal anion gap. Influenza A is positive. ASSESSMENT: 1. Chronic hypoxic respiratory failure, at baseline. 2. Acute kidney injury secondary to prerenal azotemia. 3. Acute bronchitis secondary to influenza A. DISCUSSION AND PLAN: We will continue supportive care including the Tamiflu. I will provide a little bit of IV hydration over the next 24 hours. Pulmonary/Critical Care will continue to follow during this hospital stay. Job ID: [id number]
[2019-07-28] MEDS: Sodium Chloride 0.45% 1,000 ML IV SCH (16:51)
[2019-07-28] MEDS: Atorvastatin Calcium 20 MG TAB PO SCH (20:06)
[2019-07-28] MEDS: Mirtazapine 15 MG TAB PO SCH (20:06)
--- NOTE | 2019-07-29 01:33 | EKG ---
Test Reason : SOB Blood Pressure : / mmHG Vent. Rate : 064 BPM Atrial Rate : 066 BPM P-R Int : 000 ms QRS Dur : 078 ms QT Int : 442 ms P-R-T Axes : 000 071 244 degrees QTc Int : 455 ms Undetermined rhythm Abnormal ECG Confirmed by DAWNA BAHENA ([id number]), editor city SUE BALDWIN ([id number]) on 07/29/2019 1:32:39 AM Referred By: HUDSON Confirmed By:DAWNA King
[2019-07-29] MEDS: Sodium Chloride 0.45% 1,000 ML IV SCH (02:09)
[2019-07-29] MEDS: Levothyroxine Sodium 75 MCG TAB PO SCH (05:04)
[2019-07-29] MEDS: Insulin Regular 300 UNITS/3 ML VIAL SC PRN ×4 (05:04→21:19)
[2019-07-29 05:51] LABS: #Lymphocytes 0.6 thou/uL (1.20-3.40); #Monocytes 1.3 thou/uL (0.11-0.59); #Neutrophils 11.5 thou/uL (1.40-6.50); %Eosinophils 0.1 % (0.0-10.0); %Lymphocytes 4.1 % (21.0-51.0); %Monocytes 9.8 % (0.0-10.0); Hemoglobin 9.6 g/dL (12.0-16.0); Mean Corpuscular HGB CONC 31.4 g/dL (32.0-36.0); Mean Corpuscular Hemoglobin 28.6 pg (27.0-31.0); Mean Corpuscular Volume 91.4 fL (78.0-98.0); Mean Platelet Volume 8.6 fL (7.4-10.4); Platelet Count 102 thou/uL (130-400); RBC Distribution Width 14.5 % (11.5-14.5); Red Blood Cell (RBC) Count 3.33 mill/uL (4.20-5.40); White Blood Cell (WBC) Count 13.4 thou/uL (4.8-10.8)
[2019-07-29 06:27] LABS: Anion Gap 13 mmol/L (10-20); BUN (Urea Nitrogen) 63 mg/dL (9.8-20.1); Calc. Creatinine Clearance 37 mL/min (70-130); Calcium 8.1 mg/dL (7.8-10.44); Carbon Dioxide 24 mmol/L (23-31); Chloride 101 mmol/L (98-107); Estimated GFR-MDRD 31; Glucose 264 mg/dL (83-110); Potassium 4.9 mmol/L (3.5-5.1); Sodium 133 mmol/L (136-145)
[2019-07-29] MEDS ORDERED: predniSONE 20 MG TAB PO SCH (08:00)
[2019-07-29] MEDS: Lactinex Tablet PO SCH (08:50)
[2019-07-29] MEDS: predniSONE 20 MG TAB PO SCH (08:50)
[2019-07-29] MEDS: Oseltamivir 75 MG CAP PO SCH ×2 (08:50→21:18)
[2019-07-29] MEDS: Magnesium Oxide 400 MG TAB PO SCH (08:50)
[2019-07-29] MEDS: Escitalopram Oxalate 10 mg Tablet PO SCH (08:51)
[2019-07-29] MEDS: Ascorbic Acid 500 mg Chewable Tablet PO SCH (08:51)
[2019-07-29] MEDS: Potassium Chloride 20 MEQ TAB PO SCH (08:51)
[2019-07-29] MEDS: Aspirin 81 mg Enteric Coated Tablet PO SCH (08:51)
[2019-07-29] MEDS: Multivitamin W/ Minerals 1 TAB PO SCH (08:52)
[2019-07-29] MEDS ORDERED: Sodium Chloride 0.45% 1,000 ML IV SCH (16:00)
--- NOTE | 2019-07-29 18:58 | PRG ---
DATE OF SERVICE: 07/29/2019 SERVICE: Pulmonary Medicine. INTERVAL HISTORY: The patient is doing fine from a respiratory standpoint. She is breathing comfortably. She does not appear to be in any distress. Her mentation is off still. Otherwise, there has been no change to her condition. PHYSICAL EXAMINATION: VITAL SIGNS: Afebrile, pulse 89, blood pressure 117/70, respirations 18, and saturation 96% on 2 L nasal cannula. GENERAL: The patient is awake and alert, in no apparent distress. LUNGS: Good air entry bilaterally without any prolonged expiratory phase or wheezing. Dependent crackles are now present. HEART: Normal rate and regular. ABDOMEN: Soft, nontender, nondistended. Bowel sounds are positive. MUSCULOSKELETAL: No cyanosis or clubbing. There is trace to 1+ pitting in the bilateral lower extremities. There is more pitting at the sacrum. : No Boyce. NEUROLOGIC: Grossly nonfocal. LABORATORY DATA: WBC 13.4, hemoglobin 9.6, platelets 102,000 which is gently uptrending. INR 1.3. Creatinine 1.62 which is uptrending. BUN 63. Basic metabolic profile is otherwise unremarkable. Urinalysis is unremarkable. Influenza A is positive. ASSESSMENT: 1. Chronic hypoxic respiratory failure, at baseline. 2. Acute bronchitis secondary to influenza A. 3. Acute kidney injury. DISCUSSION AND PLAN: IV hydration will be stopped as the patient currently has a little bit more edema, and some degree of JVD. Critical Care will continue to follow while the patient remains inhouse. Supportive care including steroids, antibiotics, and nebulized medications will otherwise be continued. Job ID: [id number]
[2019-07-29] MEDS: Mirtazapine 15 MG TAB PO SCH (21:17)
[2019-07-29] MEDS: Atorvastatin Calcium 20 MG TAB PO SCH (21:18)
[2019-07-29] MEDS: guaiFENesin ER 600 MG TAB PO SCH (21:18)
[2019-07-30] MEDS: Levothyroxine Sodium 75 MCG TAB PO SCH (06:42)
[2019-07-30] MEDS: Insulin Regular 300 UNITS/3 ML VIAL SC PRN ×3 (06:42→16:18)
--- NOTE | 2019-07-30 07:50 | RAD ---
CHEST 1 VIEW: INDICATION: History of shortness of breath and CHF. COMPARISON: Prior exam dated 04/30/2019. FINDINGS: There is cardiomegaly with pulmonary vascular congestion and bilateral central edema. Tiny bilateral pleural effusions. There is a single-lead pacemaker overlying the left chest wall. No pneumothorax is evident. IMPRESSION: Findings of mild congestive heart failure. POS: BH
--- NOTE | 2019-07-30 08:47 | PRG ---
DATE OF SERVICE: 07/30/2019 SUBJECTIVE: Margaret Méndez this morning is awake, alert, responsive, less short of breath. OBJECTIVE: VITAL SIGNS: Pulse 92, temperature 98, saturations are 92% on 1 L, blood pressure . CHEST: Decreased breath sounds. No wheezing. CARDIAC: Normal S1 and S2. ABDOMEN: No mass. IMAGING STUDIES: X-ray taken shows evidence of maybe some left-sided infiltrate effusion. IMPRESSION: 1. Morbid obesity. 2. Respiratory failure. 3. Severe deconditioning. 4. Chronic obstructive pulmonary disease. PLAN: Continue PT, supportive care. She can be discharged home any time. She is on Tamiflu for influenza. Job ID: [id number]
[2019-07-30] MEDS: Aspirin 81 mg Enteric Coated Tablet PO SCH (08:52)
[2019-07-30] MEDS: Lactinex Tablet PO SCH (08:52)
[2019-07-30] MEDS: Escitalopram Oxalate 10 mg Tablet PO SCH (08:53)
[2019-07-30] MEDS: predniSONE 20 MG TAB PO SCH (08:53)
[2019-07-30] MEDS: Oseltamivir 75 MG CAP PO SCH (08:53)
[2019-07-30] MEDS: guaiFENesin ER 600 MG TAB PO SCH ×2 (08:54→20:32)
[2019-07-30] MEDS: Ascorbic Acid 500 mg Chewable Tablet PO SCH (08:54)
[2019-07-30] MEDS: Magnesium Oxide 400 MG TAB PO SCH (08:54)
[2019-07-30] MEDS: Multivitamin W/ Minerals 1 TAB PO SCH (08:54)
[2019-07-30] MEDS: Acetaminophen 325 MG TAB PO PRN (16:01)
[2019-07-30] MEDS: Mirtazapine 15 MG TAB PO SCH (20:32)
[2019-07-30] MEDS: Atorvastatin Calcium 20 MG TAB PO SCH (20:32)
[2019-07-31] MEDS: Levothyroxine Sodium 75 MCG TAB PO SCH (05:41)
[2019-07-31 06:01] LABS: #Lymphocytes 0.6 thou/uL (1.20-3.40); #Monocytes 0.7 thou/uL (0.11-0.59); #Neutrophils 12.4 thou/uL (1.40-6.50); %Eosinophils 0.1 % (0.0-10.0); %Lymphocytes 4.6 % (21.0-51.0); %Monocytes 4.7 % (0.0-10.0); %Neutrophils 90.6 % (42.0-75.0); Hemoglobin 10.4 g/dL (12.0-16.0); Mean Corpuscular HGB CONC 31.2 g/dL (32.0-36.0); Mean Corpuscular Hemoglobin 28.3 pg (27.0-31.0); Mean Corpuscular Volume 90.9 fL (78.0-98.0); Mean Platelet Volume 8.5 fL (7.4-10.4); Platelet Count 99 thou/uL (130-400); RBC Distribution Width 14.7 % (11.5-14.5); Red Blood Cell (RBC) Count 3.68 mill/uL (4.20-5.40); White Blood Cell (WBC) Count 13.7 thou/uL (4.8-10.8)
[2019-07-31 06:22] LABS: Anion Gap 13 mmol/L (10-20); BUN (Urea Nitrogen) 38 mg/dL (9.8-20.1); Calc. Creatinine Clearance 52 mL/min (70-130); Calcium 8.9 mg/dL (7.8-10.44); Carbon Dioxide 24 mmol/L (23-31); Chloride 107 mmol/L (98-107); Estimated GFR-MDRD 46; Glucose 226 mg/dL (83-110); Potassium 4.7 mmol/L (3.5-5.1); Sodium 139 mmol/L (136-145)
[2019-07-31] MEDS: guaiFENesin ER 600 MG TAB PO SCH ×2 (08:11→20:06)
[2019-07-31] MEDS: predniSONE 20 MG TAB PO SCH (08:11)
[2019-07-31] MEDS: Lactinex Tablet PO SCH (08:12)
[2019-07-31] MEDS: Magnesium Oxide 400 MG TAB PO SCH (08:12)
[2019-07-31] MEDS: Aspirin 81 mg Enteric Coated Tablet PO SCH (08:12)
[2019-07-31] MEDS: Ascorbic Acid 500 mg Chewable Tablet PO SCH (08:12)
[2019-07-31] MEDS: Multivitamin W/ Minerals 1 TAB PO SCH (08:12)
[2019-07-31] MEDS: Escitalopram Oxalate 10 mg Tablet PO SCH (08:12)
[2019-07-31] MEDS: Acetaminophen 325 MG TAB PO PRN ×2 (08:13→20:06)
--- NOTE | 2019-07-31 08:24 | PRG ---
DATE OF SERVICE: 07/31/2019 SUBJECTIVE: This morning, she is awake, alert, and responsive. OBJECTIVE: VITAL SIGNS: Temperature 100.1, pulse 108, respiratory rate 19, saturations 92%, blood pressure 157/80. GENERAL: She is moaning and groaning, appears to be in no distress. CHEST: Decreased breath sounds. No wheezing. CARDIAC: Normal S1 and S2. No gallops. ABDOMEN: No masses. LABORATORY DATA: Creatinine 1.14. IMAGING STUDIES: X-ray shows minimal cephalization and questionable left retrocardiac infiltrate. ASSESSMENT AND PLAN: Influenza B, persistent fever. All cultures are negative. Pulmonary mishra, she was started on Maxipime by her primary care physician. Continue PT and supportive care. We will follow. Job ID: [id number]
[2019-07-31] MEDS ORDERED: Cefepime 1 GM in Sodium Chloride 0.9% 100 ML IVPB SCH (09:00)
[2019-07-31] MEDS ORDERED: Oseltamivir 6 MG/ML ORAL SUSP PO SCH (09:45)
--- NOTE | 2019-07-31 11:34 | CON ---
DATE OF CONSULTATION: 07/31/2019 HISTORY OF PRESENT ILLNESS: Ms. Méndez is an 78-year-old lady, whom I had seen in the past, has a history of hypertension, obesity, atrial fibrillation, coronary artery disease, prior CVA, and episodes of aspiration pneumonia, who is a longterm resident, who was brought in because of worsening coughing spells for 2 days prior to admission, associated with a low-grade temperature elevation of 100.7, some lethargy. Initial findings; BP 193/67, pulse 74, respirations 22, temperature 99.1, and O2 saturation 90% on room air and then 100 on 4 L. She appeared disoriented , although awake and followed commands. The exam shows some abdominal distention , but no tenderness. Lungs examination was described as diffuse wheezing. No edema noted. Other findings on admission included sodium 139, creatinine 1.21 with a GFR estimated at 43, glucose 223, AST 42, ALT 20, and albumin 3.2. White cell count was 5.8, hemoglobin 10, and platelets 87 with urinalysis showing 7 to 10 wbc's. Influenza A and B antigen test, which was positive for influenza A on July 25. Currently, Ms. Méndez is in the floor. She is awake. She knows where she is, could not tell me the date, specifically except for the year. She did follow commands. She did not have headaches. Did not have chest pain, was coughing intermittently, has moderate dyspnea. Mild abdominal tenderness. She is voiding on her own. No back pain. No neurological symptoms. PAST MEDICAL HISTORY: Atrial fibrillation, coronary artery disease, CVA, aspiration pneumonia, peripheral vascular disease, avascular necrosis left hip, and hypertension. PAST SURGICAL HISTORY: Hysterectomy, partial finger and toe amputation, and cholecystectomy. SOCIAL HISTORY: Never smoker. [facility] resident. FAMILY HISTORY: Noncontributory. CURRENT MEDICATIONS: 1. Floranex. 2. DuoNeb. 3. Ecotrin. 4. Lipitor. 5. Cefepime. 6. Catapres. 7. Cardizem. 8. Lexapro. 9. Mucinex. 10. Insulin. 11. Synthroid. 12. Toprol. 13. Remeron. 14. Protonix. 15. Prednisone 40 mg. PHYSICAL EXAMINATION: VITAL SIGNS: T-max 101.4 just a while ago. BP 150/80, pulse 108, respirations 19, and O2 saturation 92 on 2 L. SKIN: With peripheral IV access. Does not have a Boyce catheter. She has those deformed toes partially amputated right and left side and no lymphadenopathy. HEENT: Ocular movements conjugate. Pupils are equal and reactive. Oral cavity , no [place] teeth remaining. No jugular vein distention. LUNGS: With faint expiratory wheezing bilaterally. A few crackles at the bases , right and left side. HEART: S1 and S2. Regular rate. No S3 or S4. ABDOMEN: Soft, but distended, tympanitic. No ascites noted. Question of bladder distention. EXTREMITIES: No joint inflammatory activity. No edema. Pulses are diminished in dorsalis pedis. She is able to move extremities, but is diffusely weak, but no focal weakness. She knows her name and knows she is in [facility], but could not tell me the date, follows commands. Speech is somewhat garbled and she has difficulty with speech because of tachypnea. LABORATORY DATA: Followup labs; white cell count is up to 13.7, hemoglobin 10.4 , and platelets 99,000 with 90% neutrophils. INR 1.3 and creatinine is at 1.14 and GFR is 46. Microbiology has been discussed as above. Chest x-ray with evidence of mild CHF, but no focal infiltrates. She had an abdomen and pelvis CT, which did not show any acute pathology. Little bit of ascites and avascular necrosis left hip. ASSESSMENT: Coronary artery disease, obesity, atrial fibrillation, prior cerebrovascular accident, peripheral vascular disease, and influenza A. DISCUSSION: There is no conclusive evidence to suggest superimposed bacterial pneumonia at this time, the white cell count elevation is probably due to corticosteroids. Check procalcitonin. If normal, I would recommend discontinuation of antimicrobial and just maintain Tamiflu adjusted for renal function. She is at high risk for complications from the influenza A, have to continue to be monitored carefully. Job ID: [id number] [facility]
[2019-07-31 11:49] LABS: Bacteria/HPF 3+ HPF (None Seen); Bilirubin Negative (Negative); Blood, Urine 1+ (Negative); Clarity Turbid (Clear); Glucose, Urine (Dipstick) Normal (Negative); Leukocyte 500 Leu/uL (Negative); Nitrite Negative (Negative); Protein, Urine (Dipstick) 100 mg/dL (Neg-Trace); Squamous Epithelial 0-3 HPF (0-3); Urobilinogen Normal mg/dL (Less than 2); WBC/HPF 21-50 HPF (0-3)
[2019-07-31] MEDS: Cefepime 1 GM in Sodium Chloride 0.9% 100 ML IVPB SCH ×2 (12:13→20:04)
[2019-07-31] MEDS: Insulin Regular 300 UNITS/3 ML VIAL SC PRN ×3 (12:43→20:12)
[2019-07-31] MEDS: Mirtazapine 15 MG TAB PO SCH (20:06)
[2019-07-31] MEDS: Oseltamivir 6 MG/ML ORAL SUSP PO SCH (20:06)
[2019-07-31] MEDS: Atorvastatin Calcium 20 MG TAB PO SCH (20:06)
[2019-07-31] MEDS ORDERED: Vancomycin HCl 1.25 GM in Sodium Chloride 0.9% 250 ML 250 ML IVPB SCH (22:15)
[2019-08-01] MEDS: Cefepime 1 GM in Sodium Chloride 0.9% 100 ML IVPB SCH ×2 (04:54→12:03)
[2019-08-01] MEDS: Insulin Regular 300 UNITS/3 ML VIAL SC PRN ×4 (04:55→20:36)
[2019-08-01] MEDS: Levothyroxine Sodium 75 MCG TAB PO SCH (04:55)
[2019-08-01] MEDS: Ascorbic Acid 500 mg Chewable Tablet PO SCH (08:57)
[2019-08-01] MEDS: Lactinex Tablet PO SCH (08:57)
[2019-08-01] MEDS: Aspirin 81 mg Enteric Coated Tablet PO SCH (08:58)
--- NOTE | 2019-08-01 08:58 | PRG ---
DATE OF SERVICE: 08/01/2019 SUBJECTIVE: Margaret Méndez status post flu B. She is better. Started running a fever. Blood cultures surprisingly are growing Staph aureus. Infectious Disease was consulted this morning. OBJECTIVE: VITAL SIGNS: Temperature 98.7, pulse 77, respiratory rate 20, saturations are 94% on room air, and blood pressure 120/60. CHEST: Decreased breath sounds. No wheezing. CARDIAC: Normal S1 and S2. No gallops. ABDOMEN: No masses. ASSESSMENT: Staphylococcus aureus sepsis, status post flu, chronic obstructive pulmonary disease. PLAN: The patient is now on vancomycin and Maxipime. She probably has already received 5 days of Tamiflu. This can probably be discontinued at any time. Continue PT, supportive care. Job ID: [id number]
[2019-08-01] MEDS: Escitalopram Oxalate 10 mg Tablet PO SCH (08:59)
[2019-08-01] MEDS ORDERED: predniSONE 20 MG TAB PO SCH (09:00)
[2019-08-01] MEDS: Multivitamin W/ Minerals 1 TAB PO SCH (09:01)
[2019-08-01] MEDS: Magnesium Oxide 400 MG TAB PO SCH (09:02)
[2019-08-01] MEDS: guaiFENesin ER 600 MG TAB PO SCH ×2 (09:02→20:34)
[2019-08-01] MEDS: Oseltamivir 6 MG/ML ORAL SUSP PO SCH ×2 (09:03→20:35)
--- NOTE | 2019-08-01 16:51 | PRG ---
DATE OF SERVICE: 08/01/2019 SUBJECTIVE: Ms. Méndez is confused as noticed previously. She is having pain in the left forearm as described below. Other elements of review of systems are not reliable. OBJECTIVE: VITAL SIGNS: She had a temperature elevation of 101.4 and blood cultures were taken yesterday after I saw her and the results are discussed below. GENERAL: She is awake, more alert. LUNGS: Symmetric, clear breath sounds. HEART: S1 and S2, regular rate. ABDOMEN: Soft, not distended or tender. EXTREMITIES: The left forearm is quite tender along one of the veins. The antecubital vein itself does not appear to be tender or inflamed. The other one on the right side has a little small nodule, but the IV access has been removed from there and she does not feel tenderness at the site, but the left forearm vein is quite tender to touch and it is not clear to me that it had an IV access previously. Does not have Boyce catheter. She is voiding in the diaper. LABORATORY DATA: White cell count 13.7, hemoglobin 10.4, platelets 99. Creatinine 1.14. The blood culture submitted by Dr. Miller from July 30 are positive for Staphylococcus aureus and the organism is methicillin-resistant Staph aureus. This is about 7 days after admission, so this must be a nosocomial complication, probably IV access infection from a peripheral IV. ASSESSMENT AND DISCUSSION: Coronary artery disease, obesity, atrial fibrillation, prior cerebrovascular accident, peripheral vascular disease, and influenza A, now with evidence of MSSA bacteremia which was not yet disclosed when I saw the patient yesterday morning. This is likely to represent a complication of the hospital stay, probably peripheral IV access infection with bacteremia. In view of her cognitive dysfunction, it becomes difficult to assess precisely her subjective information particularly in reference to other sites of involvement such as the thoracic and lumbosacral spine area and cervical spine. Those areas will have to continue to be monitored in the foreseeable future. We will go ahead and repeat the chest x-ray. She is currently on vancomycin and cefepime. We will go ahead and discontinue cefepime. Job ID: [id number]
[2019-08-01] MEDS: Mirtazapine 15 MG TAB PO SCH (20:34)
[2019-08-01] MEDS: Atorvastatin Calcium 20 MG TAB PO SCH (20:34)
[2019-08-01] MEDS: Acetaminophen 325 MG TAB PO PRN (20:35)
[2019-08-01] MEDS: Vancomycin HCl 750 MG in Sodium Chloride 0.9% 250 ML 250 ML IVPB SCH (21:12)
[2019-08-02] MEDS: Insulin Regular 300 UNITS/3 ML VIAL SC PRN ×4 (06:03→21:09)
[2019-08-02] MEDS: Levothyroxine Sodium 75 MCG TAB PO SCH (06:03)
[2019-08-02 06:04] LABS: #Monocytes 1.3 thou/uL (0.11-0.59); #Neutrophils 11.7 thou/uL (1.40-6.50); %Eosinophils 0.3 % (0.0-10.0); %Lymphocytes 7.2 % (21.0-51.0); %Monocytes 9.1 % (0.0-10.0); %Neutrophils 83.4 % (42.0-75.0); Hemoglobin 9.7 g/dL (12.0-16.0); Mean Corpuscular HGB CONC 30.5 g/dL (32.0-36.0); Mean Corpuscular Volume 91.7 fL (78.0-98.0); Mean Platelet Volume 10.1 fL (7.4-10.4); Platelet Count 71 thou/uL (130-400); RBC Distribution Width 14.6 % (11.5-14.5); Red Blood Cell (RBC) Count 3.46 mill/uL (4.20-5.40)
[2019-08-02 06:21] LABS: ALT (SGPT) 9 U/L (8-55); AST (SGOT) 6 U/L (5-34); Albumin 2.5 g/dL (3.4-4.8); Alkaline Phosphatase 75 U/L (40-110); Anion Gap 8 mmol/L (10-20); BUN (Urea Nitrogen) 30 mg/dL (9.8-20.1); Bilirubin, Total 0.8 mg/dL (0.2-1.2); Calc. Creatinine Clearance 72 mL/min (70-130); Calcium 8.1 mg/dL (7.8-10.44); Carbon Dioxide 25 mmol/L (23-31); Chloride 109 mmol/L (98-107); Estimated GFR-MDRD 65; Globulin 2.9 g/dL (2.4-3.5); Glucose 225 mg/dL (83-110); Potassium 4.3 mmol/L (3.5-5.1); Protein, Total 5.4 g/dL (6.0-8.3); Sodium 138 mmol/L (136-145)
[2019-08-02] MEDS: Ascorbic Acid 500 mg Chewable Tablet PO SCH (08:43)
[2019-08-02] MEDS: Multivitamin W/ Minerals 1 TAB PO SCH (08:43)
[2019-08-02] MEDS: Magnesium Oxide 400 MG TAB PO SCH (08:43)
[2019-08-02] MEDS: Lactinex Tablet PO SCH (08:44)
[2019-08-02] MEDS: Escitalopram Oxalate 10 mg Tablet PO SCH (08:44)
[2019-08-02] MEDS: predniSONE 5 MG TAB PO SCH (08:44)
[2019-08-02] MEDS: Aspirin 81 mg Enteric Coated Tablet PO SCH (08:44)
[2019-08-02] MEDS: guaiFENesin ER 600 MG TAB PO SCH ×2 (08:45→21:05)
--- NOTE | 2019-08-02 09:14 | PRG ---
DATE OF SERVICE: 08/02/2019 SUBJECTIVE: Status post influenza B. She is now 7 days in the hospital. She is no longer should be contagious. Tamiflu is only for 5 days. OBJECTIVE: VITAL SIGNS: Temperature 97, pulse 71, respirations 20, saturations on room air, blood pressure 126/73. CHEST: Minimal wheezing. CARDIAC: Normal S1, S2. No gallops. ABDOMEN: No masses. ASSESSMENT: Urinary tract infection, methicillin-resistant Staphylococcus aureus sepsis, chronic obstructive pulmonary disease, advanced age. PLAN: Infectious disease is adjusting antibiotics. Pulmonary does not have much to offer at this time. Continue neb treatments supportive care. Job ID: [id number]
[2019-08-02] MEDS: Oseltamivir 6 MG/ML ORAL SUSP PO SCH ×2 (10:06→21:05)
[2019-08-02] MEDS: Atorvastatin Calcium 20 MG TAB PO SCH (21:05)
[2019-08-02] MEDS: Mirtazapine 15 MG TAB PO SCH (21:05)
[2019-08-02 21:59] LABS: Vancomycin, Trough 8.3 ug/mL
[2019-08-02] MEDS: Vancomycin HCl 1.25 GM in Sodium Chloride 0.9% 250 ML 250 ML IVPB SCH (22:52)
[2019-08-02] MEDS: Vancomycin HCl 750 MG in Sodium Chloride 0.9% 250 ML 250 ML IVPB SCH (22:57)
[2019-08-03] MEDS: Levothyroxine Sodium 75 MCG TAB PO SCH (05:26)
[2019-08-03] MEDS: predniSONE 5 MG TAB PO SCH (08:49)
[2019-08-03] MEDS: Lactinex Tablet PO SCH (08:49)
[2019-08-03] MEDS: Aspirin 81 mg Enteric Coated Tablet PO SCH (08:49)
[2019-08-03] MEDS: Ascorbic Acid 500 mg Chewable Tablet PO SCH (08:49)
[2019-08-03] MEDS: Multivitamin W/ Minerals 1 TAB PO SCH (08:50)
[2019-08-03] MEDS: Magnesium Oxide 400 MG TAB PO SCH (08:50)
[2019-08-03] MEDS: guaiFENesin ER 600 MG TAB PO SCH ×2 (08:50→20:08)
[2019-08-03] MEDS: Oseltamivir 6 MG/ML ORAL SUSP PO SCH ×2 (08:50→20:52)
[2019-08-03] MEDS: Escitalopram Oxalate 10 mg Tablet PO SCH (08:50)
--- NOTE | 2019-08-03 09:43 | PRG ---
DATE OF SERVICE: 08/03/2019 SUBJECTIVE: This morning, she is being fed. OBJECTIVE: VITAL SIGNS: Temperature 97, pulse 71, respirations 18, saturation 92% on 2 L, and blood pressure 120/70. GENERAL: She is awake and responsive. Denies any pain discomfort. CHEST: No wheezing or crackles. CARDIAC: Normal S1 and S2. No gallops. ABDOMEN: No masses. IMPRESSION: Urinary tract infection, Staphylococcus sepsis, status post influenza B, chronic obstructive pulmonary disease, severe deconditioning. Pulmonary has nothing additional to offer at this time. Disposition as per the primary care physician. Job ID: [id number]
[2019-08-03] MEDS: Acetaminophen 325 MG TAB PO PRN ×2 (11:33→23:57)
[2019-08-03 15:03] VITALS: BMI 32.3
--- NOTE | 2019-08-03 15:17 | PQF ---
CLINICAL DOCUMENTATION IMPROVEMENT CLARIFICATION FORM: ICD-10 Updated PLEASE DO AN ADDENDUM TO THE PROGRESS NOTE WITH ANY DOCUMENTATION UPDATES OR ADDITIONS AND CARRY THROUGH TO DC SUMMARY. THANK YOU. DATE: 08/03/19 ATTN: DR. QUINTERO Please exercise your independent, professional judgment in responding to the clarification form. Clinical indicators are provided on the bottom of this form for your review Please check appropriate box(es): [ y] Sepsis due to: (Pna, UTI, gangrenous gall bladder, etc.) Due to: [ ] Device (please specify) ___probably Iv access____ [ ] Implant [ ] Graft [ ] Infusion [ ] SIRS due to non-infectious process (please specify etiology) [ ] with organ dysfunction [ y without organ dysfunction [ ] Severe sepsis with acute organ dysfunction of: (Examples: respiratory failure, encephalopathy, acute kidney failure, other) [ ] Localized infection without sepsis [ ] Other diagnosis [ ] Unable to determine In addition, please specify: Present on Admission (POA): [ ] Yes [ y ] No [ ] Unable to determine For continuity of documentation, please document condition throughout progress notes and discharge summary. Thank You. CLINICAL INDICATORS - SIGNS / SYMPTOMS / LABS / RESULTS AND LOCATION IN MR PROGRESS NOTE 08/01 (PULMONARY): METHICILLAN-RESISTANT STAPHYLOCOCCUS AUREUS SEPSIS" PROGRESS NOTE 07/31: "THE BLOOD CULTURE SUBMITTED BY DR. QUINTERO FROM July ARE POSITIVE FOR STAPHYLOCOCCUS AUREUS AND THE ORGANISM IS METHICILLAN- RESISTANT STAPH AUREUS. THIS IS ABOUT 7 DAYS AFTER ADMISSION, SO THIS MUST BE A NOSOCOMIAL COMPLICATION, PROBABLY IV ACCESS INFECTION FROM A PERIPHERAL IV." WBC 07/26: 4.1 WBC 07/28: 13.4 WBC 08/01: 14.0 TEMP 3/3: 100.1 - 101.4 PULSE 07/30: 105 - 117 RISKS: INFLUENZA A (H&P 07/26) MARISOL (07/26) AVASCULAR NECROSIS OF LEFT HIP (H&P2) PNEUMONIA (PROGRESS NOTE 07/27) UTI (PROGRESS NOTE 08/01) TREATMENT: IV FLUIDS (ER) TAMIFLU (07/30-PRESENT) IV VANCOMYCIN (08/01-PRESENT) (This form is maintained as a part of the permanent medical record) 2014 [employer]. All Rights Reserved HANANE [email or web address] Office: [phone] [facility]
--- NOTE | 2019-08-03 16:09 | PRG ---
DATE OF SERVICE: 08/03/2019 SUBJECTIVE: The patient is in bed, lying in right lateral decubitus. She opens her eyes intermittently, grimaces intermittently when she is touched, particularly in the left upper extremity. OBJECTIVE: LUNGS: With symmetric air entry, few faint transient crackles. CARDIAC: S1 and S2, regular rate. ABDOMEN: With very prominent panniculus. No tenderness. EXTREMITIES: Left forearm with the phlebitic vein, which is quite tender in a fairly long length of the vein, pretty much from the upper 3rd of the forearm down to the wrist along the lateral aspect. VITAL SIGNS: She has been afebrile, blood pressure 130/70, pulse 71. LABORATORY DATA: White cell count 14,000, hemoglobin 9.7, platelets 71,000. Creatinine 0.84. Microbiology with MRSA, two sets of blood cultures. The patient is currently on vancomycin schedule 1.25 daily. Her last trough was 8.3. ASSESSMENT AND DISCUSSION: Coronary artery disease, obesity, atrial fibrillation, prior cerebrovascular accident, peripheral vascular disease, influenza A, and then methicillin-resistant Staphylococcus aureus bacteremia, which is likely a nosocomial complication of peripheral IV access and she will require continuation of treatment for at least 4 weeks. It should be able to heal without the need for surgical intervention. Thus far, no areas of distant involvement are apparent at this time, although due to her mental state, it will be difficult to gauge that. Job ID: [id number]
[2019-08-03] MEDS: Insulin Regular 300 UNITS/3 ML VIAL SC PRN (17:44)
[2019-08-03] MEDS: Atorvastatin Calcium 20 MG TAB PO SCH (20:08)
[2019-08-03] MEDS: Mirtazapine 15 MG TAB PO SCH (20:08)
[2019-08-03] MEDS: Vancomycin HCl 1.25 GM in Sodium Chloride 0.9% 250 ML 250 ML IVPB SCH (23:44)
[2019-08-04] MEDS: Levothyroxine Sodium 75 MCG TAB PO SCH (05:44)
[2019-08-04 06:37] LABS: #Eosinphils 0.1 thou/uL (0.0-0.7); #Lymphocytes 1.2 thou/uL (1.20-3.40); #Monocytes 1.6 thou/uL (0.11-0.59); #Neutrophils 12.9 thou/uL (1.40-6.50); %Eosinophils 0.5 % (0.0-10.0); %Lymphocytes 7.5 % (21.0-51.0); %Monocytes 9.9 % (0.0-10.0); Hemoglobin 9.4 g/dL (12.0-16.0); Mean Corpuscular HGB CONC 30.1 g/dL (32.0-36.0); Mean Corpuscular Hemoglobin 27.9 pg (27.0-31.0); Mean Corpuscular Volume 92.7 fL (78.0-98.0); Mean Platelet Volume 9.1 fL (7.4-10.4); Platelet Count 89 thou/uL (130-400); RBC Distribution Width 14.7 % (11.5-14.5); Red Blood Cell (RBC) Count 3.38 mill/uL (4.20-5.40); White Blood Cell (WBC) Count 15.8 thou/uL (4.8-10.8)
[2019-08-04 06:55] LABS: Anion Gap 10 mmol/L (10-20); BUN (Urea Nitrogen) 20 mg/dL (9.8-20.1); Calc. Creatinine Clearance 78 mL/min (70-130); Calcium 8.5 mg/dL (7.8-10.44); Carbon Dioxide 26 mmol/L (23-31); Chloride 107 mmol/L (98-107); Estimated GFR-MDRD 71; Glucose 178 mg/dL (83-110); Potassium 4.6 mmol/L (3.5-5.1); Sodium 138 mmol/L (136-145)
[2019-08-04] MEDS: Oseltamivir 6 MG/ML ORAL SUSP PO SCH ×2 (09:10→21:26)
[2019-08-04] MEDS: predniSONE 5 MG TAB PO SCH (09:12)
[2019-08-04] MEDS: Magnesium Oxide 400 MG TAB PO SCH (09:13)
[2019-08-04] MEDS: Aspirin 81 mg Enteric Coated Tablet PO SCH (09:13)
[2019-08-04] MEDS: Ascorbic Acid 500 mg Chewable Tablet PO SCH (09:13)
[2019-08-04] MEDS: Multivitamin W/ Minerals 1 TAB PO SCH (09:13)
[2019-08-04] MEDS: guaiFENesin ER 600 MG TAB PO SCH ×2 (09:14→21:26)
[2019-08-04] MEDS: Escitalopram Oxalate 10 mg Tablet PO SCH (09:14)
[2019-08-04] MEDS: Acetaminophen 325 MG TAB PO PRN (09:15)
[2019-08-04] MEDS: Lactinex Tablet PO SCH (09:19)
[2019-08-04] MEDS: Insulin Regular 300 UNITS/3 ML VIAL SC PRN ×3 (12:00→21:33)
[2019-08-04 21:13] LABS: Vancomycin, Trough 13.7 ug/mL
[2019-08-04] MEDS: Mirtazapine 15 MG TAB PO SCH (21:25)
[2019-08-04] MEDS: Atorvastatin Calcium 20 MG TAB PO SCH (21:25)
[2019-08-04] MEDS: Vancomycin HCl 1.25 GM in Sodium Chloride 0.9% 250 ML 250 ML IVPB SCH (22:55)
[2019-08-05] MEDS: Levothyroxine Sodium 75 MCG TAB PO SCH (05:32)
[2019-08-05] MEDS: Acetaminophen 325 MG TAB PO PRN ×3 (08:27→19:51)
[2019-08-05] MEDS: Oseltamivir 6 MG/ML ORAL SUSP PO SCH ×2 (08:27→19:55)
[2019-08-05] MEDS: Lactinex Tablet PO SCH (08:28)
[2019-08-05] MEDS: Magnesium Oxide 400 MG TAB PO SCH (08:28)
[2019-08-05] MEDS: guaiFENesin ER 600 MG TAB PO SCH ×2 (08:29→19:54)
[2019-08-05] MEDS: Aspirin 81 mg Enteric Coated Tablet PO SCH (08:29)
[2019-08-05] MEDS: Escitalopram Oxalate 10 mg Tablet PO SCH (08:30)
[2019-08-05] MEDS: Ascorbic Acid 500 mg Chewable Tablet PO SCH (08:31)
[2019-08-05] MEDS: Multivitamin W/ Minerals 1 TAB PO SCH (08:31)
[2019-08-05] MEDS: Atorvastatin Calcium 20 MG TAB PO SCH (19:55)
[2019-08-05] MEDS: Mirtazapine 15 MG TAB PO SCH (19:55)
[2019-08-05] MEDS: Vancomycin HCl 1.25 GM in Sodium Chloride 0.9% 250 ML 250 ML IVPB SCH (23:25)
[2019-08-06] MEDS: Levothyroxine Sodium 75 MCG TAB PO SCH (05:08)
[2019-08-06] MEDS: Acetaminophen 325 MG TAB PO PRN (05:08)
[2019-08-06] MEDS: Insulin Regular 300 UNITS/3 ML VIAL SC PRN (05:15)
[2019-08-06] MEDS: Multivitamin W/ Minerals 1 TAB PO SCH (08:26)
[2019-08-06] MEDS: Magnesium Oxide 400 MG TAB PO SCH (08:26)
[2019-08-06] MEDS: Lactinex Tablet PO SCH (08:26)
[2019-08-06] MEDS: Escitalopram Oxalate 10 mg Tablet PO SCH (08:26)
[2019-08-06] MEDS: guaiFENesin ER 600 MG TAB PO SCH ×2 (08:26→20:40)
[2019-08-06] MEDS: Aspirin 81 mg Enteric Coated Tablet PO SCH (08:27)
[2019-08-06] MEDS: Ascorbic Acid 500 mg Chewable Tablet PO SCH (08:27)
[2019-08-06] MEDS: Oseltamivir 6 MG/ML ORAL SUSP PO SCH (08:27)
[2019-08-06] MEDS: Acetaminophen/Codeine 30-300mg Tablet PO PRN (11:28)
--- NOTE | 2019-08-06 18:22 | PRG ---
DATE OF SERVICE: 08/06/2019 SUBJECTIVE: Ms. Méndez is in the radiology area to get a PICC line. OBJECTIVE: VITAL SIGNS: Normal. LABORATORY DATA: Showed a white cell count 15.8, hemoglobin 9.4, and platelets 89,000. Creatinine is 0.78, which is back to normal. She is on vancomycin. ASSESSMENT AND DISCUSSION: Coronary artery disease, obesity, atrial fibrillation, prior cerebrovascular accident, peripheral vascular disease, influenza A, and methicillin-resistant Staphylococcus aureus bacteremia probably from septic thrombophlebitis, one of the arm veins in the left side. The patient will continue vancomycin for 4 weeks. Job ID: [id number]
[2019-08-06] MEDS: Atorvastatin Calcium 20 MG TAB PO SCH (20:40)
[2019-08-06] MEDS: Mirtazapine 15 MG TAB PO SCH (20:40)
[2019-08-06] MEDS ORDERED: Oseltamivir 75 MG CAP PO SCH (21:00)
[2019-08-06 21:38] LABS: Vancomycin, Trough 20.8 ug/mL
[2019-08-06] MEDS: Vancomycin HCl 1 GM in Premix Bag 1 BAG IVPB SCH (22:26)
[2019-08-07] MEDS: Acetaminophen/Codeine 30-300mg Tablet PO PRN (01:11)
[2019-08-07] MEDS ORDERED: Diabetic Tussin 200 MG/10 ML UDCUP PO PRN (03:30)
[2019-08-07 05:44] LABS: #Eosinphils 0.1 thou/uL (0.0-0.7); #Lymphocytes 1.2 thou/uL (1.20-3.40); #Monocytes 0.9 thou/uL (0.11-0.59); #Neutrophils 7.8 thou/uL (1.40-6.50); %Basophils 0.1 % (0.0-1.0); %Eosinophils 0.8 % (0.0-10.0); %Lymphocytes 11.8 % (21.0-51.0); %Monocytes 8.7 % (0.0-10.0); %Neutrophils 78.5 % (42.0-75.0); Hemoglobin 8.7 g/dL (12.0-16.0); Mean Corpuscular HGB CONC 30.8 g/dL (32.0-36.0); Mean Corpuscular Hemoglobin 28.2 pg (27.0-31.0); Mean Corpuscular Volume 91.6 fL (78.0-98.0); Mean Platelet Volume 8.5 fL (7.4-10.4); Platelet Count 110 thou/uL (130-400); RBC Distribution Width 14.7 % (11.5-14.5); Red Blood Cell (RBC) Count 3.09 mill/uL (4.20-5.40); White Blood Cell (WBC) Count 9.9 thou/uL (4.8-10.8)
[2019-08-07] MEDS: Levothyroxine Sodium 75 MCG TAB PO SCH (05:44)
[2019-08-07 05:57] LABS: Anion Gap 10 mmol/L (10-20); BUN (Urea Nitrogen) 15 mg/dL (9.8-20.1); Calc. Creatinine Clearance 83 mL/min (70-130); Calcium 8.9 mg/dL (7.8-10.44); Carbon Dioxide 28 mmol/L (23-31); Chloride 104 mmol/L (98-107); Estimated GFR-MDRD 77; Glucose 176 mg/dL (83-110); Potassium 4.9 mmol/L (3.5-5.1); Sodium 137 mmol/L (136-145)
--- NOTE | 2019-08-07 07:50 | SPC ---
SPC CVP LINE PICC INITAL >5 History: Need for long-term IV access Comparison: None. Findings: Patient was brought to the special suite. All questions were answered. Informed consent was obtained. Timeout performed. Patient's right arm was prepped and draped in normal sterile fashion. Using ultrasound guidance the r ight cephalic vein was accessed. Over a wire and through a peel-away sheath a PICC was placed with tip at the inferior SVC. Patient tolerated the procedure well without complication. Impression: Technically successful ultrasound and fluoroscopic guided PICC placement. Fluoroscopy time: 0.3 minutes
[2019-08-07] MEDS: Escitalopram Oxalate 10 mg Tablet PO SCH (07:59)
[2019-08-07] MEDS: Aspirin 81 mg Enteric Coated Tablet PO SCH (08:00)
[2019-08-07] MEDS: Lactinex Tablet PO SCH (08:00)
[2019-08-07] MEDS: Multivitamin W/ Minerals 1 TAB PO SCH (08:00)
[2019-08-07] MEDS: Ascorbic Acid 500 mg Chewable Tablet PO SCH (08:00)
[2019-08-07] MEDS: Magnesium Oxide 400 MG TAB PO SCH (08:00)
[2019-08-07] MEDS: guaiFENesin ER 600 MG TAB PO SCH ×2 (08:01→20:01)
[2019-08-07] MEDS: Insulin Regular 300 UNITS/3 ML VIAL SC PRN (17:15)
[2019-08-07] MEDS: Mirtazapine 15 MG TAB PO SCH (20:01)
[2019-08-07] MEDS: Atorvastatin Calcium 20 MG TAB PO SCH (20:01)
[2019-08-07] MEDS: Acetaminophen 325 MG TAB PO PRN (20:02)
[2019-08-07] MEDS: Vancomycin HCl 1 GM in Premix Bag 1 BAG IVPB SCH (22:11)
[2019-08-08] MEDS: Levothyroxine Sodium 75 MCG TAB PO SCH (05:08)
[2019-08-08] MEDS: Insulin Regular 300 UNITS/3 ML VIAL SC PRN (06:01)
[2019-08-08] MEDS: Lactinex Tablet PO SCH (09:04)
[2019-08-08] MEDS: Aspirin 81 mg Enteric Coated Tablet PO SCH (09:04)
[2019-08-08] MEDS: Escitalopram Oxalate 10 mg Tablet PO SCH (09:04)
[2019-08-08] MEDS: Ascorbic Acid 500 mg Chewable Tablet PO SCH (09:04)
[2019-08-08] MEDS: Magnesium Oxide 400 MG TAB PO SCH (09:04)
[2019-08-08] MEDS: Multivitamin W/ Minerals 1 TAB PO SCH (09:04)
[2019-08-08] MEDS: guaiFENesin ER 600 MG TAB PO SCH (09:04)
[2019-08-08 13:55] VITALS: BP 110/64; TEMP 98.3
== END 2019-08-08 14:49 | DRG 193 ==
LOC: ERS 13:03 → IMCU/EMU 15:40 → 2NO 07-26 19:38 → T4-B 07-27 12:18
PROVIDERS: ADMIT Internal Medicine; ATTEND Internal Medicine
PROC: 02HV33Z Insertion of Infusion Device into Superior Vena Cava, Percutaneous Approach (ICD-10-PCS; principal; 2019-08-06)
DX: J10.00 Influenza due to other identified influenza virus with unspecified type of pneumonia (principal); G93.41 Metabolic encephalopathy; A41.01 Sepsis due to Methicillin susceptible Staphylococcus aureus; I48.20 Chronic atrial fibrillation, unspecified; N17.9 Acute kidney failure, unspecified; J96.11 Chronic respiratory failure with hypoxia; J44.0 Chronic obstructive pulmonary disease with (acute) lower respiratory infection; N39.0 Urinary tract infection, site not specified; D64.9 Anemia, unspecified; E78.5 Hyperlipidemia, unspecified; M19.90 Unspecified osteoarthritis, unspecified site; E03.9 Hypothyroidism, unspecified; R13.10 Dysphagia, unspecified; I73.9 Peripheral vascular disease, unspecified; E11.9 Type 2 diabetes mellitus without complications; F32.9 Major depressive disorder, single episode, unspecified; I11.0 Hypertensive heart disease with heart failure; J10.1 Influenza due to other identified influenza virus with other respiratory manifestations; I95.9 Hypotension, unspecified; E66.01 Morbid (severe) obesity due to excess calories; I50.9 Heart failure, unspecified; Z86.73 Personal history of transient ischemic attack (TIA), and cerebral infarction without residual deficits; Z79.01 Long term (current) use of anticoagulants; Z74.01 Bed confinement status; Z90.49 Acquired absence of other specified parts of digestive tract; Z90.710 Acquired absence of both cervix and uterus; Z89.429 Acquired absence of other toe(s), unspecified side; Z88.0 Allergy status to penicillin; Z91.040 Latex allergy status; Z95.810 Presence of automatic (implantable) cardiac defibrillator
CPT/HCPCS: 36415; 36416; 36569; 51701; 70450; 71045; 74177; 80048; 80053; 80202; 81001; 81003; 81015; 82553; 83605; 83690; 83880; 84145; 84484; 85014; 85018; 85025; 85610; 85730; 87040; 87077; 87086; 87149; 87186; 87804; 93005; 94640; 94644; 96360; 96361; A4353; C1751; C9113; J0692; J1644; J1650; J1815; J2920; J2930; J3370; J3490; J7050; J7512; J7611; J7620; Q9967

== ENCOUNTER 2019-08-17 23:47 | Emergency (ER) | payer MEDICARE, OTHER ==
[2019-08-18] MEDS ORDERED: Sterile Water 10 ML VIAL IVP SCH (00:06)
[2019-08-18] MEDS ORDERED: Activase 2 MG VIAL CATH SCH (00:06)
== END 2019-08-18 01:56 ==
LOC: ERS 23:47
DX: T82.594A Other mechanical complication of infusion catheter, initial encounter (principal); D64.9 Anemia, unspecified; E78.5 Hyperlipidemia, unspecified; M19.90 Unspecified osteoarthritis, unspecified site; E11.9 Type 2 diabetes mellitus without complications; I10 Essential (primary) hypertension; I48.91 Unspecified atrial fibrillation; F32.9 Major depressive disorder, single episode, unspecified; Z86.73 Personal history of transient ischemic attack (TIA), and cerebral infarction without residual deficits; Z79.82 Long term (current) use of aspirin; Z79.899 Other long term (current) drug therapy; Z79.84 Long term (current) use of oral hypoglycemic drugs
CPT/HCPCS: 96374; J2997

== ENCOUNTER 2019-10-01 13:10 | Emergency (ER) | payer MEDICARE, OTHER ==
[2019-10-01 13:50] LABS: #Basophils 0.1 thou/uL (0.0-0.2); #Eosinphils 0.4 thou/uL (0.0-0.7); #Lymphocytes 1.9 thou/uL (1.20-3.40); #Monocytes 0.8 thou/uL (0.11-0.59); %Basophils 0.6 % (0.0-1.0); %Eosinophils 4.2 % (0.0-10.0); %Lymphocytes 20.7 % (21.0-51.0); %Monocytes 8.9 % (0.0-10.0); %Neutrophils 65.6 % (42.0-75.0); Mean Corpuscular HGB CONC 30.7 g/dL (32.0-36.0); Mean Corpuscular Hemoglobin 27.2 pg (27.0-31.0); Mean Corpuscular Volume 88.3 fL (78.0-98.0); Mean Platelet Volume 7.7 fL (7.4-10.4); Platelet Count 136 thou/uL (130-400); RBC Distribution Width 15.2 % (11.5-14.5); Red Blood Cell (RBC) Count 3.68 mill/uL (4.20-5.40); White Blood Cell (WBC) Count 9.1 thou/uL (4.8-10.8)
--- NOTE | 2019-10-01 13:59 | RAD ---
PORTABLE CHEST: History: Possible pacemaker infection Comparison: 07-25-2019 FINDINGS: Heart size appears slightly enlarged. A pacemaker is present. There is increased density along the me dial aspect of the pacemaker. This is probably just adjacent lung and not likely to be inflammatory c hange within the soft tissue but this is not excluded. It is more prominent on the prior exam but I t hink this is just related to rotation. IMPRESSION: Patient is rotated. No definitive abnormality as compared to the prior study. POS: [facility]
[2019-10-01 14:13] LABS: ALT (SGPT) 15 U/L (8-55); AST (SGOT) 17 U/L (5-34); Albumin 3.5 g/dL (3.4-4.8); Alkaline Phosphatase 138 U/L (40-110); Anion Gap 11 mmol/L (10-20); BUN (Urea Nitrogen) 35 mg/dL (9.8-20.1); Bilirubin, Total 0.7 mg/dL (0.2-1.2); Calc. Creatinine Clearance 0 mL/min (70-130); Calcium 9.9 mg/dL (7.8-10.44); Carbon Dioxide 31 mmol/L (23-31); Chloride 101 mmol/L (98-107); Estimated GFR-MDRD 64; Globulin 3.6 g/dL (2.4-3.5); Glucose 144 mg/dL (83-110); Potassium 4.4 mmol/L (3.5-5.1); Protein, Total 7.1 g/dL (6.0-8.3); Sodium 139 mmol/L (136-145)
[2019-10-01] MEDS ORDERED: Cephalexin 250 MG CAP ONE ×2 (14:55→14:57)
[2019-10-01] MEDS ORDERED: Sulfameth/Trimethoprim DS 800-160mg TAB ONE (14:55)
[2019-10-01] MEDS ORDERED: Acetaminophen 325 MG TAB ONE (14:55)
== END 2019-10-01 13:18 ==
LOC: ERS 13:10
DX: L03.313 Cellulitis of chest wall (principal); I11.0 Hypertensive heart disease with heart failure; I50.9 Heart failure, unspecified; E11.51 Type 2 diabetes mellitus with diabetic peripheral angiopathy without gangrene; E03.9 Hypothyroidism, unspecified; I25.2 Old myocardial infarction; I48.91 Unspecified atrial fibrillation; K21.9 Gastro-esophageal reflux disease without esophagitis; D64.9 Anemia, unspecified; E78.5 Hyperlipidemia, unspecified; M19.90 Unspecified osteoarthritis, unspecified site; F32.9 Major depressive disorder, single episode, unspecified; E46 Unspecified protein-calorie malnutrition; Z86.73 Personal history of transient ischemic attack (TIA), and cerebral infarction without residual deficits
CPT/HCPCS: 36415; 71045; 80053; 85025; 99284

== ENCOUNTER 2019-10-04 20:01 | Emergency (ER) | payer MEDICARE, OTHER ==
[2019-10-04 20:50] LABS: #Eosinphils 0.4 thou/uL (0.0-0.7); #Lymphocytes 1.9 thou/uL (1.20-3.40); #Monocytes 0.9 thou/uL (0.11-0.59); #Neutrophils 5.1 thou/uL (1.40-6.50); %Basophils 0.2 % (0.0-1.0); %Eosinophils 4.6 % (0.0-10.0); %Monocytes 10.5 % (0.0-10.0); %Neutrophils 61.6 % (42.0-75.0); Hemoglobin 9.9 g/dL (12.0-16.0); Mean Corpuscular HGB CONC 30.3 g/dL (32.0-36.0); Mean Corpuscular Hemoglobin 27.2 pg (27.0-31.0); Mean Corpuscular Volume 89.6 fL (78.0-98.0); Mean Platelet Volume 8.1 fL (7.4-10.4); Platelet Count 137 thou/uL (130-400); Red Blood Cell (RBC) Count 3.64 mill/uL (4.20-5.40); White Blood Cell (WBC) Count 8.2 thou/uL (4.8-10.8)
[2019-10-04 21:08] LABS: Anion Gap 12 mmol/L (10-20); BUN (Urea Nitrogen) 38 mg/dL (9.8-20.1); Calc. Creatinine Clearance 0 mL/min (70-130); Carbon Dioxide 28 mmol/L (23-31); Chloride 103 mmol/L (98-107); Estimated GFR-MDRD 40; Glucose 174 mg/dL (83-110); Potassium 4.1 mmol/L (3.5-5.1); Sodium 139 mmol/L (136-145)
[2019-10-04] MEDS ORDERED: cefTRIAXone\\ROCEPHIN 1 GM VIAL ONE (21:59)
== END 2019-10-04 23:35 ==
LOC: ERS 20:01
DX: T81.41XA Infection following a procedure, superficial incisional surgical site, initial encounter (principal); L03.313 Cellulitis of chest wall; E87.6 Hypokalemia; I48.91 Unspecified atrial fibrillation; I25.2 Old myocardial infarction; I11.0 Hypertensive heart disease with heart failure; I50.9 Heart failure, unspecified; D64.9 Anemia, unspecified; K21.9 Gastro-esophageal reflux disease without esophagitis; I73.9 Peripheral vascular disease, unspecified; E78.5 Hyperlipidemia, unspecified; M19.90 Unspecified osteoarthritis, unspecified site; E03.9 Hypothyroidism, unspecified; E11.9 Type 2 diabetes mellitus without complications; Z86.73 Personal history of transient ischemic attack (TIA), and cerebral infarction without residual deficits; Z79.82 Long term (current) use of aspirin; Z79.899 Other long term (current) drug therapy
CPT/HCPCS: 80048; 85025; 96365; J0696

== ENCOUNTER 2019-10-17 09:23 | Inpatient (IN) | payer MEDICARE, OTHER ==
[2019-10-17] MEDS ORDERED: Cefepime 2 GM VIAL ONE (09:52)
[2019-10-17] MEDS ORDERED: Vancomycin 1.5 GRAM/300 ML BAG 1.5 GM in Premix Bag 1 BAG IVPB SCH ×2 (10:00→21:00)
[2019-10-17 10:01] LABS: Hemoglobin 10.4 g/dL (12.0-16.0); Mean Corpuscular HGB CONC 31.2 g/dL (32.0-36.0); Mean Corpuscular Hemoglobin 27.7 pg (27.0-31.0); Mean Corpuscular Volume 88.9 fL (78.0-98.0); RBC Distribution Width 15.2 % (11.5-14.5); Red Blood Cell (RBC) Count 3.76 mill/uL (4.20-5.40); White Blood Cell (WBC) Count 9.4 thou/uL (4.8-10.8)
[2019-10-17 10:18] LABS: Bacteria/HPF None Seen HPF (None Seen); Bilirubin Negative (Negative); Blood, Urine Negative (Negative); Clarity Clear (Clear); Glucose, Urine (Dipstick) Normal (Negative); Leukocyte 75 Leu/uL (Negative); Nitrite Negative (Negative); Protein, Urine (Dipstick) Negative (Neg-Trace); RBC/HPF None Seen HPF (0-3); Squamous Epithelial None Seen HPF (0-3); Urobilinogen Normal mg/dL (Less than 2); WBC/HPF 0-3 HPF (0-3)
[2019-10-17 10:20] LABS: #Basophils 0.1 thou/uL (0.0-0.2); #Eosinphils 0.2 thou/uL (0.0-0.7); #Lymphocytes 1.9 thou/uL (1.20-3.40); #Monocytes 0.7 thou/uL (0.11-0.59); #Neutrophils 6.5 thou/uL (1.40-6.50); %Basophils 0.6 % (0.0-1.0); %Eosinophils 2.6 % (0.0-10.0); %Lymphocytes 20.6 % (21.0-51.0); %Neutrophils 69.3 % (42.0-75.0); Mean Platelet Volume 8.1 fL (7.4-10.4); Platelet Count 112 thou/uL (130-400)
[2019-10-17 10:21] LABS: ALT (SGPT) 17 U/L (8-55); AST (SGOT) 17 U/L (5-34); Albumin 3.6 g/dL (3.4-4.8); Alkaline Phosphatase 146 U/L (40-110); Anion Gap 12 mmol/L (10-20); BUN (Urea Nitrogen) 57 mg/dL (9.8-20.1); Bilirubin, Total 0.4 mg/dL (0.2-1.2); Calc. Creatinine Clearance 0 mL/min (70-130); Carbon Dioxide 28 mmol/L (23-31); Chloride 104 mmol/L (98-107); Estimated GFR-MDRD 34; Globulin 3.6 g/dL (2.4-3.5); Glucose 178 mg/dL (83-110); Potassium 4.4 mmol/L (3.5-5.1); Protein, Total 7.2 g/dL (6.0-8.3); Sodium 140 mmol/L (136-145)
--- NOTE | 2019-10-17 10:28 | RAD ---
RADIOGRAPH CHEST 1 VIEW: DATE: 10/17/2019 HISTORY: 78-year-old female with fever FINDINGS: The thoracic aorta is tortuous and ectatic. There is no evidence of airspace density, pulmonary edema , or pneumothorax. The lateral costophrenic angles are not effaced. Left subclavian single transvenous permanent pacemaker. No cardiomegaly. IMPRESSION: 1) No acute pulmonary findings. 2) ectasia of thoracic aorta. 3) pacemaker.
[2019-10-17] MEDS ORDERED: Acetaminophen 325 MG TAB PO PRN (11:16)
[2019-10-17] MEDS ORDERED: Ondansetron PF 4 MG/2 ML Vial IVP PRN (11:16)
[2019-10-17] MEDS ORDERED: Meropenem 1 GM in Sodium Chloride 0.9% 100 ML IVPB SCH (14:00)
[2019-10-17] MEDS ORDERED: MEROPENEM 1 GM/50 ML 1 GM in Premix Bag 1 BAG IVPB SCH (14:00)
[2019-10-17 14:14] VITALS: BMI 23.6
[2019-10-17] MEDS ORDERED: Dextrose 50% Abboject 50 ML SYRINGE SLOW IVP PRN (14:14)
[2019-10-17] MEDS ORDERED: Dextrose 5% in Water 1,000 ML IV PRN (14:14)
--- NOTE | 2019-10-17 19:53 | ULT ---
Exam: Soft tissue ultrasound HISTORY: Pacemaker infection. Erythema. COMPARISON: None TECHNIQUE: Targeted sonographic imaging of the soft tissues at the level of the pacemaker was perform ed. Static images are reviewed and submitted for evaluation FINDINGS: There is complex fluid peripheral to the pacemaker. Transverse images demonstrate the colle ction to be 0.7 x 3.7 cm. Sagittal images demonstrate a superior diameter of 1.8 cm and inferior diameter of 1.0 cm. IMPRESSION: Infected fluid surrounding the pacemaker generator.
--- NOTE | 2019-10-17 21:33 | HP ---
CHIEF COMPLAINT: Redness and discharge around the pacemaker incision site. HISTORY OF PRESENT ILLNESS: The patient is an 78-year-old female with a past medical history of coronary artery disease, CHF, atrial fibrillation, GERD, peripheral vascular disease, hyperlipidemia, CVA, hypothyroidism, diabetes, hypertension, and recent pacemaker placement, who presented to the ER for redness around the pacemaker incision area with some bloody drainage. In the ER, some purulent drainage was noted, and samples were sent for culture. The patient complained of some pain around the area. The pacemaker was found to be functioning well on the monitor. She was referred for admission for further evaluation and management. REVIEW OF SYSTEMS: Negative except as noted in HPI. PAST MEDICAL HISTORY: As noted above. PAST SURGICAL HISTORY: Bilateral eye surgery, pacemaker insertion, multiple amputations of her toes, cholecystectomy, appendectomy. SOCIAL HISTORY: The patient denies alcohol use, illicit drug use, and smoking. ALLERGIES: THE PATIENT IS ALLERGIC TO PENICILLINS. PHYSICAL EXAMINATION: GENERAL: The patient is alert and oriented x2. HEENT: Head is normocephalic and atraumatic. Extraocular muscles are intact. NECK: Supple. CHEST: Clear to auscultation bilaterally. CARDIOVASCULAR: Normal S1 and S2 with regular rate and rhythm, and no murmurs, rubs, or gallops on cardiovascular examination. Her chest wall examination revealed an area of redness and tenderness over her pacemaker area in her left upper chest. ABDOMEN: Soft, nontender, nondistended. EXTREMITIES: Did not reveal any edema. ASSESSMENT: 1. Pacemaker site infection. 2. Atrial fibrillation. 3. Hypertension. 4. Hyperlipidemia. 5. Coronary artery disease. 6. Cerebrovascular accident. 7. Hypothyroidism. PLAN: 1. The patient will be placed on the medical floor. 2. Broad-spectrum antibiotics including vancomycin and meropenem have been initiated. 3. Consulted Cardiology and ID. 4. Consulted Wound Care. 5. Follow culture results. Job ID: [id number]
--- NOTE | 2019-10-17 21:37 | CON ---
DATE OF CONSULTATION: 10/17/2019 REASON FOR CONSULTATION: Pacemaker infection. HISTORY OF PRESENT ILLNESS: An 78-year-old whom I had seen in the past when she presented with a history of hypertension, obesity, atrial fibrillation, coronary artery disease and prior CVA as well as episodes of aspiration pneumonia. At that time, she had influenza A and now she presents with an open wound with exposure of the left subclavian pacemaker, this was identified in the alf, had been previously managed with p.o. Keflex without improvement. Now, there is obvious exposure of the pacer and will have to be removed. She denies headaches. No visual symptoms. No sore throat, odynophagia or dysphagia. No abdominal pain or diarrhea. No genitourinary symptoms. MEDICAL HISTORY: Ischemic cardiomyopathy, atrial fibrillation, bradycardia requiring pacemaker placement, hyperlipidemia, prior CVA, hypothyroidism, type 2 diabetes, hypertension, osteoarthrosis, recurrent UTI. SOCIAL HISTORY: [facility] resident. Never smoker. ALLERGIES: LATEX, PENICILLIN. FAMILY HISTORY: Noncontributory. CURRENT MEDICATIONS: 1. [place]. 2. Lovenox. 3. Insulin. 4. Meropenem. 5. Vancomycin. PHYSICAL EXAMINATION: VITAL SIGNS: Temperature 99.4, blood pressure 119/61, pulse 82, respirations 18 , and O2 saturation 98% on 2 L. SKIN: Shows the pacer pocket site with an ulcerated area and what appears to be an exposed pacemaker device at the base of the wound. Surrounding mild erythema in the right foot with chronic ulcer at the tip of the amputation site of the middle, second and third toes, a little bit of perineal maceration. She has a peripheral IV access. HEENT: The ocular movements are conjugate. Oral cavity not remarkable. NECK: Supple. LUNGS: Symmetric with clear breath sounds. HEART: S1 and S2, regular rate. ABDOMEN: Soft, nondistended. : No bladder distention. MUSCULOSKELETAL: She has a quite significant osteoarthrosis of lower extremities. She has transmetatarsal amputation of most toes of the right and left feet. Pulses are diminished in dorsalis pedis and faintly palpable in popliteals. NEUROLOGIC: She is awake. She asks questions and seems to be appropriate, but she has significant expressive dysarthria. LABORATORY DATA: Urinalysis was fairly normal. White cell count 9.4, hemoglobin 10.4, platelets 112 with 69% neutrophils. Creatinine is 1.46, which is a bit higher than her baseline which was 0.85. Liver profile normal. Alkaline phosphatase 146, albumin 3.6. IMAGING STUDIES: Chest x-ray with no acute pulmonary findings. ASSESSMENT: Type 2 diabetes, peripheral vascular disease, ischemic cardiomyopathy, bradycardia with recent pacemaker placement in February of last year, recent episode of methicillin-resistant Staphylococcus aureus bacteremia during influenza infection, which was felt to be possibly related to septic thrombophlebitis from the peripheral IV access and now what appears to be an infection of the pacemaker with exposure. DISCUSSION: The pacemaker device will have to be removed including the leads. I do not know if she is pacemaker dependent. If she is, then she will need a temporarily pacer while the infection is treated and then a new one placed. Hopefully, she will be demonstrated not to be bacteremic, which would allow a quicker turn around for replacement of the device. It is possible that this reflects the dissemination from the earlier MRSA bacteremia in June of this year. She is at risk for dissemination to distant sites, if she was bacteremic, those will have to be continued to be monitored, particularly the spine and lungs and endocardium. Job ID: [id number] MTDD
--- NOTE | 2019-10-17 22:14 | CON ---
DATE OF CONSULTATION: HISTORY OF PRESENT ILLNESS: Margaret Méndez is an 78-year-old white female, [facility], who was admitted with pacemaker incision infection. In July 2011, she had a drug-eluting stent-PROMUS 2.75 x 24 mm stent placed in the distal right coronary artery. In June 2013, she was evaluated by Dr. Crockett and underwent repeat catheterization. She had plaquing of the LAD and the first obtuse marginal. There was a 30% to 40% mid RCA stenosis. There continued to be excellent result from the previous stent. She then was admitted here in February 2019, [facility] She was hypotensive and felt that she had urosepsis. She was in chronic atrial fibrillation and had slow ventricular response with rates in the 30s and was placed on dobutamine for a time. Her medications were reduced. She then was admitted in March 2019. During that admission, she had evidence for tachy-jules syndrome and ultimately underwent placement of a single-chamber pacemaker by Dr. Ferguson. She was seen in the office on May 24, 2019, and apparently was doing well at that time and her pacemaker incision was well healed. She then came to the emergency room on October 01, 2019, with cellulitis over the area of her pacemaker. She was placed on Bactrim and cephalexin 500 mg q.i.d. for 1 week each. She then returned to the emergency room on October 03 stating that there was some bleeding around the area. She was given Rocephin 1 g IV. She also was given a prolonged prescription for Keflex 500 mg t.i.d. This was for 10 days. Apparently, no culture was sent. She now is brought back to the emergency room with drainage from the lateral portion of her pacemaker incision. She complains of pain in the area. She denies any shortness of breath or otherwise any other chest discomfort. She has no leg edema or PND. PAST MEDICAL HISTORY: Coronary artery disease, history of CVA, chronic atrial fibrillation, questionable gastrointestinal bleed, hypertension, diabetes, peripheral vascular disease, hypercholesterolemia, hypothyroidism. Avascular necrosis of the left hip with chronic pain. PAST SURGICAL HISTORY: Hysterectomy, cholecystectomy, coronary artery stent placement, multiple amputation of toes, and single-chamber pacemaker placement. MEDICATIONS: 1. Aspirin 81 daily. 2. Catapres 0.1 mg q.6 hours p.r.n. 3. Diltiazem 180 daily. 4. Doxycycline 100 mg q.12 hours. 5. Lexapro 5 mg daily. 6. Pepcid 20 b.i.d. 7. Furosemide 40 mg q.a.m. 8. Humalog. 9. Floranex b.i.d. 10. Levothyroxine 75 mcg daily. 11. Magnesium oxide 400 daily. 12. Metoprolol 25 b.i.d. 13. Remeron 7.5 daily. 14. KCl 20 mEq daily. 15. Simvastatin 40 at bedtime. 16. Zinc sulfate 220 daily. 17. Bactrim 1 b.i.d. ALLERGIES: PENICILLIN AND LATEX. SOCIAL HISTORY: She does not smoke. REVIEW OF SYSTEMS: Negative except as noted above. PHYSICAL EXAMINATION: VITAL SIGNS: Blood pressure 119/61, pulse of 82. HEENT: PERRL. NECK: Supple. CHEST: Clear. CARDIAC: S1 and S2 normal without any S3, S4, or murmurs. ABDOMEN: Normal bowel sounds without tenderness or organomegaly. EXTREMITIES: Reveal no clubbing, cyanosis, or edema. NEUROLOGIC: Grossly intact. SKIN: Warm and dry. She does have approximately a 1-cm area of purulent drainage. There is questionable fluctuance around the pacemaker. Some skin erythema overlying the area. The lot of this appears to be due to the dressings that were on her skin. LABORATORY DATA: EKG revealed atrial fibrillation with lateral ST changes. She has had occasional paced beats. Hemoglobin 10.4, hematocrit 33.4, white count 9400, platelets 112,000. Sodium 140, potassium 4.4, chloride 104, carbon dioxide 28, creatinine 1.46. IMPRESSION: 1. Pacemaker incision infection. This has been treated as an outpatient with p.o. antibiotics without improvement. Apparently, no cultures were sent previously. 2. Tachy-jules syndrome with pacemaker placement in March 2019. 3. Chronic atrial fibrillation. 4. Coronary artery disease, status post drug-eluting stent placement in the distal right coronary artery in 2011. 5. Hypertension. 6. Diabetes. 7. Hypercholesterolemia. 8. Peripheral vascular disease. 9. History of stroke. 10. Hypothyroidism. 11. Mild dementia. PLAN: The patient has been started on vancomycin and cefepime. I had asked the ER physician to send a culture of the area. However, at the present time I am uncertain that has been done and that will be reordered. Infectious Disease will be consulted. Ultrasound of the area will be performed to assess the possibility of fluid surrounding her pacemaker. This certainly may necessitate pacemaker removal. Job ID: [id number] MTDD
[2019-10-18 04:51] LABS: #Basophils 0.1 thou/uL (0.0-0.2); #Eosinphils 0.4 thou/uL (0.0-0.7); #Lymphocytes 1.9 thou/uL (1.20-3.40); #Monocytes 0.7 thou/uL (0.11-0.59); #Neutrophils 3.9 thou/uL (1.40-6.50); %Basophils 0.8 % (0.0-1.0); %Eosinophils 6.3 % (0.0-10.0); %Lymphocytes 27.3 % (21.0-51.0); %Monocytes 9.7 % (0.0-10.0); Mean Corpuscular Hemoglobin 28.2 pg (27.0-31.0); Mean Corpuscular Volume 88.2 fL (78.0-98.0); Mean Platelet Volume 9.4 fL (7.4-10.4); Platelet Count 99 thou/uL (130-400); RBC Distribution Width 15.3 % (11.5-14.5); Red Blood Cell (RBC) Count 3.55 mill/uL (4.20-5.40)
[2019-10-18 05:14] LABS: Anion Gap 12 mmol/L (10-20); BUN (Urea Nitrogen) 43 mg/dL (9.8-20.1); Calc. Creatinine Clearance 44 mL/min (70-130); Calcium 9.7 mg/dL (7.8-10.44); Carbon Dioxide 25 mmol/L (23-31); Chloride 108 mmol/L (98-107); Estimated GFR-MDRD 50; Glucose 109 mg/dL (83-110); Potassium 4.3 mmol/L (3.5-5.1); Sodium 141 mmol/L (136-145)
[2019-10-18] MEDS: Cefepime 2 GM in Sodium Chloride 0.9% 100 ML IVPB SCH (08:45)
[2019-10-18] MEDS: Enoxaparin Sodium 30 MG/0.3 ML SYRINGE SC SCH (08:48)
[2019-10-18] MEDS ORDERED: Prevnar 13-Val Conj/PF 0.5 ML SYRINGE IM ONE (09:00)
[2019-10-18] MEDS: Vancomycin 1 GM in Premix Bag 1 BAG IVPB SCH (10:11)
--- NOTE | 2019-10-18 12:26 | PDOC.HOSPP ---
- Subjective Encounter Date: 10/18/19 Subjective: The patient was seen and examined. She is complaining of pain around her pacemaker site. - Objective Vital Signs & Weight: Vital Signs (12 hours) Temp Pulse Resp BP Pulse Ox 10/18/19 11:43 98.1 F 63 17 145/90 H 96 10/18/19 08:00 97 10/18/19 07:33 98.4 F 18 172/85 H 97 10/18/19 03:54 98.0 F 75 12 132/63 94 L Weight Weight 146 lb 6.4 oz Result Diagrams: 10/18/19 04:32 10/18/19 04:32 Additional Labs: Accuchecks 10/18/19 10/18/19 10/17/19 10:27 05:44 16:27 POC Glucose 145 H 138 H 120 H Hospitalist ROS - Medication Medications: Active Medications Generic Name Dose Route Start Last Admin Trade Name Freq PRN Reason Stop Dose Admin Enoxaparin Sodium 30 mg 10/18/19 09:00 10/18/19 08:48 Lovenox SC Not Given 0900 ELISSA Cefepime HCl 2 gm/ Sodium 100 mls @ 200 mls/hr 10/18/19 10:00 10/18/19 08:45 Chloride IVPB 100 mls 1000 ELISSA Administration Vancomycin HCl 1 gm/ Device 200 mls @ 200 mls/hr 10/18/19 10:00 10/18/19 10: 11 IVPB 200 mls 1000 ELISSA Administration Sodium Chloride 10 ml 10/17/19 21:00 10/18/19 08:49 Flush - Normal Saline IVF 10 ml Q12HR ELISSA Administration Sodium Chloride 10 ml 10/17/19 12:04 10/18/19 10:11 Flush - Normal Saline IVF 10 ml PRN PRN Administration Saline Flush Sodium Chloride 10 ml 10/18/19 09:00 10/18/19 10:12 Flush - Normal Saline IVF Not Given Q12HR ELISSA - Exam General Appearance: awake alert ENT: normocephalic atraumatic Neck: supple Heart: RRR Respiratory: CTAB Gastrointestinal: soft, non-tender, non-distended, normal bowel sounds Neurological: cranial nerve grossly intact Hosp A/P (1) Infection of pacemaker pocket Code(s): T82.7XXA - INFECT/INFLM REACT D/T OTH CARDI/VASC DEV/IMPLNT/GRFT, INIT Status: Acute (2) Chronic atrial fibrillation Code(s): I48.20 - CHRONIC ATRIAL FIBRILLATION, UNSPECIFIED Status: Chronic (3) DM II (diabetes mellitus, type II), controlled Code(s): E11.9 - TYPE 2 DIABETES MELLITUS WITHOUT COMPLICATIONS Status: Chronic - Plan Infected pacemaker pocket. The patient scheduled for pacemaker removal. Continue broad-spectrum antibiotics and follow culture results.
[2019-10-18] MEDS ORDERED: Clindamycin/D5W 600 mg/50 ml Premix Bag ONE ×2 (15:13→17:27)
[2019-10-18] MEDS ORDERED: Gentamicin 80 MG/2 ML VIAL ONE (15:15)
[2019-10-18] MEDS ORDERED: Levofloxacin 500 mg/D5W 100 ml Premix Bag ONE (17:27)
[2019-10-19] MEDS: HYDROcodone/Acetaminophen 5/325 mg Tablet PO PRN (04:21)
[2019-10-19 05:11] LABS: #Eosinphils 0.3 thou/uL (0.0-0.7); #Lymphocytes 1.6 thou/uL (1.20-3.40); #Monocytes 0.7 thou/uL (0.11-0.59); #Neutrophils 4.7 thou/uL (1.40-6.50); %Basophils 0.2 % (0.0-1.0); %Eosinophils 3.8 % (0.0-10.0); %Lymphocytes 22.2 % (21.0-51.0); %Monocytes 9.9 % (0.0-10.0); %Neutrophils 63.9 % (42.0-75.0); Hemoglobin 10.7 g/dL (12.0-16.0); Mean Corpuscular HGB CONC 30.2 g/dL (32.0-36.0); Mean Corpuscular Hemoglobin 26.8 pg (27.0-31.0); Mean Corpuscular Volume 88.8 fL (78.0-98.0); Mean Platelet Volume 8.5 fL (7.4-10.4); Platelet Count 99 thou/uL (130-400); RBC Distribution Width 15.1 % (11.5-14.5); Red Blood Cell (RBC) Count 4.01 mill/uL (4.20-5.40); White Blood Cell (WBC) Count 7.3 thou/uL (4.8-10.8)
[2019-10-19 05:31] LABS: Anion Gap 12 mmol/L (10-20); BUN (Urea Nitrogen) 31 mg/dL (9.8-20.1); Calc. Creatinine Clearance 55 mL/min (70-130); Calcium 10.1 mg/dL (7.8-10.44); Carbon Dioxide 24 mmol/L (23-31); Chloride 106 mmol/L (98-107); Estimated GFR-MDRD 64; Glucose 110 mg/dL (83-110); Potassium 4.2 mmol/L (3.5-5.1); Sodium 138 mmol/L (136-145)
[2019-10-19] MEDS: Cefepime 2 GM in Sodium Chloride 0.9% 100 ML IVPB SCH (08:52)
[2019-10-19] MEDS: Enoxaparin Sodium 30 MG/0.3 ML SYRINGE SC SCH (08:52)
[2019-10-19 09:27] LABS: Vancomycin, Trough 14.8 ug/mL
[2019-10-19] MEDS: Vancomycin 1 GM in Premix Bag 1 BAG IVPB SCH (11:23)
--- NOTE | 2019-10-19 15:59 | PRG ---
DATE OF SERVICE: 10/19/2019 SUBJECTIVE: Ms. Méndez is resting comfortably. No complaints. Dr. Ferguson removed the infected pacemaker yesterday. OBJECTIVE: VITAL SIGNS: Blood pressure today 109/63, pulse 90 and it is irregular. LUNGS: Clear. CARDIAC: Irregularly irregular. ASSESSMENT: 1. Chronic atrial fibrillation. 2. Status post pacemaker removal. There is some hematoma and bleeding at the site. PLAN: 1. She is on Cardizem. 2. Stop metoprolol she had good rate control, but she had some bradycardia. We will not be able to resume the metoprolol, rather have rapid heart rate sometime, then have long pauses. 3. She is on low dose of enoxaparin since on antibiotics. 4. No further recommendations at this present time. Job ID: [id number]
--- NOTE | 2019-10-19 17:41 | PRG ---
DATE OF SERVICE: 10/19/2019 SUBJECTIVE: Ms. Méndez had removal of the pacemaker. She has been monitored and no chest pain, no syncopal event. Moderate pain around the pacemaker. No diarrhea. OBJECTIVE: VITAL SIGNS: T-max 99.4, blood pressure 107/65, pulse 76, respirations 20, and O2 saturation 92% to 96%. GENERAL: Appears in no distress. LUNGS: Clear. HEART: S1 and S2. Irregular heart rate. ABDOMEN: Soft, not distended and she is voiding in the diaper without difficulty. LABORATORY DATA: White cell count 7.3, hemoglobin 10.7, platelets 99, and normal differential. Creatinine 0.85. Cultures still pending. Looks like there is something growing nutrient broth subculture in progress. ASSESSMENT AND DISCUSSION: Type 2 diabetes, PVD, ischemic cardiomyopathy, bradycardia with recent pacemaker placement in February, methicillin-resistant Staphylococcus aureus bacteremia during influenza infection and now pacemaker pocket infection probably hematogenous. The patient had a pacer and wires removed and waiting on the final blood culture results. If negative, then we will switch her to hopefully to oral antimicrobial therapy for until there is adequate granulation of the base of the wound. The wound may be closed once the inflammatory process subsides. Job ID: [id number] [facility]
--- NOTE | 2019-10-19 17:56 | PDOC.HOSPP ---
- Subjective Encounter Date: 10/19/19 Subjective: The patient was seen and examined. Her chest pain is improving compared to yesterday. - Objective Vital Signs & Weight: Vital Signs (12 hours) Temp Pulse Pulse Resp BP BP Pulse Ox 10/19/19 17:31 98.2 F 72 16 111/60 98 10/19/19 15:45 98.4 F 76 20 107/65 92 L 10/19/19 11:41 99.4 F 126 H 20 109/63 96 10/19/19 09:57 83 97/66 10/19/19 09:11 125 H 97/64 10/19/19 07:46 97.9 F 95 20 110/69 97 Weight Admit Weight 146 lb 6.4 oz Weight 146 lb 6.4 oz I&O: 10/18/19 10/19/19 10/20/19 06:59 06:59 06:59 Intake Total 580 240 Output Total 1320 Balance -740 240 Result Diagrams: 10/19/19 04:50 10/19/19 04:50 Additional Labs: Accuchecks 10/19/19 10/19/19 10/19/19 16:33 10:35 05:41 POC Glucose 128 H 112 H 117 H 10/18/19 10/18/19 22:57 16:47 POC Glucose 109 105 Hospitalist ROS - Medication Medications: Active Medications Generic Name Dose Route Start Last Admin Trade Name Freq PRN Reason Stop Dose Admin Acetaminophen 650 mg 10/17/19 11:16 10/19/19 09:40 Tylenol PO 650 mg Q4H PRN Administration Headache/Fever/Mild Pain (1-3) Hydrocodone Bitart/Acetaminophen 1 tab 10/17/19 11:16 10/19/19 04:21 [place] 5/325 PO 1 tab Q6H PRN Administration Moderate Pain (4-6) Enoxaparin Sodium 30 mg 10/18/19 09:00 10/19/19 08:52 Lovenox SC 30 mg 0900 ELISSA Administration Cefepime HCl 2 gm/ Sodium 100 mls @ 200 mls/hr 10/18/19 10:00 10/19/19 08:52 Chloride IVPB 100 mls 1000 ELISSA Administration Vancomycin HCl 1 gm/ Device 200 mls @ 200 mls/hr 10/18/19 10:00 10/19/19 11: 23 IVPB 200 mls 1000 ELISSA Administration Sodium Chloride 10 ml 10/17/19 21:00 10/19/19 08:53 Flush - Normal Saline IVF 10 ml Q12HR ELISSA Administration Sodium Chloride 10 ml 10/17/19 12:04 10/18/19 10:11 Flush - Normal Saline IVF 10 ml PRN PRN Administration Saline Flush Sodium Chloride 10 ml 10/18/19 09:00 10/19/19 08:53 Flush - Normal Saline IVF Not Given Q12HR ELISSA - Exam General Appearance: awake alert ENT: normocephalic atraumatic Neck: supple, no JVD Heart - other findings: Tachycardic Respiratory: CTAB Gastrointestinal: soft, non-distended, normal bowel sounds Neurological: cranial nerve grossly intact, no focal deficits Hosp A/P (1) Infection of pacemaker pocket Code(s): T82.7XXA - INFECT/INFLM REACT D/T OTH CARDI/VASC DEV/IMPLNT/GRFT, INIT Status: Acute (2) Chronic atrial fibrillation Code(s): I48.20 - CHRONIC ATRIAL FIBRILLATION, UNSPECIFIED Status: Chronic (3) DM II (diabetes mellitus, type II), controlled Code(s): E11.9 - TYPE 2 DIABETES MELLITUS WITHOUT COMPLICATIONS Status: Chronic - Plan Infected pacemaker pocket secondary to recent staphylococcal bacteremia. Status post removal of the pacemaker. Awaiting culture results. Continue current IV antibiotics per ID. A. fib with RVR earlier in the morning that became rate controlled after restarting her home Cardizem.
[2019-10-19] MEDS: Famotidine 20 MG TAB PO SCH (19:59)
[2019-10-20 04:21] LABS: #Eosinphils 0.4 thou/uL (0.0-0.7); #Lymphocytes 1.9 thou/uL (1.20-3.40); #Monocytes 0.8 thou/uL (0.11-0.59); #Neutrophils 3.9 thou/uL (1.40-6.50); %Basophils 0.4 % (0.0-1.0); %Eosinophils 5.9 % (0.0-10.0); %Lymphocytes 26.9 % (21.0-51.0); %Monocytes 10.9 % (0.0-10.0); %Neutrophils 55.9 % (42.0-75.0); Hemoglobin 10.2 g/dL (12.0-16.0); Mean Corpuscular HGB CONC 31.3 g/dL (32.0-36.0); Mean Corpuscular Hemoglobin 27.8 pg (27.0-31.0); Mean Corpuscular Volume 88.9 fL (78.0-98.0); Mean Platelet Volume 8.4 fL (7.4-10.4); Platelet Count 90 thou/uL (130-400); Red Blood Cell (RBC) Count 3.67 mill/uL (4.20-5.40); White Blood Cell (WBC) Count 6.9 thou/uL (4.8-10.8)
[2019-10-20 04:30] LABS: Anion Gap 12 mmol/L (10-20); BUN (Urea Nitrogen) 36 mg/dL (9.8-20.1); Calc. Creatinine Clearance 59 mL/min (70-130); Calcium 9.9 mg/dL (7.8-10.44); Carbon Dioxide 22 mmol/L (23-31); Chloride 108 mmol/L (98-107); Estimated GFR-MDRD 69; Glucose 117 mg/dL (83-110); Sodium 138 mmol/L (136-145)
[2019-10-20] MEDS: Levothyroxine Sodium 75 MCG TAB PO SCH (06:05)
[2019-10-20] MEDS: HYDROcodone/Acetaminophen 5/325 mg Tablet PO PRN (08:47)
[2019-10-20] MEDS: Aspirin 81 mg Enteric Coated Tablet PO SCH (08:47)
[2019-10-20] MEDS: Escitalopram Oxalate 10 mg Tablet PO SCH (08:47)
[2019-10-20] MEDS: Enoxaparin Sodium 30 MG/0.3 ML SYRINGE SC SCH (08:48)
[2019-10-20] MEDS: Famotidine 20 MG TAB PO SCH ×2 (08:48→20:10)
[2019-10-20] MEDS ORDERED: Non-Formulary Item 1 EACH (Diltiazem Hcl [Diltiazem Er 24 Hr] 180 MG) PO SCH (09:00)
[2019-10-20] MEDS: Cefepime 2 GM in Sodium Chloride 0.9% 100 ML IVPB SCH (09:13)
[2019-10-20] MEDS: Vancomycin 1 GM in Premix Bag 1 BAG IVPB SCH (10:10)
[2019-10-20] MEDS: Insulin Regular 300 UNITS/3 ML VIAL SC PRN (12:19)
--- NOTE | 2019-10-20 14:14 | PDOC.CPN ---
- Subjective Date: 10/20/19 Time: 12:15 Interval history: Patient without complaints. Says that pacer site oozed blood last night. Wound care changed bandage today. - Review of Systems General: denies: fever/chills, weight/appetite/sleep changes, night sweats, fatigue Respiratory: denies: cough, congestion, shortness of breath, exercise intolerance Cardiovascular: denies: chest pain, palpitation, edema, paroxysmal nocturnal dyspnea, orthopnea Gastrointestinal: denies: nausea, vomiting, diarrhea, constipation, abd pain, GI bleeding Musculoskeletal: denies: pain, tenderness, stiffness, swelling, arthritis/ arthralgias Neurological: denies: numbness, syncope, seizure, weakness - Objective Allergies/Adverse Reactions: Allergies Allergy/AdvReac Type Severity Reaction Status Date / Time Penicillins Allergy Severe Verified 08/20/19 10:49 latex Allergy Verified 08/20/19 10:49 Visit Medications: Current Medications Acetaminophen (Tylenol) 650 mg PO Q4H PRN PRN Reason: Headache/Fever/Mild Pain (1-3) Last Admin: 10/19/19 09:40 Dose: 650 mg Hydrocodone Bitart/Acetaminophen ([place] 5/325) 1 tab PO Q6H PRN PRN Reason: Moderate Pain (4-6) Last Admin: 10/20/19 08:47 Dose: 1 tab Aspirin (Ecotrin) 81 mg PO DAILY [facility] Last Admin: 10/20/19 08:47 Dose: 81 mg Dextrose/Water (Dextrose 50%) 25 gm SLOW IVP PRN PRN PRN Reason: Hypoglycemia Diltiazem HCl (Cardizem Cd) 180 mg PO DAILY [facility] [place] Last Admin: 10/20/19 08:48 Dose: 180 mg Enoxaparin Sodium (Lovenox) 30 mg SC 0900 [facility] [place] Last Admin: 10/20/19 08:48 Dose: 30 mg Escitalopram Oxalate (Lexapro) 5 mg PO DAILY [facility] [place] Last Admin: 10/20/19 08:47 Dose: 5 mg Famotidine (Pepcid) 20 mg PO BID [facility] [place] Last Admin: 10/20/19 08:48 Dose: 20 mg Glucagon (Glucagon) 1 mg IM PRN PRN PRN Reason: Hypoglycemia Dextrose/Water (D5w) 1,000 mls @ 0 mls/hr IV .Q0M PRN PRN Reason: Hypoglycemia Cefepime HCl 2 gm/ Sodium (Chloride) 100 mls @ 200 mls/hr IVPB 1000 [facility] [place] Last Admin: 10/20/19 09:13 Dose: 100 mls Vancomycin HCl 1 gm/ Device 200 mls @ 200 mls/hr IVPB 1000 [facility] [place] Last Admin: 10/20/19 10:10 Dose: 200 mls Insulin Human Regular (Humulin R) 0 units SC .MODERATE SLIDING SC PRN PRN Reason: Moderate Correctional Scale Last Admin: 10/20/19 12:19 Dose: 2 unit Levothyroxine Sodium (Synthroid) 75 mcg PO 0600 [facility] [place] Last Admin: 10/20/19 06:05 Dose: 75 mcg Miscellaneous Medication (Pharmacy To Dose) 1 each IVPB PRN PRN PRN Reason: Pharmacy to dose Ondansetron HCl (Zofran) 4 mg IVP Q6H PRN PRN Reason: Nausea/Vomiting Sodium Chloride (Flush - Normal Saline) 10 ml IVF Q12HR [facility] [place] Last Admin: 10/20/19 08:49 Dose: 10 ml Sodium Chloride (Flush - Normal Saline) 10 ml IVF PRN PRN PRN Reason: Saline Flush Last Admin: 10/18/19 10:11 Dose: 10 ml Sodium Chloride (Flush - Normal Saline) 10 ml IVF Q12HR [facility] [place] Last Admin: 10/20/19 08:49 Dose: Not Given Sodium Chloride (Flush - Normal Saline) 10 ml IVF PRN PRN PRN Reason: Saline Flush Vital Signs & Weight: Vital Signs Temp Pulse Resp BP Pulse Ox 10/20/19 11:11 98.3 F 69 18 119/58 L 98 10/20/19 07:25 97.9 F 72 16 156/67 H 100 10/20/19 03:52 98.9 F 55 L 20 132/63 100 Admit Weight 146 lb 6.4 oz Weight 146 lb 6.4 oz - Physical Exam General: alert & oriented x3, appears well, no apparent distress HEENT: mucus membranes moist Cardiac: other (IRR IRR) Lungs: clear to auscultation, no wheeze, rales, rhonchi Neuro: grossly intact Abdomen: non-tender Skin: clear Musculoskeletal: no pain - Labs Result Diagrams: 10/20/19 03:33 10/20/19 03:33 - Assessment/Plan Assessment/Plan: 1. Pacemaker infection s/p removal 2. AF 3. SSS Patient with tachy-jules 50-120bpm. Asymptomatic. Will continue CCB only for now. IV antibiotics and wound care. Pain free. No changes today. RG-Pt seen and examined; agree with the above assessment Pt seen twice today slow bleeding noted from the pacemaker removal site now better after redressing Consider wound vac vs cauterization if it doesnt stop
--- NOTE | 2019-10-20 17:57 | PDOC.HOSPP ---
- Subjective Encounter Date: 10/20/19 Encounter Time: 11:30 Subjective: Patient seen and examined for PM infection s/p removal. Had some bloody drainage from wound earlier. No new complaints. No overnight events - Objective Vital Signs & Weight: Vital Signs (12 hours) Temp Pulse Resp BP Pulse Ox 10/20/19 15:38 99.4 F 76 17 111/53 L 98 10/20/19 11:11 98.3 F 69 18 119/58 L 98 10/20/19 07:25 97.9 F 72 16 156/67 H 100 Weight Admit Weight 146 lb 6.4 oz Weight 146 lb 6.4 oz I&O: 10/19/19 10/20/19 10/21/19 06:59 06:59 06:59 Intake Total 580 460 720 Output Total 1320 250 Balance -740 210 720 Result Diagrams: 10/20/19 03:33 10/20/19 03:33 Additional Labs: Accuchecks 10/20/19 10/20/19 10/20/19 16:55 11:07 05:47 POC Glucose 148 H 182 H 111 H 10/19/19 20:05 POC Glucose 205 H EKG Reviewed by me: Yes (Tele SR) Hospitalist ROS - Review of Systems Respiratory: denies: cough, dry, shortness of breath, hemoptysis, SOB with excertion, pleuritic pain, sputum, wheezing, other Cardiovascular: denies: chest pain, palpitations, orthopnea, paroxysmal noc. dyspnea, edema, light headedness, other - Medication Medications: Active Medications Generic Name Dose Route Start Last Admin Trade Name Freq PRN Reason Stop Dose Admin Acetaminophen 650 mg 10/17/19 11:16 10/19/19 09:40 Tylenol PO 650 mg Q4H PRN Administration Headache/Fever/Mild Pain (1-3) Hydrocodone Bitart/Acetaminophen 1 tab 10/17/19 11:16 10/20/19 08:47 [place] 5/325 PO 1 tab Q6H PRN Administration Moderate Pain (4-6) Aspirin 81 mg 10/20/19 09:00 10/20/19 08:47 Ecotrin PO 81 mg DAILY ELISSA Administration Diltiazem HCl 180 mg 10/20/19 09:00 10/20/19 08:48 Cardizem Cd PO 180 mg DAILY ELISSA Administration Enoxaparin Sodium 30 mg 10/18/19 09:00 10/20/19 08:48 Lovenox SC 30 mg 0900 ELISSA Administration Escitalopram Oxalate 5 mg 10/20/19 09:00 10/20/19 08:47 Lexapro PO 5 mg DAILY ELISSA Administration Famotidine 20 mg 10/19/19 21:00 10/20/19 08:48 Pepcid PO 20 mg BID ELISSA Administration Cefepime HCl 2 gm/ Sodium 100 mls @ 200 mls/hr 10/18/19 10:00 10/20/19 09:13 Chloride IVPB 100 mls 1000 ELISSA Administration Vancomycin HCl 1 gm/ Device 200 mls @ 200 mls/hr 10/18/19 10:00 10/20/19 10: 10 IVPB 200 mls 1000 ELISSA Administration Insulin Human Regular 0 units 10/17/19 14:14 10/20/19 12:19 Humulin R SC 2 unit .MODERATE SLIDING SC PRN Administration Moderate Correctional Scale Levothyroxine Sodium 75 mcg 10/20/19 06:00 10/20/19 06:05 Synthroid PO 75 mcg 0600 ELISSA Administration Sodium Chloride 10 ml 10/17/19 21:00 10/20/19 08:49 Flush - Normal Saline IVF 10 ml Q12HR ELISSA Administration Sodium Chloride 10 ml 10/17/19 12:04 10/18/19 10:11 Flush - Normal Saline IVF 10 ml PRN PRN Administration Saline Flush Sodium Chloride 10 ml 10/18/19 09:00 10/20/19 08:49 Flush - Normal Saline IVF Not Given Q12HR ELISSA - Exam General Appearance: NAD Neck: supple, no JVD Heart: RRR, no gallops Respiratory: no wheezes, no rales Gastrointestinal: soft, non-tender, normal bowel sounds Extremities: no cyanosis Neurological: no new deficit Hosp A/P - Plan DVT proph w/lovenox, DVT proph w/SCDs PM infection s/p removal CAD Chronic Afib GERD HTN HLD DM2 h/o CVA Hypothyroidism PLAN: Cont IV Vanc/Cefepime Monitor Vanc level Cont ASA Con Cardizem Resume selected home meds AM labs Await cultures
[2019-10-20] MEDS: Lactinex Tablet PO SCH (20:10)
[2019-10-20] MEDS: Mirtazapine 15 MG TAB PO SCH (20:10)
[2019-10-20] MEDS: Atorvastatin Calcium 20 MG TAB PO SCH (20:10)
[2019-10-21 04:49] LABS: #Eosinphils 0.3 thou/uL (0.0-0.7); #Lymphocytes 1.8 thou/uL (1.20-3.40); #Monocytes 0.8 thou/uL (0.11-0.59); #Neutrophils 3.4 thou/uL (1.40-6.50); %Basophils 0.7 % (0.0-1.0); %Eosinophils 5.1 % (0.0-10.0); %Monocytes 12.5 % (0.0-10.0); %Neutrophils 53.8 % (42.0-75.0); Hemoglobin 9.8 g/dL (12.0-16.0); Mean Corpuscular HGB CONC 30.2 g/dL (32.0-36.0); Mean Corpuscular Hemoglobin 27.2 pg (27.0-31.0); Mean Corpuscular Volume 90.3 fL (78.0-98.0); Platelet Count 93 thou/uL (130-400); RBC Distribution Width 15.1 % (11.5-14.5); Red Blood Cell (RBC) Count 3.59 mill/uL (4.20-5.40); White Blood Cell (WBC) Count 6.4 thou/uL (4.8-10.8)
[2019-10-21 04:54] LABS: Anion Gap 12 mmol/L (10-20); BUN (Urea Nitrogen) 37 mg/dL (9.8-20.1); Calc. Creatinine Clearance 56 mL/min (70-130); Calcium 9.8 mg/dL (7.8-10.44); Carbon Dioxide 24 mmol/L (23-31); Chloride 107 mmol/L (98-107); Estimated GFR-MDRD 65; Glucose 119 mg/dL (83-110); Potassium 4.2 mmol/L (3.5-5.1); Sodium 139 mmol/L (136-145)
[2019-10-21] MEDS: Levothyroxine Sodium 75 MCG TAB PO SCH (05:55)
[2019-10-21] MEDS: Escitalopram Oxalate 10 mg Tablet PO SCH (10:14)
[2019-10-21] MEDS: Famotidine 20 MG TAB PO SCH ×2 (10:15→20:41)
[2019-10-21] MEDS: Lactinex Tablet PO SCH ×2 (10:15→20:40)
[2019-10-21] MEDS: Magnesium Oxide 400 MG TAB PO SCH (10:15)
[2019-10-21] MEDS: Multivit, Therapeutic 1 TAB PO SCH (10:15)
[2019-10-21] MEDS: Aspirin 81 mg Enteric Coated Tablet PO SCH (10:15)
[2019-10-21] MEDS: Cefepime 2 GM in Sodium Chloride 0.9% 100 ML IVPB SCH (10:18)
[2019-10-21 10:34] LABS: Vancomycin, Trough 18.2 ug/mL
[2019-10-21] MEDS: Enoxaparin Sodium 30 MG/0.3 ML SYRINGE SC SCH (11:19)
[2019-10-21] MEDS: Vancomycin 1 GM in Premix Bag 1 BAG IVPB SCH (11:47)
--- NOTE | 2019-10-21 14:10 | PDOC.CPN ---
- Subjective Date: 10/21/19 Time: 11:00 - Review of Systems General: denies: fever/chills, weight/appetite/sleep changes, night sweats, fatigue Respiratory: denies: cough, congestion, shortness of breath, exercise intolerance Cardiovascular: denies: chest pain, palpitation, edema, paroxysmal nocturnal dyspnea, orthopnea Gastrointestinal: denies: nausea, vomiting, diarrhea, constipation, abd pain, GI bleeding Musculoskeletal: denies: pain, tenderness, stiffness, swelling, arthritis/ arthralgias Neurological: denies: numbness, syncope, seizure, weakness - Objective Allergies/Adverse Reactions: Allergies Allergy/AdvReac Type Severity Reaction Status Date / Time Penicillins Allergy Severe Verified 08/20/19 10:49 latex Allergy Verified 08/20/19 10:49 Visit Medications: Current Medications Acetaminophen (Tylenol) 650 mg PO Q4H PRN PRN Reason: Headache/Fever/Mild Pain (1-3) Last Admin: 10/19/19 09:40 Dose: 650 mg Hydrocodone Bitart/Acetaminophen ([place] 5/325) 1 tab PO Q6H PRN PRN Reason: Moderate Pain (4-6) Last Admin: 10/20/19 08:47 Dose: 1 tab Acidophilus (Floranex) 1 tab PO BID [facility] Last Admin: 10/21/19 10:15 Dose: 1 tab Aspirin (Ecotrin) 81 mg PO DAILY [facility] Last Admin: 10/21/19 10:15 Dose: 81 mg Atorvastatin Calcium (Lipitor) 20 mg PO HS [facility] Last Admin: 10/20/19 20:10 Dose: 20 mg Dextrose/Water (Dextrose 50%) 25 gm SLOW IVP PRN PRN PRN Reason: Hypoglycemia Diltiazem HCl (Cardizem Cd) 180 mg PO DAILY [facility] Last Admin: 10/21/19 10:15 Dose: 180 mg Escitalopram Oxalate (Lexapro) 5 mg PO DAILY [facility] Last Admin: 10/21/19 10:14 Dose: 5 mg Famotidine (Pepcid) 20 mg PO BID [facility] Last Admin: 10/21/19 10:15 Dose: 20 mg Glucagon (Glucagon) 1 mg IM PRN PRN PRN Reason: Hypoglycemia Dextrose/Water (D5w) 1,000 mls @ 0 mls/hr IV .Q0M PRN PRN Reason: Hypoglycemia Vancomycin HCl 1 gm/ Device 200 mls @ 200 mls/hr IVPB 1000 [facility] Last Admin: 10/21/19 11:47 Dose: 200 mls Insulin Human Regular (Humulin R) 0 units SC .MODERATE SLIDING SC PRN PRN Reason: Moderate Correctional Scale Last Admin: 10/20/19 12:19 Dose: 2 unit Levothyroxine Sodium (Synthroid) 75 mcg PO 0600 [facility] Last Admin: 10/21/19 05:55 Dose: 75 mcg Magnesium Oxide (Magnesium Oxide) 400 mg PO DAILY [facility] Last Admin: 10/21/19 10:15 Dose: 400 mg Mirtazapine (Remeron) 7.5 mg PO HS [facility] Last Admin: 10/20/19 20:10 Dose: 7.5 mg Miscellaneous Medication (Pharmacy To Dose) 1 each IVPB PRN PRN PRN Reason: Pharmacy to dose Multivitamins (Theragran) 1 tab PO DAILY [facility] Last Admin: 10/21/19 10:15 Dose: 1 tab Ondansetron HCl (Zofran) 4 mg IVP Q6H PRN PRN Reason: Nausea/Vomiting Sodium Chloride (Flush - Normal Saline) 10 ml IVF Q12HR [facility] Last Admin: 10/21/19 10:16 Dose: 10 ml Sodium Chloride (Flush - Normal Saline) 10 ml IVF PRN PRN PRN Reason: Saline Flush Last Admin: 10/18/19 10:11 Dose: 10 ml Sodium Chloride (Flush - Normal Saline) 10 ml IVF Q12HR [facility] Last Admin: 10/21/19 10:15 Dose: Not Given Sodium Chloride (Flush - Normal Saline) 10 ml IVF PRN PRN PRN Reason: Saline Flush Vital Signs & Weight: Vital Signs Temp Pulse Resp BP Pulse Ox 10/21/19 11:15 97.8 F 85 20 116/74 99 10/21/19 07:29 98.5 F 88 15 133/65 99 10/21/19 03:46 98.6 F 62 18 139/76 92 L Admit Weight 146 lb 6.4 oz Weight 146 lb 6.4 oz - Physical Exam General: appears well, no apparent distress HEENT: mucus membranes moist Neck: supple neck Lungs: clear to auscultation, no wheeze, rales, rhonchi, other (pacer site with mild ooze blood under bandage. Wound care to change. Minimal ecchymosis to site. ) Neuro: grossly intact Abdomen: soft Extremities: no edema - Labs Result Diagrams: 10/21/19 04:25 10/21/19 04:25 - Assessment/Plan Assessment/Plan: 1. Pacemaker infection s/p removal 2. AF 3. SSS Patient with tachy-jules 50-120bpm. Asymptomatic. Will continue CCB only for now. IV antibiotics and wound care. Pacer site with slowing of bloody drainage. Continue monitoring. Pt seen and examined twice today gauze over pacer site is clean ad dry. No eveidence of bleeding. No fever. No changes.
--- NOTE | 2019-10-21 17:14 | PDOC.HOSPP ---
- Subjective Encounter Date: 10/21/19 Encounter Time: 08:40 Subjective: Pt seen for followup re: pacemaker infection. States she feels well. - Objective Vital Signs & Weight: Vital Signs (12 hours) Temp Pulse Resp BP Pulse Ox 10/21/19 16:00 98.2 F 75 18 113/67 97 10/21/19 11:15 97.8 F 85 20 116/74 99 10/21/19 07:29 98.5 F 88 15 133/65 99 Weight Admit Weight 146 lb 6.4 oz Weight 146 lb 6.4 oz I&O: 10/20/19 10/21/19 10/22/19 06:59 06:59 06:59 Intake Total 460 1020 Output Total 250 300 Balance 210 720 Result Diagrams: 10/21/19 04:25 10/21/19 04:25 Additional Labs: Accuchecks 10/21/19 10/21/19 10/21/19 17:02 10:45 05:59 POC Glucose 140 H 128 H 165 H 10/20/19 20:21 POC Glucose 179 H Labs and MARs reviewed by ma Hospitalist ROS - Review of Systems Cardiovascular: denies: chest pain, palpitations, orthopnea, paroxysmal noc. dyspnea, edema, light headedness Gastrointestinal: denies: nausea, vomiting, abdominal pain, diarrhea, constipation, melena, hematochezia - Medication Medications: Active Medications Generic Name Dose Route Start Last Admin Trade Name Freq PRN Reason Stop Dose Admin Acetaminophen 650 mg 10/17/19 11:16 10/19/19 09:40 Tylenol PO 650 mg Q4H PRN Administration Headache/Fever/Mild Pain (1-3) Hydrocodone Bitart/Acetaminophen 1 tab 10/17/19 11:16 10/20/19 08:47 [place] 5/325 PO 1 tab Q6H PRN Administration Moderate Pain (4-6) Acidophilus 1 tab 10/20/19 21:00 10/21/19 10:15 Floranex PO 1 tab BID ELISSA Administration Aspirin 81 mg 10/20/19 09:00 10/21/19 10:15 Ecotrin PO 81 mg DAILY ELISSA Administration Atorvastatin Calcium 20 mg 10/20/19 21:00 10/20/19 20:10 Lipitor PO 20 mg HS ELISSA Administration Diltiazem HCl 180 mg 10/20/19 09:00 10/21/19 10:15 Cardizem Cd PO 180 mg DAILY ELISSA Administration Escitalopram Oxalate 5 mg 10/20/19 09:00 10/21/19 10:14 Lexapro PO 5 mg DAILY ELISSA Administration Famotidine 20 mg 10/19/19 21:00 10/21/19 10:15 Pepcid PO 20 mg BID ELISSA Administration Vancomycin HCl 1 gm/ Device 200 mls @ 200 mls/hr 10/18/19 10:00 10/21/19 11: 47 IVPB 200 mls 1000 ELISSA Administration Insulin Human Regular 0 units 10/17/19 14:14 10/20/19 12:19 Humulin R SC 2 unit .MODERATE SLIDING SC PRN Administration Moderate Correctional Scale Levothyroxine Sodium 75 mcg 10/20/19 06:00 10/21/19 05:55 Synthroid PO 75 mcg 0600 ELISSA Administration Magnesium Oxide 400 mg 10/21/19 09:00 10/21/19 10:15 Magnesium Oxide PO 400 mg DAILY ELISSA Administration Mirtazapine 7.5 mg 10/20/19 21:00 10/20/19 20:10 Remeron PO 7.5 mg HS ELISSA Administration Multivitamins 1 tab 10/21/19 09:00 10/21/19 10:15 Theragran PO 1 tab DAILY ELISSA Administration Sodium Chloride 10 ml 10/17/19 21:00 10/21/19 10:16 Flush - Normal Saline IVF 10 ml Q12HR ELISSA Administration Sodium Chloride 10 ml 10/17/19 12:04 10/18/19 10:11 Flush - Normal Saline IVF 10 ml PRN PRN Administration Saline Flush Sodium Chloride 10 ml 10/18/19 09:00 10/21/19 10:15 Flush - Normal Saline IVF Not Given Q12HR ELISSA - Exam General Appearance: awake alert Eye: anicteric sclera ENT: moist mucosa Neck: supple Heart: RRR, no rubs Respiratory: CTAB Gastrointestinal: soft, non-tender Extremities: no cyanosis Skin - other findings: dressing over pacemaker site Psychiatric: normal affect, normal behavior Hosp A/P - Plan - Assessment Infected pacemaker s/p removal Chronic Afib CAD HTN GERD Dyslipidemia DM2 h/o CVA Hypothyroidism depression - Plan Cont IV Vanc; cefepime discontinued (MRSA in culture) Continue ASA and Cardizem Depression mild, stable
[2019-10-21] MEDS: Mirtazapine 15 MG TAB PO SCH (20:41)
[2019-10-21] MEDS: Atorvastatin Calcium 20 MG TAB PO SCH (20:41)
[2019-10-22 04:11] LABS: Anion Gap 13 mmol/L (10-20); BUN (Urea Nitrogen) 34 mg/dL (9.8-20.1); Calc. Creatinine Clearance 55 mL/min (70-130); Calcium 9.9 mg/dL (7.8-10.44); Carbon Dioxide 23 mmol/L (23-31); Chloride 107 mmol/L (98-107); Estimated GFR-MDRD 64; Glucose 123 mg/dL (83-110); Sodium 139 mmol/L (136-145)
[2019-10-22 04:16] LABS: #Eosinphils 0.3 thou/uL (0.0-0.7); #Lymphocytes 1.9 thou/uL (1.20-3.40); #Monocytes 0.9 thou/uL (0.11-0.59); #Neutrophils 4.9 thou/uL (1.40-6.50); %Basophils 0.5 % (0.0-1.0); %Eosinophils 3.9 % (0.0-10.0); %Lymphocytes 23.1 % (21.0-51.0); %Monocytes 11.1 % (0.0-10.0); %Neutrophils 61.3 % (42.0-75.0); Hemoglobin 9.3 g/dL (12.0-16.0); Mean Corpuscular HGB CONC 30.7 g/dL (32.0-36.0); Mean Corpuscular Hemoglobin 27.2 pg (27.0-31.0); Mean Corpuscular Volume 88.7 fL (78.0-98.0); Mean Platelet Volume 8.9 fL (7.4-10.4); Platelet Count 98 thou/uL (130-400); RBC Distribution Width 15.1 % (11.5-14.5); White Blood Cell (WBC) Count 8.1 thou/uL (4.8-10.8)
[2019-10-22] MEDS: Levothyroxine Sodium 75 MCG TAB PO SCH (05:41)
[2019-10-22] MEDS: Aspirin 81 mg Enteric Coated Tablet PO SCH (09:14)
[2019-10-22] MEDS: Famotidine 20 MG TAB PO SCH ×2 (09:14→20:57)
[2019-10-22] MEDS: Magnesium Oxide 400 MG TAB PO SCH (09:14)
[2019-10-22] MEDS: Multivit, Therapeutic 1 TAB PO SCH (09:14)
[2019-10-22] MEDS: Escitalopram Oxalate 10 mg Tablet PO SCH (09:14)
[2019-10-22] MEDS: Lactinex Tablet PO SCH ×2 (09:14→20:59)
[2019-10-22] MEDS: HYDROcodone/Acetaminophen 5/325 mg Tablet PO PRN ×2 (09:36→17:28)
[2019-10-22] MEDS: Vancomycin 1 GM in Premix Bag 1 BAG IVPB SCH (09:39)
[2019-10-22] MEDS: Insulin Regular 300 UNITS/3 ML VIAL SC PRN (12:03)
--- NOTE | 2019-10-22 14:09 | CCL ---
CARDIAC CATHETERIZATION PROCEDURE: DATE OF ADMISSION: 10/17/2019. DATE OF PROCEDURE: 10/18/2019. INDICATION FOR PROCEDURE: An 78-year-old female who underwent single chamber pacemaker insertion in March of 2019. She subs equently was found to have MRSA and also I believe she had urosepsis in the past recently and then wa s noted to have an infected pacemaker pocket site and was told to have this removed as well as the le ad. The pacemaker pocket had already to open itself and ooze. TECHNIQUE: She was taken to the cardiac supervisor laboratory where she was prepped and draped in sterile fashion. Using car eful technique, the pacemaker pocket was opened and the pacemaker was removed and the lead was then d etached from the end of the pacemaker at the lead. The coil was then retracted back into the lead an d the lead was easily removed from the right ventricle without any complications or difficulties. Th e wound was then packed using iodoform gauze and OpSite was then placed over the wound. IMPRESSION: Infected pacemaker pocket which required removal of the pacemaker generator as well as the lead. The patient remained in atrial fibrillation with a heart rate 90 to 110 through the procedure. There we re no complications or difficulties encountered. The pacemaker pocket was also irrigated using copio us amounts of antibiotic solution prior to placing the iodoform gauze and hemostasis was obtained. POS: JED
--- NOTE | 2019-10-22 20:37 | PDOC.HOSPP ---
- Subjective Encounter Date: 10/22/19 Encounter Time: 08:00 Subjective: Pt seen for followup re: pacemaker infection. States she feels well, slept well. - Objective Vital Signs & Weight: Vital Signs (12 hours) Temp Pulse Resp BP Pulse Ox 10/22/19 19:40 97.6 F 69 20 130/64 98 10/22/19 16:34 97.7 F 68 20 103/53 L 96 10/22/19 12:12 97.3 F L 60 15 98/52 L 97 Weight Admit Weight 146 lb 6.4 oz Weight 146 lb 6.4 oz I&O: 10/21/19 10/22/19 10/23/19 06:59 06:59 06:59 Intake Total 1020 1500 960 Output Total 300 925 100 Balance 720 575 860 Result Diagrams: 10/22/19 03:30 10/22/19 03:30 Additional Labs: Accuchecks 10/22/19 10/22/19 10/22/19 20:18 17:06 11:08 POC Glucose 182 H 161 H 207 H 10/22/19 05:44 POC Glucose 127 H Labs and MARs reviewed by me EKG Reviewed by me: Yes (Tele: NSR) Hospitalist ROS - Review of Systems Constitutional: denies: fever, chills, sweats, weakness, malaise Cardiovascular: denies: chest pain, palpitations, orthopnea, paroxysmal noc. dyspnea, edema, light headedness - Medication Medications: Active Medications Generic Name Dose Route Start Last Admin Trade Name Freq PRN Reason Stop Dose Admin Acetaminophen 650 mg 10/17/19 11:16 10/19/19 09:40 Tylenol PO 650 mg Q4H PRN Administration Headache/Fever/Mild Pain (1-3) Hydrocodone Bitart/Acetaminophen 1 tab 10/17/19 11:16 10/22/19 17:28 [place] 5/325 PO 1 tab Q6H PRN Administration Moderate Pain (4-6) Acidophilus 1 tab 10/20/19 21:00 10/22/19 09:14 Floranex PO 1 tab BID ELISSA Administration Aspirin 81 mg 10/20/19 09:00 10/22/19 09:14 Ecotrin PO 81 mg DAILY ELISSA Administration Atorvastatin Calcium 20 mg 10/20/19 21:00 10/21/19 20:41 Lipitor PO 20 mg HS ELISSA Administration Diltiazem HCl 180 mg 10/20/19 09:00 10/22/19 09:14 Cardizem Cd PO 180 mg DAILY ELISSA Administration Escitalopram Oxalate 5 mg 10/20/19 09:00 10/22/19 09:14 Lexapro PO 5 mg DAILY ELISSA Administration Famotidine 20 mg 10/19/19 21:00 10/22/19 09:14 Pepcid PO 20 mg BID ELISSA Administration Vancomycin HCl 1 gm/ Device 200 mls @ 200 mls/hr 10/18/19 10:00 10/22/19 09: 39 IVPB 200 mls 1000 ELISSA Administration Insulin Human Regular 0 units 10/17/19 14:14 10/22/19 12:03 Humulin R SC 4 unit .MODERATE SLIDING SC PRN Administration Moderate Correctional Scale Levothyroxine Sodium 75 mcg 10/20/19 06:00 10/22/19 05:41 Synthroid PO 75 mcg 0600 ELISSA Administration Magnesium Oxide 400 mg 10/21/19 09:00 10/22/19 09:14 Magnesium Oxide PO 400 mg DAILY ELISSA Administration Mirtazapine 7.5 mg 10/20/19 21:00 10/21/19 20:41 Remeron PO 7.5 mg HS ELISSA Administration Multivitamins 1 tab 10/21/19 09:00 10/22/19 09:14 Theragran PO 1 tab DAILY ELISSA Administration Sodium Chloride 10 ml 10/17/19 21:00 10/22/19 09:15 Flush - Normal Saline IVF 10 ml Q12HR ELISSA Administration Sodium Chloride 10 ml 10/17/19 12:04 10/18/19 10:11 Flush - Normal Saline IVF 10 ml PRN PRN Administration Saline Flush Sodium Chloride 10 ml 10/18/19 09:00 10/22/19 09:15 Flush - Normal Saline IVF Not Given Q12HR ELISSA - Exam General Appearance: awake alert Neck: supple Heart: RRR, no rubs Respiratory: no wheezes, normal chest expansion Gastrointestinal: soft, non-tender Extremities: no cyanosis Psychiatric: normal affect, normal behavior Hosp A/P - Plan - Assessment Infected pacemaker s/p removal CAD Chronic Afib HTN GERD Hypothyroidism depression Dyslipidemia DM2 h/o CVA - Plan Cont IV Vancomycin Pt is on ASA and Cardizem, will continue Depression mild, stable
[2019-10-22] MEDS: Mirtazapine 15 MG TAB PO SCH (20:57)
[2019-10-22] MEDS: Atorvastatin Calcium 20 MG TAB PO SCH (20:57)
[2019-10-23] MEDS: Levothyroxine Sodium 75 MCG TAB PO SCH (06:08)
[2019-10-23] MEDS: Famotidine 20 MG TAB PO SCH ×2 (09:37→20:39)
[2019-10-23] MEDS: Lactinex Tablet PO SCH ×2 (09:37→20:39)
[2019-10-23] MEDS: Aspirin 81 mg Enteric Coated Tablet PO SCH (09:37)
[2019-10-23] MEDS: Escitalopram Oxalate 10 mg Tablet PO SCH (09:38)
[2019-10-23] MEDS: Magnesium Oxide 400 MG TAB PO SCH (09:38)
[2019-10-23] MEDS: Multivit, Therapeutic 1 TAB PO SCH (09:38)
[2019-10-23] MEDS: Vancomycin 1 GM in Premix Bag 1 BAG IVPB SCH (09:39)
[2019-10-23] MEDS: Insulin Regular 300 UNITS/3 ML VIAL SC PRN ×2 (13:06→18:01)
--- NOTE | 2019-10-23 15:10 | PRG ---
DATE OF SERVICE: 10/23/2019 SUBJECTIVE: Ms. Méndez denies any chest pain or pressure. OBJECTIVE: VITAL SIGNS: Her blood pressure is 127/66, pulse 69, but she has had an occasional heart rate in the 40s. LUNGS: Clear. CARDIAC: Irregular. ABDOMEN: Soft and nontender. EXTREMITIES: No edema. ASSESSMENT: Tachycardia-bradycardia syndrome with occasional bradycardia. PLAN: 1. Reduce Cardizem CD to 120 mg a day. 2. From a cardiac standpoint, could be released home or go to a non-monitored bed. 3. The patient is not being anticoagulated. We will need to review the records to see if there is a contraindication to anticoagulation. She is on aspirin. Stay off metoprolol. She does need . Job ID: [id number]
--- NOTE | 2019-10-23 18:09 | PRG ---
DATE OF SERVICE: 10/23/2019 SUBJECTIVE: Ms. Méndez is doing well. No pain, maybe a little bit at the wound site in left upper chest. No dyspnea. No abdominal pain or diarrhea. OBJECTIVE: VITAL SIGNS: She has been afebrile. Other vital signs are normal. She has O2 saturations 100 on 2 L nasal cannula. GENERAL: No distress. LUNGS: Clear. The left upper chest wound with healthy-appearing base, a little bit of serosanguineous drainage. HEART: S1 and S2, regular rate. ABDOMEN: Soft and not distended. LABORATORY DATA: White cell count 8.1, hemoglobin 9.3, platelets 98,000. Creatinine is 0.85. Microbiology showed MRSA, it is susceptible to various antimicrobials including clindamycin, erythromycin, linezolid, tetracycline, Bactrim, and vancomycin. The blood cultures thus far negative in 5 days, which actually this is the final result. ASSESSMENT AND DISCUSSION: Type 2 diabetes, PVD, ischemic cardiomyopathy, bradycardia, pacemaker placement in February, methicillin-resistant Staphylococcus aureus infection with bacteremia recently and now methicillin-resistant Staphylococcus aureus infection of the pacer, likely from hematogenous spread. The device has been removed and I think she can be transitioned to either oral doxy and rifampin or oral clindamycin for about 2 weeks for discharge planning. Job ID: [id number]
--- NOTE | 2019-10-23 18:43 | PDOC.HOSPP ---
- Subjective Encounter Date: 10/23/19 Encounter Time: 08:40 Subjective: Pt seen for followup re: pacemaker infection. States she is feeling ok. - Objective Vital Signs & Weight: Vital Signs (12 hours) Temp Pulse Resp BP BP Pulse Ox 10/23/19 16:25 67 12 122/59 L 100 10/23/19 11:21 98.1 F 70 20 125/59 L 99 10/23/19 07:55 97.0 F L 69 16 127/66 98 Weight Admit Weight 146 lb 6.4 oz Weight 146 lb 6.4 oz I&O: 10/22/19 10/23/19 10/24/19 06:59 06:59 06:59 Intake Total 1500 1010 Output Total 925 400 Balance 575 610 Result Diagrams: 10/22/19 03:30 10/22/19 03:30 Additional Labs: Accuchecks 10/23/19 10/23/19 10/23/19 16:45 10:54 05:44 POC Glucose 160 H 211 H 128 H 10/22/19 20:18 POC Glucose 182 H Labs and MARs reviewed by id Hospitalist ROS - Review of Systems Constitutional: denies: fever, chills, sweats, weakness, malaise Cardiovascular: denies: chest pain, palpitations, orthopnea, paroxysmal noc. dyspnea, light headedness - Medication Medications: Active Medications Generic Name Dose Route Start Last Admin Trade Name Freq PRN Reason Stop Dose Admin Acetaminophen 650 mg 10/17/19 11:16 10/19/19 09:40 Tylenol PO 650 mg Q4H PRN Administration Headache/Fever/Mild Pain (1-3) Hydrocodone Bitart/Acetaminophen 1 tab 10/17/19 11:16 10/22/19 17:28 [place] 5/325 PO 1 tab Q6H PRN Administration Moderate Pain (4-6) Acidophilus 1 tab 10/20/19 21:00 10/23/19 09:37 Floranex PO 1 tab BID ELISSA Administration Aspirin 81 mg 10/20/19 09:00 10/23/19 09:37 Ecotrin PO 81 mg DAILY ELISSA Administration Atorvastatin Calcium 20 mg 10/20/19 21:00 10/22/19 20:57 Lipitor PO 20 mg HS ELISSA Administration Diltiazem HCl 120 mg 10/23/19 09:00 10/23/19 09:38 Cardizem Cd PO 120 mg DAILY ELISSA Administration Escitalopram Oxalate 5 mg 10/20/19 09:00 10/23/19 09:38 Lexapro PO 5 mg DAILY ELISSA Administration Famotidine 20 mg 10/19/19 21:00 10/23/19 09:37 Pepcid PO 20 mg BID ELISAS Administration Vancomycin HCl 1 gm/ Device 200 mls @ 200 mls/hr 10/18/19 10:00 10/23/19 09: 39 IVPB 200 mls 1000 ELISSA Administration Insulin Human Regular 0 units 10/17/19 14:14 10/23/19 18:01 Humulin R SC 2 unit .MODERATE SLIDING SC PRN Administration Moderate Correctional Scale Levothyroxine Sodium 75 mcg 10/20/19 06:00 10/23/19 06:08 Synthroid PO 75 mcg 0600 ELISSA Administration Magnesium Oxide 400 mg 10/21/19 09:00 10/23/19 09:38 Magnesium Oxide PO 400 mg DAILY ELISSA Administration Mirtazapine 7.5 mg 10/20/19 21:00 10/22/19 20:57 Remeron PO 7.5 mg HS ELISSA Administration Multivitamins 1 tab 10/21/19 09:00 10/23/19 09:38 Theragran PO 1 tab DAILY ELISSA Administration Sodium Chloride 10 ml 10/18/19 09:00 10/23/19 12:01 Flush - Normal Saline IVF 10 ml Q12HR ELISSA Administration - Exam General Appearance: awake alert Eye: anicteric sclera ENT: moist mucosa Neck: supple Heart: RRR Respiratory: CTAB Gastrointestinal: soft, non-tender Musculoskeletal: no muscle wasting Psychiatric: normal affect, normal behavior Hosp A/P - Plan - Assessment Infected pacemaker s/p removal CAD HTN GERD Hypothyroidism depressionChronic Afib DM2 Dyslipidemia h/o CVA - Plan Coninue IV Vancomycin Continue ASA and Cardizem Depression mild, stable Transfer to medical floor.
[2019-10-23] MEDS: Atorvastatin Calcium 20 MG TAB PO SCH (20:39)
[2019-10-23] MEDS: Mirtazapine 15 MG TAB PO SCH (20:39)
[2019-10-24] MEDS: HYDROcodone/Acetaminophen 5/325 mg Tablet PO PRN ×2 (00:15→09:32)
[2019-10-24] MEDS: Levothyroxine Sodium 75 MCG TAB PO SCH (05:55)
[2019-10-24 06:57] LABS: Iron 27 ug/dL (50-170); Iron Binding Capacity, Total 220 mcg/dL (265-497)
[2019-10-24] MEDS: Famotidine 20 MG TAB PO SCH ×2 (09:16→20:24)
[2019-10-24] MEDS: Lactinex Tablet PO SCH ×2 (09:17→20:25)
[2019-10-24] MEDS: Multivit, Therapeutic 1 TAB PO SCH (09:18)
[2019-10-24] MEDS: Aspirin 81 mg Enteric Coated Tablet PO SCH (09:19)
[2019-10-24] MEDS: Magnesium Oxide 400 MG TAB PO SCH (09:19)
[2019-10-24] MEDS: Escitalopram Oxalate 10 mg Tablet PO SCH (09:20)
[2019-10-24] MEDS: Vancomycin 1 GM in Premix Bag 1 BAG IVPB SCH (11:48)
[2019-10-24] MEDS ORDERED: Vancomycin HCl 750 MG in Sodium Chloride 0.9% 250 ML 250 ML IVPB SCH (12:00)
--- NOTE | 2019-10-24 14:14 | PQF ---
CLINICAL DOCUMENTATION IMPROVEMENT CLARIFICATION FORM: ICD-10 Updated PLEASE DO AN ADDENDUM TO THE PROGRESS NOTE WITH ANY DOCUMENTATION UPDATES OR ADDITIONS AND CARRY THROUGH TO DC SUMMARY. THANK YOU. Date: 10/24/2019 ATTN: Dr. Das Please exercise your independent, professional judgment in responding to the clarification form. 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 CVA, DM, HTN. Pacemaker site infection. TREATMENT: Optometry Professor Assessment for MST Score 3: (14-23 lb wt loss, poor appetite) Order 10/17: Supplement: Srinivasan Lynch BID Moderate Malnutrition (in acute illness) Energy Intake: <75% of estimated energy requirement for > 7 days Weight Loss: 1-2%/1 week; 5%/ 1 month; 7.5%/3 months Other: mild body fat loss; mild muscle mass loss; mild fluid accumulation; Severe Malnutrition (in acute illness) Energy Intake: < 50% of estimated energy requirement for > 5 days Weight Loss: >1-2%/1 week; >5%/1 month; >7.5%/3 months Other: moderate body fat loss; moderate muscle mass loss; moderate- severe fluid accumulation; measurably reduced medical administrator strength Moderate Malnutrition (in chronic illness) Energy Intake: <75% of estimated energy requirement for >1 month Weight Loss: 5%/1 month; 7.5%/3 months; 10%/6 months; 20%/1 year Other: mild body fat loss; mild muscle mass loss; mild fluid accumulation Severe Malnutrition (in chronic illness) Energy Intake: <75% of estimated energy requirement for >1 month Weight Loss: >5%/1 month; >7.5%/3 months; >10%/6 months; >20%/1 year Other: severe body fat loss; severe muscle mass loss; severe fluid accumulation; measurably reduced medical administrator strength Thank you, Sabina (This form is maintained as a part of the permanent medical record) 2015 [employer]. All Rights Reserved Sabina Mcmahan RN, BSN [email or web address]
--- NOTE | 2019-10-24 15:45 | PRG ---
DATE OF SERVICE: 10/24/2019 SUBJECTIVE: Ms. Méndez is back on the floor. She is feeling well, little bit confused. No respiratory symptoms or abdominal pain. Voiding in the diaper. OBJECTIVE: GENERAL: Chronically ill appearing, but in no acute distress. The left pacer pocket site covered with dressing. Photo from wound care management shows resolution of the erythema and serosanguineous drainage at the bottom of the wound. LUNGS: Clear. HEART: S1 and S2. Regular rate. ABDOMEN: Soft, not distended or tender. LABORATORY DATA: White cell count 8.1, hemoglobin 9.3, platelets 98,000. The microbiology reviewed. Blood cultures, no growth in 5 days and MRSA from the site. ASSESSMENT AND DISCUSSION: Type 2 diabetes, peripheral vascular disease, ischemic cardiomyopathy, bradycardia, pacemaker placement in February, bradycardia, pacemaker placement in February, methicillin-resistant Staphylococcus aureus bacteremia a few months ago and now with likely hematogenous spread to the pacer pocket with infection, which led to removal of the device. Upon discharge, the patient to be transitioned to probably oral clindamycin for about 2 weeks and 300 mg four times daily. Job ID: [id number]
--- NOTE | 2019-10-24 16:10 | PDOC.HOSPP ---
- Subjective Encounter Date: 10/24/19 Encounter Time: 08:20 Subjective: Pt seen for followup re: infected pacemaker. No complaints today. - Objective Vital Signs & Weight: Vital Signs (12 hours) Temp Pulse Resp BP Pulse Ox 10/24/19 11:49 98 F 59 L 18 120/71 99 10/24/19 09:19 58 L 10/24/19 07:46 97.5 F L 58 L 20 116/67 100 Weight Admit Weight 146 lb 6.4 oz Weight 146 lb 6.4 oz I&O: 10/23/19 10/24/19 10/25/19 06:59 06:59 06:59 Intake Total 1010 300 600 Output Total 400 350 Balance 610 -50 600 Result Diagrams: 10/22/19 03:30 10/22/19 03:30 Additional Labs: Accuchecks 10/24/19 10/24/19 10/23/19 11:46 04:35 20:00 POC Glucose 157 H 122 H 239 H 10/23/19 16:45 POC Glucose 160 H Labs and MARs reviewed by id Hospitalist ROS - Review of Systems Constitutional: denies: chills, sweats, weakness, malaise Cardiovascular: denies: chest pain, paroxysmal noc. dyspnea, edema, light headedness - Medication Medications: Active Medications Generic Name Dose Route Start Last Admin Trade Name Freq PRN Reason Stop Dose Admin Acetaminophen 650 mg 10/17/19 11:16 10/19/19 09:40 Tylenol PO 650 mg Q4H PRN Administration Headache/Fever/Mild Pain (1-3) Hydrocodone Bitart/Acetaminophen 1 tab 10/17/19 11:16 10/24/19 09:32 [place] 5/325 PO 1 tab Q6H PRN Administration Moderate Pain (4-6) Acidophilus 1 tab 10/20/19 21:00 10/24/19 09:17 Floranex PO 1 tab BID ELISSA Administration Aspirin 81 mg 10/20/19 09:00 10/24/19 09:19 Ecotrin PO 81 mg DAILY ELISSA Administration Atorvastatin Calcium 20 mg 10/20/19 21:00 10/23/19 20:39 Lipitor PO 20 mg HS ELISSA Administration Diltiazem HCl 120 mg 10/23/19 09:00 10/24/19 09:19 Cardizem Cd PO 120 mg DAILY ELISSA Administration Escitalopram Oxalate 5 mg 10/20/19 09:00 10/24/19 09:20 Lexapro PO 5 mg DAILY ELISSA Administration Famotidine 20 mg 10/19/19 21:00 10/24/19 09:16 Pepcid PO 20 mg BID ELISSA Administration Vancomycin HCl 750 mg/ Sodium 250 mls @ 250 mls/hr 10/24/19 12:00 10/24/19 11 :37 Chloride IVPB 250 mls 1200 ELISSA Administration Insulin Human Regular 0 units 10/17/19 14:14 10/23/19 18:01 Humulin R SC 2 unit .MODERATE SLIDING SC PRN Administration Moderate Correctional Scale Levothyroxine Sodium 75 mcg 10/20/19 06:00 10/24/19 05:55 Synthroid PO 75 mcg 0600 ELISSA Administration Magnesium Oxide 400 mg 10/21/19 09:00 10/24/19 09:19 Magnesium Oxide PO 400 mg DAILY ELISSA Administration Mirtazapine 7.5 mg 10/20/19 21:00 10/23/19 20:39 Remeron PO 7.5 mg HS ELISSA Administration Multivitamins 1 tab 10/21/19 09:00 10/24/19 09:18 Theragran PO 1 tab DAILY ELISSA Administration Sodium Chloride 10 ml 10/18/19 09:00 10/24/19 09:39 Flush - Normal Saline IVF 10 ml Q12HR ELISSA Administration - Exam General Appearance: awake alert Eye: anicteric sclera ENT: moist mucosa Neck: supple Heart: no gallops, no rubs Respiratory: CTAB Gastrointestinal: soft, non-tender Musculoskeletal: no muscle wasting Psychiatric: normal affect, normal behavior Hosp A/P - Plan - Assessment Infected pacemaker s/p removal CAD Moderate protein-calorie malnutrition Hypothyroidism HTN GERD h/o CVA depression DM2 Dyslipidemia Chronic Afib - Plan Coninue IV Vancomycin, transition to clindamycin at the time of discharge. Continue aspirin Continue Cardizem Depression mild, stable
[2019-10-24] MEDS: Insulin Regular 300 UNITS/3 ML VIAL SC PRN (18:17)
[2019-10-24] MEDS: Atorvastatin Calcium 20 MG TAB PO SCH (20:24)
[2019-10-24] MEDS: Mirtazapine 15 MG TAB PO SCH (20:25)
[2019-10-25] MEDS: Levothyroxine Sodium 75 MCG TAB PO SCH (05:10)
[2019-10-25 07:57] VITALS: BP 143/87; TEMP 98.3
[2019-10-25] MEDS: Aspirin 81 mg Enteric Coated Tablet PO SCH (08:42)
[2019-10-25] MEDS: Escitalopram Oxalate 10 mg Tablet PO SCH (08:42)
[2019-10-25] MEDS: Magnesium Oxide 400 MG TAB PO SCH (08:42)
[2019-10-25] MEDS: Lactinex Tablet PO SCH (08:42)
[2019-10-25] MEDS: Multivit, Therapeutic 1 TAB PO SCH (08:44)
[2019-10-25] MEDS: Famotidine 20 MG TAB PO SCH (08:44)
[2019-10-25] MEDS ORDERED: Clindamycin 150 MG CAP PO SCH (10:00)
[2019-10-25] MEDS ORDERED: Ferrous Sulfate 325 MG TAB PO SCH ×2 (10:15→17:00)
[2019-10-25] MEDS ORDERED: Apixaban 2.5 MG TAB PO SCH ×2 (10:30→21:00)
[2019-10-25] MEDS: HYDROcodone/Acetaminophen 5/325 mg Tablet PO PRN (11:47)
--- NOTE | 2019-10-25 16:26 | DIS ---
DATE OF ADMISSION: 10/17/2019 DATE OF DISCHARGE: 10/25/2019 PRIMARY CARE PROVIDER: Dr. Karan Miller. DISCHARGE DIAGNOSES: 1. Pacemaker infection. 2. Methicillin-resistant Staphylococcus aureus infection. 3. Acute kidney injury. CONSULTATIONS DURING THIS HOSPITALIZATION: 1. Cardiology, Dr. Kimbrough. 2. Infectious Diseases, Dr. Lozoya. CONDITION OF THE PATIENT ON THE DAY OF DISCHARGE: Stable. I assessed Ms. Méndez on the day of discharge. She denies any chest pain or shortness of breath. Vital signs are stable. S1 and S2 are heard, regular. Lungs are clear to auscultation bilaterally. HOSPITAL COURSE: Ms. Méndez is a pleasant 78-year-old lady, who was admitted to [facility] on October 17, 2019, for pacemaker infection. She was started on intravenous antibiotics. She was seen by Cardiology and Infectious Diseases Service. She had the pacemaker removed. Cultures from pacemaker site grew MRSA that was resistant to amoxicillin, cefaclor, cefepime, ceftazidime, ciprofloxacin, levofloxacin, ofloxacin, and oxacillin, sensitive to azithromycin, clarithromycin, clindamycin, doxycycline, erythromycin, gentamicin, linezolid, rifampin, tetracycline, vancomycin, and trimethoprim/sulfamethoxazole. She has been cleared for discharge by both Infectious Diseases and Cardiology Services. Infectious Disease Service recommends two weeks of oral antibiotics. DISCHARGE MEDICATIONS: 1. Metoprolol was discontinued. 2. Cardizem CD dose was decreased to 120 mg daily. 3. She has been started on ferrous sulfate 325 mg 2 times a day and clindamycin 300 mg every 6 hours for two weeks. 4. She has also been started on apixaban 2.5 mg 2 times a day. Otherwise, her home medications were continued and include 1. Chlorhexidine/glycerine jelly every 1 hour as needed. 2. Tylenol p.r.n. 3. Aspirin 81 mg daily. 4. Humalog as needed. 5. Floranex one tablet 2 times a day. 6. Levothyroxine 75 mcg daily. 7. Milk of magnesia p.r.n. 8. Mirtazapine 7.5 mg daily. 9. Multivitamins one capsule daily. 10. Senokot 8.6 mg daily as needed. 11. Simvastatin 40 mg at bedtime. 12. Zinc 220 mg daily. 13. Tylenol No. 3 p.r.n. 14. Ascorbic acid 500 mg daily. 15. Clonidine p.r.n. 16. Lexapro 5 mg daily. 17. Pepcid 20 mg 2 times a day. 18. Lasix 40 mg daily. 19. Magnesium 400 mg daily. 20. Potassium chloride 10 mEq daily. Many thanks for allowing me to participate in your patient's care. Please feel free to contact me with any questions or concerns. ACTIVITY: As tolerated. DIET: Heart healthy and diabetic and low sodium. POST-ACUTE CARE FOLLOWUP: With primary care provider in 3 days and with Cardiology, Dr. Crockett, in 10 days. DISCHARGE DESTINATION: [facility], from where the patient was admitted to the hospital. TOTAL AMOUNT OF TIME SPENT COORDINATING THIS DISCHARGE: 33 minutes. Job ID: [id number]
== END 2019-10-25 14:17 | DRG 261 ==
LOC: ERS 09:23 → T4-B 11:13 → 2SE 17:35 → 2NO 10-19 17:19 → T4-A 10-23 19:00
PROVIDERS: ADMIT Internal Medicine; ATTEND Internal Medicine
PROC: 0JPT0PZ Removal of Cardiac Rhythm Related Device from Trunk Subcutaneous Tissue and Fascia, Open Approach (ICD-10-PCS; principal; 2019-10-18)
PROC: 02PA0MZ Removal of Cardiac Lead from Heart, Open Approach (ICD-10-PCS; 2019-10-18)
DX: T82.7XXA Infection and inflammatory reaction due to other cardiac and vascular devices, implants and grafts, initial encounter (principal); N17.9 Acute kidney failure, unspecified; I48.20 Chronic atrial fibrillation, unspecified; E44.0 Moderate protein-calorie malnutrition; K91.871 Postprocedural hematoma of a digestive system organ or structure following other procedure; B95.62 Methicillin resistant Staphylococcus aureus infection as the cause of diseases classified elsewhere; F03.90 Unspecified dementia, unspecified severity, without behavioral disturbance, psychotic disturbance, mood disturbance, and anxiety; E87.6 Hypokalemia; K21.9 Gastro-esophageal reflux disease without esophagitis; I50.9 Heart failure, unspecified; E11.9 Type 2 diabetes mellitus without complications; E03.9 Hypothyroidism, unspecified; F32.9 Major depressive disorder, single episode, unspecified; I73.9 Peripheral vascular disease, unspecified; D64.9 Anemia, unspecified; E78.5 Hyperlipidemia, unspecified; I25.5 Ischemic cardiomyopathy; I49.5 Sick sinus syndrome; Z68.23 Body mass index [BMI] 23.0-23.9, adult; M19.90 Unspecified osteoarthritis, unspecified site; E78.00 Pure hypercholesterolemia, unspecified; I25.2 Old myocardial infarction; Z86.73 Personal history of transient ischemic attack (TIA), and cerebral infarction without residual deficits; Z74.01 Bed confinement status; Z90.49 Acquired absence of other specified parts of digestive tract; Z90.710 Acquired absence of both cervix and uterus; Z89.422 Acquired absence of other left toe(s); Z89.421 Acquired absence of other right toe(s); Z88.0 Allergy status to penicillin; Z79.01 Long term (current) use of anticoagulants; Z91.040 Latex allergy status; Z95.5 Presence of coronary angioplasty implant and graft
CPT/HCPCS: 33234; 36415; 36416; 51701; 71045; 80048; 80053; 80202; 81003; 81015; 82728; 83540; 83550; 83605; 85025; 87040; 87070; 87077; 87186; 87205; 93005; 96365; 96366; 96375; A4353; J0692; J1580; J1650; J1815; J1956; J3370; J3490; J7050

== ENCOUNTER 2020-03-12 12:10 | Emergency (ER) | payer MEDICARE, MEDICAID ==
--- NOTE | 2020-03-12 13:40 | RAD ---
Exam:Left hand fourth digit 3 views HISTORY: Swelling and pain COMPARISON: None FINDINGS: Soft tissue swelling. Limited evaluation of the proximal phalanx due to ring. Diffuse bone demineralization. No erosive or destructive changes. 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 IMPRESSION: Soft tissue swelling. Correlate for cellulitis. No radiopaque foreign body.
== END 2020-03-12 14:25 ==
LOC: ERS 12:10
DX: M79.89 Other specified soft tissue disorders (principal); E87.6 Hypokalemia; M79.645 Pain in left finger(s); I11.0 Hypertensive heart disease with heart failure; I50.9 Heart failure, unspecified; I25.2 Old myocardial infarction; K21.9 Gastro-esophageal reflux disease without esophagitis; E78.5 Hyperlipidemia, unspecified; D64.9 Anemia, unspecified; M19.90 Unspecified osteoarthritis, unspecified site; E03.9 Hypothyroidism, unspecified; I70.90 Unspecified atherosclerosis; I73.9 Peripheral vascular disease, unspecified; Z86.73 Personal history of transient ischemic attack (TIA), and cerebral infarction without residual deficits; Z79.82 Long term (current) use of aspirin; Z79.899 Other long term (current) drug therapy

== ENCOUNTER 2021-01-08 17:31 | Observation (INO) | payer MEDICARE, OTHER ==
[2021-01-08 18:13] LABS: #Basophils 0.1 thou/uL (0.0-0.2); #Eosinphils 0.2 thou/uL (0.0-0.7); #Lymphocytes 2.1 thou/uL (1.20-3.40); #Monocytes 0.8 thou/uL (0.11-0.59); #Neutrophils 5.8 thou/uL (1.40-6.50); %Basophils 0.7 % (0.0-1.0); %Eosinophils 2.7 % (0.0-10.0); %Lymphocytes 23.5 % (21.0-51.0); %Monocytes 8.6 % (0.0-10.0); %Neutrophils 64.5 % (42.0-75.0); Hemoglobin 10.2 g/dL (12.0-16.0); Mean Corpuscular HGB CONC 31.7 g/dL (32.0-36.0); Mean Corpuscular Volume 91.4 fL (78.0-98.0); Mean Platelet Volume 6.7 fL (7.4-10.4); Platelet Count 218 thou/uL (130-400); RBC Distribution Width 14.1 % (11.5-14.5); Red Blood Cell (RBC) Count 3.53 mill/uL (4.20-5.40)
[2021-01-08 18:36] LABS: ALT (SGPT) 9 U/L (8-55); AST (SGOT) 16 U/L (5-34); Albumin 3.8 g/dL (3.4-4.8); Alkaline Phosphatase 100 U/L (40-110); Anion Gap 15 mmol/L (10-20); BUN (Urea Nitrogen) 32 mg/dL (9.8-20.1); Bilirubin, Total 0.3 mg/dL (0.2-1.2); Calc. Creatinine Clearance 0 mL/min (70-130); Calcium 10.1 mg/dL (7.8-10.44); Carbon Dioxide 28 mmol/L (23-31); Chloride 101 mmol/L (98-107); Globulin 2.6 g/dL (2.4-3.5); Glucose 77 mg/dL (83-110); Potassium 5.8 mmol/L (3.5-5.1); Protein, Total 6.4 g/dL (5.8-8.1); Sodium 138 mmol/L (136-145)
[2021-01-08 18:56] LABS: CKMB 1.1 ng/mL (0-6.6)
[2021-01-08 19:03] LABS: Bacteria/HPF None Seen HPF (None Seen); Bilirubin 1+ (Negative); Blood, Urine 2+ (Negative); Clarity Clear (Clear); Glucose, Urine (Dipstick) Normal (Negative); Ketone, Urine Negative (Negative); Leukocyte 75 Leu/uL (Negative); Nitrite Negative (Negative); Protein, Urine (Dipstick) 50 mg/dL (Neg-Trace); RBC/HPF 21-50 HPF (0-3); Specific Gravity, Urine 1.025 (1.002-1.036); Squamous Epithelial 0-3 HPF (0-3); Urobilinogen Normal mg/dL (Less than 2)
[2021-01-08] MEDS ORDERED: Calcium Chloride 1 GM/10 ML Abboject SYRINGE ONE (21:01)
[2021-01-08] MEDS ORDERED: Sodium Bicarb 50 MEQ/50 ML Abboject 8.4% SYRINGE ONE (21:01)
[2021-01-08 21:55] LABS: SARS-CoV-2 NAA Rapid Test Not Detected (NotDetected)
[2021-01-08 22:10] LABS: Troponin I 0.034 ng/mL (< 0.028)
[2021-01-09 01:03] LABS: Troponin I 0.032 ng/mL (< 0.028)
[2021-01-09] MEDS ORDERED: Dextrose 50% Abboject 50 ML SYRINGE SLOW IVP PRN (03:24)
[2021-01-09] MEDS ORDERED: Dextrose 5% in Water 1,000 ML IV PRN (03:24)
[2021-01-09] MEDS ORDERED: HumaLOG 300 UNITS/3 ML VIAL SC PRN ×2 (03:24)
[2021-01-09 06:09] VITALS: BMI 29.4
[2021-01-09 08:19] LABS: #Eosinphils 0.2 thou/uL (0.0-0.7); #Lymphocytes 1.4 thou/uL (1.20-3.40); #Monocytes 0.7 thou/uL (0.11-0.59); #Neutrophils 6.5 thou/uL (1.40-6.50); %Basophils 0.3 % (0.0-1.0); %Lymphocytes 15.8 % (21.0-51.0); %Monocytes 7.6 % (0.0-10.0); %Neutrophils 74.3 % (42.0-75.0); Hemoglobin 10.1 g/dL (12.0-16.0); Mean Corpuscular HGB CONC 30.6 g/dL (32.0-36.0); Mean Corpuscular Hemoglobin 28.5 pg (27.0-31.0); Mean Corpuscular Volume 92.9 fL (78.0-98.0); Mean Platelet Volume 6.6 fL (7.4-10.4); Platelet Count 208 thou/uL (130-400); Red Blood Cell (RBC) Count 3.53 mill/uL (4.20-5.40); White Blood Cell (WBC) Count 8.8 thou/uL (4.8-10.8)
[2021-01-09 08:37] LABS: Anion Gap 15 mmol/L (10-20); BUN (Urea Nitrogen) 31 mg/dL (9.8-20.1); Calc. Creatinine Clearance 34 mL/min (70-130); Calcium 10.4 mg/dL (7.8-10.44); Carbon Dioxide 29 mmol/L (23-31); Chloride 102 mmol/L (98-107); Glucose 97 mg/dL (83-110); Potassium 4.7 mmol/L (3.5-5.1); Sodium 141 mmol/L (136-145)
[2021-01-09] MEDS: Sodium Chloride 0.9% 1,000 ML IV SCH ×2 (08:53→20:28)
[2021-01-09] MEDS ORDERED: Acetaminophen/Codeine 30-300mg Tablet PO PRN (10:42)
[2021-01-09] MEDS ORDERED: Senokot 8.6 MG TAB PO PRN (11:16)
[2021-01-09] MEDS: LACTINEX 1 TAB PO SCH (20:28)
[2021-01-09] MEDS: Famotidine 20 MG TAB PO SCH (20:28)
[2021-01-09] MEDS: Ferrous Sulfate 325 MG TAB PO SCH (20:28)
[2021-01-09] MEDS ORDERED: Atorvastatin Calcium 20 MG TAB PO SCH (21:00)
[2021-01-10] MEDS ORDERED: Magnesium Oxide 400 MG TAB PO SCH (09:00)
[2021-01-10] MEDS ORDERED: Aspirin 81 mg Enteric Coated Tablet PO SCH (09:00)
[2021-01-10] MEDS ORDERED: Ascorbic Acid 500 mg Chewable Tablet PO SCH (09:00)
[2021-01-10] MEDS ORDERED: Escitalopram Oxalate 10 mg Tablet PO SCH (09:00)
[2021-01-10] MEDS ORDERED: Levothyroxine Sodium 50 MCG TAB PO SCH (09:00)
[2021-01-10] MEDS ORDERED: Mirtazapine 15 MG TAB PO SCH (09:00)
[2021-01-10] MEDS ORDERED: Multivit, Therapeutic 1 TAB PO SCH (09:00)
[2021-01-10] MEDS: LACTINEX 1 TAB PO SCH (09:37)
[2021-01-10] MEDS: Ferrous Sulfate 325 MG TAB PO SCH (09:40)
[2021-01-10] MEDS: Famotidine 20 MG TAB PO SCH (09:41)
[2021-01-10] MEDS: Sodium Chloride 0.9% 1,000 ML IV SCH (10:07)
[2021-01-10 11:52] VITALS: BP 134/74; TEMP 97.5
== END 2021-01-10 15:10 ==
LOC: ERS 17:31 → 2NO 20:28 → INTOOBSV 20:28 → SURG A 01-09 14:55
PROVIDERS: ADMIT Internal Medicine; ATTEND Internal Medicine
DX: I13.0 Hypertensive heart and chronic kidney disease with heart failure and stage 1 through stage 4 chronic kidney disease, or unspecified chronic kidney disease (principal); E11.22 Type 2 diabetes mellitus with diabetic chronic kidney disease; N18.9 Chronic kidney disease, unspecified; N17.9 Acute kidney failure, unspecified; I50.9 Heart failure, unspecified; D63.1 Anemia in chronic kidney disease; E87.5 Hyperkalemia; R10.33 Periumbilical pain; E78.5 Hyperlipidemia, unspecified; R77.8 Other specified abnormalities of plasma proteins; J96.10 Chronic respiratory failure, unspecified whether with hypoxia or hypercapnia; F03.90 Unspecified dementia, unspecified severity, without behavioral disturbance, psychotic disturbance, mood disturbance, and anxiety; I25.2 Old myocardial infarction; I48.20 Chronic atrial fibrillation, unspecified; K21.9 Gastro-esophageal reflux disease without esophagitis; M19.90 Unspecified osteoarthritis, unspecified site; E03.9 Hypothyroidism, unspecified; M16.12 Unilateral primary osteoarthritis, left hip; R18.8 Other ascites; K86.89 Other specified diseases of pancreas; R13.10 Dysphagia, unspecified; R53.81 Other malaise; K43.9 Ventral hernia without obstruction or gangrene; E11.10 Type 2 diabetes mellitus with ketoacidosis without coma; E66.9 Obesity, unspecified; Z68.29 Body mass index [BMI] 29.0-29.9, adult; Z86.14 Personal history of Methicillin resistant Staphylococcus aureus infection; Z86.73 Personal history of transient ischemic attack (TIA), and cerebral infarction without residual deficits; Z79.4 Long term (current) use of insulin; Z79.82 Long term (current) use of aspirin; Z79.899 Other long term (current) drug therapy; Z88.0 Allergy status to penicillin; Z91.040 Latex allergy status; Z95.0 Presence of cardiac pacemaker; Z99.81 Dependence on supplemental oxygen; Z20.822 Contact with and (suspected) exposure to COVID-19
CPT/HCPCS: 0240U; 71045; 74176; 80048; 80053; 82553; 82962 ×2; 83880; 84484 ×3; 85025 ×2; 93005; 96374; 96375; 99285; 36415; 36416; 81003; 81015

== ENCOUNTER 2021-01-29 15:38 | Inpatient (IN) | payer MEDICARE, OTHER ==
[2021-01-29 17:23] LABS: #Lymphocytes 0.7 thou/uL (1.20-3.40); #Monocytes 0.3 thou/uL (0.11-0.59); #Neutrophils 4.1 thou/uL (1.40-6.50); %Eosinophils 0.4 % (0.0-10.0); %Lymphocytes 13.9 % (21.0-51.0); %Monocytes 5.9 % (0.0-10.0); %Neutrophils 79.8 % (42.0-75.0); Hemoglobin 9.5 g/dL (12.0-16.0); Mean Corpuscular HGB CONC 30.9 g/dL (32.0-36.0); Mean Corpuscular Volume 90.7 fL (78.0-98.0); Mean Platelet Volume 8.1 fL (7.4-10.4); Platelet Count 131 thou/uL (130-400); RBC Distribution Width 15.7 % (11.5-14.5); White Blood Cell (WBC) Count 5.1 thou/uL (4.8-10.8)
[2021-01-29 17:40] LABS: Actual Bicarbonate (HCO3a) 23.6 mEq/L (22-28); Analyzer IN Cardio ER; Base Excess (BEa) -2.4 mEq/L (-2.0 to +3.0); CO2 Tension 46.4 mmHg (35.0-45.0); Calcium, Ionized (arterial) 1.16 mmol/L (1.12-1.30); Carboxyhemoglobin (COHb) 0.3 gm% (0.0-3.0); Hemoglobin (Hb) 9.8 g/dL (12.0-16.0); O2 Tension (PaO2), arterial 62.6 mmHg (> 60.0); Potassium - ABG Lab 4.55 mmol/L (3.70-5.30); pH, Arterial 7.33 (7.35-7.45)
[2021-01-29 17:42] LABS: Puncture Site LBA
[2021-01-29 17:45] LABS: ALT (SGPT) 7 U/L (8-55); AST (SGOT) 21 U/L (5-34); Alkaline Phosphatase 92 U/L (40-110); Anion Gap 12 mmol/L (10-20); BUN (Urea Nitrogen) 36 mg/dL (9.8-20.1); Bilirubin, Total 0.5 mg/dL (0.2-1.2); Calc. Creatinine Clearance 0 mL/min (70-130); Calcium 8.2 mg/dL (7.8-10.44); Carbon Dioxide 28 mmol/L (23-31); Chloride 107 mmol/L (98-107); Globulin 2.2 g/dL (2.4-3.5); Glucose 129 mg/dL (83-110); Potassium 5.1 mmol/L (3.5-5.1); Protein, Total 5.2 g/dL (5.8-8.1); Sodium 142 mmol/L (136-145)
[2021-01-29 18:07] LABS: CKMB 1.1 ng/mL (0-6.6)
[2021-01-29] MEDS ORDERED: cefTRIAXone\\ROCEPHIN 2 GM VIAL ONE (18:32)
[2021-01-29] MEDS ORDERED: Aspirin 325 MG TAB ONE (18:32)
[2021-01-29] MEDS ORDERED: Dexamethasone 10 MG/ML VIAL ONE (18:32)
[2021-01-29] MEDS ORDERED: Azithromycin 500 MG VIAL ONE (18:35)
[2021-01-29 20:09] LABS: Troponin I 0.043 ng/mL (< 0.028)
[2021-01-29] MEDS ORDERED: Ondansetron PF 4 MG/2 ML Vial IVP PRN (20:15)
[2021-01-29] MEDS ORDERED: Acetaminophen 325 MG TAB PO PRN (20:15)
[2021-01-29] MEDS ORDERED: Ondansetron ODT 4 MG TAB SL PRN (20:15)
[2021-01-29] MEDS ORDERED: Sodium Chloride 0.9% 1,000 ML IV SCH (20:15)
[2021-01-30 00:09] LABS: Troponin I 0.049 ng/mL (< 0.028)
[2021-01-30] MEDS ORDERED: Dextrose 5% in Water 1,000 ML IV PRN (01:42)
[2021-01-30] MEDS ORDERED: Dextrose 50% Abboject 50 ML SYRINGE SLOW IVP PRN (01:42)
[2021-01-30] MEDS ORDERED: Furosemide 20 MG/2 ML VIAL SLOW IVP SCH (02:00)
[2021-01-30] MEDS ORDERED: Enoxaparin Sodium 40 MG/0.4 ML SYRINGE ONE (02:19)
[2021-01-30] MEDS ORDERED: Furosemide 20 MG/2 ML VIAL ONE (02:19)
[2021-01-30] MEDS: Enoxaparin Sodium 40 MG/0.4 ML SYRINGE SC SCH ×2 (02:25→21:31)
[2021-01-30 02:27] LABS: #Lymphocytes 0.5 thou/uL (1.20-3.40); #Monocytes 0.1 thou/uL (0.11-0.59); #Neutrophils 4.4 thou/uL (1.40-6.50); %Eosinophils 0.5 % (0.0-10.0); %Lymphocytes 10.1 % (21.0-51.0); %Monocytes 1.9 % (0.0-10.0); %Neutrophils 87.6 % (42.0-75.0); Hemoglobin 9.4 g/dL (12.0-16.0); Mean Corpuscular HGB CONC 31.9 g/dL (32.0-36.0); Mean Corpuscular Hemoglobin 28.8 pg (27.0-31.0); Mean Corpuscular Volume 90.2 fL (78.0-98.0); Mean Platelet Volume 8.6 fL (7.4-10.4); Platelet Count 124 thou/uL (130-400); RBC Distribution Width 15.8 % (11.5-14.5); Red Blood Cell (RBC) Count 3.28 mill/uL (4.20-5.40)
[2021-01-30 03:20] LABS: Anion Gap 13 mmol/L (10-20); BUN (Urea Nitrogen) 36 mg/dL (9.8-20.1); Calc. Creatinine Clearance 0 mL/min (70-130); Calcium 7.8 mg/dL (7.8-10.44); Carbon Dioxide 24 mmol/L (23-31); Chloride 108 mmol/L (98-107); Glucose 173 mg/dL (83-110); Potassium 5.2 mmol/L (3.5-5.1); Sodium 140 mmol/L (136-145)
[2021-01-30] MEDS ORDERED: Benzonatate 100 MG CAP ONE (08:20)
[2021-01-30 15:26] LABS: Actual Bicarbonate (HCO3a) 18.4 mEq/L (22-28); Analyzer IN Cardio ER; Base Excess (BEa) -5.7 mEq/L (-2.0 to +3.0); CO2 Tension 30.8 mmHg (35.0-45.0); Calcium, Ionized (arterial) 1.12 mmol/L (1.12-1.30); Carboxyhemoglobin (COHb) 0.3 gm% (0.0-3.0); Hemoglobin (Hb) 9.9 g/dL (12.0-16.0); O2 Tension (PaO2), arterial 60.8 mmHg (> 60.0); Potassium - ABG Lab 5.21 mmol/L (3.70-5.30); pH, Arterial 7.39 (7.35-7.45)
[2021-01-30 15:28] LABS: Puncture Site RRA
[2021-01-30] MEDS: Dexamethasone 10 MG/ML VIAL SLOW IVP SCH (21:32)
[2021-01-30] MEDS: Benzonatate 100 MG CAP PO SCH (21:45)
[2021-01-31 05:05] LABS: #Lymphocytes 0.8 thou/uL (1.20-3.40); #Monocytes 0.4 thou/uL (0.11-0.59); #Neutrophils 4.7 thou/uL (1.40-6.50); %Basophils 0.5 % (0.0-1.0); %Eosinophils 0.6 % (0.0-10.0); %Lymphocytes 13.1 % (21.0-51.0); %Monocytes 6.5 % (0.0-10.0); %Neutrophils 79.4 % (42.0-75.0); Hemoglobin 8.9 g/dL (12.0-16.0); Mean Corpuscular Hemoglobin 27.7 pg (27.0-31.0); Mean Corpuscular Volume 89.3 fL (78.0-98.0); Mean Platelet Volume 8.2 fL (7.4-10.4); Platelet Count 162 thou/uL (130-400); RBC Distribution Width 15.9 % (11.5-14.5); Red Blood Cell (RBC) Count 3.22 mill/uL (4.20-5.40)
[2021-01-31 05:30] LABS: Anion Gap 18 mmol/L (10-20); BUN (Urea Nitrogen) 44 mg/dL (9.8-20.1); Calc. Creatinine Clearance 0 mL/min (70-130); Calcium 8.2 mg/dL (7.8-10.44); Carbon Dioxide 21 mmol/L (23-31); Chloride 109 mmol/L (98-107); Glucose 209 mg/dL (83-110); Potassium 5.4 mmol/L (3.5-5.1); Sodium 143 mmol/L (136-145)
[2021-01-31] MEDS: HumaLOG 300 UNITS/3 ML VIAL SC PRN ×2 (06:27→12:25)
[2021-01-31] MEDS: Benzonatate 100 MG CAP PO SCH ×3 (09:42→20:51)
[2021-01-31] MEDS: Ascorbic Acid 500 mg Chewable Tablet PO SCH (09:43)
[2021-01-31] MEDS: Cholecalciferol (Vitamin D3) 400 UNITS TAB PO SCH (09:43)
[2021-01-31] MEDS ORDERED: Insulin Regular 300 UNITS/3 ML VIAL ONE (10:09)
[2021-01-31] MEDS ORDERED: Furosemide 40 MG/4 ML VIAL SLOW IVP SCH (10:30)
[2021-01-31] MEDS: Dexamethasone 10 MG/ML VIAL SLOW IVP SCH ×3 (11:27→20:56)
[2021-01-31] MEDS ORDERED: Diltiazem 125 MG in Sodium Chloride 0.9% 100 ML IVPB SCH (12:15)
[2021-01-31] MEDS ORDERED: Lorazepam 2 MG/ML VIAL ONE (12:52)
[2021-01-31] MEDS: Ferrous Sulfate 325 MG TAB PO SCH (17:49)
[2021-01-31] MEDS: Enoxaparin Sodium 40 MG/0.4 ML SYRINGE SC SCH (17:59)
[2021-01-31 19:51] LABS: Anion Gap 17 mmol/L (10-20); BUN (Urea Nitrogen) 46 mg/dL (9.8-20.1); Calc. Creatinine Clearance 0 mL/min (70-130); Carbon Dioxide 23 mmol/L (23-31); Chloride 109 mmol/L (98-107); Glucose 180 mg/dL (83-110); Potassium 4.9 mmol/L (3.5-5.1); Sodium 144 mmol/L (136-145)
[2021-01-31] MEDS: Magnesium Oxide 400 MG TAB PO SCH (20:52)
[2021-01-31] MEDS: Atorvastatin Calcium 10 MG TAB PO SCH (20:52)
[2021-02-01] MEDS: Enoxaparin Sodium 40 MG/0.4 ML SYRINGE SC SCH ×3 (03:08→18:26)
[2021-02-01] MEDS: Lorazepam 2 MG/ML VIAL SLOW IVP PRN ×2 (03:48→09:01)
[2021-02-01] MEDS: Benzonatate 100 MG CAP PO SCH ×3 (03:50→18:26)
[2021-02-01] MEDS: Ascorbic Acid 500 mg Chewable Tablet PO SCH ×2 (03:50→09:45)
[2021-02-01] MEDS: Cholecalciferol (Vitamin D3) 400 UNITS TAB PO SCH ×2 (03:51→09:45)
[2021-02-01] MEDS: Levothyroxine Sodium 75 MCG TAB PO SCH (03:51)
[2021-02-01] MEDS: Dexamethasone 10 MG/ML VIAL SLOW IVP SCH ×3 (03:51→22:12)
[2021-02-01] MEDS ORDERED: Insulin Regular 300 UNITS/3 ML VIAL ONE (07:46)
[2021-02-01] MEDS: Lantus 1000 UNITS/10 ML VIAL SC SCH (09:08)
[2021-02-01] MEDS: Ferrous Sulfate 325 MG TAB PO SCH ×2 (09:45→18:26)
[2021-02-01] MEDS: Aspirin 81 mg Enteric Coated Tablet PO SCH (09:45)
[2021-02-01] MEDS: Escitalopram Oxalate 10 mg Tablet PO SCH (09:45)
[2021-02-01] MEDS: Magnesium Oxide 400 MG TAB PO SCH ×2 (09:45→22:12)
[2021-02-01] MEDS: Mirtazapine 15 MG TAB PO SCH (09:50)
[2021-02-01 10:04] LABS: Hemoglobin 9.9 g/dL (12.0-16.0); Mean Corpuscular HGB CONC 30.7 g/dL (32.0-36.0); Mean Corpuscular Hemoglobin 27.9 pg (27.0-31.0); Mean Corpuscular Volume 90.7 fL (78.0-98.0); Mean Platelet Volume 8.3 fL (7.4-10.4); Platelet Count 252 thou/uL (130-400); RBC Distribution Width 16.3 % (11.5-14.5); Red Blood Cell (RBC) Count 3.54 mill/uL (4.20-5.40); White Blood Cell (WBC) Count 11.3 thou/uL (4.8-10.8)
[2021-02-01 10:14] LABS: Anion Gap 24 mmol/L (10-20); BUN (Urea Nitrogen) 47 mg/dL (9.8-20.1); Calc. Creatinine Clearance 35 mL/min (70-130); Calcium 8.3 mg/dL (7.8-10.44); Carbon Dioxide 14 mmol/L (23-31); Chloride 110 mmol/L (98-107); Glucose 269 mg/dL (83-110); Potassium 4.9 mmol/L (3.5-5.1); Sodium 143 mmol/L (136-145)
[2021-02-01 10:55] LABS: Anisocytosis SLIGHT = 6-15 cells (100X) (0-5/hpf); Band 4 % (5-11); Burr Cells SLIGHT = 2-5 cells (100X) (0-1/hpf); Elliptocytes SLIGHT = 2-5 cells (100X) (0-1/hpf); Lymphocytes 8 % (21-51); MDiff Complete? YES; Monocytes 12 % (0-10); Neutrophil 76 % (42-75); Platelet Morphology Comment Appears Adequate; Poikilocytosis SLIGHT = 6-15 cells (100X) (0-5/hpf); Polychromasia SLIGHT = 2-3 cells (100X) (0-2/hpf); Schistocytes SLIGHT = 2-5 cells (100X) (0-1/hpf)
[2021-02-01] MEDS: HumaLOG 300 UNITS/3 ML VIAL SC PRN ×3 (12:18→22:13)
[2021-02-01] MEDS: Atorvastatin Calcium 10 MG TAB PO SCH (22:12)
[2021-02-02] MEDS: Benzonatate 100 MG CAP PO SCH ×5 (01:10→21:34)
[2021-02-02] MEDS: Enoxaparin Sodium 40 MG/0.4 ML SYRINGE SC SCH ×2 (02:43→16:49)
[2021-02-02] MEDS: HumaLOG 300 UNITS/3 ML VIAL SC PRN ×4 (06:43→21:52)
[2021-02-02] MEDS: Levothyroxine Sodium 75 MCG TAB PO SCH ×2 (06:45→07:03)
[2021-02-02] MEDS: Mirtazapine 15 MG TAB PO SCH (08:55)
[2021-02-02] MEDS: Ascorbic Acid 500 mg Chewable Tablet PO SCH (08:56)
[2021-02-02] MEDS: Cholecalciferol (Vitamin D3) 400 UNITS TAB PO SCH (08:56)
[2021-02-02] MEDS: Escitalopram Oxalate 10 mg Tablet PO SCH (08:56)
[2021-02-02] MEDS: Magnesium Oxide 400 MG TAB PO SCH ×2 (08:56→21:34)
[2021-02-02] MEDS: Aspirin 81 mg Enteric Coated Tablet PO SCH (08:57)
[2021-02-02] MEDS: Ferrous Sulfate 325 MG TAB PO SCH ×2 (08:57→16:49)
[2021-02-02] MEDS: Dexamethasone 4 mg/ml Vial SLOW IVP SCH (08:59)
[2021-02-02] MEDS: Lantus 1000 UNITS/10 ML VIAL SC SCH (09:02)
[2021-02-02 10:21] LABS: #Lymphocytes 0.6 thou/uL (1.20-3.40); #Monocytes 0.5 thou/uL (0.11-0.59); #Neutrophils 4.8 thou/uL (1.40-6.50); %Eosinophils 0.3 % (0.0-10.0); %Lymphocytes 9.9 % (21.0-51.0); %Monocytes 8.7 % (0.0-10.0); %Neutrophils 81.2 % (42.0-75.0); Hemoglobin 8.7 g/dL (12.0-16.0); Mean Corpuscular HGB CONC 31.1 g/dL (32.0-36.0); Mean Corpuscular Hemoglobin 27.8 pg (27.0-31.0); Mean Corpuscular Volume 89.6 fL (78.0-98.0); Mean Platelet Volume 8.7 fL (7.4-10.4); Platelet Count 184 thou/uL (130-400); RBC Distribution Width 16.3 % (11.5-14.5); Red Blood Cell (RBC) Count 3.13 mill/uL (4.20-5.40); White Blood Cell (WBC) Count 5.9 thou/uL (4.8-10.8)
[2021-02-02 10:23] LABS: ALT (SGPT) 12 U/L (8-55); AST (SGOT) 18 U/L (5-34); Alkaline Phosphatase 74 U/L (40-110); Anion Gap 15 mmol/L (10-20); BUN (Urea Nitrogen) 49 mg/dL (9.8-20.1); Bilirubin, Total 0.4 mg/dL (0.2-1.2); CRP (Inflammatory) 3.27 mg/dL (= or < 0.5); Calc. Creatinine Clearance 0 mL/min (70-130); Calcium 8.2 mg/dL (7.8-10.44); Carbon Dioxide 27 mmol/L (23-31); Chloride 109 mmol/L (98-107); Globulin 2.3 g/dL (2.4-3.5); Glucose 245 mg/dL (83-110); Potassium 4.6 mmol/L (3.5-5.1); Protein, Total 5.3 g/dL (5.8-8.1); Sodium 146 mmol/L (136-145)
[2021-02-02] MEDS: Atorvastatin Calcium 10 MG TAB PO SCH (21:34)
[2021-02-02] MEDS: Acetaminophen 325 MG TAB PO PRN (21:54)
[2021-02-03] MEDS: Enoxaparin Sodium 40 MG/0.4 ML SYRINGE SC SCH ×2 (01:55→21:11)
[2021-02-03] MEDS: Levothyroxine Sodium 75 MCG TAB PO SCH (06:20)
[2021-02-03] MEDS: HumaLOG 300 UNITS/3 ML VIAL SC PRN ×4 (06:21→21:01)
[2021-02-03] MEDS: Benzonatate 100 MG CAP PO SCH ×3 (09:25→21:08)
[2021-02-03] MEDS: Ascorbic Acid 500 mg Chewable Tablet PO SCH (09:26)
[2021-02-03] MEDS: Ferrous Sulfate 325 MG TAB PO SCH ×2 (09:26→16:33)
[2021-02-03] MEDS: Magnesium Oxide 400 MG TAB PO SCH ×2 (09:26→21:08)
[2021-02-03] MEDS: Escitalopram Oxalate 10 mg Tablet PO SCH (09:26)
[2021-02-03] MEDS: Aspirin 81 mg Enteric Coated Tablet PO SCH (09:26)
[2021-02-03] MEDS: Cholecalciferol (Vitamin D3) 400 UNITS TAB PO SCH (09:26)
[2021-02-03] MEDS: Mirtazapine 15 MG TAB PO SCH (09:27)
[2021-02-03] MEDS: Dexamethasone 4 mg/ml Vial SLOW IVP SCH (09:27)
[2021-02-03] MEDS: Lantus 1000 UNITS/10 ML VIAL SC SCH (09:27)
[2021-02-03] MEDS: Lorazepam 2 MG/ML VIAL SLOW IVP PRN (16:59)
[2021-02-03] MEDS: Atorvastatin Calcium 10 MG TAB PO SCH (21:08)
[2021-02-04] MEDS: Levothyroxine Sodium 75 MCG TAB PO SCH (05:46)
[2021-02-04] MEDS: HumaLOG 300 UNITS/3 ML VIAL SC PRN ×4 (05:53→20:59)
[2021-02-04 08:43] LABS: Hemoglobin 9.3 g/dL (12.0-16.0); Mean Corpuscular Hemoglobin 27.6 pg (27.0-31.0); Mean Corpuscular Volume 89.1 fL (78.0-98.0); Mean Platelet Volume 9.6 fL (7.4-10.4); Platelet Count 166 thou/uL (130-400); RBC Distribution Width 16.8 % (11.5-14.5); Red Blood Cell (RBC) Count 3.35 mill/uL (4.20-5.40); White Blood Cell (WBC) Count 7.2 thou/uL (4.8-10.8)
[2021-02-04 09:02] LABS: ALT (SGPT) 11 U/L (8-55); AST (SGOT) 11 U/L (5-34); Albumin 2.9 g/dL (3.4-4.8); Alkaline Phosphatase 71 U/L (40-110); Anion Gap 8 mmol/L (10-20); BUN (Urea Nitrogen) 36 mg/dL (9.8-20.1); Bilirubin, Total 0.6 mg/dL (0.2-1.2); CRP (Inflammatory) 1.39 mg/dL (= or < 0.5); Calc. Creatinine Clearance 0 mL/min (70-130); Calcium 8.5 mg/dL (7.8-10.44); Carbon Dioxide 30 mmol/L (23-31); Chloride 109 mmol/L (98-107); Globulin 2.3 g/dL (2.4-3.5); Glucose 200 mg/dL (83-110); Protein, Total 5.2 g/dL (5.8-8.1); Sodium 143 mmol/L (136-145)
[2021-02-04 09:06] LABS: Band 8 % (5-11); Bite Cells SLIGHT = 2-5 cells (100X) (0-1/hpf); Burr Cells SLIGHT = 2-5 cells (100X) (0-1/hpf); Elliptocytes SLIGHT = 2-5 cells (100X) (0-1/hpf); Lymphocytes 5 % (21-51); MDiff Complete? YES; Metamyelocyte 1 % (0-0); Monocytes 4 % (0-10); Myelocyte 1 % (0-0); Neutrophil 77 % (42-75); Nucleated RBC 1 % (0); Platelet Morphology Comment Appears Adequate; Polychromasia MODERATE = 3-4 cells (100X) (0-2/hpf); Reactive Lymphocytes 4 % (0-10); Schistocytes SLIGHT = 2-5 cells (100X) (0-1/hpf)
[2021-02-04] MEDS: Aspirin 81 mg Enteric Coated Tablet PO SCH (09:50)
[2021-02-04] MEDS: Ascorbic Acid 500 mg Chewable Tablet PO SCH (09:50)
[2021-02-04] MEDS: Magnesium Oxide 400 MG TAB PO SCH ×2 (09:50→20:58)
[2021-02-04] MEDS: Benzonatate 100 MG CAP PO SCH ×3 (09:50→20:58)
[2021-02-04] MEDS: Cholecalciferol (Vitamin D3) 400 UNITS TAB PO SCH (09:50)
[2021-02-04] MEDS: Enoxaparin Sodium 40 MG/0.4 ML SYRINGE SC SCH ×2 (09:51→20:58)
[2021-02-04] MEDS: Escitalopram Oxalate 10 mg Tablet PO SCH (09:51)
[2021-02-04] MEDS: Mirtazapine 15 MG TAB PO SCH (09:51)
[2021-02-04] MEDS: Ferrous Sulfate 325 MG TAB PO SCH ×2 (09:52→17:17)
[2021-02-04] MEDS: Dexamethasone 4 mg/ml Vial SLOW IVP SCH (09:52)
[2021-02-04] MEDS: Lantus 1000 UNITS/10 ML VIAL SC SCH (09:53)
[2021-02-04] MEDS: Atorvastatin Calcium 10 MG TAB PO SCH (20:59)
[2021-02-05] MEDS: Acetaminophen 325 MG TAB PO PRN (04:36)
[2021-02-05] MEDS: Levothyroxine Sodium 75 MCG TAB PO SCH (06:17)
[2021-02-05] MEDS: HumaLOG 300 UNITS/3 ML VIAL SC PRN ×4 (06:21→22:33)
[2021-02-05] MEDS: Benzonatate 100 MG CAP PO SCH ×3 (10:31→22:35)
[2021-02-05] MEDS: Ascorbic Acid 500 mg Chewable Tablet PO SCH (10:31)
[2021-02-05] MEDS: Mirtazapine 15 MG TAB PO SCH (10:31)
[2021-02-05] MEDS: Magnesium Oxide 400 MG TAB PO SCH ×2 (10:32→22:35)
[2021-02-05] MEDS: Ferrous Sulfate 325 MG TAB PO SCH ×2 (10:32→17:34)
[2021-02-05] MEDS: Escitalopram Oxalate 10 mg Tablet PO SCH (10:32)
[2021-02-05] MEDS: Aspirin 81 mg Enteric Coated Tablet PO SCH (10:32)
[2021-02-05] MEDS: Cholecalciferol (Vitamin D3) 400 UNITS TAB PO SCH (10:32)
[2021-02-05] MEDS: Lantus 1000 UNITS/10 ML VIAL SC SCH (10:33)
[2021-02-05] MEDS: Enoxaparin Sodium 40 MG/0.4 ML SYRINGE SC SCH ×2 (10:33→22:35)
[2021-02-05] MEDS: Dexamethasone 4 mg/ml Vial SLOW IVP SCH (10:35)
[2021-02-05] MEDS: Atorvastatin Calcium 10 MG TAB PO SCH (22:34)
[2021-02-06] MEDS: HumaLOG 300 UNITS/3 ML VIAL SC PRN ×3 (06:37→17:29)
[2021-02-06] MEDS: Levothyroxine Sodium 75 MCG TAB PO SCH (06:39)
[2021-02-06] MEDS ORDERED: Nystatin Powder 15 GM BOT TOP PRN (08:18)
[2021-02-06 10:13] LABS: #Lymphocytes 0.8 thou/uL (1.20-3.40); #Monocytes 1.1 thou/uL (0.11-0.59); #Neutrophils 10.6 thou/uL (1.40-6.50); %Eosinophils 0.3 % (0.0-10.0); %Lymphocytes 6.7 % (21.0-51.0); %Monocytes 8.4 % (0.0-10.0); %Neutrophils 84.7 % (42.0-75.0); Hemoglobin 9.8 g/dL (12.0-16.0); Mean Corpuscular HGB CONC 31.5 g/dL (32.0-36.0); Mean Corpuscular Hemoglobin 28.5 pg (27.0-31.0); Mean Corpuscular Volume 90.3 fL (78.0-98.0); Mean Platelet Volume 9.9 fL (7.4-10.4); Platelet Count 149 thou/uL (130-400); Red Blood Cell (RBC) Count 3.46 mill/uL (4.20-5.40); White Blood Cell (WBC) Count 12.5 thou/uL (4.8-10.8)
[2021-02-06] MEDS: Ascorbic Acid 500 mg Chewable Tablet PO SCH (10:23)
[2021-02-06] MEDS: metFORMIN 500 MG TAB PO SCH ×2 (10:24→22:06)
[2021-02-06] MEDS: Ferrous Sulfate 325 MG TAB PO SCH ×2 (10:24→17:28)
[2021-02-06] MEDS: Nystatin 500,000 UNITS/5 ML UDCUP SSW SCH ×4 (10:24→22:06)
[2021-02-06] MEDS: Cholecalciferol (Vitamin D3) 400 UNITS TAB PO SCH (10:24)
[2021-02-06] MEDS: Magnesium Oxide 400 MG TAB PO SCH ×2 (10:24→22:06)
[2021-02-06] MEDS: Benzonatate 100 MG CAP PO SCH ×3 (10:24→23:22)
[2021-02-06] MEDS: Aspirin 81 mg Enteric Coated Tablet PO SCH (10:24)
[2021-02-06] MEDS: Mirtazapine 15 MG TAB PO SCH (10:26)
[2021-02-06] MEDS: Enoxaparin Sodium 40 MG/0.4 ML SYRINGE SC SCH ×2 (10:26→22:05)
[2021-02-06] MEDS: Lantus 1000 UNITS/10 ML VIAL SC SCH (10:27)
[2021-02-06] MEDS: Escitalopram Oxalate 10 mg Tablet PO SCH (10:27)
[2021-02-06] MEDS: Dexamethasone 4 mg/ml Vial SLOW IVP SCH (10:27)
[2021-02-06 10:31] LABS: ALT (SGPT) 11 U/L (8-55); AST (SGOT) 15 U/L (5-34); Alkaline Phosphatase 72 U/L (40-110); Anion Gap 11 mmol/L (10-20); BUN (Urea Nitrogen) 24 mg/dL (9.8-20.1); Bilirubin, Total 0.8 mg/dL (0.2-1.2); CRP (Inflammatory) 0.96 mg/dL (= or < 0.5); Calc. Creatinine Clearance 0 mL/min (70-130); Calcium 8.7 mg/dL (7.8-10.44); Carbon Dioxide 29 mmol/L (23-31); Chloride 106 mmol/L (98-107); Globulin 2.4 g/dL (2.4-3.5); Glucose 208 mg/dL (83-110); Potassium 3.6 mmol/L (3.5-5.1); Protein, Total 5.4 g/dL (5.8-8.1); Sodium 142 mmol/L (136-145)
[2021-02-06] MEDS: Atorvastatin Calcium 10 MG TAB PO SCH (22:06)
[2021-02-06] MEDS: Lorazepam 2 MG/ML VIAL SLOW IVP PRN (22:07)
[2021-02-07] MEDS: HumaLOG 300 UNITS/3 ML VIAL SC PRN ×4 (06:17→21:30)
[2021-02-07] MEDS: Levothyroxine Sodium 75 MCG TAB PO SCH (06:18)
[2021-02-07] MEDS: Mirtazapine 15 MG TAB PO SCH (09:37)
[2021-02-07] MEDS: Cholecalciferol (Vitamin D3) 400 UNITS TAB PO SCH (09:37)
[2021-02-07] MEDS: Aspirin 81 mg Enteric Coated Tablet PO SCH (09:37)
[2021-02-07] MEDS: Ferrous Sulfate 325 MG TAB PO SCH ×2 (09:37→17:02)
[2021-02-07] MEDS: Nystatin 500,000 UNITS/5 ML UDCUP SSW SCH ×4 (09:37→21:29)
[2021-02-07] MEDS: Magnesium Oxide 400 MG TAB PO SCH ×2 (09:37→21:30)
[2021-02-07] MEDS: metFORMIN 500 MG TAB PO SCH ×2 (09:38→21:29)
[2021-02-07] MEDS: Ascorbic Acid 500 mg Chewable Tablet PO SCH (09:39)
[2021-02-07] MEDS: Escitalopram Oxalate 10 mg Tablet PO SCH (09:39)
[2021-02-07] MEDS: Enoxaparin Sodium 40 MG/0.4 ML SYRINGE SC SCH (09:39)
[2021-02-07] MEDS: Dexamethasone 4 MG TAB PO SCH (09:39)
[2021-02-07] MEDS: Lantus 1000 UNITS/10 ML VIAL SC SCH (09:40)
[2021-02-07] MEDS: Benzonatate 100 MG CAP PO SCH ×3 (12:22→23:34)
[2021-02-07] MEDS: Atorvastatin Calcium 10 MG TAB PO SCH (21:30)
[2021-02-07] MEDS: Apixaban 5 MG TAB PO SCH (21:30)
[2021-02-08] MEDS: Levothyroxine Sodium 75 MCG TAB PO SCH (05:20)
[2021-02-08] MEDS: HumaLOG 300 UNITS/3 ML VIAL SC PRN ×2 (05:34→17:34)
[2021-02-08] MEDS ORDERED: Enoxaparin Sodium 40 MG/0.4 ML SYRINGE SC SCH (09:00)
[2021-02-08] MEDS: Benzonatate 100 MG CAP PO SCH ×3 (09:39→21:11)
[2021-02-08] MEDS: metFORMIN 500 MG TAB PO SCH ×2 (10:04→21:10)
[2021-02-08] MEDS: Ascorbic Acid 500 mg Chewable Tablet PO SCH (10:05)
[2021-02-08] MEDS: Ferrous Sulfate 325 MG TAB PO SCH ×2 (10:05→17:33)
[2021-02-08] MEDS: Escitalopram Oxalate 10 mg Tablet PO SCH (10:05)
[2021-02-08] MEDS: Magnesium Oxide 400 MG TAB PO SCH ×2 (10:07→21:10)
[2021-02-08] MEDS: Nystatin 500,000 UNITS/5 ML UDCUP SSW SCH ×4 (10:07→21:10)
[2021-02-08] MEDS: Mirtazapine 15 MG TAB PO SCH (10:07)
[2021-02-08] MEDS: Apixaban 5 MG TAB PO SCH ×2 (10:07→21:10)
[2021-02-08] MEDS: Dexamethasone 4 MG TAB PO SCH (10:08)
[2021-02-08] MEDS: Aspirin 81 mg Enteric Coated Tablet PO SCH (10:08)
[2021-02-08] MEDS: Cholecalciferol (Vitamin D3) 400 UNITS TAB PO SCH (10:08)
[2021-02-08] MEDS: Lantus 1000 UNITS/10 ML VIAL SC SCH (10:09)
[2021-02-08] MEDS: Atorvastatin Calcium 10 MG TAB PO SCH (21:10)
[2021-02-09] MEDS: Levothyroxine Sodium 75 MCG TAB PO SCH (05:33)
[2021-02-09] MEDS: Cholecalciferol (Vitamin D3) 400 UNITS TAB PO SCH (08:05)
[2021-02-09] MEDS: metFORMIN 500 MG TAB PO SCH ×2 (08:05→20:21)
[2021-02-09] MEDS: Ascorbic Acid 500 mg Chewable Tablet PO SCH (08:05)
[2021-02-09] MEDS: Magnesium Oxide 400 MG TAB PO SCH ×2 (08:06→20:21)
[2021-02-09] MEDS: Ferrous Sulfate 325 MG TAB PO SCH ×2 (08:06→15:58)
[2021-02-09] MEDS: Mirtazapine 15 MG TAB PO SCH (08:06)
[2021-02-09] MEDS: Apixaban 5 MG TAB PO SCH ×2 (08:06→20:20)
[2021-02-09] MEDS: Dexamethasone 4 MG TAB PO SCH (08:06)
[2021-02-09] MEDS: Escitalopram Oxalate 10 mg Tablet PO SCH (08:07)
[2021-02-09] MEDS: Aspirin 81 mg Enteric Coated Tablet PO SCH (08:07)
[2021-02-09] MEDS: Nystatin 500,000 UNITS/5 ML UDCUP SSW SCH ×4 (08:07→20:21)
[2021-02-09] MEDS: Benzonatate 100 MG CAP PO SCH ×3 (08:07→20:21)
[2021-02-09] MEDS: Lantus 1000 UNITS/10 ML VIAL SC SCH (08:10)
[2021-02-09] MEDS ORDERED: Furosemide 40 MG/4 ML VIAL ONE (08:13)
[2021-02-09] MEDS ORDERED: Furosemide 40 MG/4 ML VIAL SLOW IVP SCH (08:15)
[2021-02-09 11:27] LABS: Anion Gap 12 mmol/L (10-20); BUN (Urea Nitrogen) 24 mg/dL (9.8-20.1); Calc. Creatinine Clearance 71 mL/min (70-130); Carbon Dioxide 33 mmol/L (23-31); Chloride 101 mmol/L (98-107); Glucose 204 mg/dL (83-110); Potassium 4.4 mmol/L (3.5-5.1); Sodium 142 mmol/L (136-145)
[2021-02-09 12:21] LABS: #Lymphocytes 0.6 thou/uL (1.20-3.40); #Monocytes 0.9 thou/uL (0.11-0.59); #Neutrophils 13.8 thou/uL (1.40-6.50); %Eosinophils 0.3 % (0.0-10.0); %Lymphocytes 3.6 % (21.0-51.0); %Monocytes 5.9 % (0.0-10.0); %Neutrophils 90.2 % (42.0-75.0); Hemoglobin 8.2 g/dL (12.0-16.0); Mean Corpuscular HGB CONC 31.1 g/dL (32.0-36.0); Mean Corpuscular Hemoglobin 28.2 pg (27.0-31.0); Mean Corpuscular Volume 90.5 fL (78.0-98.0); Mean Platelet Volume 10.5 fL (7.4-10.4); Platelet Count 118 thou/uL (130-400); RBC Distribution Width 17.7 % (11.5-14.5); White Blood Cell (WBC) Count 15.3 thou/uL (4.8-10.8)
[2021-02-09 12:22] LABS: Band 5 % (5-11); Hypochromia SLIGHT = 6-15 cells (100X) (0-5/hpf); Lymphocytes 5 % (21-51); MDiff Complete? YES; Monocytes 1 % (0-10); Neutrophil 89 % (42-75); Polychromasia SLIGHT = 2-3 cells (100X) (0-2/hpf); Schistocytes SLIGHT = 2-5 cells (100X) (0-1/hpf)
[2021-02-09] MEDS: HumaLOG 300 UNITS/3 ML VIAL SC PRN ×2 (15:59→20:29)
[2021-02-09] MEDS: Atorvastatin Calcium 10 MG TAB PO SCH (20:21)
[2021-02-10 05:11] LABS: #Lymphocytes 0.4 thou/uL (1.20-3.40); #Neutrophils 9.8 thou/uL (1.40-6.50); %Basophils 0.4 % (0.0-1.0); %Eosinophils 0.4 % (0.0-10.0); %Lymphocytes 3.9 % (21.0-51.0); %Monocytes 8.7 % (0.0-10.0); %Neutrophils 86.6 % (42.0-75.0); Hemoglobin 7.2 g/dL (12.0-16.0); Mean Corpuscular HGB CONC 31.6 g/dL (32.0-36.0); Mean Corpuscular Hemoglobin 28.7 pg (27.0-31.0); Mean Corpuscular Volume 90.9 fL (78.0-98.0); Mean Platelet Volume 10.6 fL (7.4-10.4); Platelet Count 105 thou/uL (130-400); White Blood Cell (WBC) Count 11.3 thou/uL (4.8-10.8)
[2021-02-10 05:17] LABS: Anion Gap 11 mmol/L (10-20); BUN (Urea Nitrogen) 28 mg/dL (9.8-20.1); CRP (Inflammatory) 1.57 mg/dL (= or < 0.5); Calc. Creatinine Clearance 63 mL/min (70-130); Calcium 8.9 mg/dL (7.8-10.44); Carbon Dioxide 33 mmol/L (23-31); Chloride 100 mmol/L (98-107); Glucose 316 mg/dL (83-110); Potassium 4.1 mmol/L (3.5-5.1); Sodium 140 mmol/L (136-145)
[2021-02-10] MEDS: HumaLOG 300 UNITS/3 ML VIAL SC PRN ×4 (06:15→20:29)
[2021-02-10] MEDS: Levothyroxine Sodium 75 MCG TAB PO SCH (06:37)
[2021-02-10] MEDS: Dexamethasone 4 MG TAB PO SCH (08:21)
[2021-02-10] MEDS: Aspirin 81 mg Enteric Coated Tablet PO SCH (08:21)
[2021-02-10] MEDS: metFORMIN 500 MG TAB PO SCH ×2 (08:21→20:27)
[2021-02-10] MEDS: Ascorbic Acid 500 mg Chewable Tablet PO SCH (08:21)
[2021-02-10] MEDS: Apixaban 5 MG TAB PO SCH ×2 (08:21→20:28)
[2021-02-10] MEDS: Mirtazapine 15 MG TAB PO SCH (08:21)
[2021-02-10] MEDS: Nystatin 500,000 UNITS/5 ML UDCUP SSW SCH ×4 (08:22→20:28)
[2021-02-10] MEDS: Magnesium Oxide 400 MG TAB PO SCH ×2 (08:22→20:28)
[2021-02-10] MEDS: Escitalopram Oxalate 10 mg Tablet PO SCH (08:22)
[2021-02-10] MEDS: Ferrous Sulfate 325 MG TAB PO SCH ×2 (08:22→16:02)
[2021-02-10] MEDS: Cholecalciferol (Vitamin D3) 400 UNITS TAB PO SCH (08:22)
[2021-02-10] MEDS: Benzonatate 100 MG CAP PO SCH ×3 (08:22→20:28)
[2021-02-10] MEDS: Lantus 1000 UNITS/10 ML VIAL SC SCH (08:23)
[2021-02-10] MEDS: Furosemide 40 MG/4 ML VIAL SLOW IVP SCH ×3 (08:27→13:47)
[2021-02-10] MEDS: Atorvastatin Calcium 10 MG TAB PO SCH (20:28)
[2021-02-11 00:19] LABS: #Eosinphils 0.1 thou/uL (0.0-0.7); #Lymphocytes 0.6 thou/uL (1.20-3.40); #Neutrophils 11.7 thou/uL (1.40-6.50); %Basophils 0.1 % (0.0-1.0); %Eosinophils 0.5 % (0.0-10.0); %Lymphocytes 4.2 % (21.0-51.0); %Monocytes 7.6 % (0.0-10.0); %Neutrophils 87.7 % (42.0-75.0); Hemoglobin 6.4 g/dL (12.0-16.0); Mean Corpuscular HGB CONC 31.9 g/dL (32.0-36.0); Mean Corpuscular Hemoglobin 28.9 pg (27.0-31.0); Mean Corpuscular Volume 90.6 fL (78.0-98.0); Mean Platelet Volume 10.3 fL (7.4-10.4); Platelet Count 100 thou/uL (130-400); RBC Distribution Width 17.9 % (11.5-14.5); White Blood Cell (WBC) Count 13.3 thou/uL (4.8-10.8)
[2021-02-11 05:44] LABS: Anion Gap 13 mmol/L (10-20); BUN (Urea Nitrogen) 36 mg/dL (9.8-20.1); Calc. Creatinine Clearance 73 mL/min (70-130); Calcium 8.6 mg/dL (7.8-10.44); Carbon Dioxide 31 mmol/L (23-31); Chloride 101 mmol/L (98-107); Glucose 200 mg/dL (83-110); Sodium 141 mmol/L (136-145)
[2021-02-11 05:54] LABS: #Eosinphils 0.1 thou/uL (0.0-0.7); #Lymphocytes 0.6 thou/uL (1.20-3.40); #Monocytes 1.2 thou/uL (0.11-0.59); %Eosinophils 0.4 % (0.0-10.0); %Lymphocytes 4.6 % (21.0-51.0); %Monocytes 8.4 % (0.0-10.0); %Neutrophils 86.6 % (42.0-75.0); Hemoglobin 6.4 g/dL (12.0-16.0); Mean Corpuscular HGB CONC 30.9 g/dL (32.0-36.0); Mean Corpuscular Hemoglobin 27.9 pg (27.0-31.0); Mean Corpuscular Volume 90.3 fL (78.0-98.0); Mean Platelet Volume 10.3 fL (7.4-10.4); Platelet Count 104 thou/uL (130-400); Red Blood Cell (RBC) Count 2.29 mill/uL (4.20-5.40); White Blood Cell (WBC) Count 13.9 thou/uL (4.8-10.8)
[2021-02-11] MEDS: Levothyroxine Sodium 75 MCG TAB PO SCH (05:55)
[2021-02-11] MEDS: Furosemide 40 MG/4 ML VIAL SLOW IVP SCH ×2 (05:56→14:58)
[2021-02-11] MEDS: Dexamethasone 4 MG TAB PO SCH (08:48)
[2021-02-11] MEDS: Nystatin 500,000 UNITS/5 ML UDCUP SSW SCH ×4 (08:48→21:07)
[2021-02-11] MEDS: metFORMIN 500 MG TAB PO SCH ×2 (08:48→21:06)
[2021-02-11] MEDS: Cholecalciferol (Vitamin D3) 400 UNITS TAB PO SCH (08:49)
[2021-02-11] MEDS: Mirtazapine 15 MG TAB PO SCH (08:49)
[2021-02-11] MEDS: Ascorbic Acid 500 mg Chewable Tablet PO SCH (08:49)
[2021-02-11] MEDS: Escitalopram Oxalate 10 mg Tablet PO SCH (08:49)
[2021-02-11] MEDS: Ferrous Sulfate 325 MG TAB PO SCH ×2 (08:49→16:50)
[2021-02-11] MEDS: Magnesium Oxide 400 MG TAB PO SCH ×2 (08:49→21:06)
[2021-02-11] MEDS: Lantus 1000 UNITS/10 ML VIAL SC SCH (08:50)
[2021-02-11] MEDS: Benzonatate 100 MG CAP PO SCH ×3 (08:51→21:07)
[2021-02-11] MEDS: HumaLOG 300 UNITS/3 ML VIAL SC PRN ×3 (11:34→21:06)
[2021-02-11] MEDS: Atorvastatin Calcium 10 MG TAB PO SCH (21:06)
[2021-02-12 05:17] LABS: Anion Gap 12 mmol/L (10-20); BUN (Urea Nitrogen) 39 mg/dL (9.8-20.1); Calc. Creatinine Clearance 68 mL/min (70-130); Carbon Dioxide 35 mmol/L (23-31); Chloride 98 mmol/L (98-107); Glucose 256 mg/dL (83-110); Hemoglobin 9.2 g/dL (12.0-16.0); Mean Corpuscular HGB CONC 32.1 g/dL (32.0-36.0); Mean Corpuscular Volume 84.2 fL (78.0-98.0); Mean Platelet Volume 10.5 fL (7.4-10.4); Platelet Count 106 thou/uL (130-400); Potassium 4.1 mmol/L (3.5-5.1); RBC Distribution Width 18.4 % (11.5-14.5); Sodium 141 mmol/L (136-145); White Blood Cell (WBC) Count 18.8 thou/uL (4.8-10.8)
[2021-02-12 05:41] LABS: Anisocytosis SLIGHT = 6-15 cells (100X) (0-5/hpf); Band 6 % (5-11); Lymphocytes 10 % (21-51); MDiff Complete? YES; Monocytes 9 % (0-10); Neutrophil 75 % (42-75); Platelet Morphology Comment Appears Decreased
[2021-02-12] MEDS: Furosemide 40 MG/4 ML VIAL SLOW IVP SCH ×2 (05:49→14:13)
[2021-02-12] MEDS: Levothyroxine Sodium 75 MCG TAB PO SCH (05:49)
[2021-02-12] MEDS: HumaLOG 300 UNITS/3 ML VIAL SC PRN ×3 (06:19→17:39)
[2021-02-12] MEDS: Dexamethasone 4 MG TAB PO SCH (08:55)
[2021-02-12] MEDS: Ferrous Sulfate 325 MG TAB PO SCH ×2 (08:56→17:38)
[2021-02-12] MEDS: Ascorbic Acid 500 mg Chewable Tablet PO SCH (08:57)
[2021-02-12] MEDS: Benzonatate 100 MG CAP PO SCH ×3 (08:57→21:23)
[2021-02-12] MEDS: Cholecalciferol (Vitamin D3) 400 UNITS TAB PO SCH (08:57)
[2021-02-12] MEDS: Escitalopram Oxalate 10 mg Tablet PO SCH (08:58)
[2021-02-12] MEDS: metFORMIN 500 MG TAB PO SCH ×2 (09:00→21:22)
[2021-02-12] MEDS: Magnesium Oxide 400 MG TAB PO SCH ×2 (09:00→21:22)
[2021-02-12] MEDS: Nystatin 500,000 UNITS/5 ML UDCUP SSW SCH ×4 (09:04→21:22)
[2021-02-12] MEDS: Mirtazapine 15 MG TAB PO SCH ×2 (09:04→21:23)
[2021-02-12] MEDS: Lantus 1000 UNITS/10 ML VIAL SC SCH (09:14)
[2021-02-12] MEDS: Atorvastatin Calcium 10 MG TAB PO SCH (21:23)
[2021-02-13 04:57] LABS: #Lymphocytes 0.5 thou/uL (1.20-3.40); #Monocytes 0.6 thou/uL (0.11-0.59); #Neutrophils 14.7 thou/uL (1.40-6.50); %Eosinophils 0.2 % (0.0-10.0); %Lymphocytes 2.9 % (21.0-51.0); %Monocytes 3.6 % (0.0-10.0); %Neutrophils 93.3 % (42.0-75.0); Hemoglobin 7.8 g/dL (12.0-16.0); Mean Corpuscular HGB CONC 31.4 g/dL (32.0-36.0); Mean Corpuscular Hemoglobin 27.1 pg (27.0-31.0); Mean Corpuscular Volume 86.3 fL (78.0-98.0); Mean Platelet Volume 9.9 fL (7.4-10.4); Platelet Count 101 thou/uL (130-400); RBC Distribution Width 18.6 % (11.5-14.5); Red Blood Cell (RBC) Count 2.87 mill/uL (4.20-5.40); White Blood Cell (WBC) Count 15.8 thou/uL (4.8-10.8)
[2021-02-13 05:05] LABS: Anion Gap 14 mmol/L (10-20); BUN (Urea Nitrogen) 40 mg/dL (9.8-20.1); Calc. Creatinine Clearance 74 mL/min (70-130); Carbon Dioxide 34 mmol/L (23-31); Chloride 99 mmol/L (98-107); Potassium 3.7 mmol/L (3.5-5.1); Sodium 143 mmol/L (136-145)
[2021-02-13 05:06] LABS: Calcium 8.7 mg/dL (7.8-10.44); Glucose 194 mg/dL (83-110)
[2021-02-13] MEDS: HumaLOG 300 UNITS/3 ML VIAL SC PRN ×4 (06:34→20:33)
[2021-02-13] MEDS: Furosemide 40 MG/4 ML VIAL SLOW IVP SCH ×2 (06:34→14:10)
[2021-02-13] MEDS: Levothyroxine Sodium 75 MCG TAB PO SCH (06:35)
[2021-02-13] MEDS: Magnesium Oxide 400 MG TAB PO SCH ×2 (09:11→20:14)
[2021-02-13] MEDS: Nystatin 500,000 UNITS/5 ML UDCUP SSW SCH ×4 (09:11→20:14)
[2021-02-13] MEDS: Ascorbic Acid 500 mg Chewable Tablet PO SCH (09:11)
[2021-02-13] MEDS: metFORMIN 500 MG TAB PO SCH ×2 (09:11→20:14)
[2021-02-13] MEDS: Cholecalciferol (Vitamin D3) 400 UNITS TAB PO SCH (09:12)
[2021-02-13] MEDS: Escitalopram Oxalate 10 mg Tablet PO SCH (09:12)
[2021-02-13] MEDS: Apixaban 5 MG TAB PO SCH (09:12)
[2021-02-13] MEDS: Dexamethasone 4 MG TAB PO SCH (09:12)
[2021-02-13] MEDS: Ferrous Sulfate 325 MG TAB PO SCH ×2 (09:12→17:15)
[2021-02-13] MEDS: Benzonatate 100 MG CAP PO SCH ×3 (09:12→20:14)
[2021-02-13] MEDS: Lantus 1000 UNITS/10 ML VIAL SC SCH (09:17)
[2021-02-13] MEDS: Mirtazapine 15 MG TAB PO SCH (20:14)
[2021-02-13] MEDS: Atorvastatin Calcium 10 MG TAB PO SCH (20:14)
[2021-02-14] MEDS: Levothyroxine Sodium 75 MCG TAB PO SCH (06:24)
[2021-02-14] MEDS: Furosemide 40 MG/4 ML VIAL SLOW IVP SCH ×2 (06:24→15:07)
[2021-02-14] MEDS: HumaLOG 300 UNITS/3 ML VIAL SC PRN ×4 (06:24→22:14)
[2021-02-14] MEDS: metFORMIN 500 MG TAB PO SCH ×2 (08:53→20:40)
[2021-02-14] MEDS: Ascorbic Acid 500 mg Chewable Tablet PO SCH (08:53)
[2021-02-14] MEDS: Nystatin 500,000 UNITS/5 ML UDCUP SSW SCH ×4 (08:53→20:40)
[2021-02-14] MEDS: Dexamethasone 4 MG TAB PO SCH (08:53)
[2021-02-14] MEDS: Cholecalciferol (Vitamin D3) 400 UNITS TAB PO SCH (08:53)
[2021-02-14] MEDS: Magnesium Oxide 400 MG TAB PO SCH ×2 (08:54→20:39)
[2021-02-14] MEDS: Escitalopram Oxalate 10 mg Tablet PO SCH (08:54)
[2021-02-14] MEDS: Benzonatate 100 MG CAP PO SCH ×3 (08:54→20:42)
[2021-02-14] MEDS: Ferrous Sulfate 325 MG TAB PO SCH ×2 (08:54→18:07)
[2021-02-14] MEDS: Lantus 1000 UNITS/10 ML VIAL SC SCH (08:55)
[2021-02-14] MEDS: Aspirin 81 mg Enteric Coated Tablet PO SCH (08:57)
[2021-02-14 13:04] LABS: Hemoglobin 7.3 g/dL (12.0-16.0); Platelet Count 94 thou/uL (130-400)
[2021-02-14] MEDS: Mirtazapine 15 MG TAB PO SCH (20:39)
[2021-02-14] MEDS: Atorvastatin Calcium 10 MG TAB PO SCH (20:40)
[2021-02-15 05:42] LABS: #Lymphocytes 0.5 thou/uL (1.20-3.40); #Monocytes 0.7 thou/uL (0.11-0.59); #Neutrophils 13.3 thou/uL (1.40-6.50); %Basophils 0.2 % (0.0-1.0); %Eosinophils 0.1 % (0.0-10.0); %Lymphocytes 3.2 % (21.0-51.0); %Monocytes 5.1 % (0.0-10.0); %Neutrophils 91.6 % (42.0-75.0); Hemoglobin 7.7 g/dL (12.0-16.0); Mean Corpuscular HGB CONC 30.8 g/dL (32.0-36.0); Mean Corpuscular Hemoglobin 27.2 pg (27.0-31.0); Mean Corpuscular Volume 88.3 fL (78.0-98.0); Mean Platelet Volume 10.2 fL (7.4-10.4); Platelet Count 93 thou/uL (130-400); RBC Distribution Width 18.5 % (11.5-14.5); Red Blood Cell (RBC) Count 2.83 mill/uL (4.20-5.40); White Blood Cell (WBC) Count 14.6 thou/uL (4.8-10.8)
[2021-02-15] MEDS: Furosemide 40 MG/4 ML VIAL SLOW IVP SCH ×2 (05:42→13:41)
[2021-02-15] MEDS: Levothyroxine Sodium 75 MCG TAB PO SCH (05:48)
[2021-02-15 06:03] LABS: Anion Gap 13 mmol/L (10-20); BUN (Urea Nitrogen) 42 mg/dL (9.8-20.1); CRP (Inflammatory) 1.36 mg/dL (= or < 0.5); Calc. Creatinine Clearance 67 mL/min (70-130); Carbon Dioxide 36 mmol/L (23-31); Chloride 95 mmol/L (98-107); Glucose 215 mg/dL (83-110); Potassium 3.7 mmol/L (3.5-5.1); Sodium 140 mmol/L (136-145)
[2021-02-15] MEDS: HumaLOG 300 UNITS/3 ML VIAL SC PRN ×2 (06:25→13:42)
[2021-02-15] MEDS: Lantus 1000 UNITS/10 ML VIAL SC SCH (09:42)
[2021-02-15] MEDS: Ferrous Sulfate 325 MG TAB PO SCH ×2 (09:58→16:29)
[2021-02-15] MEDS: Ascorbic Acid 500 mg Chewable Tablet PO SCH (09:58)
[2021-02-15] MEDS: Nystatin 500,000 UNITS/5 ML UDCUP SSW SCH ×4 (09:58→20:11)
[2021-02-15] MEDS: Magnesium Oxide 400 MG TAB PO SCH ×2 (09:58→20:12)
[2021-02-15] MEDS: Escitalopram Oxalate 10 mg Tablet PO SCH (09:58)
[2021-02-15] MEDS: metFORMIN 500 MG TAB PO SCH ×2 (09:58→20:12)
[2021-02-15] MEDS: Dexamethasone 4 MG TAB PO SCH (09:59)
[2021-02-15] MEDS: Benzonatate 100 MG CAP PO SCH ×3 (10:02→20:12)
[2021-02-15] MEDS: Cholecalciferol (Vitamin D3) 400 UNITS TAB PO SCH (10:02)
[2021-02-15] MEDS: Mirtazapine 15 MG TAB PO SCH (20:12)
[2021-02-15] MEDS: Atorvastatin Calcium 10 MG TAB PO SCH (20:12)
[2021-02-16] MEDS: Levothyroxine Sodium 75 MCG TAB PO SCH (05:37)
[2021-02-16] MEDS: Furosemide 40 MG/4 ML VIAL SLOW IVP SCH ×2 (05:37→14:28)
[2021-02-16] MEDS: HumaLOG 300 UNITS/3 ML VIAL SC PRN ×4 (06:17→20:20)
[2021-02-16] MEDS: Ascorbic Acid 500 mg Chewable Tablet PO SCH (09:14)
[2021-02-16] MEDS: Dexamethasone 4 MG TAB PO SCH (09:14)
[2021-02-16] MEDS: Ferrous Sulfate 325 MG TAB PO SCH ×2 (09:14→16:14)
[2021-02-16] MEDS: Benzonatate 100 MG CAP PO SCH ×3 (09:14→20:19)
[2021-02-16] MEDS: Nystatin 500,000 UNITS/5 ML UDCUP SSW SCH ×4 (09:14→20:19)
[2021-02-16] MEDS: Magnesium Oxide 400 MG TAB PO SCH ×2 (09:14→20:20)
[2021-02-16] MEDS: Cholecalciferol (Vitamin D3) 400 UNITS TAB PO SCH (09:15)
[2021-02-16] MEDS: Escitalopram Oxalate 10 mg Tablet PO SCH (09:15)
[2021-02-16] MEDS: Lantus 1000 UNITS/10 ML VIAL SC SCH (09:15)
[2021-02-16 14:35] LABS: Hemoglobin 7.4 g/dL (12.0-16.0); Mean Corpuscular HGB CONC 31.2 g/dL (32.0-36.0); Mean Corpuscular Hemoglobin 27.7 pg (27.0-31.0); Mean Corpuscular Volume 88.8 fL (78.0-98.0); Mean Platelet Volume 10.1 fL (7.4-10.4); Platelet Count 88 thou/uL (130-400); RBC Distribution Width 18.5 % (11.5-14.5); Red Blood Cell (RBC) Count 2.68 mill/uL (4.20-5.40); White Blood Cell (WBC) Count 16.3 thou/uL (4.8-10.8)
[2021-02-16 14:55] LABS: Anion Gap 13 mmol/L (10-20); Anisocytosis SLIGHT = 6-15 cells (100X) (0-5/hpf); BUN (Urea Nitrogen) 43 mg/dL (9.8-20.1); Band 3 % (5-11); Calc. Creatinine Clearance 54 mL/min (70-130); Calcium 9.5 mg/dL (7.8-10.44); Carbon Dioxide 37 mmol/L (23-31); Chloride 95 mmol/L (98-107); Glucose 297 mg/dL (83-110); Lymphocytes 1 % (21-51); MDiff Complete? YES; Monocytes 1 % (0-10); Neutrophil 95 % (42-75); Nucleated RBC 1 % (0); Ovalocytes SLIGHT = 2-5 cells (100X) (0-1/hpf); Platelet Morphology Comment Appears Decreased; Polychromasia MODERATE = 3-4 cells (100X) (0-2/hpf); Potassium 3.4 mmol/L (3.5-5.1); Schistocytes SLIGHT = 2-5 cells (100X) (0-1/hpf); Sodium 142 mmol/L (136-145)
[2021-02-16 18:23] LABS: Base Excess (BEa) 14.7 mEq/L (-2.0 to +3.0); CO2 Tension 49.2 mmHg (35.0-45.0); Calcium, Ionized (arterial) 1.12 mmol/L (1.12-1.30); Carboxyhemoglobin (COHb) 0.9 gm% (0.0-3.0); O2 Tension (PaO2), arterial 84.1 mmHg (> 60.0); Potassium - ABG Lab 3.07 mmol/L (3.70-5.30); pH, Arterial 7.52 (7.35-7.45)
[2021-02-16 18:24] LABS: Puncture Site LRA
[2021-02-16] MEDS: Mirtazapine 15 MG TAB PO SCH (20:19)
[2021-02-16] MEDS: Apixaban 5 MG TAB PO SCH (20:19)
[2021-02-16] MEDS: Atorvastatin Calcium 10 MG TAB PO SCH (20:20)
[2021-02-17] MEDS: Levothyroxine Sodium 75 MCG TAB PO SCH (05:40)
[2021-02-17] MEDS: Furosemide 40 MG/4 ML VIAL SLOW IVP SCH ×2 (05:40→13:41)
[2021-02-17] MEDS: HumaLOG 300 UNITS/3 ML VIAL SC PRN ×4 (05:41→20:18)
[2021-02-17] MEDS: Lantus 1000 UNITS/10 ML VIAL SC SCH (08:40)
[2021-02-17] MEDS: Nystatin 500,000 UNITS/5 ML UDCUP SSW SCH ×4 (08:45→20:17)
[2021-02-17] MEDS: Apixaban 5 MG TAB PO SCH ×2 (08:45→20:18)
[2021-02-17] MEDS: Magnesium Oxide 400 MG TAB PO SCH ×2 (08:45→20:18)
[2021-02-17] MEDS: Escitalopram Oxalate 10 mg Tablet PO SCH (08:45)
[2021-02-17] MEDS: Dexamethasone 4 mg/ml Vial SLOW IVP SCH (08:45)
[2021-02-17] MEDS: Ascorbic Acid 500 mg Chewable Tablet PO SCH (08:45)
[2021-02-17] MEDS: Ferrous Sulfate 325 MG TAB PO SCH ×2 (08:45→17:33)
[2021-02-17] MEDS: Cholecalciferol (Vitamin D3) 400 UNITS TAB PO SCH (08:49)
[2021-02-17] MEDS: Benzonatate 100 MG CAP PO SCH ×3 (08:49→20:17)
[2021-02-17] MEDS ORDERED: Dexamethasone 6 MG in Sodium Chloride 0.9% 50 ML IVPB SCH (09:00)
[2021-02-17] MEDS: Atorvastatin Calcium 10 MG TAB PO SCH (20:17)
[2021-02-17] MEDS: Mirtazapine 15 MG TAB PO SCH (20:17)
[2021-02-18] MEDS: Levothyroxine Sodium 75 MCG TAB PO SCH (05:37)
[2021-02-18] MEDS: Furosemide 40 MG/4 ML VIAL SLOW IVP SCH ×2 (05:37→12:43)
[2021-02-18] MEDS: HumaLOG 300 UNITS/3 ML VIAL SC PRN ×3 (05:43→16:46)
[2021-02-18 06:39] LABS: #Lymphocytes 0.5 thou/uL (1.20-3.40); #Monocytes 0.6 thou/uL (0.11-0.59); #Neutrophils 12.2 thou/uL (1.40-6.50); %Basophils 0.2 % (0.0-1.0); %Eosinophils 0.2 % (0.0-10.0); %Lymphocytes 3.5 % (21.0-51.0); %Monocytes 4.5 % (0.0-10.0); %Neutrophils 91.6 % (42.0-75.0); Hemoglobin 7.5 g/dL (12.0-16.0); Mean Corpuscular Volume 90.2 fL (78.0-98.0); Mean Platelet Volume 10.5 fL (7.4-10.4); Platelet Count 81 thou/uL (130-400); RBC Distribution Width 18.6 % (11.5-14.5); Red Blood Cell (RBC) Count 2.67 mill/uL (4.20-5.40); White Blood Cell (WBC) Count 13.3 thou/uL (4.8-10.8)
[2021-02-18 07:00] LABS: BUN (Urea Nitrogen) 36 mg/dL (9.8-20.1); Calc. Creatinine Clearance 59 mL/min (70-130); Calcium 8.5 mg/dL (7.8-10.44); Glucose 260 mg/dL (83-110)
[2021-02-18 07:10] LABS: Anion Gap 16 mmol/L (10-20); Carbon Dioxide 35 mmol/L (23-31); Chloride 93 mmol/L (98-107); Potassium 3.1 mmol/L (3.5-5.1); Sodium 141 mmol/L (136-145)
[2021-02-18] MEDS: Apixaban 5 MG TAB PO SCH ×2 (09:03→21:26)
[2021-02-18] MEDS: Nystatin 500,000 UNITS/5 ML UDCUP SSW SCH ×4 (09:03→23:18)
[2021-02-18] MEDS: Cholecalciferol (Vitamin D3) 400 UNITS TAB PO SCH (09:03)
[2021-02-18] MEDS: Benzonatate 100 MG CAP PO SCH ×3 (09:03→21:25)
[2021-02-18] MEDS: Magnesium Oxide 400 MG TAB PO SCH ×2 (09:03→21:26)
[2021-02-18] MEDS: Escitalopram Oxalate 10 mg Tablet PO SCH (09:04)
[2021-02-18] MEDS: Ferrous Sulfate 325 MG TAB PO SCH ×2 (09:04→16:37)
[2021-02-18] MEDS: Dexamethasone 4 mg/ml Vial SLOW IVP SCH (09:05)
[2021-02-18] MEDS: Ascorbic Acid 500 mg Chewable Tablet PO SCH (09:05)
[2021-02-18] MEDS ORDERED: Potassium Chloride 20 MEQ TAB PO SCH (09:30)
[2021-02-18] MEDS: Lantus 1000 UNITS/10 ML VIAL SC SCH (10:12)
[2021-02-18] MEDS ORDERED: HumaLOG 300 UNITS/3 ML VIAL SC SCH (17:15)
[2021-02-18] MEDS: Mometasone 200 MCG/Formoterol 5 MCG 120 PUFF INHALER INH SCH (18:16)
[2021-02-18] MEDS: Atorvastatin Calcium 10 MG TAB PO SCH (21:25)
[2021-02-18] MEDS: Mirtazapine 15 MG TAB PO SCH (21:27)
[2021-02-19] MEDS: HumaLOG 300 UNITS/3 ML VIAL SC PRN ×5 (01:33→19:58)
[2021-02-19] MEDS: Furosemide 40 MG/4 ML VIAL SLOW IVP SCH ×2 (05:57→14:09)
[2021-02-19] MEDS: Levothyroxine Sodium 75 MCG TAB PO SCH (05:58)
[2021-02-19] MEDS: Magnesium Oxide 400 MG TAB PO SCH ×2 (09:19→19:57)
[2021-02-19] MEDS: Cholecalciferol (Vitamin D3) 400 UNITS TAB PO SCH (09:19)
[2021-02-19] MEDS: Benzonatate 100 MG CAP PO SCH ×3 (09:19→19:58)
[2021-02-19] MEDS: Ascorbic Acid 500 mg Chewable Tablet PO SCH (09:19)
[2021-02-19] MEDS: Apixaban 5 MG TAB PO SCH ×2 (09:19→19:58)
[2021-02-19] MEDS: Mometasone 200 MCG/Formoterol 5 MCG 120 PUFF INHALER INH SCH ×2 (09:20→18:22)
[2021-02-19] MEDS: Ferrous Sulfate 325 MG TAB PO SCH ×2 (09:20→18:09)
[2021-02-19] MEDS: Dexamethasone 4 mg/ml Vial SLOW IVP SCH (09:20)
[2021-02-19] MEDS: Escitalopram Oxalate 10 mg Tablet PO SCH (09:21)
[2021-02-19] MEDS: Nystatin 500,000 UNITS/5 ML UDCUP SSW SCH ×4 (09:24→19:57)
[2021-02-19] MEDS: Lantus 1000 UNITS/10 ML VIAL SC SCH (10:34)
[2021-02-19 19:25] LABS: Hemoglobin 7.1 g/dL (12.0-16.0)
[2021-02-19] MEDS: Mirtazapine 15 MG TAB PO SCH (19:57)
[2021-02-19] MEDS: Atorvastatin Calcium 10 MG TAB PO SCH (19:57)
[2021-02-20] MEDS: HumaLOG 300 UNITS/3 ML VIAL SC PRN ×4 (05:34→20:40)
[2021-02-20] MEDS: Furosemide 40 MG/4 ML VIAL SLOW IVP SCH ×2 (05:35→14:09)
[2021-02-20] MEDS: Levothyroxine Sodium 75 MCG TAB PO SCH (05:35)
[2021-02-20 07:21] LABS: #Lymphocytes 0.6 thou/uL (1.20-3.40); #Monocytes 0.6 thou/uL (0.11-0.59); #Neutrophils 12.1 thou/uL (1.40-6.50); %Basophils 0.1 % (0.0-1.0); %Eosinophils 0.2 % (0.0-10.0); %Lymphocytes 4.6 % (21.0-51.0); %Monocytes 4.6 % (0.0-10.0); %Neutrophils 90.6 % (42.0-75.0); Hemoglobin 7.3 g/dL (12.0-16.0); Mean Corpuscular HGB CONC 30.3 g/dL (32.0-36.0); Mean Corpuscular Volume 92.6 fL (78.0-98.0); Mean Platelet Volume 10.3 fL (7.4-10.4); Platelet Count 75 thou/uL (130-400); RBC Distribution Width 19.3 % (11.5-14.5); White Blood Cell (WBC) Count 13.4 thou/uL (4.8-10.8)
[2021-02-20] MEDS: Mometasone 200 MCG/Formoterol 5 MCG 120 PUFF INHALER INH SCH ×2 (07:41→18:27)
[2021-02-20 07:47] LABS: BUN (Urea Nitrogen) 41 mg/dL (9.8-20.1); Calc. Creatinine Clearance 52 mL/min (70-130); Calcium 8.4 mg/dL (7.8-10.44); Glucose 295 mg/dL (83-110)
[2021-02-20 07:57] LABS: Anion Gap 15 mmol/L (10-20); Carbon Dioxide 39 mmol/L (23-31); Chloride 94 mmol/L (98-107); Sodium 145 mmol/L (136-145)
[2021-02-20 08:01] LABS: Potassium 2.7 mmol/L (3.5-5.1)
[2021-02-20] MEDS: Escitalopram Oxalate 10 mg Tablet PO SCH (14:04)
[2021-02-20] MEDS: Lantus 1000 UNITS/10 ML VIAL SC SCH (14:04)
[2021-02-20] MEDS: Dexamethasone 4 mg/ml Vial SLOW IVP SCH (14:04)
[2021-02-20] MEDS: Cholecalciferol (Vitamin D3) 400 UNITS TAB PO SCH (14:04)
[2021-02-20] MEDS: Ascorbic Acid 500 mg Chewable Tablet PO SCH (14:04)
[2021-02-20] MEDS: Benzonatate 100 MG CAP PO SCH ×3 (14:04→20:38)
[2021-02-20] MEDS: Ferrous Sulfate 325 MG TAB PO SCH ×2 (14:04→16:15)
[2021-02-20] MEDS: Apixaban 5 MG TAB PO SCH ×2 (14:04→20:39)
[2021-02-20] MEDS: Magnesium Oxide 400 MG TAB PO SCH ×2 (14:05→20:38)
[2021-02-20] MEDS: Nystatin 500,000 UNITS/5 ML UDCUP SSW SCH ×4 (14:05→20:39)
[2021-02-20] MEDS: Potassium Chloride 20 MEQ TAB PO SCH ×2 (16:15→18:03)
[2021-02-20] MEDS: Atorvastatin Calcium 10 MG TAB PO SCH (20:38)
[2021-02-20] MEDS: Mirtazapine 15 MG TAB PO SCH (20:38)
[2021-02-21] MEDS: HumaLOG 300 UNITS/3 ML VIAL SC PRN ×4 (05:58→20:04)
[2021-02-21] MEDS: Furosemide 40 MG/4 ML VIAL SLOW IVP SCH ×2 (05:58→14:17)
[2021-02-21] MEDS: Levothyroxine Sodium 75 MCG TAB PO SCH (05:58)
[2021-02-21] MEDS: Mometasone 200 MCG/Formoterol 5 MCG 120 PUFF INHALER INH SCH ×2 (07:09→18:48)
[2021-02-21] MEDS: Cholecalciferol (Vitamin D3) 400 UNITS TAB PO SCH (08:36)
[2021-02-21] MEDS: Benzonatate 100 MG CAP PO SCH ×3 (08:36→20:00)
[2021-02-21] MEDS: Escitalopram Oxalate 10 mg Tablet PO SCH (08:37)
[2021-02-21] MEDS: Ferrous Sulfate 325 MG TAB PO SCH ×2 (08:37→17:16)
[2021-02-21] MEDS: Ascorbic Acid 500 mg Chewable Tablet PO SCH (08:37)
[2021-02-21] MEDS: Magnesium Oxide 400 MG TAB PO SCH ×2 (08:37→20:00)
[2021-02-21] MEDS: Apixaban 5 MG TAB PO SCH ×2 (08:37→20:00)
[2021-02-21] MEDS: Dexamethasone 4 mg/ml Vial SLOW IVP SCH (08:38)
[2021-02-21] MEDS: Lantus 1000 UNITS/10 ML VIAL SC SCH (08:38)
[2021-02-21] MEDS: Nystatin 500,000 UNITS/5 ML UDCUP SSW SCH ×4 (08:42→20:03)
[2021-02-21 12:01] LABS: Anion Gap 16 mmol/L (10-20); BUN (Urea Nitrogen) 39 mg/dL (9.8-20.1); Calc. Creatinine Clearance 55 mL/min (70-130); Calcium 8.3 mg/dL (7.8-10.44); Carbon Dioxide 33 mmol/L (23-31); Chloride 96 mmol/L (98-107); Glucose 319 mg/dL (83-110); Magnesium 1.9 mg/dL (1.6-2.6); Sodium 141 mmol/L (136-145)
[2021-02-21] MEDS: Atorvastatin Calcium 10 MG TAB PO SCH (20:00)
[2021-02-21] MEDS: Mirtazapine 15 MG TAB PO SCH (20:00)
[2021-02-22] MEDS: Furosemide 40 MG/4 ML VIAL SLOW IVP SCH ×2 (05:58→13:55)
[2021-02-22] MEDS: Levothyroxine Sodium 75 MCG TAB PO SCH (05:58)
[2021-02-22] MEDS: HumaLOG 300 UNITS/3 ML VIAL SC PRN ×4 (06:15→21:43)
[2021-02-22 07:29] LABS: BUN (Urea Nitrogen) 37 mg/dL (9.8-20.1); Calc. Creatinine Clearance 60 mL/min (70-130); Calcium 8.4 mg/dL (7.8-10.44); Glucose 185 mg/dL (83-110)
[2021-02-22] MEDS: Mometasone 200 MCG/Formoterol 5 MCG 120 PUFF INHALER INH SCH ×2 (07:32→19:18)
[2021-02-22 07:38] LABS: Anion Gap 13 mmol/L (10-20); Chloride 92 mmol/L (98-107); Potassium 3.5 mmol/L (3.5-5.1); Sodium 142 mmol/L (136-145)
[2021-02-22 07:46] LABS: Carbon Dioxide 41 mmol/L (23-31)
[2021-02-22] MEDS: Nystatin 500,000 UNITS/5 ML UDCUP SSW SCH ×4 (09:20→21:42)
[2021-02-22] MEDS: Apixaban 5 MG TAB PO SCH ×2 (09:20→21:42)
[2021-02-22] MEDS: Escitalopram Oxalate 10 mg Tablet PO SCH (09:20)
[2021-02-22] MEDS: Cholecalciferol (Vitamin D3) 400 UNITS TAB PO SCH (09:20)
[2021-02-22] MEDS: Ferrous Sulfate 325 MG TAB PO SCH ×2 (09:21→16:40)
[2021-02-22] MEDS: Dexamethasone 4 mg/ml Vial SLOW IVP SCH (09:21)
[2021-02-22] MEDS: Ascorbic Acid 500 mg Chewable Tablet PO SCH (09:21)
[2021-02-22] MEDS: Magnesium Oxide 400 MG TAB PO SCH ×2 (09:21→21:41)
[2021-02-22] MEDS: Benzonatate 100 MG CAP PO SCH ×3 (09:21→21:42)
[2021-02-22] MEDS: Lantus 1000 UNITS/10 ML VIAL SC SCH (09:22)
[2021-02-22 17:46] LABS: #Lymphocytes 0.4 thou/uL (1.20-3.40); #Monocytes 0.3 thou/uL (0.11-0.59); #Neutrophils 9.3 thou/uL (1.40-6.50); %Basophils 0.4 % (0.0-1.0); %Eosinophils 0.2 % (0.0-10.0); %Lymphocytes 3.9 % (21.0-51.0); %Monocytes 2.5 % (0.0-10.0); Hemoglobin 6.6 g/dL (12.0-16.0); Mean Corpuscular Hemoglobin 29.4 pg (27.0-31.0); Mean Corpuscular Volume 94.9 fL (78.0-98.0); Mean Platelet Volume 9.3 fL (7.4-10.4); Platelet Count 73 thou/uL (130-400); RBC Distribution Width 19.8 % (11.5-14.5); Red Blood Cell (RBC) Count 2.25 mill/uL (4.20-5.40)
[2021-02-22 17:58] LABS: BUN (Urea Nitrogen) 38 mg/dL (9.8-20.1); Calc. Creatinine Clearance 49 mL/min (70-130); Calcium 7.8 mg/dL (7.8-10.44); Glucose 428 mg/dL (83-110)
[2021-02-22 18:10] LABS: Chloride 91 mmol/L (98-107); Potassium 3.3 mmol/L (3.5-5.1); Sodium 138 mmol/L (136-145)
[2021-02-22 18:18] LABS: Anion Gap 14 mmol/L (10-20); Carbon Dioxide 36 mmol/L (23-31)
[2021-02-22] MEDS: Atorvastatin Calcium 10 MG TAB PO SCH (21:41)
[2021-02-22] MEDS: Mirtazapine 15 MG TAB PO SCH (21:41)
[2021-02-23] MEDS: Levothyroxine Sodium 75 MCG TAB PO SCH (05:20)
[2021-02-23] MEDS: HumaLOG 300 UNITS/3 ML VIAL SC PRN ×4 (05:20→21:05)
[2021-02-23] MEDS: Mometasone 200 MCG/Formoterol 5 MCG 120 PUFF INHALER INH SCH ×2 (07:10→18:10)
[2021-02-23] MEDS: Magnesium Oxide 400 MG TAB PO SCH ×2 (08:13→21:05)
[2021-02-23] MEDS: Cholecalciferol (Vitamin D3) 400 UNITS TAB PO SCH (08:13)
[2021-02-23] MEDS: Ascorbic Acid 500 mg Chewable Tablet PO SCH (08:13)
[2021-02-23] MEDS: Apixaban 5 MG TAB PO SCH ×2 (08:13→21:04)
[2021-02-23] MEDS: Ferrous Sulfate 325 MG TAB PO SCH ×2 (08:13→16:10)
[2021-02-23] MEDS: Escitalopram Oxalate 10 mg Tablet PO SCH (08:13)
[2021-02-23] MEDS: Benzonatate 100 MG CAP PO SCH ×3 (08:13→21:05)
[2021-02-23] MEDS: Furosemide 20 MG TAB PO SCH ×2 (08:13→13:28)
[2021-02-23] MEDS: Dexamethasone 4 mg/ml Vial SLOW IVP SCH (08:15)
[2021-02-23] MEDS: Nystatin 500,000 UNITS/5 ML UDCUP SSW SCH ×4 (08:16→21:05)
[2021-02-23] MEDS: Lantus 1000 UNITS/10 ML VIAL SC SCH (08:16)
[2021-02-23] MEDS: Atorvastatin Calcium 10 MG TAB PO SCH (21:04)
[2021-02-23] MEDS: Mirtazapine 15 MG TAB PO SCH (21:04)
[2021-02-23] MEDS: Lorazepam 2 MG/ML VIAL SLOW IVP PRN (22:12)
[2021-02-24] MEDS: Levothyroxine Sodium 75 MCG TAB PO SCH (05:43)
[2021-02-24 07:38] LABS: BUN (Urea Nitrogen) 32 mg/dL (9.8-20.1); Calc. Creatinine Clearance 62 mL/min (70-130); Calcium 8.4 mg/dL (7.8-10.44); Glucose 190 mg/dL (83-110)
[2021-02-24 07:41] LABS: #Lymphocytes 0.6 thou/uL (1.20-3.40); #Monocytes 0.7 thou/uL (0.11-0.59); #Neutrophils 9.1 thou/uL (1.40-6.50); %Basophils 0.1 % (0.0-1.0); %Eosinophils 0.3 % (0.0-10.0); %Lymphocytes 5.4 % (21.0-51.0); %Neutrophils 87.2 % (42.0-75.0); Hemoglobin 7.7 g/dL (12.0-16.0); Mean Corpuscular HGB CONC 30.6 g/dL (32.0-36.0); Mean Corpuscular Volume 94.9 fL (78.0-98.0); Mean Platelet Volume 9.2 fL (7.4-10.4); Platelet Count 90 thou/uL (130-400); RBC Distribution Width 19.6 % (11.5-14.5); Red Blood Cell (RBC) Count 2.64 mill/uL (4.20-5.40); White Blood Cell (WBC) Count 10.4 thou/uL (4.8-10.8)
[2021-02-24 07:47] LABS: Anion Gap 13 mmol/L (10-20); Carbon Dioxide 38 mmol/L (23-31); Chloride 92 mmol/L (98-107); Potassium 3.6 mmol/L (3.5-5.1); Sodium 139 mmol/L (136-145)
[2021-02-24] MEDS: Ascorbic Acid 500 mg Chewable Tablet PO SCH (08:37)
[2021-02-24] MEDS: Benzonatate 100 MG CAP PO SCH ×3 (08:38→20:42)
[2021-02-24] MEDS: Furosemide 20 MG TAB PO SCH ×2 (08:38→13:04)
[2021-02-24] MEDS: Dexamethasone 4 MG TAB PO SCH (08:38)
[2021-02-24] MEDS: Escitalopram Oxalate 10 mg Tablet PO SCH (08:38)
[2021-02-24] MEDS: Apixaban 5 MG TAB PO SCH ×2 (08:38→20:42)
[2021-02-24] MEDS: Magnesium Oxide 400 MG TAB PO SCH ×2 (08:38→20:42)
[2021-02-24] MEDS: Cholecalciferol (Vitamin D3) 400 UNITS TAB PO SCH (08:39)
[2021-02-24] MEDS: Ferrous Sulfate 325 MG TAB PO SCH ×2 (08:39→15:21)
[2021-02-24] MEDS: Lantus 1000 UNITS/10 ML VIAL SC SCH (08:41)
[2021-02-24] MEDS: Nystatin 500,000 UNITS/5 ML UDCUP SSW SCH ×4 (10:31→20:43)
[2021-02-24] MEDS: HumaLOG 300 UNITS/3 ML VIAL SC PRN ×3 (11:07→20:54)
[2021-02-24] MEDS: Mometasone 200 MCG/Formoterol 5 MCG 120 PUFF INHALER INH SCH ×2 (12:49→19:07)
[2021-02-24 13:21] VITALS: BMI 25.7
[2021-02-24] MEDS ORDERED: HumaLOG 300 UNITS/3 ML VIAL SC SCH (16:15)
[2021-02-24] MEDS: Atorvastatin Calcium 10 MG TAB PO SCH (20:42)
[2021-02-24] MEDS: Mirtazapine 15 MG TAB PO SCH (20:42)
[2021-02-25] MEDS: HumaLOG 300 UNITS/3 ML VIAL SC PRN ×3 (05:51→16:44)
[2021-02-25] MEDS: Levothyroxine Sodium 75 MCG TAB PO SCH (05:51)
[2021-02-25] MEDS: Mometasone 200 MCG/Formoterol 5 MCG 120 PUFF INHALER INH SCH (07:11)
[2021-02-25] MEDS: Lantus 1000 UNITS/10 ML VIAL SC SCH (09:45)
[2021-02-25] MEDS: Ferrous Sulfate 325 MG TAB PO SCH ×2 (09:46→16:44)
[2021-02-25] MEDS: Dexamethasone 4 MG TAB PO SCH (09:47)
[2021-02-25] MEDS: Benzonatate 100 MG CAP PO SCH ×2 (09:47→14:20)
[2021-02-25] MEDS: Apixaban 5 MG TAB PO SCH (09:47)
[2021-02-25] MEDS: Magnesium Oxide 400 MG TAB PO SCH (09:47)
[2021-02-25] MEDS: Ascorbic Acid 500 mg Chewable Tablet PO SCH (09:47)
[2021-02-25] MEDS: Escitalopram Oxalate 10 mg Tablet PO SCH (09:47)
[2021-02-25] MEDS: Furosemide 20 MG TAB PO SCH ×2 (09:47→14:20)
[2021-02-25] MEDS: Cholecalciferol (Vitamin D3) 400 UNITS TAB PO SCH (09:48)
[2021-02-25] MEDS: Nystatin 500,000 UNITS/5 ML UDCUP SSW SCH ×3 (09:48→16:55)
[2021-02-25] MEDS ORDERED: Potassium Chloride 20 MEQ TAB PO SCH (13:45)
[2021-02-25] MEDS: Acetaminophen 325 MG TAB PO PRN (14:22)
[2021-02-25] MEDS ORDERED: HumaLOG 300 UNITS/3 ML VIAL SC SCH ×2 (15:24→16:51)
[2021-02-25 16:32] VITALS: BP 131/88; TEMP 98.5
== END 2021-02-25 18:48 | DRG 177 ==
LOC: ERS 15:38 → ERHOLD 18:43 → 2SW 01-30 17:43 → T4-A 02-18 16:00
PROVIDERS: ADMIT Family Medicine; ATTEND Internal Medicine
PROC: 8E0ZXY6 Isolation (ICD-10-PCS; principal; 2021-01-29)
PROC: 30233N1 Transfusion of Nonautologous Red Blood Cells into Peripheral Vein, Percutaneous Approach (ICD-10-PCS; 2021-02-11)
PROC: 5A09357 Assistance with Respiratory Ventilation, Less than 24 Consecutive Hours, Continuous Positive Airway Pressure (ICD-10-PCS; 2021-02-17)
PROC: 3E0333Z Introduction of Anti-inflammatory into Peripheral Vein, Percutaneous Approach (ICD-10-PCS; 2021-02-18)
DX: U07.1 COVID-19 (principal); J12.82 Pneumonia due to coronavirus disease 2019; J96.01 Acute respiratory failure with hypoxia; G93.41 Metabolic encephalopathy; E46 Unspecified protein-calorie malnutrition; I13.0 Hypertensive heart and chronic kidney disease with heart failure and stage 1 through stage 4 chronic kidney disease, or unspecified chronic kidney disease; I48.20 Chronic atrial fibrillation, unspecified; N17.9 Acute kidney failure, unspecified; F02.81 Dementia in other diseases classified elsewhere, unspecified severity, with behavioral disturbance; K92.2 Gastrointestinal hemorrhage, unspecified; D62 Acute posthemorrhagic anemia; K21.9 Gastro-esophageal reflux disease without esophagitis; D63.1 Anemia in chronic kidney disease; M19.90 Unspecified osteoarthritis, unspecified site; R13.10 Dysphagia, unspecified; F32.9 Major depressive disorder, single episode, unspecified; R79.89 Other specified abnormal findings of blood chemistry; I50.9 Heart failure, unspecified; E78.5 Hyperlipidemia, unspecified; E11.22 Type 2 diabetes mellitus with diabetic chronic kidney disease; E11.51 Type 2 diabetes mellitus with diabetic peripheral angiopathy without gangrene; E03.9 Hypothyroidism, unspecified; G35 Multiple sclerosis; N18.9 Chronic kidney disease, unspecified; I25.10 Atherosclerotic heart disease of native coronary artery without angina pectoris; N76.2 Acute vulvitis; B37.2 Candidiasis of skin and nail; E11.65 Type 2 diabetes mellitus with hyperglycemia; T38.0X5A Adverse effect of glucocorticoids and synthetic analogues, initial encounter; G30.9 Alzheimer's disease, unspecified; E66.01 Morbid (severe) obesity due to excess calories; I25.2 Old myocardial infarction; Z86.73 Personal history of transient ischemic attack (TIA), and cerebral infarction without residual deficits; Z87.440 Personal history of urinary (tract) infections; Z68.26 Body mass index [BMI] 26.0-26.9, adult; Z88.0 Allergy status to penicillin; Z91.040 Latex allergy status; Z79.82 Long term (current) use of aspirin; Z79.890 Hormone replacement therapy; Z79.4 Long term (current) use of insulin; Z79.899 Other long term (current) drug therapy; Z99.81 Dependence on supplemental oxygen; Z74.01 Bed confinement status; Z90.49 Acquired absence of other specified parts of digestive tract; Z90.710 Acquired absence of both cervix and uterus; Z89.429 Acquired absence of other toe(s), unspecified side; Z89.029 Acquired absence of unspecified finger(s); Z95.0 Presence of cardiac pacemaker
CPT/HCPCS: 36415; 36416; 36430; 36600; 71045; 80048; 80053; 82274; 82553; 82728; 82805; 83735; 83880; 84145; 84484; 85014; 85018; 85025; 85049; 85379; 86140; 86850; 86900; 86901; 93005; 94760; 96365; 96367; 96375; J0456; J0696; J1100; J1650; J1815; J1940; J1956; J2060; J3490; J7050; J8540; P9016

== ENCOUNTER 2021-03-10 16:14 | Inpatient (IN) | payer MEDICARE, OTHER ==
[2021-03-10 17:08] LABS: #Eosinphils 0.1 thou/uL (0.0-0.7); #Lymphocytes 1.3 thou/uL (1.20-3.40); #Monocytes 0.4 thou/uL (0.11-0.59); #Neutrophils 5.2 thou/uL (1.40-6.50); %Basophils 0.4 % (0.0-1.0); %Eosinophils 0.8 % (0.0-10.0); %Lymphocytes 19.1 % (21.0-51.0); %Monocytes 5.3 % (0.0-10.0); %Neutrophils 74.3 % (42.0-75.0); Hemoglobin 7.2 g/dL (12.0-16.0); Mean Corpuscular HGB CONC 30.6 g/dL (32.0-36.0); Mean Corpuscular Hemoglobin 30.2 pg (27.0-31.0); Mean Corpuscular Volume 98.4 fL (78.0-98.0); Platelet Count 179 thou/uL (130-400); RBC Distribution Width 20.3 % (11.5-14.5); Red Blood Cell (RBC) Count 2.37 mill/uL (4.20-5.40)
[2021-03-10 17:45] LABS: ALT (SGPT) 37 U/L (8-55); AST (SGOT) 16 U/L (5-34); Albumin 2.4 g/dL (3.4-4.8); Alkaline Phosphatase 122 U/L (40-110); Anion Gap 13 mmol/L (10-20); BUN (Urea Nitrogen) 44 mg/dL (9.8-20.1); Bilirubin, Total 0.5 mg/dL (0.2-1.2); Calc. Creatinine Clearance 0 mL/min (70-130); Calcium 8.3 mg/dL (7.8-10.44); Carbon Dioxide 30 mmol/L (23-31); Chloride 101 mmol/L (98-107); Globulin 2.7 g/dL (2.4-3.5); Glucose 102 mg/dL (83-110); Potassium 5.1 mmol/L (3.5-5.1); Protein, Total 5.1 g/dL (5.8-8.1); Sodium 139 mmol/L (136-145)
[2021-03-10 18:14] LABS: CKMB 3.4 ng/mL (0-6.6)
[2021-03-10] MEDS ORDERED: Ondansetron PF 4 MG/2 ML Vial IVP PRN (18:52)
[2021-03-10] MEDS ORDERED: HYDROcodone/Acetaminophen 7.5/325 mg Tablet PO PRN (18:52)
[2021-03-10] MEDS ORDERED: Senokot S 8.6-50 MG TAB PO PRN (18:52)
[2021-03-10] MEDS ORDERED: HYDROcodone/Acetaminophen 5/325 mg Tablet PO PRN (18:52)
[2021-03-10] MEDS ORDERED: Labetalol HCl 100 MG/20 ML VIAL SLOW IVP PRN (18:58)
[2021-03-10] MEDS ORDERED: HumaLOG 300 UNITS/3 ML VIAL SC PRN (19:04)
[2021-03-10] MEDS ORDERED: Dextrose 5% in Water 1,000 ML IV PRN (19:04)
[2021-03-10] MEDS ORDERED: Aspirin Chewable 81 MG TAB ONE (19:27)
[2021-03-10] MEDS ORDERED: cefTRIAXone\\ROCEPHIN 2 GM VIAL ONE (19:27)
[2021-03-10] MEDS ORDERED: Pantoprazole 40 MG VIAL ONE (21:35)
[2021-03-10] MEDS: Pantoprazole 40 MG VIAL IVP SCH (21:36)
[2021-03-10] MEDS: LACTINEX 1 TAB PO SCH (22:30)
[2021-03-10] MEDS: Magnesium Oxide 400 MG TAB PO SCH (22:30)
[2021-03-10 23:09] LABS: Troponin I 0.045 ng/mL (< 0.028)
[2021-03-11] MEDS ORDERED: hydrALAZINE 20 MG/ML VIAL SLOW IVP PRN (01:43)
[2021-03-11] MEDS ORDERED: Dextrose 50% Abboject 50 ML SYRINGE ONE (04:31)
[2021-03-11] MEDS: Dextrose 50% Abboject 50 ML SYRINGE SLOW IVP PRN (05:04)
[2021-03-11 05:51] LABS: #Lymphocytes 1.5 thou/uL (1.20-3.40); #Monocytes 0.6 thou/uL (0.11-0.59); #Neutrophils 5.1 thou/uL (1.40-6.50); %Eosinophils 0.6 % (0.0-10.0); %Lymphocytes 20.8 % (21.0-51.0); %Monocytes 7.8 % (0.0-10.0); %Neutrophils 70.8 % (42.0-75.0); Hemoglobin 8.8 g/dL (12.0-16.0); Mean Corpuscular HGB CONC 30.9 g/dL (32.0-36.0); Mean Corpuscular Hemoglobin 29.5 pg (27.0-31.0); Mean Corpuscular Volume 95.6 fL (78.0-98.0); Mean Platelet Volume 7.1 fL (7.4-10.4); Platelet Count 163 thou/uL (130-400); RBC Distribution Width 19.2 % (11.5-14.5); Red Blood Cell (RBC) Count 2.99 mill/uL (4.20-5.40); White Blood Cell (WBC) Count 7.1 thou/uL (4.8-10.8)
[2021-03-11 06:13] LABS: Chloride 103 mmol/L (98-107); Potassium 4.5 mmol/L (3.5-5.1); Sodium 138 mmol/L (136-145)
[2021-03-11 06:14] LABS: Calcium 8.1 mg/dL (7.8-10.44); Glucose 158 mg/dL (83-110)
[2021-03-11 06:16] LABS: Carbon Dioxide 25 mmol/L (23-31)
[2021-03-11 06:18] LABS: BUN (Urea Nitrogen) 42 mg/dL (9.8-20.1); Calc. Creatinine Clearance 0 mL/min (70-130)
[2021-03-11 06:52] LABS: Anion Gap 15 mmol/L (10-20)
[2021-03-11] MEDS: Ferrous Sulfate 325 MG TAB PO SCH ×2 (08:22→17:09)
[2021-03-11] MEDS: Levothyroxine Sodium 75 MCG TAB PO SCH (08:22)
[2021-03-11] MEDS: Magnesium Oxide 400 MG TAB PO SCH ×2 (08:23→20:22)
[2021-03-11] MEDS: Escitalopram Oxalate 10 mg Tablet PO SCH (08:23)
[2021-03-11] MEDS: Multivit, Therapeutic 1 TAB PO SCH (08:23)
[2021-03-11] MEDS ORDERED: Furosemide 40 MG TAB PO SCH (09:00)
[2021-03-11] MEDS ORDERED: Mirtazapine 15 MG TAB PO SCH (09:00)
[2021-03-11] MEDS ORDERED: Lantus 1000 UNITS/10 ML VIAL SC SCH (09:00)
[2021-03-11] MEDS: LACTINEX 1 TAB PO SCH ×2 (09:32→20:22)
[2021-03-11] MEDS: Pantoprazole 40 MG VIAL IVP SCH ×2 (09:32→20:21)
[2021-03-11] MEDS ORDERED: HYDROcodone/Acetaminophen 7.5/325 mg Tablet ONE (10:37)
[2021-03-11] MEDS ORDERED: Oxymetazoline HCl 0.05% (30 ML BOT) ONE (12:31)
[2021-03-11 12:32] LABS: Platelet Count 175 thou/uL (130-400)
[2021-03-11 12:38] LABS: Fibrinogen 300 mg/dL (253-463)
[2021-03-11 12:39] LABS: INR-International Normal Ratio 1.9; Prothrombin Time 21.9 sec (12.0-14.7)
[2021-03-11 12:40] LABS: PTT 46.2 sec (22.9-36.1)
[2021-03-11 12:47] LABS: D-Dimer Test 6.76 *mcg/mL (0.27-0.43)
[2021-03-11] MEDS ORDERED: Vancomycin 1 GM in Premix Bag 1 BAG IVPB SCH (13:00)
[2021-03-11 13:15] LABS: FSP-Qualitative ABNORMAL (Normal); FSP-Semiquantitative >=5 & <20 mcg/mL (Less than 5)
[2021-03-11 14:51] LABS: Iron 26 ug/dL (50-170); Iron Binding Capacity, Total 171 mcg/dL (265-497)
[2021-03-11] MEDS ORDERED: VANCOMYCIN 1.25 GM/250 ML BAG 1.25 GM in Premix Bag 1 BAG IVPB SCH (15:00)
[2021-03-11] MEDS: Dextrose 5%-Lactated Ringers 1,000 ML IV SCH (15:13)
[2021-03-11] MEDS ORDERED: FLU VACC QS2021-22(65YR UP)/PF 240 MCG/0.7 ML SYRINGE IM ONE (16:15)
[2021-03-11] MEDS: Cefepime 2 GM in Sodium Chloride 0.9% 100 ML IVPB SCH (17:02)
[2021-03-11 18:59] LABS: Hemoglobin 8.2 g/dL (12.0-16.0)
[2021-03-11] MEDS ORDERED: AFRIN NASAL MIST 15 ML BOT NS SCH (21:00)
[2021-03-11] MEDS ORDERED: Cefepime 2 GM in Sodium Chloride 0.9% 100 ML IVPB SCH (21:00)
[2021-03-12 01:52] LABS: Hemoglobin 7.8 g/dL (12.0-16.0)
[2021-03-12 04:54] LABS: Hemoglobin 7.6 g/dL (12.0-16.0); Mean Corpuscular HGB CONC 31.2 g/dL (32.0-36.0); Mean Corpuscular Volume 96.3 fL (78.0-98.0); Mean Platelet Volume 7.3 fL (7.4-10.4); Platelet Count 141 thou/uL (130-400); RBC Distribution Width 19.1 % (11.5-14.5); Red Blood Cell (RBC) Count 2.54 mill/uL (4.20-5.40); White Blood Cell (WBC) Count 8.9 thou/uL (4.8-10.8)
[2021-03-12 05:13] LABS: Anion Gap 14 mmol/L (10-20); BUN (Urea Nitrogen) 42 mg/dL (9.8-20.1); Calc. Creatinine Clearance 53 mL/min (70-130); Calcium 7.4 mg/dL (7.8-10.44); Carbon Dioxide 25 mmol/L (23-31); Chloride 102 mmol/L (98-107); Glucose 131 mg/dL (83-110); Potassium 4.1 mmol/L (3.5-5.1); Sodium 137 mmol/L (136-145)
[2021-03-12 05:33] LABS: #Lymphocytes 1.7 thou/uL (1.20-3.40); #Monocytes 0.5 thou/uL (0.11-0.59); #Neutrophils 6.6 thou/uL (1.40-6.50); %Basophils 0.1 % (0.0-1.0); %Eosinophils 0.4 % (0.0-10.0); %Lymphocytes 18.9 % (21.0-51.0); %Monocytes 6.1 % (0.0-10.0); %Neutrophils 74.5 % (42.0-75.0); Anisocytosis SLIGHT = 6-15 cells (100X) (0-5/hpf); Hypochromia SLIGHT = 6-15 cells (100X) (0-5/hpf); MDiff Complete? YES
[2021-03-12] MEDS: Levothyroxine Sodium 75 MCG TAB PO SCH (06:04)
[2021-03-12 08:01] LABS: Hemoglobin 7.5 g/dL (12.0-16.0); Mean Corpuscular HGB CONC 30.4 g/dL (32.0-36.0); Mean Corpuscular Hemoglobin 29.4 pg (27.0-31.0); Mean Corpuscular Volume 96.7 fL (78.0-98.0); Mean Platelet Volume 6.7 fL (7.4-10.4); Platelet Count 134 thou/uL (130-400); RBC Distribution Width 19.6 % (11.5-14.5); Red Blood Cell (RBC) Count 2.53 mill/uL (4.20-5.40); White Blood Cell (WBC) Count 7.8 thou/uL (4.8-10.8)
[2021-03-12 08:55] LABS: Band 23 % (5-11); Eosinophils 3 % (0-10); Hypochromia SLIGHT = 6-15 cells (100X) (0-5/hpf); Lymphocytes 18 % (21-51); MDiff Complete? YES; Monocytes 4 % (0-10); Neutrophil 49 % (42-75); Platelet Morphology Comment Appears Adequate; Polychromasia SLIGHT = 2-3 cells (100X) (0-2/hpf); Reactive Lymphocytes 2 % (0-10); Schistocytes SLIGHT = 2-5 cells (100X) (0-1/hpf)
[2021-03-12 09:05] LABS: Reticulocyte Count 5.8 % (0.5-1.5)
[2021-03-12] MEDS: Dextrose 5%-Lactated Ringers 1,000 ML IV SCH (09:37)
[2021-03-12] MEDS ORDERED: PROPOFOL 200 MG/20 ML VIAL ONE (10:52)
[2021-03-12] MEDS: Oxymetazoline HCl 0.05% (30 ML BOT) NS SCH ×2 (10:54→21:58)
[2021-03-12] MEDS: Ferrous Sulfate 325 MG TAB PO SCH ×2 (10:55→16:00)
[2021-03-12] MEDS: LACTINEX 1 TAB PO SCH ×2 (12:06→21:57)
[2021-03-12] MEDS: Magnesium Oxide 400 MG TAB PO SCH ×2 (12:06→21:57)
[2021-03-12] MEDS: Pantoprazole 40 MG VIAL IVP SCH ×2 (12:06→21:59)
[2021-03-12] MEDS: Multivit, Therapeutic 1 TAB PO SCH (15:06)
[2021-03-12] MEDS: Escitalopram Oxalate 10 mg Tablet PO SCH (15:06)
[2021-03-12] MEDS: Vancomycin 1 GM in Premix Bag 1 BAG IVPB SCH (15:14)
[2021-03-12] MEDS: Cefepime 2 GM in Sodium Chloride 0.9% 100 ML IVPB SCH (16:05)
[2021-03-12] MEDS: HumaLOG 300 UNITS/3 ML VIAL SC PRN (17:33)
[2021-03-13] MEDS: Dextrose 5%-Lactated Ringers 1,000 ML IV SCH ×3 (03:34→23:04)
[2021-03-13] MEDS: Levothyroxine Sodium 75 MCG TAB PO SCH (06:00)
[2021-03-13] MEDS: Ferrous Sulfate 325 MG TAB PO SCH ×2 (08:58→16:59)
[2021-03-13] MEDS: Multivit, Therapeutic 1 TAB PO SCH (08:59)
[2021-03-13] MEDS: Escitalopram Oxalate 10 mg Tablet PO SCH (08:59)
[2021-03-13] MEDS: Magnesium Oxide 400 MG TAB PO SCH ×2 (08:59→21:01)
[2021-03-13] MEDS: LACTINEX 1 TAB PO SCH ×2 (08:59→21:01)
[2021-03-13] MEDS ORDERED: Furosemide 20 MG/2 ML VIAL SLOW IVP SCH (09:30)
[2021-03-13] MEDS: Oxymetazoline HCl 0.05% (30 ML BOT) NS SCH ×2 (10:00→21:48)
[2021-03-13] MEDS: Pantoprazole 40 MG VIAL IVP SCH ×2 (10:01→21:48)
[2021-03-13 14:25] LABS: Vancomycin, Trough 14.5 ug/mL
[2021-03-13] MEDS: Vancomycin 1 GM in Premix Bag 1 BAG IVPB SCH (15:21)
[2021-03-13] MEDS: Cefepime 2 GM in Sodium Chloride 0.9% 100 ML IVPB SCH (16:57)
[2021-03-14] MEDS: Levothyroxine Sodium 75 MCG TAB PO SCH (06:01)
[2021-03-14] MEDS: LACTINEX 1 TAB PO SCH ×2 (09:35→20:26)
[2021-03-14] MEDS: Oxymetazoline HCl 0.05% (30 ML BOT) NS SCH ×2 (09:35→20:26)
[2021-03-14] MEDS: Pantoprazole 40 MG VIAL IVP SCH ×2 (09:35→20:26)
[2021-03-14] MEDS: Ferrous Sulfate 325 MG TAB PO SCH ×2 (09:35→19:14)
[2021-03-14] MEDS: Magnesium Oxide 400 MG TAB PO SCH ×2 (09:36→20:26)
[2021-03-14] MEDS: Multivit, Therapeutic 1 TAB PO SCH (09:36)
[2021-03-14] MEDS: Escitalopram Oxalate 10 mg Tablet PO SCH (09:36)
[2021-03-14 15:25] LABS: Hemoglobin 8.1 g/dL (12.0-16.0); Mean Corpuscular HGB CONC 30.9 g/dL (32.0-36.0); Mean Corpuscular Hemoglobin 30.3 pg (27.0-31.0); Mean Corpuscular Volume 98.2 fL (78.0-98.0); Platelet Count 144 thou/uL (130-400); RBC Distribution Width 19.5 % (11.5-14.5); Red Blood Cell (RBC) Count 2.67 mill/uL (4.20-5.40); White Blood Cell (WBC) Count 24.2 thou/uL (4.8-10.8)
[2021-03-14] MEDS ORDERED: Lorazepam 2 MG/ML VIAL ONE (15:33)
[2021-03-14 15:34] LABS: INR-International Normal Ratio 1.6; Prothrombin Time 18.9 sec (12.0-14.7)
[2021-03-14 15:35] LABS: Actual Bicarbonate (HCO3a) 22.9 mEq/L (22-28); Base Excess (BEa) -2.6 mEq/L (-2.0 to +3.0); CO2 Tension 42.6 mmHg (35.0-45.0); Calcium, Ionized (arterial) 1.48 mmol/L (1.12-1.30); Carboxyhemoglobin (COHb) 0.6 gm% (0.0-3.0); Hemoglobin (Hb) 8.4 g/dL (12.0-16.0); Potassium - ABG Lab 3.73 mmol/L (3.70-5.30); pH, Arterial 7.35 (7.35-7.45)
[2021-03-14 15:41] LABS: Puncture Site RBA
[2021-03-14] MEDS ORDERED: DISCONTINUE PREVIOUS NARCOTIC PAIN MEDICATIONS AND BENZODIAZEPINES FS SCH (15:45)
[2021-03-14] MEDS ORDERED: Propofol 1,000 MG/100 ML VIAL IV PRN (15:45)
[2021-03-14] MEDS ORDERED: Propofol BOLUS 1,000 MG/100 ML VIAL IV PRN (15:45)
[2021-03-14] MEDS ORDERED: Fentanyl BOLUS 250 ML IVPB PRN (15:45)
[2021-03-14 15:46] LABS: MDiff Complete? YES
[2021-03-14 15:47] LABS: Anisocytosis SLIGHT = 6-15 cells (100X) (0-5/hpf); Band 9 % (5-11); Eosinophils 1 % (0-10); Lymphocytes 26 % (21-51); Metamyelocyte 2 % (0-0); Monocytes 17 % (0-10); Myelocyte 1 % (0-0); Neutrophil 44 % (42-75); Ovalocytes SLIGHT = 2-5 cells (100X) (0-1/hpf); Platelet Morphology Comment Appears Adequate; Polychromasia SLIGHT = 2-3 cells (100X) (0-2/hpf)
[2021-03-14] MEDS ORDERED: Morphine 4 MG/ML VIAL SLOW IVP PRN (15:48)
[2021-03-14 15:55] LABS: Troponin I 0.028 ng/mL (< 0.028)
[2021-03-14] MEDS: Cefepime 2 GM in Sodium Chloride 0.9% 100 ML IVPB SCH (16:19)
[2021-03-14 16:23] LABS: ALT (SGPT) 27 U/L (8-55); AST (SGOT) 17 U/L (5-34); Albumin 1.6 g/dL (3.4-4.8); Alkaline Phosphatase 102 U/L (40-110); Anion Gap 14 mmol/L (10-20); BUN (Urea Nitrogen) 25 mg/dL (9.8-20.1); Bilirubin, Total 0.4 mg/dL (0.2-1.2); Calc. Creatinine Clearance 56 mL/min (70-130); Calcium 8.5 mg/dL (7.8-10.44); Carbon Dioxide 23 mmol/L (23-31); Chloride 106 mmol/L (98-107); Globulin 2.3 g/dL (2.4-3.5); Glucose 212 mg/dL (83-110); Potassium 4.3 mmol/L (3.5-5.1); Protein, Total 3.9 g/dL (5.8-8.1); Sodium 139 mmol/L (136-145)
[2021-03-14] MEDS: Dextrose 5%-Lactated Ringers 1,000 ML IV SCH ×2 (16:23→20:17)
[2021-03-14] MEDS: HumaLOG 300 UNITS/3 ML VIAL SC PRN ×2 (16:40→19:39)
[2021-03-14] MEDS ORDERED: Fentanyl CADD 100 ML ONE (16:46)
[2021-03-14] MEDS: Fentanyl CADD 100 ML IV SCH (16:53)
[2021-03-14] MEDS ORDERED: Norepinephrine 8 MG/0.9% NS 250 ML ONE (16:58)
[2021-03-14] MEDS ORDERED: MEROPENEM 1 GM/50 ML 1 GM in Premix Bag 1 BAG IVPB SCH (17:15)
[2021-03-14 17:17] LABS: #Eosinphils 0.1 thou/uL (0.0-0.7); #Lymphocytes 1.2 thou/uL (1.20-3.40); #Monocytes 0.5 thou/uL (0.11-0.59); #Neutrophils 8.9 thou/uL (1.40-6.50); %Eosinophils 0.5 % (0.0-10.0); %Lymphocytes 11.4 % (21.0-51.0); Hemoglobin 9.3 g/dL (12.0-16.0); Mean Platelet Volume 7.3 fL (7.4-10.4); Platelet Count 116 thou/uL (130-400); RBC Distribution Width 18.5 % (11.5-14.5); Red Blood Cell (RBC) Count 3.01 mill/uL (4.20-5.40); White Blood Cell (WBC) Count 10.7 thou/uL (4.8-10.8)
[2021-03-14 17:32] LABS: Anisocytosis SLIGHT = 6-15 cells (100X) (0-5/hpf); Band 19 % (5-11); Lymphocytes 2 % (21-51); MDiff Complete? YES; Metamyelocyte 1 % (0-0); Monocytes 3 % (0-10); Myelocyte 1 % (0-0); Neutrophil 74 % (42-75); Ovalocytes SLIGHT = 2-5 cells (100X) (0-1/hpf); Platelet Morphology Comment Appears Decreased; Polychromasia SLIGHT = 2-3 cells (100X) (0-2/hpf)
[2021-03-14 17:34] LABS: Magnesium 1.7 mg/dL (1.6-2.6); Phosphorus 2.2 mg/dL (2.3-4.7)
[2021-03-14 17:39] LABS: Lactic Acid 6.1 mmol/L (0.5-2.2)
[2021-03-14] MEDS: Ipratropium Bromide 2.5 ml Neb NEB SCH (19:07)
[2021-03-14] MEDS ORDERED: Meropenem 1 GM in Sodium Chloride 0.9% 100 ML IVPB SCH (22:00)
[2021-03-15] MEDS: MEROPENEM 1 GM/50 ML 1 GM in Premix Bag 1 BAG IVPB SCH ×2 (00:14→16:37)
[2021-03-15] MEDS: Ipratropium Bromide 2.5 ml Neb NEB SCH ×5 (00:32→23:32)
[2021-03-15 04:22] LABS: #Lymphocytes 4.2 thou/uL (1.20-3.40); #Neutrophils 7.8 thou/uL (1.40-6.50); %Basophils 0.2 % (0.0-1.0); %Eosinophils 0.4 % (0.0-10.0); %Lymphocytes 32.1 % (21.0-51.0); %Monocytes 7.8 % (0.0-10.0); %Neutrophils 59.6 % (42.0-75.0); Hemoglobin 9.6 g/dL (12.0-16.0); Mean Corpuscular HGB CONC 31.6 g/dL (32.0-36.0); Mean Corpuscular Hemoglobin 29.9 pg (27.0-31.0); Mean Corpuscular Volume 94.5 fL (78.0-98.0); Mean Platelet Volume 8.1 fL (7.4-10.4); Platelet Count 147 thou/uL (130-400); RBC Distribution Width 18.3 % (11.5-14.5); Red Blood Cell (RBC) Count 3.22 mill/uL (4.20-5.40); White Blood Cell (WBC) Count 13.1 thou/uL (4.8-10.8)
[2021-03-15 04:52] LABS: ALT (SGPT) 33 U/L (8-55); AST (SGOT) 25 U/L (5-34); Albumin 1.9 g/dL (3.4-4.8); Alkaline Phosphatase 129 U/L (40-110); Anion Gap 12 mmol/L (10-20); BUN (Urea Nitrogen) 27 mg/dL (9.8-20.1); Bilirubin, Total 1.2 mg/dL (0.2-1.2); Calc. Creatinine Clearance 56 mL/min (70-130); Calcium 9.2 mg/dL (7.8-10.44); Carbon Dioxide 27 mmol/L (23-31); Chloride 108 mmol/L (98-107); Globulin 2.6 g/dL (2.4-3.5); Glucose 153 mg/dL (83-110); Potassium 3.4 mmol/L (3.5-5.1); Protein, Total 4.5 g/dL (5.8-8.1); Sodium 144 mmol/L (136-145)
[2021-03-15] MEDS: Levothyroxine Sodium 75 MCG TAB PO SCH (05:45)
[2021-03-15] MEDS: Oxymetazoline HCl 0.05% (30 ML BOT) NS SCH ×2 (09:00→20:20)
[2021-03-15] MEDS: Escitalopram Oxalate 10 mg Tablet PO SCH (09:00)
[2021-03-15] MEDS: Magnesium Oxide 400 MG TAB PO SCH ×2 (09:13→20:19)
[2021-03-15] MEDS: Ferrous Sulfate 325 MG TAB PO SCH ×2 (09:14→16:49)
[2021-03-15] MEDS: LACTINEX 1 TAB PO SCH ×2 (09:16→20:19)
[2021-03-15] MEDS: Multivit, Therapeutic 1 TAB PO SCH (09:16)
[2021-03-15] MEDS: Dextrose 5%-Lactated Ringers 1,000 ML IV SCH ×2 (09:17→20:33)
[2021-03-15] MEDS ORDERED: Fentanyl CADD 100 ML ONE (10:35)
[2021-03-15] MEDS: Norepinephrine 8 MG/0.9% NS 250 ML IVPB PRN (16:33)
[2021-03-15] MEDS: Pantoprazole 40 MG VIAL IVP SCH ×2 (16:54→20:19)
[2021-03-15] MEDS: HumaLOG 300 UNITS/3 ML VIAL SC PRN (20:34)
[2021-03-16] MEDS: MEROPENEM 1 GM/50 ML 1 GM in Premix Bag 1 BAG IVPB SCH ×2 (00:31→13:00)
[2021-03-16] MEDS: HumaLOG 300 UNITS/3 ML VIAL SC PRN (00:35)
[2021-03-16 04:48] LABS: #Lymphocytes 2.6 thou/uL (1.20-3.40); #Monocytes 0.9 thou/uL (0.11-0.59); #Neutrophils 7.5 thou/uL (1.40-6.50); %Basophils 0.3 % (0.0-1.0); %Eosinophils 0.3 % (0.0-10.0); %Lymphocytes 23.5 % (21.0-51.0); %Monocytes 7.8 % (0.0-10.0); %Neutrophils 68.1 % (42.0-75.0); Mean Corpuscular HGB CONC 32.6 g/dL (32.0-36.0); Mean Corpuscular Hemoglobin 30.4 pg (27.0-31.0); Mean Corpuscular Volume 93.3 fL (78.0-98.0); Mean Platelet Volume 7.9 fL (7.4-10.4); Platelet Count 141 thou/uL (130-400); Red Blood Cell (RBC) Count 2.94 mill/uL (4.20-5.40); White Blood Cell (WBC) Count 10.9 thou/uL (4.8-10.8)
[2021-03-16] MEDS: Levothyroxine Sodium 75 MCG TAB PO SCH (05:04)
[2021-03-16] MEDS: Fentanyl CADD 100 ML IV SCH (05:09)
[2021-03-16 05:14] LABS: ALT (SGPT) 25 U/L (8-55); AST (SGOT) 14 U/L (5-34); Albumin 1.6 g/dL (3.4-4.8); Alkaline Phosphatase 121 U/L (40-110); Anion Gap 13 mmol/L (10-20); BUN (Urea Nitrogen) 26 mg/dL (9.8-20.1); Bilirubin, Total 0.9 mg/dL (0.2-1.2); Calc. Creatinine Clearance 52 mL/min (70-130); Calcium 8.3 mg/dL (7.8-10.44); Carbon Dioxide 25 mmol/L (23-31); Chloride 108 mmol/L (98-107); Globulin 2.2 g/dL (2.4-3.5); Glucose 103 mg/dL (83-110); Protein, Total 3.8 g/dL (5.8-8.1); Sodium 143 mmol/L (136-145)
[2021-03-16 05:58] LABS: Potassium 2.8 mmol/L (3.5-5.1)
[2021-03-16] MEDS ORDERED: Electrolyte Replacement Protocol 1 EACH FS SCH (06:30)
[2021-03-16] MEDS ORDERED: Electrolyte Replacement Protocol FS PRN (06:45)
[2021-03-16 07:15] LABS: Magnesium 1.5 mg/dL (1.6-2.6)
[2021-03-16] MEDS: Ferrous Sulfate 325 MG TAB PO SCH ×2 (08:00→16:08)
[2021-03-16] MEDS: Potassium Chloride 40 MEQ in Sodium Chloride 0.9% 250 ML 250 ML IVPB SCH ×2 (08:00→11:00)
[2021-03-16] MEDS: Ipratropium Bromide 2.5 ml Neb NEB SCH ×4 (08:52→23:54)
[2021-03-16] MEDS: Magnesium Oxide 400 MG TAB PO SCH ×2 (09:00→19:46)
[2021-03-16] MEDS ORDERED: Magnesium 2 GM/50 ML 2 GM in Premix Bag 1 BAG IVPB SCH (09:00)
[2021-03-16] MEDS: LACTINEX 1 TAB PO SCH ×2 (09:00→19:46)
[2021-03-16] MEDS: Multivit, Therapeutic 1 TAB PO SCH (09:00)
[2021-03-16] MEDS: Escitalopram Oxalate 10 mg Tablet PO SCH (09:00)
[2021-03-16] MEDS: Pantoprazole 40 MG VIAL IVP SCH ×2 (09:00→19:46)
[2021-03-16] MEDS: Oxymetazoline HCl 0.05% (30 ML BOT) NS SCH ×2 (09:00→19:46)
[2021-03-16] MEDS: Norepinephrine 8 MG/0.9% NS 250 ML IVPB PRN (13:58)
[2021-03-16] MEDS: Dextrose 5%-Lactated Ringers 1,000 ML IV SCH (16:08)
[2021-03-16 18:54] LABS: Potassium 3.8 mmol/L (3.5-5.1)
[2021-03-16] MEDS: Acetaminophen 325 MG TAB PO PRN (20:16)
[2021-03-16 22:04] LABS: #Eosinphils 0.1 thou/uL (0.0-0.7); #Lymphocytes 2.5 thou/uL (1.20-3.40); #Monocytes 0.9 thou/uL (0.11-0.59); #Neutrophils 8.8 thou/uL (1.40-6.50); %Basophils 0.4 % (0.0-1.0); %Eosinophils 0.7 % (0.0-10.0); %Lymphocytes 20.4 % (21.0-51.0); %Monocytes 7.5 % (0.0-10.0); Hemoglobin 9.5 g/dL (12.0-16.0); Mean Corpuscular HGB CONC 32.4 g/dL (32.0-36.0); Mean Corpuscular Hemoglobin 30.1 pg (27.0-31.0); Mean Corpuscular Volume 92.8 fL (78.0-98.0); Platelet Count 161 thou/uL (130-400); RBC Distribution Width 18.3 % (11.5-14.5); Red Blood Cell (RBC) Count 3.15 mill/uL (4.20-5.40); White Blood Cell (WBC) Count 12.4 thou/uL (4.8-10.8)
[2021-03-17] MEDS: Dextrose 5%-Lactated Ringers 1,000 ML IV SCH ×2 (00:23→14:51)
[2021-03-17] MEDS: MEROPENEM 1 GM/50 ML 1 GM in Premix Bag 1 BAG IVPB SCH ×2 (00:23→13:00)
[2021-03-17] MEDS: Fentanyl CADD 100 ML IV SCH ×2 (01:22→21:01)
[2021-03-17 05:01] LABS: #Basophils 0.1 thou/uL (0.0-0.2); #Eosinphils 0.2 thou/uL (0.0-0.7); #Neutrophils 8.6 thou/uL (1.40-6.50); %Basophils 0.5 % (0.0-1.0); %Eosinophils 1.2 % (0.0-10.0); %Lymphocytes 23.3 % (21.0-51.0); %Monocytes 8.1 % (0.0-10.0); %Neutrophils 66.9 % (42.0-75.0); Hemoglobin 9.7 g/dL (12.0-16.0); Mean Corpuscular HGB CONC 32.8 g/dL (32.0-36.0); Mean Corpuscular Hemoglobin 30.7 pg (27.0-31.0); Mean Corpuscular Volume 93.7 fL (78.0-98.0); Mean Platelet Volume 8.1 fL (7.4-10.4); Platelet Count 151 thou/uL (130-400); RBC Distribution Width 18.5 % (11.5-14.5); Red Blood Cell (RBC) Count 3.16 mill/uL (4.20-5.40); White Blood Cell (WBC) Count 12.9 thou/uL (4.8-10.8)
[2021-03-17 05:27] LABS: ALT (SGPT) 22 U/L (8-55); AST (SGOT) 26 U/L (5-34); Albumin 1.6 g/dL (3.4-4.8); Alkaline Phosphatase 138 U/L (40-110); Anion Gap 12 mmol/L (10-20); BUN (Urea Nitrogen) 24 mg/dL (9.8-20.1); Calc. Creatinine Clearance 47 mL/min (70-130); Carbon Dioxide 22 mmol/L (23-31); Chloride 110 mmol/L (98-107); Globulin 2.6 g/dL (2.4-3.5); Glucose 201 mg/dL (83-110); Magnesium 1.9 mg/dL (1.6-2.6); Potassium 3.9 mmol/L (3.5-5.1); Protein, Total 4.2 g/dL (5.8-8.1); Sodium 140 mmol/L (136-145)
[2021-03-17] MEDS: Levothyroxine Sodium 75 MCG TAB PO SCH (05:27)
[2021-03-17] MEDS: Acetaminophen 325 MG TAB PO PRN ×2 (05:27→20:59)
[2021-03-17] MEDS: HumaLOG 300 UNITS/3 ML VIAL SC PRN ×2 (05:42→21:30)
[2021-03-17] MEDS ORDERED: Magnesium 2 GM/50 ML 2 GM in Premix Bag 1 BAG IVPB SCH (06:00)
[2021-03-17] MEDS: Ipratropium Bromide 2.5 ml Neb NEB SCH ×4 (07:39→23:28)
[2021-03-17] MEDS: Magnesium Oxide 400 MG TAB PO SCH ×2 (08:00→20:59)
[2021-03-17] MEDS: Ferrous Sulfate 325 MG TAB PO SCH ×2 (08:00→16:44)
[2021-03-17] MEDS: Multivit, Therapeutic 1 TAB PO SCH (08:00)
[2021-03-17] MEDS: Escitalopram Oxalate 10 mg Tablet PO SCH (08:05)
[2021-03-17] MEDS: Oxymetazoline HCl 0.05% (30 ML BOT) NS SCH ×2 (08:06→20:59)
[2021-03-17] MEDS: Pantoprazole 40 MG VIAL IVP SCH ×2 (08:06→20:59)
[2021-03-17] MEDS: LACTINEX 1 TAB PO SCH ×3 (09:00→20:59)
[2021-03-17] MEDS: Norepinephrine 8 MG/0.9% NS 250 ML IVPB PRN (10:41)
[2021-03-17] MEDS ORDERED: Fentanyl CADD 100 ML ONE (19:56)
[2021-03-18] MEDS: MEROPENEM 1 GM/50 ML 1 GM in Premix Bag 1 BAG IVPB SCH ×2 (00:42→12:46)
[2021-03-18] MEDS: Dextrose 5%-Lactated Ringers 1,000 ML IV SCH ×2 (04:59→21:58)
[2021-03-18] MEDS: Levothyroxine Sodium 75 MCG TAB PO SCH (05:00)
[2021-03-18] MEDS: Norepinephrine 8 MG/0.9% NS 250 ML IVPB PRN (05:00)
[2021-03-18] MEDS: HumaLOG 300 UNITS/3 ML VIAL SC PRN ×2 (06:33→21:03)
[2021-03-18] MEDS: Ipratropium Bromide 2.5 ml Neb NEB SCH ×3 (07:15→18:23)
[2021-03-18 07:26] LABS: Actual Bicarbonate (HCO3a) 19.8 mEq/L (22-28); Base Excess (BEa) -1.8 mEq/L (-2.0 to +3.0); Calcium, Ionized (arterial) 1.23 mmol/L (1.12-1.30); Carboxyhemoglobin (COHb) 0.5 gm% (0.0-3.0); Hemoglobin (Hb) 9.6 g/dL (12.0-16.0); O2 Tension (PaO2), arterial 81.2 mmHg (> 60.0); Potassium - ABG Lab 3.31 mmol/L (3.70-5.30); pH, Arterial 7.54 (7.35-7.45)
[2021-03-18 07:29] LABS: CO2 Tension 23.8 mmHg (35.0-45.0); Puncture Site RRA
[2021-03-18] MEDS: Ferrous Sulfate 325 MG TAB PO SCH ×2 (07:42→17:10)
[2021-03-18] MEDS: Magnesium Oxide 400 MG TAB PO SCH ×2 (08:06→20:53)
[2021-03-18] MEDS: Escitalopram Oxalate 10 mg Tablet PO SCH (08:06)
[2021-03-18] MEDS: Multivit, Therapeutic 1 TAB PO SCH (08:06)
[2021-03-18] MEDS: Oxymetazoline HCl 0.05% (30 ML BOT) NS SCH ×2 (08:08→20:55)
[2021-03-18] MEDS: Pantoprazole 40 MG VIAL IVP SCH ×2 (08:08→20:55)
[2021-03-18 17:36] LABS: #Basophils 0.1 thou/uL (0.0-0.2); #Eosinphils 0.2 thou/uL (0.0-0.7); #Lymphocytes 4.9 thou/uL (1.20-3.40); #Monocytes 2.2 thou/uL (0.11-0.59); #Neutrophils 11.8 thou/uL (1.40-6.50); %Basophils 0.3 % (0.0-1.0); %Eosinophils 1.1 % (0.0-10.0); %Lymphocytes 25.6 % (21.0-51.0); %Monocytes 11.3 % (0.0-10.0); %Neutrophils 61.6 % (42.0-75.0); Hemoglobin 9.6 g/dL (12.0-16.0); Mean Corpuscular HGB CONC 31.5 g/dL (32.0-36.0); Mean Corpuscular Hemoglobin 29.4 pg (27.0-31.0); Mean Corpuscular Volume 93.2 fL (78.0-98.0); Mean Platelet Volume 8.1 fL (7.4-10.4); Platelet Count 130 thou/uL (130-400); RBC Distribution Width 18.4 % (11.5-14.5); Red Blood Cell (RBC) Count 3.25 mill/uL (4.20-5.40); White Blood Cell (WBC) Count 19.1 thou/uL (4.8-10.8)
[2021-03-18 18:04] LABS: Anion Gap 11 mmol/L (10-20); BUN (Urea Nitrogen) 27 mg/dL (9.8-20.1); Calc. Creatinine Clearance 48 mL/min (70-130); Calcium 7.7 mg/dL (7.8-10.44); Carbon Dioxide 19 mmol/L (23-31); Chloride 113 mmol/L (98-107); Glucose 184 mg/dL (83-110); Magnesium 2.2 mg/dL (1.6-2.6); Potassium 4.2 mmol/L (3.5-5.1); Sodium 139 mmol/L (136-145)
[2021-03-18] MEDS ORDERED: Fentanyl CADD 100 ML ONE (20:52)
[2021-03-18] MEDS: LACTINEX 1 TAB PO SCH (20:53)
[2021-03-18] MEDS: Fentanyl CADD 100 ML IV SCH (20:54)
[2021-03-19] MEDS: Ipratropium Bromide 2.5 ml Neb NEB SCH ×4 (00:08→18:17)
[2021-03-19] MEDS: Norepinephrine 8 MG/0.9% NS 250 ML IVPB PRN (00:11)
[2021-03-19] MEDS: MEROPENEM 1 GM/50 ML 1 GM in Premix Bag 1 BAG IVPB SCH ×2 (00:11→12:44)
[2021-03-19] MEDS: HumaLOG 300 UNITS/3 ML VIAL SC PRN ×4 (04:13→21:33)
[2021-03-19] MEDS: Levothyroxine Sodium 75 MCG TAB PO SCH (05:39)
[2021-03-19 07:56] LABS: Actual Bicarbonate (HCO3a) 21.8 mEq/L (22-28); Base Excess (BEa) -2.3 mEq/L (-2.0 to +3.0); CO2 Tension 34.5 mmHg (35.0-45.0); Calcium, Ionized (arterial) 1.23 mmol/L (1.12-1.30); Carboxyhemoglobin (COHb) 0.3 gm% (0.0-3.0); Hemoglobin (Hb) 9.2 g/dL (12.0-16.0); O2 Tension (PaO2), arterial 63.1 mmHg (> 60.0); Potassium - ABG Lab 3.52 mmol/L (3.70-5.30); Puncture Site LBA; pH, Arterial 7.42 (7.35-7.45)
[2021-03-19 08:02] LABS: ALV-art Gradient 178.975 mmHg (0-20)
[2021-03-19 08:18] LABS: Anion Gap 12 mmol/L (10-20); BUN (Urea Nitrogen) 29 mg/dL (9.8-20.1); Calc. Creatinine Clearance 49 mL/min (70-130); Calcium 7.4 mg/dL (7.8-10.44); Carbon Dioxide 18 mmol/L (23-31); Chloride 114 mmol/L (98-107); Glucose 271 mg/dL (83-110); Magnesium 2.1 mg/dL (1.6-2.6); Potassium 3.8 mmol/L (3.5-5.1); Sodium 140 mmol/L (136-145)
[2021-03-19] MEDS: Dextrose 5%-Lactated Ringers 1,000 ML IV SCH (08:23)
[2021-03-19] MEDS: Escitalopram Oxalate 10 mg Tablet PO SCH (08:37)
[2021-03-19] MEDS: Pantoprazole 40 MG VIAL IVP SCH ×2 (08:37→20:25)
[2021-03-19] MEDS: Magnesium Oxide 400 MG TAB PO SCH ×2 (08:37→20:25)
[2021-03-19] MEDS: LACTINEX 1 TAB PO SCH ×2 (08:38→20:25)
[2021-03-19] MEDS: Multivit, Therapeutic 1 TAB PO SCH (08:38)
[2021-03-19] MEDS: Ferrous Sulfate 325 MG TAB PO SCH ×2 (08:38→16:37)
[2021-03-19] MEDS: Oxymetazoline HCl 0.05% (30 ML BOT) NS SCH ×2 (08:39→20:26)
[2021-03-19 08:40] LABS: #Eosinphils 0.2 thou/uL (0.0-0.7); #Lymphocytes 2.9 thou/uL (1.20-3.40); #Monocytes 1.1 thou/uL (0.11-0.59); #Neutrophils 7.7 thou/uL (1.40-6.50); %Basophils 0.3 % (0.0-1.0); %Eosinophils 2.1 % (0.0-10.0); %Lymphocytes 24.2 % (21.0-51.0); %Monocytes 8.8 % (0.0-10.0); %Neutrophils 64.6 % (42.0-75.0); Band 5 % (5-11); Burr Cells SLIGHT = 2-5 cells (100X) (0-1/hpf); Eosinophils 4 % (0-10); Hemoglobin 9.2 g/dL (12.0-16.0); Hypochromia SLIGHT = 6-15 cells (100X) (0-5/hpf); Lymphocytes 31 % (21-51); MDiff Complete? YES; Mean Corpuscular HGB CONC 30.6 g/dL (32.0-36.0); Mean Corpuscular Hemoglobin 29.2 pg (27.0-31.0); Mean Corpuscular Volume 95.2 fL (78.0-98.0); Mean Platelet Volume 8.9 fL (7.4-10.4); Monocytes 9 % (0-10); Neutrophil 51 % (42-75); Ovalocytes SLIGHT = 2-5 cells (100X) (0-1/hpf); Platelet Count 116 thou/uL (130-400); Platelet Morphology Comment Appears Decreased; Polychromasia SLIGHT = 2-3 cells (100X) (0-2/hpf); RBC Distribution Width 18.6 % (11.5-14.5); Red Blood Cell (RBC) Count 3.14 mill/uL (4.20-5.40)
[2021-03-20] MEDS: Meropenem 1 GM in Sodium Chloride 0.9% 100 ML IVPB SCH ×2 (01:07→13:10)
[2021-03-20] MEDS: Ipratropium Bromide 2.5 ml Neb NEB SCH ×4 (01:08→19:10)
[2021-03-20] MEDS: Lorazepam 2 MG/ML VIAL SLOW IVP PRN (04:32)
[2021-03-20 04:40] LABS: Anion Gap 12 mmol/L (10-20); BUN (Urea Nitrogen) 36 mg/dL (9.8-20.1); Calc. Creatinine Clearance 47 mL/min (70-130); Calcium 7.7 mg/dL (7.8-10.44); Carbon Dioxide 20 mmol/L (23-31); Chloride 112 mmol/L (98-107); Glucose 208 mg/dL (83-110); Potassium 4.3 mmol/L (3.5-5.1); Sodium 140 mmol/L (136-145)
[2021-03-20] MEDS: HumaLOG 300 UNITS/3 ML VIAL SC PRN (05:02)
[2021-03-20] MEDS: Levothyroxine Sodium 75 MCG TAB PO SCH (05:46)
[2021-03-20 06:41] LABS: Actual Bicarbonate (HCO3a) 24.3 mEq/L (22-28); Base Excess (BEa) -0.4 mEq/L (-2.0 to +3.0); CO2 Tension 39.5 mmHg (35.0-45.0); Carboxyhemoglobin (COHb) 0.7 gm% (0.0-3.0); Hemoglobin (Hb) 9.3 g/dL (12.0-16.0); Potassium - ABG Lab 3.96 mmol/L (3.70-5.30); pH, Arterial 7.41 (7.35-7.45)
[2021-03-20 06:45] LABS: ALV-art Gradient 197.825 mmHg (0-20); Puncture Site RR
[2021-03-20] MEDS: Escitalopram Oxalate 10 mg Tablet PO SCH (08:02)
[2021-03-20] MEDS: Magnesium Oxide 400 MG TAB PO SCH ×2 (08:02→20:38)
[2021-03-20] MEDS: Multivit, Therapeutic 1 TAB PO SCH (08:03)
[2021-03-20] MEDS: Ferrous Sulfate 325 MG TAB PO SCH ×2 (08:03→17:12)
[2021-03-20] MEDS: Pantoprazole 40 MG VIAL IVP SCH ×2 (08:03→20:37)
[2021-03-20] MEDS: LACTINEX 1 TAB PO SCH ×2 (08:42→20:38)
[2021-03-20] MEDS: Oxymetazoline HCl 0.05% (30 ML BOT) NS SCH ×2 (09:00→20:39)
[2021-03-20] MEDS: Norepinephrine 8 MG in Dextrose 5% in Water 242 ML IVPB PRN (09:49)
[2021-03-20 09:58] LABS: Hemoglobin 9.5 g/dL (12.0-16.0); Mean Corpuscular HGB CONC 32.4 g/dL (32.0-36.0); Mean Corpuscular Hemoglobin 30.3 pg (27.0-31.0); Mean Corpuscular Volume 93.5 fL (78.0-98.0); Mean Platelet Volume 9.3 fL (7.4-10.4); Platelet Count 120 thou/uL (130-400); RBC Distribution Width 18.4 % (11.5-14.5); Red Blood Cell (RBC) Count 3.13 mill/uL (4.20-5.40); White Blood Cell (WBC) Count 24.8 thou/uL (4.8-10.8)
[2021-03-20 10:01] LABS: Band 23 % (5-11); Eosinophils 1 % (0-10); Lymphocytes 10 % (21-51); MDiff Complete? YES; Monocytes 3 % (0-10); Neutrophil 63 % (42-75); Nucleated RBC 1 % (0); Platelet Morphology Comment Appears Decreased; Polychromasia SLIGHT = 2-3 cells (100X) (0-2/hpf); Schistocytes SLIGHT = 2-5 cells (100X) (0-1/hpf)
[2021-03-20] MEDS: Fentanyl CADD 100 ML IV SCH (12:28)
[2021-03-20] MEDS ORDERED: MEROPENEM 1 GM/50 ML 1 GM in Premix Bag 1 BAG IVPB SCH (16:00)
[2021-03-20] MEDS: Lantus 1000 UNITS/10 ML VIAL SC SCH (21:21)
[2021-03-21] MEDS: Ipratropium Bromide 2.5 ml Neb NEB SCH ×5 (00:37→23:02)
[2021-03-21] MEDS: MEROPENEM 1 GM/50 ML 1 GM in Premix Bag 1 BAG IVPB SCH ×2 (01:53→12:57)
[2021-03-21 04:09] LABS: Anion Gap 11 mmol/L (10-20); BUN (Urea Nitrogen) 44 mg/dL (9.8-20.1); Calc. Creatinine Clearance 51 mL/min (70-130); Calcium 7.6 mg/dL (7.8-10.44); Carbon Dioxide 21 mmol/L (23-31); Chloride 110 mmol/L (98-107); Glucose 209 mg/dL (83-110); Sodium 137 mmol/L (136-145)
[2021-03-21] MEDS: Norepinephrine 8 MG in Dextrose 5% in Water 242 ML IVPB PRN (04:09)
[2021-03-21] MEDS: Levothyroxine Sodium 75 MCG TAB PO SCH (04:15)
[2021-03-21 05:35] LABS: Band 9 % (5-11); Hemoglobin 9.4 g/dL (12.0-16.0); Lymphocytes 11 % (21-51); MDiff Complete? YES; Mean Corpuscular HGB CONC 31.1 g/dL (32.0-36.0); Mean Corpuscular Hemoglobin 29.3 pg (27.0-31.0); Mean Corpuscular Volume 94.4 fL (78.0-98.0); Mean Platelet Volume 8.8 fL (7.4-10.4); Metamyelocyte 2 % (0-0); Monocytes 5 % (0-10); Neutrophil 73 % (42-75); Platelet Count 152 thou/uL (130-400); RBC Distribution Width 18.7 % (11.5-14.5); Schistocytes SLIGHT = 2-5 cells (100X) (0-1/hpf); White Blood Cell (WBC) Count 16.5 thou/uL (4.8-10.8)
[2021-03-21] MEDS: HumaLOG 300 UNITS/3 ML VIAL SC PRN ×2 (05:41→22:14)
[2021-03-21 07:45] LABS: Actual Bicarbonate (HCO3a) 24.8 mEq/L (22-28); CO2 Tension 35.6 mmHg (35.0-45.0); Carboxyhemoglobin (COHb) 0.1 gm% (0.0-3.0); Hemoglobin (Hb) 9.1 g/dL (12.0-16.0); O2 Tension (PaO2), arterial 67.3 mmHg (> 60.0); Potassium - ABG Lab 4.46 mmol/L (3.70-5.30); pH, Arterial 7.46 (7.35-7.45)
[2021-03-21 07:46] LABS: Puncture Site RRA
[2021-03-21] MEDS: Ferrous Sulfate 325 MG TAB PO SCH ×2 (08:05→17:00)
[2021-03-21] MEDS: Magnesium Oxide 400 MG TAB PO SCH ×2 (08:51→22:10)
[2021-03-21] MEDS: Escitalopram Oxalate 10 mg Tablet PO SCH (08:51)
[2021-03-21] MEDS: Pantoprazole 40 MG VIAL IVP SCH ×2 (08:51→22:10)
[2021-03-21] MEDS: Multivit, Therapeutic 1 TAB PO SCH (08:51)
[2021-03-21] MEDS: LACTINEX 1 TAB PO SCH ×2 (08:52→22:10)
[2021-03-21] MEDS: Oxymetazoline HCl 0.05% (30 ML BOT) NS SCH ×2 (08:53→22:13)
[2021-03-21] MEDS: Lantus 1000 UNITS/10 ML VIAL SC SCH (22:16)
[2021-03-22] MEDS: MEROPENEM 1 GM/50 ML 1 GM in Premix Bag 1 BAG IVPB SCH ×2 (00:53→12:41)
[2021-03-22 04:05] LABS: #Basophils 0.1 thou/uL (0.0-0.2); #Eosinphils 0.4 thou/uL (0.0-0.7); #Lymphocytes 3.4 thou/uL (1.20-3.40); #Monocytes 1.7 thou/uL (0.11-0.59); #Neutrophils 12.2 thou/uL (1.40-6.50); %Basophils 0.4 % (0.0-1.0); %Lymphocytes 19.1 % (21.0-51.0); %Monocytes 9.5 % (0.0-10.0); Hemoglobin 10.1 g/dL (12.0-16.0); Mean Corpuscular HGB CONC 32.6 g/dL (32.0-36.0); Mean Corpuscular Hemoglobin 30.3 pg (27.0-31.0); Mean Corpuscular Volume 93.1 fL (78.0-98.0); Platelet Count 133 thou/uL (130-400); RBC Distribution Width 18.9 % (11.5-14.5); Red Blood Cell (RBC) Count 3.34 mill/uL (4.20-5.40); White Blood Cell (WBC) Count 17.7 thou/uL (4.8-10.8)
[2021-03-22 04:09] LABS: Anion Gap 12 mmol/L (10-20); BUN (Urea Nitrogen) 42 mg/dL (9.8-20.1); Calc. Creatinine Clearance 64 mL/min (70-130); Calcium 7.6 mg/dL (7.8-10.44); Carbon Dioxide 20 mmol/L (23-31); Chloride 109 mmol/L (98-107); Glucose 140 mg/dL (83-110); Potassium 5.1 mmol/L (3.5-5.1); Sodium 136 mmol/L (136-145)
[2021-03-22] MEDS: Levothyroxine Sodium 75 MCG TAB PO SCH (04:21)
[2021-03-22] MEDS: Fentanyl CADD 100 ML IV SCH (04:47)
[2021-03-22] MEDS: Ipratropium Bromide 2.5 ml Neb NEB SCH ×3 (07:57→19:47)
[2021-03-22 08:16] LABS: Actual Bicarbonate (HCO3a) 22.8 mEq/L (22-28); Base Excess (BEa) 0.6 mEq/L (-2.0 to +3.0); CO2 Tension 28.3 mmHg (35.0-45.0); Calcium, Ionized (arterial) 1.19 mmol/L (1.12-1.30); Carboxyhemoglobin (COHb) 0.9 gm% (0.0-3.0); Hemoglobin (Hb) 9.5 g/dL (12.0-16.0); O2 Tension (PaO2), arterial 70.9 mmHg (> 60.0); pH, Arterial 7.52 (7.35-7.45)
[2021-03-22] MEDS: Ferrous Sulfate 325 MG TAB PO SCH ×2 (08:17→16:54)
[2021-03-22 08:31] LABS: ALV-art Gradient 178.925 mmHg (0-20); Puncture Site RRA
[2021-03-22] MEDS: Magnesium Oxide 400 MG TAB PO SCH ×2 (08:40→20:48)
[2021-03-22] MEDS: Multivit, Therapeutic 1 TAB PO SCH (08:40)
[2021-03-22] MEDS: Escitalopram Oxalate 10 mg Tablet PO SCH (08:40)
[2021-03-22] MEDS: LACTINEX 1 TAB PO SCH ×2 (08:40→20:48)
[2021-03-22] MEDS: Oxymetazoline HCl 0.05% (30 ML BOT) NS SCH ×2 (08:41→20:48)
[2021-03-22] MEDS: Pantoprazole 40 MG VIAL IVP SCH ×2 (08:42→20:48)
[2021-03-22] MEDS: Dextrose 50% Abboject 50 ML SYRINGE SLOW IVP PRN (16:54)
[2021-03-22] MEDS: Lantus 1000 UNITS/10 ML VIAL SC SCH (20:49)
[2021-03-22] MEDS: Norepinephrine 8 MG in Dextrose 5% in Water 242 ML IVPB PRN (20:59)
[2021-03-23] MEDS: Ipratropium Bromide 2.5 ml Neb NEB SCH ×4 (00:35→19:02)
[2021-03-23] MEDS: MEROPENEM 1 GM/50 ML 1 GM in Premix Bag 1 BAG IVPB SCH ×2 (02:31→12:22)
[2021-03-23 04:20] LABS: #Basophils 0.1 thou/uL (0.0-0.2); #Eosinphils 0.2 thou/uL (0.0-0.7); #Lymphocytes 2.5 thou/uL (1.20-3.40); #Monocytes 1.2 thou/uL (0.11-0.59); %Basophils 0.5 % (0.0-1.0); %Eosinophils 1.3 % (0.0-10.0); %Lymphocytes 17.8 % (21.0-51.0); %Monocytes 8.7 % (0.0-10.0); %Neutrophils 71.7 % (42.0-75.0); Hemoglobin 8.9 g/dL (12.0-16.0); Mean Corpuscular Volume 93.7 fL (78.0-98.0); Mean Platelet Volume 7.4 fL (7.4-10.4); Platelet Count 230 thou/uL (130-400); RBC Distribution Width 18.7 % (11.5-14.5); Red Blood Cell (RBC) Count 3.08 mill/uL (4.20-5.40); White Blood Cell (WBC) Count 13.9 thou/uL (4.8-10.8)
[2021-03-23 04:35] LABS: Anion Gap 12 mmol/L (10-20); BUN (Urea Nitrogen) 36 mg/dL (9.8-20.1); Calc. Creatinine Clearance 71 mL/min (70-130); Calcium 7.6 mg/dL (7.8-10.44); Carbon Dioxide 24 mmol/L (23-31); Chloride 107 mmol/L (98-107); Glucose 120 mg/dL (83-110); Potassium 5.3 mmol/L (3.5-5.1); Sodium 138 mmol/L (136-145)
[2021-03-23] MEDS: Levothyroxine Sodium 75 MCG TAB PO SCH (06:25)
[2021-03-23 07:08] LABS: Actual Bicarbonate (HCO3a) 25.7 mEq/L (22-28); Base Excess (BEa) 0.3 mEq/L (-2.0 to +3.0); CO2 Tension 44.9 mmHg (35.0-45.0); Calcium, Ionized (arterial) 1.22 mmol/L (1.12-1.30); Carboxyhemoglobin (COHb) 1.2 gm% (0.0-3.0); Hemoglobin (Hb) 9.5 g/dL (12.0-16.0); O2 Tension (PaO2), arterial 68.1 mmHg (> 60.0); Potassium - ABG Lab 5.09 mmol/L (3.70-5.30); pH, Arterial 7.38 (7.35-7.45)
[2021-03-23 07:09] LABS: ALV-art Gradient 160.975 mmHg (0-20); Puncture Site RRA
[2021-03-23] MEDS: Ferrous Sulfate 325 MG TAB PO SCH ×2 (08:42→17:39)
[2021-03-23] MEDS: Magnesium Oxide 400 MG TAB PO SCH ×2 (08:42→21:21)
[2021-03-23] MEDS: Escitalopram Oxalate 10 mg Tablet PO SCH (08:42)
[2021-03-23] MEDS: Multivit, Therapeutic 1 TAB PO SCH (08:42)
[2021-03-23] MEDS: LACTINEX 1 TAB PO SCH ×2 (08:43→21:21)
[2021-03-23] MEDS: Oxymetazoline HCl 0.05% (30 ML BOT) NS SCH ×2 (08:44→21:21)
[2021-03-23] MEDS: Pantoprazole 40 MG VIAL IVP SCH ×2 (08:44→21:22)
[2021-03-23] MEDS ORDERED: Fentanyl CADD 100 ML ONE (17:20)
[2021-03-23] MEDS: Fentanyl CADD 100 ML IV SCH (17:23)
[2021-03-23] MEDS: Norepinephrine 8 MG in Dextrose 5% in Water 242 ML IVPB PRN (21:22)
[2021-03-23] MEDS: Lantus 1000 UNITS/10 ML VIAL SC SCH (21:42)
[2021-03-24] MEDS: Ipratropium Bromide 2.5 ml Neb NEB SCH ×5 (03:46→22:43)
[2021-03-24 03:58] LABS: #Basophils 0.1 thou/uL (0.0-0.2); #Eosinphils 0.1 thou/uL (0.0-0.7); %Basophils 0.6 % (0.0-1.0); %Eosinophils 1.3 % (0.0-10.0); %Lymphocytes 17.7 % (21.0-51.0); %Monocytes 8.9 % (0.0-10.0); %Neutrophils 71.5 % (42.0-75.0); Hemoglobin 8.6 g/dL (12.0-16.0); Mean Corpuscular HGB CONC 31.9 g/dL (32.0-36.0); Mean Corpuscular Hemoglobin 29.8 pg (27.0-31.0); Mean Corpuscular Volume 93.3 fL (78.0-98.0); Mean Platelet Volume 7.3 fL (7.4-10.4); Platelet Count 250 thou/uL (130-400); RBC Distribution Width 18.5 % (11.5-14.5); Red Blood Cell (RBC) Count 2.87 mill/uL (4.20-5.40); White Blood Cell (WBC) Count 11.2 thou/uL (4.8-10.8)
[2021-03-24 04:18] LABS: Anion Gap 11 mmol/L (10-20); BUN (Urea Nitrogen) 40 mg/dL (9.8-20.1); Calc. Creatinine Clearance 71 mL/min (70-130); Calcium 7.7 mg/dL (7.8-10.44); Carbon Dioxide 25 mmol/L (23-31); Chloride 106 mmol/L (98-107); Glucose 208 mg/dL (83-110); Potassium 5.5 mmol/L (3.5-5.1); Sodium 136 mmol/L (136-145)
[2021-03-24] MEDS: HumaLOG 300 UNITS/3 ML VIAL SC PRN ×4 (04:37→21:44)
[2021-03-24] MEDS: Levothyroxine Sodium 75 MCG TAB PO SCH (06:37)
[2021-03-24 06:51] LABS: Actual Bicarbonate (HCO3a) 25.3 mEq/L (22-28); Base Excess (BEa) 0.7 mEq/L (-2.0 to +3.0); CO2 Tension 40.1 mmHg (35.0-45.0); Calcium, Ionized (arterial) 1.19 mmol/L (1.12-1.30); Carboxyhemoglobin (COHb) 0.1 gm% (0.0-3.0); Hemoglobin (Hb) 9.2 g/dL (12.0-16.0); Potassium - ABG Lab 5.31 mmol/L (3.70-5.30); pH, Arterial 7.42 (7.35-7.45)
[2021-03-24] MEDS: LACTINEX 1 TAB PO SCH ×2 (09:04→21:33)
[2021-03-24] MEDS: Ferrous Sulfate 325 MG TAB PO SCH ×2 (09:04→18:10)
[2021-03-24] MEDS: Magnesium Oxide 400 MG TAB PO SCH ×2 (09:05→21:33)
[2021-03-24] MEDS: Oxymetazoline HCl 0.05% (30 ML BOT) NS SCH ×2 (09:06→21:33)
[2021-03-24] MEDS: Multivit, Therapeutic 1 TAB PO SCH (09:06)
[2021-03-24] MEDS: Pantoprazole 40 MG VIAL IVP SCH ×2 (09:06→21:33)
[2021-03-24] MEDS: Escitalopram Oxalate 10 mg Tablet PO SCH (09:08)
[2021-03-24] MEDS: Lorazepam 2 MG/ML VIAL SLOW IVP PRN ×2 (11:26→22:40)
[2021-03-24] MEDS ORDERED: Furosemide 40 MG/4 ML VIAL SLOW IVP SCH (13:15)
[2021-03-24] MEDS: Norepinephrine 8 MG in Dextrose 5% in Water 242 ML IVPB PRN ×2 (14:16→21:47)
[2021-03-24] MEDS: Lantus 1000 UNITS/10 ML VIAL SC SCH (21:37)
[2021-03-25] MEDS ORDERED: Fentanyl CADD 100 ML ONE (00:17)
[2021-03-25] MEDS: Fentanyl CADD 100 ML IV SCH (00:21)
[2021-03-25 04:50] LABS: #Eosinphils 0.1 thou/uL (0.0-0.7); #Neutrophils 10.3 thou/uL (1.40-6.50); %Basophils 0.2 % (0.0-1.0); %Eosinophils 0.6 % (0.0-10.0); %Lymphocytes 20.8 % (21.0-51.0); %Neutrophils 71.4 % (42.0-75.0); Hemoglobin 7.7 g/dL (12.0-16.0); Mean Corpuscular HGB CONC 31.2 g/dL (32.0-36.0); Mean Corpuscular Hemoglobin 29.6 pg (27.0-31.0); Mean Corpuscular Volume 94.7 fL (78.0-98.0); Mean Platelet Volume 7.3 fL (7.4-10.4); Platelet Count 224 thou/uL (130-400); RBC Distribution Width 18.4 % (11.5-14.5); Red Blood Cell (RBC) Count 2.61 mill/uL (4.20-5.40); White Blood Cell (WBC) Count 14.4 thou/uL (4.8-10.8)
[2021-03-25 05:02] LABS: ALT (SGPT) 13 U/L (8-55); AST (SGOT) 11 U/L (5-34); Albumin 1.5 g/dL (3.4-4.8); Alkaline Phosphatase 197 U/L (40-110); Anion Gap 12 mmol/L (10-20); BUN (Urea Nitrogen) 40 mg/dL (9.8-20.1); Bilirubin, Total 0.4 mg/dL (0.2-1.2); Calc. Creatinine Clearance 64 mL/min (70-130); Calcium 7.6 mg/dL (7.8-10.44); Carbon Dioxide 24 mmol/L (23-31); Chloride 106 mmol/L (98-107); Globulin 2.8 g/dL (2.4-3.5); Glucose 273 mg/dL (83-110); Potassium 5.5 mmol/L (3.5-5.1); Protein, Total 4.3 g/dL (5.8-8.1); Sodium 136 mmol/L (136-145)
[2021-03-25 05:06] LABS: Phosphorus 1.2 mg/dL (2.3-4.7)
[2021-03-25] MEDS ORDERED: SODIUM CHLORIDE 0.9% IVPB SCH (06:15)
[2021-03-25] MEDS ORDERED: SODIUM PHOSPHATE IVPB SCH (06:15)
[2021-03-25] MEDS ORDERED: Magnesium 2 GM/50 ML 2 GM in Premix Bag 1 BAG IVPB SCH (06:15)
[2021-03-25] MEDS: Ipratropium Bromide 2.5 ml Neb NEB SCH ×3 (06:22→18:37)
[2021-03-25] MEDS: Lorazepam 2 MG/ML VIAL SLOW IVP PRN (06:24)
[2021-03-25] MEDS: Levothyroxine Sodium 75 MCG TAB PO SCH (06:24)
[2021-03-25 07:15] LABS: SARS-CoV-2 NAA Rapid Test Not Detected (NotDetected)
[2021-03-25 07:56] LABS: Actual Bicarbonate (HCO3a) 25.3 mEq/L (22-28); Base Excess (BEa) 1.2 mEq/L (-2.0 to +3.0); CO2 Tension 37.6 mmHg (35.0-45.0); Calcium, Ionized (arterial) 1.18 mmol/L (1.12-1.30); Hemoglobin (Hb) 8.4 g/dL (12.0-16.0); O2 Tension (PaO2), arterial 55.8 mmHg (> 60.0); Potassium - ABG Lab 5.23 mmol/L (3.70-5.30); Puncture Site LRA; pH, Arterial 7.45 (7.35-7.45)
[2021-03-25] MEDS: Escitalopram Oxalate 10 mg Tablet PO SCH (08:59)
[2021-03-25] MEDS: LACTINEX 1 TAB PO SCH ×2 (08:59→21:01)
[2021-03-25] MEDS: Ferrous Sulfate 325 MG TAB PO SCH ×2 (08:59→17:11)
[2021-03-25] MEDS: Multivit, Therapeutic 1 TAB PO SCH (08:59)
[2021-03-25] MEDS: Magnesium Oxide 400 MG TAB PO SCH ×2 (08:59→21:01)
[2021-03-25] MEDS: Pantoprazole 40 MG VIAL IVP SCH ×2 (08:59→21:01)
[2021-03-25] MEDS: Oxymetazoline HCl 0.05% (30 ML BOT) NS SCH ×2 (08:59→21:02)
[2021-03-25] MEDS ORDERED: Furosemide 100 MG/10 ML VIAL SLOW IVP SCH (13:15)
[2021-03-25] MEDS ORDERED: Sodium Phosphate 15 MMOL in Sodium Chloride 0.9% 250 ML 250 ML IVPB SCH (13:30)
[2021-03-25] MEDS ORDERED: Furosemide 40 MG/4 ML VIAL SLOW IVP SCH (15:15)
[2021-03-25] MEDS: HumaLOG 300 UNITS/3 ML VIAL SC PRN ×2 (17:12→20:33)
[2021-03-25] MEDS: Lantus 1000 UNITS/10 ML VIAL SC SCH (20:33)
[2021-03-26] MEDS: Ipratropium Bromide 2.5 ml Neb NEB SCH ×4 (00:23→18:16)
[2021-03-26] MEDS: Acetaminophen 325 MG TAB PO PRN (01:34)
[2021-03-26] MEDS: Norepinephrine 8 MG in Dextrose 5% in Water 242 ML IVPB PRN (03:31)
[2021-03-26] MEDS: HumaLOG 300 UNITS/3 ML VIAL SC PRN ×2 (03:33→16:50)
[2021-03-26 04:32] LABS: #Basophils 0.1 thou/uL (0.0-0.2); #Eosinphils 0.1 thou/uL (0.0-0.7); #Lymphocytes 3.1 thou/uL (1.20-3.40); #Monocytes 1.1 thou/uL (0.11-0.59); #Neutrophils 15.5 thou/uL (1.40-6.50); %Basophils 0.3 % (0.0-1.0); %Eosinophils 0.4 % (0.0-10.0); %Lymphocytes 15.6 % (21.0-51.0); %Monocytes 5.5 % (0.0-10.0); %Neutrophils 78.2 % (42.0-75.0); Hemoglobin 8.3 g/dL (12.0-16.0); Mean Corpuscular HGB CONC 29.6 g/dL (32.0-36.0); Mean Corpuscular Hemoglobin 27.7 pg (27.0-31.0); Mean Corpuscular Volume 93.5 fL (78.0-98.0); Mean Platelet Volume 7.4 fL (7.4-10.4); Platelet Count 311 thou/uL (130-400); RBC Distribution Width 18.2 % (11.5-14.5); Red Blood Cell (RBC) Count 2.98 mill/uL (4.20-5.40); White Blood Cell (WBC) Count 19.9 thou/uL (4.8-10.8)
[2021-03-26 04:51] LABS: ALT (SGPT) 14 U/L (8-55); AST (SGOT) 24 U/L (5-34); Albumin 1.4 g/dL (3.4-4.8); Alkaline Phosphatase 210 U/L (40-110); Anion Gap 13 mmol/L (10-20); BUN (Urea Nitrogen) 48 mg/dL (9.8-20.1); Bilirubin, Total 0.5 mg/dL (0.2-1.2); Calc. Creatinine Clearance 77 mL/min (70-130); Calcium 7.9 mg/dL (7.8-10.44); Carbon Dioxide 25 mmol/L (23-31); Chloride 105 mmol/L (98-107); Globulin 3.6 g/dL (2.4-3.5); Glucose 137 mg/dL (83-110); Magnesium 2.1 mg/dL (1.6-2.6); Phosphorus 3.1 mg/dL (2.3-4.7); Potassium 5.6 mmol/L (3.5-5.1); Sodium 137 mmol/L (136-145)
[2021-03-26] MEDS: Levothyroxine Sodium 75 MCG TAB PO SCH (05:24)
[2021-03-26 07:01] LABS: Actual Bicarbonate (HCO3a) 26.7 mEq/L (22-28); Base Excess (BEa) 2.7 mEq/L (-2.0 to +3.0); Calcium, Ionized (arterial) 1.18 mmol/L (1.12-1.30); Carboxyhemoglobin (COHb) 0.1 gm% (0.0-3.0); Hemoglobin (Hb) 9.4 g/dL (12.0-16.0); O2 Tension (PaO2), arterial 61.3 mmHg (> 60.0); Potassium - ABG Lab 4.98 mmol/L (3.70-5.30); pH, Arterial 7.45 (7.35-7.45)
[2021-03-26 07:02] LABS: Puncture Site LRA
[2021-03-26] MEDS: Magnesium Oxide 400 MG TAB PO SCH ×2 (09:59→22:03)
[2021-03-26] MEDS: Multivit, Therapeutic 1 TAB PO SCH (09:59)
[2021-03-26] MEDS: Escitalopram Oxalate 10 mg Tablet PO SCH (09:59)
[2021-03-26] MEDS: Furosemide 40 MG/4 ML VIAL SLOW IVP SCH ×2 (09:59→22:02)
[2021-03-26] MEDS: Pantoprazole 40 MG VIAL IVP SCH ×2 (09:59→22:00)
[2021-03-26] MEDS: Ferrous Sulfate 325 MG TAB PO SCH ×2 (09:59→17:41)
[2021-03-26] MEDS: LACTINEX 1 TAB PO SCH ×2 (10:00→22:00)
[2021-03-26] MEDS: Oxymetazoline HCl 0.05% (30 ML BOT) NS SCH (10:00)
[2021-03-26] MEDS ORDERED: Meropenem 1 GM in Sodium Chloride 0.9% 100 ML IVPB SCH (14:00)
[2021-03-26] MEDS ORDERED: MEROPENEM 1 GM/50 ML 1 GM in Premix Bag 1 BAG IVPB SCH (14:30)
[2021-03-26] MEDS: Vancomycin 1.5 GRAM/300 ML BAG 1.5 GM in Premix Bag 1 BAG IVPB SCH (15:25)
[2021-03-26 15:44] LABS: Bilirubin Negative (Negative); Blood, Urine Negative (Negative); Clarity Turbid (Clear); Glucose, Urine (Dipstick) Normal (Negative); Ketone, Urine Negative (Negative); Leukocyte 500 Leu/uL (Negative); Nitrite Negative (Negative); Protein, Urine (Dipstick) Negative (Neg-Trace); Specific Gravity, Urine 1.011 (1.002-1.036); Squamous Epithelial 0-3 HPF (0-3); Urobilinogen Normal mg/dL (Less than 2); WBC/HPF Greater than 50 HPF (0-3); Yeast-Budding 2+ HPF (None Seen)
[2021-03-26 15:45] LABS: Bacteria/HPF 1+ HPF (None Seen); RBC/HPF 0-3 HPF (0-3)
[2021-03-26 15:47] LABS: Urine Culture Reflex Yes Yes
[2021-03-26] MEDS ORDERED: Fentanyl CADD 100 ML ONE (16:30)
[2021-03-26] MEDS: Fentanyl CADD 100 ML IV SCH (16:32)
[2021-03-26] MEDS: Lantus 1000 UNITS/10 ML VIAL SC SCH (22:03)
[2021-03-27] MEDS: Ipratropium Bromide 2.5 ml Neb NEB SCH ×4 (00:10→18:18)
[2021-03-27] MEDS: HumaLOG 300 UNITS/3 ML VIAL SC PRN ×3 (00:18→11:03)
[2021-03-27] MEDS: MEROPENEM 1 GM/50 ML 1 GM in Premix Bag 1 BAG IVPB SCH ×3 (00:23→16:00)
[2021-03-27 05:39] LABS: ALT (SGPT) 13 U/L (8-55); AST (SGOT) 11 U/L (5-34); Albumin 1.5 g/dL (3.4-4.8); Alkaline Phosphatase 204 U/L (40-110); Anion Gap 12 mmol/L (10-20); BUN (Urea Nitrogen) 47 mg/dL (9.8-20.1); Bilirubin, Total 0.5 mg/dL (0.2-1.2); Calc. Creatinine Clearance 72 mL/min (70-130); Carbon Dioxide 26 mmol/L (23-31); Chloride 102 mmol/L (98-107); Globulin 3.3 g/dL (2.4-3.5); Glucose 178 mg/dL (83-110); Potassium 4.5 mmol/L (3.5-5.1); Protein, Total 4.8 g/dL (5.8-8.1); Sodium 135 mmol/L (136-145)
[2021-03-27 05:46] LABS: Band 21 % (5-11); Hemoglobin 9.8 g/dL (12.0-16.0); Hypochromia SLIGHT = 6-15 cells (100X) (0-5/hpf); Lymphocytes 14 % (21-51); MDiff Complete? YES; Mean Corpuscular HGB CONC 31.1 g/dL (32.0-36.0); Mean Corpuscular Hemoglobin 29.4 pg (27.0-31.0); Mean Corpuscular Volume 94.3 fL (78.0-98.0); Mean Platelet Volume 7.3 fL (7.4-10.4); Monocytes 4 % (0-10); Neutrophil 58 % (42-75); Platelet Count 255 thou/uL (130-400); Platelet Morphology Comment Appears Adequate; RBC Distribution Width 18.3 % (11.5-14.5); Reactive Lymphocytes 3 % (0-10); Red Blood Cell (RBC) Count 3.35 mill/uL (4.20-5.40); White Blood Cell (WBC) Count 19.6 thou/uL (4.8-10.8)
[2021-03-27] MEDS: Levothyroxine Sodium 75 MCG TAB PO SCH (06:12)
[2021-03-27 06:38] LABS: Actual Bicarbonate (HCO3a) 25.4 mEq/L (22-28); Base Excess (BEa) 0.8 mEq/L (-2.0 to +3.0); CO2 Tension 40.6 mmHg (35.0-45.0); Calcium, Ionized (arterial) 1.19 mmol/L (1.12-1.30); Hemoglobin (Hb) 9.6 g/dL (12.0-16.0); O2 Tension (PaO2), arterial 69.2 mmHg (> 60.0); Potassium - ABG Lab 4.21 mmol/L (3.70-5.30); pH, Arterial 7.42 (7.35-7.45)
[2021-03-27 06:39] LABS: Puncture Site LRA
[2021-03-27] MEDS: Ferrous Sulfate 325 MG TAB PO SCH ×2 (08:00→16:32)
[2021-03-27] MEDS ORDERED: Pancrelipase DR 12,000 1 CAP FS PRN (08:45)
[2021-03-27] MEDS ORDERED: Sodium Bicarbonate Tab 325 MG TAB PER TUBE PRN (08:45)
[2021-03-27] MEDS: Furosemide 40 MG/4 ML VIAL SLOW IVP SCH ×2 (09:59→21:30)
[2021-03-27] MEDS: Escitalopram Oxalate 10 mg Tablet PO SCH (10:00)
[2021-03-27] MEDS: Pantoprazole 40 MG GRANULES PACKET PER TUBE SCH ×2 (10:00→21:30)
[2021-03-27] MEDS: Multivit, Therapeutic 1 TAB PO SCH (10:00)
[2021-03-27] MEDS: Magnesium Oxide 400 MG TAB PO SCH ×2 (10:00→21:30)
[2021-03-27] MEDS: LACTINEX 1 TAB PO SCH ×2 (10:00→21:30)
[2021-03-27] MEDS ORDERED: Midazolam HCl 2 mg/2 ml Vial ONE (13:36)
[2021-03-27] MEDS ORDERED: Fentanyl 100 MCG/2 ML VIAL ONE (13:36)
[2021-03-27] MEDS: Vancomycin 1.5 GRAM/300 ML BAG 1.5 GM in Premix Bag 1 BAG IVPB SCH (16:01)
[2021-03-27] MEDS: Norepinephrine 8 MG in Dextrose 5% in Water 242 ML IVPB PRN (16:31)
[2021-03-27] MEDS: Lantus 1000 UNITS/10 ML VIAL SC SCH (21:31)
[2021-03-28] MEDS: Ipratropium Bromide 2.5 ml Neb NEB SCH ×4 (00:37→19:03)
[2021-03-28 04:24] LABS: ALT (SGPT) 9 U/L (8-55); AST (SGOT) 14 U/L (5-34); Albumin 1.5 g/dL (3.4-4.8); Alkaline Phosphatase 186 U/L (40-110); Anion Gap 13 mmol/L (10-20); BUN (Urea Nitrogen) 43 mg/dL (9.8-20.1); Bilirubin, Total 0.4 mg/dL (0.2-1.2); Calc. Creatinine Clearance 79 mL/min (70-130); Calcium 7.6 mg/dL (7.8-10.44); Carbon Dioxide 24 mmol/L (23-31); Chloride 104 mmol/L (98-107); Glucose 130 mg/dL (83-110); Potassium 3.7 mmol/L (3.5-5.1); Protein, Total 4.5 g/dL (5.8-8.1); Sodium 137 mmol/L (136-145)
[2021-03-28 04:40] LABS: Band 20 % (5-11); Eosinophils 8 % (0-10); Hemoglobin 8.8 g/dL (12.0-16.0); Lymphocytes 10 % (21-51); MDiff Complete? YES; Mean Corpuscular HGB CONC 30.7 g/dL (32.0-36.0); Mean Corpuscular Volume 94.2 fL (78.0-98.0); Mean Platelet Volume 6.7 fL (7.4-10.4); Monocytes 6 % (0-10); Myelocyte 1 % (0-0); Neutrophil 55 % (42-75); Platelet Count 269 thou/uL (130-400); Platelet Morphology Comment Appears Adequate; Red Blood Cell (RBC) Count 3.03 mill/uL (4.20-5.40); White Blood Cell (WBC) Count 17.6 thou/uL (4.8-10.8)
[2021-03-28] MEDS: Levothyroxine Sodium 75 MCG TAB PO SCH (06:16)
[2021-03-28] MEDS: MEROPENEM 1 GM/50 ML 1 GM in Premix Bag 1 BAG IVPB SCH ×4 (06:41→23:11)
[2021-03-28 06:44] LABS: Actual Bicarbonate (HCO3a) 24.7 mEq/L (22-28); Base Excess (BEa) 0.1 mEq/L (-2.0 to +3.0); CO2 Tension 40.3 mmHg (35.0-45.0); Calcium, Ionized (arterial) 1.19 mmol/L (1.12-1.30); Carboxyhemoglobin (COHb) 0.4 gm% (0.0-3.0); Hemoglobin (Hb) 9.3 g/dL (12.0-16.0); O2 Tension (PaO2), arterial 67.2 mmHg (> 60.0); Potassium - ABG Lab 3.59 mmol/L (3.70-5.30); pH, Arterial 7.41 (7.35-7.45)
[2021-03-28 06:45] LABS: ALV-art Gradient 167.625 mmHg (0-20); Puncture Site RRA
[2021-03-28] MEDS: Escitalopram Oxalate 10 mg Tablet PO SCH (09:06)
[2021-03-28] MEDS: LACTINEX 1 TAB PO SCH ×2 (09:06→20:46)
[2021-03-28] MEDS: Multivit, Therapeutic 1 TAB PO SCH (09:06)
[2021-03-28] MEDS: Magnesium Oxide 400 MG TAB PO SCH ×2 (09:06→20:46)
[2021-03-28] MEDS: Ferrous Sulfate 325 MG TAB PO SCH ×2 (09:07→16:34)
[2021-03-28] MEDS: Pantoprazole 40 MG GRANULES PACKET PER TUBE SCH ×2 (09:07→20:46)
[2021-03-28] MEDS: Furosemide 40 MG/4 ML VIAL SLOW IVP SCH ×2 (09:07→20:46)
[2021-03-28] MEDS ORDERED: Fentanyl CADD 100 ML ONE (10:24)
[2021-03-28] MEDS: Fentanyl CADD 100 ML IV SCH (10:26)
[2021-03-28] MEDS: HumaLOG 300 UNITS/3 ML VIAL SC PRN ×2 (11:16→18:27)
[2021-03-28] MEDS: Fluconazole In NaCl,Iso-Osm 200 MG in Premix Bag 1 BAG IVPB SCH (12:37)
[2021-03-28 14:34] LABS: Vancomycin, Trough 23.8 ug/mL
[2021-03-28] MEDS: Vancomycin 1 GM in Premix Bag 1 BAG IVPB SCH (15:52)
[2021-03-28] MEDS: Lantus 1000 UNITS/10 ML VIAL SC SCH (21:44)
[2021-03-29] MEDS: Ipratropium Bromide 2.5 ml Neb NEB SCH ×4 (02:35→18:36)
[2021-03-29 04:42] LABS: #Basophils 0.1 thou/uL (0.0-0.2); #Eosinphils 0.5 thou/uL (0.0-0.7); #Lymphocytes 2.5 thou/uL (1.20-3.40); #Monocytes 0.9 thou/uL (0.11-0.59); #Neutrophils 11.7 thou/uL (1.40-6.50); %Basophils 0.5 % (0.0-1.0); %Eosinophils 3.3 % (0.0-10.0); %Lymphocytes 15.7 % (21.0-51.0); %Neutrophils 74.6 % (42.0-75.0); Hemoglobin 8.6 g/dL (12.0-16.0); Mean Corpuscular HGB CONC 32.6 g/dL (32.0-36.0); Mean Corpuscular Hemoglobin 30.1 pg (27.0-31.0); Mean Corpuscular Volume 92.4 fL (78.0-98.0); Mean Platelet Volume 6.8 fL (7.4-10.4); Platelet Count 252 thou/uL (130-400); RBC Distribution Width 17.8 % (11.5-14.5); Red Blood Cell (RBC) Count 2.84 mill/uL (4.20-5.40); White Blood Cell (WBC) Count 15.7 thou/uL (4.8-10.8)
[2021-03-29 05:09] LABS: ALT (SGPT) 11 U/L (8-55); AST (SGOT) 22 U/L (5-34); Albumin 1.5 g/dL (3.4-4.8); Alkaline Phosphatase 180 U/L (40-110); Anion Gap 9 mmol/L (10-20); BUN (Urea Nitrogen) 47 mg/dL (9.8-20.1); Bilirubin, Total 0.3 mg/dL (0.2-1.2); Calc. Creatinine Clearance 70 mL/min (70-130); Calcium 7.9 mg/dL (7.8-10.44); Carbon Dioxide 27 mmol/L (23-31); Chloride 104 mmol/L (98-107); Globulin 3.1 g/dL (2.4-3.5); Glucose 162 mg/dL (83-110); Potassium 3.6 mmol/L (3.5-5.1); Protein, Total 4.6 g/dL (5.8-8.1); Sodium 136 mmol/L (136-145)
[2021-03-29] MEDS: Levothyroxine Sodium 75 MCG TAB PO SCH (05:11)
[2021-03-29] MEDS: Norepinephrine 8 MG in Dextrose 5% in Water 242 ML IVPB PRN (05:21)
[2021-03-29] MEDS: MEROPENEM 1 GM/50 ML 1 GM in Premix Bag 1 BAG IVPB SCH ×2 (06:19→16:12)
[2021-03-29 07:02] LABS: Actual Bicarbonate (HCO3a) 25.8 mEq/L (22-28); Base Excess (BEa) 0.9 mEq/L (-2.0 to +3.0); CO2 Tension 42.5 mmHg (35.0-45.0); Calcium, Ionized (arterial) 1.21 mmol/L (1.12-1.30); Carboxyhemoglobin (COHb) 0.5 gm% (0.0-3.0); Hemoglobin (Hb) 8.8 g/dL (12.0-16.0); O2 Tension (PaO2), arterial 85.6 mmHg (> 60.0); Potassium - ABG Lab 3.42 mmol/L (3.70-5.30)
[2021-03-29 07:04] LABS: ALV-art Gradient 146.475 mmHg (0-20); Puncture Site RBA
[2021-03-29] MEDS: LACTINEX 1 TAB PO SCH ×2 (09:04→19:26)
[2021-03-29] MEDS: Pantoprazole 40 MG GRANULES PACKET PER TUBE SCH ×2 (09:04→19:26)
[2021-03-29] MEDS: Magnesium Oxide 400 MG TAB PO SCH ×2 (09:04→19:26)
[2021-03-29] MEDS: Metolazone 5 MG TAB PO SCH (09:04)
[2021-03-29] MEDS: Furosemide 40 MG/4 ML VIAL SLOW IVP SCH ×2 (09:04→19:26)
[2021-03-29] MEDS: Multivit, Therapeutic 1 TAB PO SCH (09:04)
[2021-03-29] MEDS: Escitalopram Oxalate 10 mg Tablet PO SCH (09:04)
[2021-03-29] MEDS: Ferrous Sulfate 325 MG TAB PO SCH ×2 (09:04→16:12)
[2021-03-29] MEDS: Fluconazole In NaCl,Iso-Osm 200 MG in Premix Bag 1 BAG IVPB SCH (12:48)
[2021-03-29] MEDS: Vancomycin 1 GM in Premix Bag 1 BAG IVPB SCH (16:11)
[2021-03-29] MEDS ORDERED: Fentanyl CADD 100 ML ONE (16:22)
[2021-03-29] MEDS: Fentanyl CADD 100 ML IV SCH (16:26)
[2021-03-29] MEDS: Meropenem 1 GM in Sodium Chloride 0.9% 100 ML IVPB SCH (17:36)
[2021-03-29] MEDS: HumaLOG 300 UNITS/3 ML VIAL SC PRN (17:36)
[2021-03-29] MEDS: Lantus 1000 UNITS/10 ML VIAL SC SCH (19:27)
[2021-03-30] MEDS: Meropenem 1 GM in Sodium Chloride 0.9% 100 ML IVPB SCH ×3 (00:38→17:26)
[2021-03-30] MEDS: Ipratropium Bromide 2.5 ml Neb NEB SCH ×4 (02:29→18:30)
[2021-03-30 04:30] LABS: #Basophils 0.1 thou/uL (0.0-0.2); #Eosinphils 0.5 thou/uL (0.0-0.7); #Monocytes 0.9 thou/uL (0.11-0.59); #Neutrophils 10.1 thou/uL (1.40-6.50); %Basophils 0.6 % (0.0-1.0); %Lymphocytes 14.6 % (21.0-51.0); %Monocytes 6.8 % (0.0-10.0); Hemoglobin 8.1 g/dL (12.0-16.0); Mean Corpuscular Hemoglobin 30.4 pg (27.0-31.0); Mean Platelet Volume 7.2 fL (7.4-10.4); Platelet Count 207 thou/uL (130-400); RBC Distribution Width 17.7 % (11.5-14.5); Red Blood Cell (RBC) Count 2.66 mill/uL (4.20-5.40); White Blood Cell (WBC) Count 13.6 thou/uL (4.8-10.8)
[2021-03-30 04:54] LABS: ALT (SGPT) 10 U/L (8-55); AST (SGOT) 25 U/L (5-34); Albumin 1.4 g/dL (3.4-4.8); Alkaline Phosphatase 173 U/L (40-110); Anion Gap 10 mmol/L (10-20); BUN (Urea Nitrogen) 53 mg/dL (9.8-20.1); Bilirubin, Total 0.3 mg/dL (0.2-1.2); Calc. Creatinine Clearance 70 mL/min (70-130); Calcium 7.8 mg/dL (7.8-10.44); Carbon Dioxide 27 mmol/L (23-31); Chloride 103 mmol/L (98-107); Globulin 3.1 g/dL (2.4-3.5); Glucose 266 mg/dL (83-110); Protein, Total 4.5 g/dL (5.8-8.1); Sodium 137 mmol/L (136-145)
[2021-03-30] MEDS: Levothyroxine Sodium 75 MCG TAB PO SCH (05:34)
[2021-03-30] MEDS ORDERED: Potassium Chloride 40 MEQ in Sodium Chloride 0.9% 250 ML 250 ML IVPB SCH (06:45)
[2021-03-30 07:08] LABS: Actual Bicarbonate (HCO3a) 25.8 mEq/L (22-28); Base Excess (BEa) 0.7 mEq/L (-2.0 to +3.0); CO2 Tension 43.4 mmHg (35.0-45.0); Calcium, Ionized (arterial) 1.19 mmol/L (1.12-1.30); Carboxyhemoglobin (COHb) 0.5 gm% (0.0-3.0); Hemoglobin (Hb) 8.4 g/dL (12.0-16.0); O2 Tension (PaO2), arterial 96.8 mmHg (> 60.0); Potassium - ABG Lab 2.86 mmol/L (3.70-5.30); pH, Arterial 7.39 (7.35-7.45)
[2021-03-30 07:10] LABS: Puncture Site RRA
[2021-03-30] MEDS ORDERED: Potassium Chloride 40 MEQ in Premix Bag 1 BAG IVPB SCH ×2 (09:00→16:00)
[2021-03-30] MEDS: Ferrous Sulfate 325 MG TAB PO SCH ×2 (10:04→17:05)
[2021-03-30] MEDS: Magnesium Oxide 400 MG TAB PO SCH ×2 (10:04→21:45)
[2021-03-30] MEDS: Metolazone 5 MG TAB PO SCH (10:04)
[2021-03-30] MEDS: Multivit, Therapeutic 1 TAB PO SCH (10:04)
[2021-03-30] MEDS: LACTINEX 1 TAB PO SCH ×2 (10:05→21:45)
[2021-03-30] MEDS: Escitalopram Oxalate 10 mg Tablet PO SCH (10:05)
[2021-03-30] MEDS: Pantoprazole 40 MG GRANULES PACKET PER TUBE SCH ×2 (10:05→21:45)
[2021-03-30] MEDS: Furosemide 40 MG/4 ML VIAL SLOW IVP SCH ×3 (10:05→21:46)
[2021-03-30] MEDS: HumaLOG 300 UNITS/3 ML VIAL SC PRN ×2 (10:45→17:28)
[2021-03-30] MEDS: Fluconazole In NaCl,Iso-Osm 200 MG in Premix Bag 1 BAG IVPB SCH (12:44)
[2021-03-30 15:32] LABS: Vancomycin, Trough 30.6 ug/mL
[2021-03-30] MEDS ORDERED: Vancomycin 1 GM in Premix Bag 1 BAG IVPB SCH (15:45)
[2021-03-30] MEDS: Vancomycin 1 GM in Premix Bag 1 BAG IVPB SCH (15:45)
[2021-03-30] MEDS: Lantus 1000 UNITS/10 ML VIAL SC SCH (21:46)
[2021-03-31] MEDS: Ipratropium Bromide 2.5 ml Neb NEB SCH ×4 (00:20→19:02)
[2021-03-31] MEDS: Meropenem 1 GM in Sodium Chloride 0.9% 100 ML IVPB SCH ×3 (01:17→16:21)
[2021-03-31] MEDS ORDERED: Fentanyl CADD 100 ML ONE (01:55)
[2021-03-31] MEDS: Fentanyl CADD 100 ML IV SCH (02:01)
[2021-03-31] MEDS: HumaLOG 300 UNITS/3 ML VIAL SC PRN ×2 (04:22→16:22)
[2021-03-31 04:35] LABS: #Eosinphils 0.7 thou/uL (0.0-0.7); #Monocytes 0.7 thou/uL (0.11-0.59); #Neutrophils 11.6 thou/uL (1.40-6.50); %Basophils 0.3 % (0.0-1.0); %Eosinophils 4.4 % (0.0-10.0); %Lymphocytes 13.5 % (21.0-51.0); %Monocytes 4.8 % (0.0-10.0); Mean Corpuscular HGB CONC 30.5 g/dL (32.0-36.0); Mean Corpuscular Hemoglobin 28.3 pg (27.0-31.0); Mean Corpuscular Volume 92.8 fL (78.0-98.0); Mean Platelet Volume 7.6 fL (7.4-10.4); Platelet Count 180 thou/uL (130-400); RBC Distribution Width 18.1 % (11.5-14.5); Red Blood Cell (RBC) Count 2.84 mill/uL (4.20-5.40)
[2021-03-31 04:57] LABS: Anion Gap 11 mmol/L (10-20); BUN (Urea Nitrogen) 54 mg/dL (9.8-20.1); Calc. Creatinine Clearance 71 mL/min (70-130); Calcium 7.9 mg/dL (7.8-10.44); Carbon Dioxide 27 mmol/L (23-31); Chloride 103 mmol/L (98-107); Glucose 183 mg/dL (83-110); Potassium 3.6 mmol/L (3.5-5.1); Sodium 137 mmol/L (136-145)
[2021-03-31] MEDS: Albumin 25% 25 GM/100 ML BOT IVPB SCH ×4 (06:38→23:14)
[2021-03-31] MEDS: Levothyroxine Sodium 75 MCG TAB PO SCH (06:39)
[2021-03-31] MEDS: Furosemide 40 MG/4 ML VIAL SLOW IVP SCH ×3 (06:39→23:13)
[2021-03-31] MEDS: Multivit, Therapeutic 1 TAB PO SCH (09:28)
[2021-03-31] MEDS: Metolazone 5 MG TAB PO SCH (09:28)
[2021-03-31] MEDS: LACTINEX 1 TAB PO SCH ×2 (09:28→20:52)
[2021-03-31] MEDS: Pantoprazole 40 MG GRANULES PACKET PER TUBE SCH ×2 (09:28→20:54)
[2021-03-31] MEDS: Magnesium Oxide 400 MG TAB PO SCH ×2 (09:29→20:54)
[2021-03-31] MEDS: Ferrous Sulfate 325 MG TAB PO SCH ×2 (09:29→16:22)
[2021-03-31] MEDS: Escitalopram Oxalate 10 mg Tablet PO SCH (09:29)
[2021-03-31] MEDS: Norepinephrine 8 MG in Dextrose 5% in Water 242 ML IVPB PRN (13:10)
[2021-03-31] MEDS ORDERED: Fentanyl 100 MCG/2 ML VIAL ONE (14:19)
[2021-03-31] MEDS ORDERED: PHENYLEPHRINE-NS 100 MCG/ML 10 ML SYRINGE ONE (14:19)
[2021-03-31] MEDS ORDERED: Rocuronium Bromide 10 MG/ML (10ML VIAL) ONE (15:00)
[2021-03-31] MEDS: Fluconazole In NaCl,Iso-Osm 200 MG in Premix Bag 1 BAG IVPB SCH (16:21)
[2021-03-31 16:49] LABS: Vancomycin, Random 26.2 ug/mL (See Comment)
[2021-03-31] MEDS: Lantus 1000 UNITS/10 ML VIAL SC SCH (20:53)
[2021-04-01] MEDS: Meropenem 1 GM in Sodium Chloride 0.9% 100 ML IVPB SCH ×4 (00:24→23:18)
[2021-04-01] MEDS: Ipratropium Bromide 2.5 ml Neb NEB SCH ×4 (00:43→19:23)
[2021-04-01 04:19] LABS: Anion Gap 10 mmol/L (10-20); BUN (Urea Nitrogen) 53 mg/dL (9.8-20.1); Calc. Creatinine Clearance 78 mL/min (70-130); Calcium 8.6 mg/dL (7.8-10.44); Carbon Dioxide 30 mmol/L (23-31); Chloride 103 mmol/L (98-107); Glucose 72 mg/dL (83-110); Sodium 140 mmol/L (136-145)
[2021-04-01 04:41] LABS: #Eosinphils 0.6 thou/uL (0.0-0.7); #Lymphocytes 1.6 thou/uL (1.20-3.40); #Monocytes 0.5 thou/uL (0.11-0.59); %Basophils 0.2 % (0.0-1.0); %Eosinophils 6.6 % (0.0-10.0); %Lymphocytes 16.1 % (21.0-51.0); %Monocytes 5.1 % (0.0-10.0); %Neutrophils 71.9 % (42.0-75.0); Anisocytosis SLIGHT = 6-15 cells (100X) (0-5/hpf); Hemoglobin 8.1 g/dL (12.0-16.0); MDiff Complete? YES; Mean Corpuscular HGB CONC 34.1 g/dL (32.0-36.0); Mean Corpuscular Hemoglobin 31.1 pg (27.0-31.0); Mean Corpuscular Volume 91.3 fL (78.0-98.0); Mean Platelet Volume 8.3 fL (7.4-10.4); Platelet Count 118 thou/uL (130-400); Platelet Morphology Comment Appears Decreased; Polychromasia SLIGHT = 2-3 cells (100X) (0-2/hpf); RBC Distribution Width 17.1 % (11.5-14.5); White Blood Cell (WBC) Count 9.8 thou/uL (4.8-10.8)
[2021-04-01] MEDS ORDERED: Potassium Chloride 40 MEQ in Premix Bag 1 BAG IVPB SCH (05:00)
[2021-04-01] MEDS: Furosemide 40 MG/4 ML VIAL SLOW IVP SCH ×3 (05:25→21:45)
[2021-04-01] MEDS: Levothyroxine Sodium 75 MCG TAB PO SCH (06:15)
[2021-04-01] MEDS: Ferrous Sulfate 325 MG TAB PO SCH ×2 (08:52→16:51)
[2021-04-01] MEDS: Pantoprazole 40 MG GRANULES PACKET PER TUBE SCH ×2 (08:55→20:19)
[2021-04-01] MEDS: Escitalopram Oxalate 10 mg Tablet PO SCH (08:55)
[2021-04-01] MEDS: Metolazone 5 MG TAB PO SCH (08:55)
[2021-04-01] MEDS: Magnesium Oxide 400 MG TAB PO SCH ×2 (08:55→20:17)
[2021-04-01] MEDS: LACTINEX 1 TAB PO SCH ×2 (08:59→20:16)
[2021-04-01] MEDS: Multivit, Therapeutic 1 TAB PO SCH (08:59)
[2021-04-01] MEDS ORDERED: Polyethylene Glycol 3350 17 GM Packet PO SCH (09:45)
[2021-04-01 10:19] LABS: Actual Bicarbonate (HCO3v) 29 mEq/L (22-28); Base Excess 3.3 mEq/L (-2.0 to +3.0); Calcium, Ionized (venous) 1.16 mmol/L (1.16-1.32); Chloride (VBG) 102 mmol/L (98-106); Potassium (VBG) 3.46 mmol/L (3.70-5.30); Sodium 135.4 mmol/L (133-146); pH (venous) 7.37 (7.32-7.43)
[2021-04-01] MEDS: Fluconazole In NaCl,Iso-Osm 200 MG in Premix Bag 1 BAG IVPB SCH (12:37)
[2021-04-01] MEDS ORDERED: Fentanyl CADD 0 ML ONE (14:08)
[2021-04-01] MEDS ORDERED: Fentanyl CADD 100 ML ONE (14:25)
[2021-04-01] MEDS: Fentanyl CADD 100 ML IV SCH (14:27)
[2021-04-01 15:32] LABS: Vancomycin, Random 22.9 ug/mL (See Comment)
[2021-04-01 17:08] LABS: SARS-CoV-2 PCR by NAA Not Detected (NotDetected)
[2021-04-01] MEDS: Senokot S 8.6-50 MG TAB PO SCH (20:17)
[2021-04-01] MEDS: Lantus 1000 UNITS/10 ML VIAL SC SCH (20:17)
[2021-04-02] MEDS: Ipratropium Bromide 2.5 ml Neb NEB SCH ×4 (02:06→19:08)
[2021-04-02] MEDS: HumaLOG 300 UNITS/3 ML VIAL SC PRN ×2 (03:55→21:21)
[2021-04-02 04:53] LABS: #Eosinphils 0.1 thou/uL (0.0-0.7); #Lymphocytes 1.9 thou/uL (1.20-3.40); #Monocytes 0.5 thou/uL (0.11-0.59); #Neutrophils 7.7 thou/uL (1.40-6.50); %Basophils 0.1 % (0.0-1.0); %Eosinophils 1.4 % (0.0-10.0); %Lymphocytes 18.2 % (21.0-51.0); %Monocytes 4.8 % (0.0-10.0); %Neutrophils 75.6 % (42.0-75.0); Hemoglobin 8.3 g/dL (12.0-16.0); Mean Corpuscular HGB CONC 31.2 g/dL (32.0-36.0); Mean Corpuscular Hemoglobin 29.1 pg (27.0-31.0); Mean Platelet Volume 9.2 fL (7.4-10.4); Platelet Count 105 thou/uL (130-400); RBC Distribution Width 17.5 % (11.5-14.5); Red Blood Cell (RBC) Count 2.85 mill/uL (4.20-5.40); White Blood Cell (WBC) Count 10.2 thou/uL (4.8-10.8)
[2021-04-02 05:15] LABS: Anion Gap 11 mmol/L (10-20); BUN (Urea Nitrogen) 58 mg/dL (9.8-20.1); Calc. Creatinine Clearance 68 mL/min (70-130); Calcium 8.6 mg/dL (7.8-10.44); Carbon Dioxide 28 mmol/L (23-31); Chloride 102 mmol/L (98-107); Glucose 192 mg/dL (83-110); Sodium 138 mmol/L (136-145)
[2021-04-02] MEDS: Furosemide 40 MG/4 ML VIAL SLOW IVP SCH ×3 (05:26→21:10)
[2021-04-02] MEDS: Levothyroxine Sodium 75 MCG TAB PO SCH (05:26)
[2021-04-02] MEDS ORDERED: Potassium Chloride 40 MEQ in Premix Bag 1 BAG IVPB SCH (05:45)
[2021-04-02] MEDS: Ferrous Sulfate 325 MG TAB PO SCH ×2 (09:18→17:18)
[2021-04-02] MEDS: Metolazone 5 MG TAB PO SCH (09:18)
[2021-04-02] MEDS: Pantoprazole 40 MG GRANULES PACKET PER TUBE SCH ×2 (09:18→21:10)
[2021-04-02] MEDS: Magnesium Oxide 400 MG TAB PO SCH ×2 (09:18→21:10)
[2021-04-02] MEDS: Escitalopram Oxalate 10 mg Tablet PO SCH (09:18)
[2021-04-02] MEDS: Polyethylene Glycol 3350 17 GM Packet PO SCH (09:19)
[2021-04-02] MEDS: LACTINEX 1 TAB PO SCH ×2 (09:19→21:10)
[2021-04-02] MEDS: Multivit, Therapeutic 1 TAB PO SCH (09:19)
[2021-04-02] MEDS: Senokot S 8.6-50 MG TAB PO SCH ×2 (09:19→21:09)
[2021-04-02] MEDS: Meropenem 1 GM in Sodium Chloride 0.9% 100 ML IVPB SCH (09:30)
[2021-04-02 11:46] LABS: Actual Bicarbonate (HCO3v) 31 mEq/L (22-28); Base Excess 4.9 mEq/L (-2.0 to +3.0); Calcium, Ionized (venous) 1.16 mmol/L (1.16-1.32); Chloride (VBG) 103 mmol/L (98-106); Potassium (VBG) 3.27 mmol/L (3.70-5.30); Sodium 135.6 mmol/L (133-146); pH (venous) 7.38 (7.32-7.43)
[2021-04-02] MEDS: Fluconazole In NaCl,Iso-Osm 200 MG in Premix Bag 1 BAG IVPB SCH (13:07)
[2021-04-02] MEDS: MEROPENEM 1 GM/50 ML 1 GM in Premix Bag 1 BAG IVPB SCH (16:35)
[2021-04-02] MEDS: Lantus 1000 UNITS/10 ML VIAL SC SCH (21:21)
[2021-04-03] MEDS: MEROPENEM 1 GM/50 ML 1 GM in Premix Bag 1 BAG IVPB SCH ×2 (00:35→12:45)
[2021-04-03] MEDS: Ipratropium Bromide 2.5 ml Neb NEB SCH ×4 (01:34→18:50)
[2021-04-03] MEDS ORDERED: Fentanyl CADD 100 ML ONE (04:54)
[2021-04-03 04:55] LABS: #Basophils 0.1 thou/uL (0.0-0.2); #Eosinphils 0.7 thou/uL (0.0-0.7); #Lymphocytes 2.5 thou/uL (1.20-3.40); #Monocytes 0.6 thou/uL (0.11-0.59); %Basophils 0.4 % (0.0-1.0); %Eosinophils 4.6 % (0.0-10.0); %Lymphocytes 16.8 % (21.0-51.0); %Monocytes 3.9 % (0.0-10.0); %Neutrophils 74.3 % (42.0-75.0); Hemoglobin 9.4 g/dL (12.0-16.0); Mean Corpuscular HGB CONC 31.8 g/dL (32.0-36.0); Mean Corpuscular Hemoglobin 29.7 pg (27.0-31.0); Mean Corpuscular Volume 93.3 fL (78.0-98.0); Mean Platelet Volume 9.4 fL (7.4-10.4); Platelet Count 133 thou/uL (130-400); RBC Distribution Width 17.6 % (11.5-14.5); Red Blood Cell (RBC) Count 3.15 mill/uL (4.20-5.40); White Blood Cell (WBC) Count 14.8 thou/uL (4.8-10.8)
[2021-04-03] MEDS: Fentanyl CADD 100 ML IV SCH (04:56)
[2021-04-03 05:10] LABS: Anion Gap 13 mmol/L (10-20); BUN (Urea Nitrogen) 59 mg/dL (9.8-20.1); Calc. Creatinine Clearance 62 mL/min (70-130); Calcium 8.6 mg/dL (7.8-10.44); Carbon Dioxide 28 mmol/L (23-31); Chloride 100 mmol/L (98-107); Glucose 167 mg/dL (83-110); Potassium 3.1 mmol/L (3.5-5.1); Sodium 138 mmol/L (136-145)
[2021-04-03] MEDS: Levothyroxine Sodium 75 MCG TAB PO SCH (05:29)
[2021-04-03] MEDS: Furosemide 40 MG/4 ML VIAL SLOW IVP SCH ×3 (05:29→21:27)
[2021-04-03] MEDS ORDERED: Potassium Chloride 40 MEQ in Premix Bag 1 BAG IVPB SCH (06:15)
[2021-04-03] MEDS: Ferrous Sulfate 325 MG TAB PO SCH ×2 (08:44→16:47)
[2021-04-03] MEDS: Metolazone 5 MG TAB PO SCH (08:44)
[2021-04-03] MEDS ORDERED: Potassium Chloride 20 MEQ TAB PO SCH (10:00)
[2021-04-03] MEDS: Polyethylene Glycol 3350 17 GM Packet PO SCH (10:00)
[2021-04-03] MEDS: Senokot S 8.6-50 MG TAB PO SCH ×2 (10:00→21:30)
[2021-04-03] MEDS: Magnesium Oxide 400 MG TAB PO SCH ×2 (10:01→21:30)
[2021-04-03] MEDS: Pantoprazole 40 MG GRANULES PACKET PER TUBE SCH ×2 (10:01→21:30)
[2021-04-03] MEDS: Escitalopram Oxalate 10 mg Tablet PO SCH (10:01)
[2021-04-03] MEDS: Multivit, Therapeutic 1 TAB PO SCH (10:01)
[2021-04-03] MEDS: LACTINEX 1 TAB PO SCH ×2 (10:01→21:30)
[2021-04-03] MEDS: HumaLOG 300 UNITS/3 ML VIAL SC PRN (11:40)
[2021-04-03] MEDS: Fluconazole In NaCl,Iso-Osm 200 MG in Premix Bag 1 BAG IVPB SCH (12:46)
[2021-04-03 12:51] LABS: Potassium 3.5 mmol/L (3.5-5.1)
[2021-04-03] MEDS: Lantus 1000 UNITS/10 ML VIAL SC SCH (21:57)
[2021-04-04] MEDS: MEROPENEM 1 GM/50 ML 1 GM in Premix Bag 1 BAG IVPB SCH ×2 (01:18→13:30)
[2021-04-04] MEDS: Ipratropium Bromide 2.5 ml Neb NEB SCH ×4 (02:02→18:06)
[2021-04-04 03:52] LABS: #Basophils 0.1 thou/uL (0.0-0.2); #Lymphocytes 2.9 thou/uL (1.20-3.40); #Monocytes 0.6 thou/uL (0.11-0.59); #Neutrophils 11.2 thou/uL (1.40-6.50); %Basophils 0.4 % (0.0-1.0); %Eosinophils 6.1 % (0.0-10.0); %Lymphocytes 18.1 % (21.0-51.0); %Monocytes 4.1 % (0.0-10.0); %Neutrophils 71.3 % (42.0-75.0); Hemoglobin 9.5 g/dL (12.0-16.0); Mean Corpuscular HGB CONC 33.5 g/dL (32.0-36.0); Mean Corpuscular Hemoglobin 31.2 pg (27.0-31.0); Mean Platelet Volume 8.6 fL (7.4-10.4); Platelet Count 133 thou/uL (130-400); RBC Distribution Width 17.5 % (11.5-14.5); Red Blood Cell (RBC) Count 3.04 mill/uL (4.20-5.40); White Blood Cell (WBC) Count 15.7 thou/uL (4.8-10.8)
[2021-04-04 04:34] LABS: Anion Gap 12 mmol/L (10-20); BUN (Urea Nitrogen) 64 mg/dL (9.8-20.1); Calc. Creatinine Clearance 63 mL/min (70-130); Calcium 8.9 mg/dL (7.8-10.44); Carbon Dioxide 29 mmol/L (23-31); Chloride 102 mmol/L (98-107); Glucose 197 mg/dL (83-110); Magnesium 1.8 mg/dL (1.6-2.6); Potassium 3.8 mmol/L (3.5-5.1); Sodium 139 mmol/L (136-145)
[2021-04-04 04:37] LABS: Phosphorus 2.7 mg/dL (2.3-4.7)
[2021-04-04] MEDS: HumaLOG 300 UNITS/3 ML VIAL SC PRN (06:22)
[2021-04-04] MEDS: Furosemide 40 MG/4 ML VIAL SLOW IVP SCH ×3 (06:22→21:44)
[2021-04-04] MEDS: Levothyroxine Sodium 75 MCG TAB PO SCH (06:22)
[2021-04-04] MEDS ORDERED: Magnesium 2 GM/50 ML 2 GM in Premix Bag 1 BAG IVPB SCH (08:00)
[2021-04-04] MEDS ORDERED: Bisacodyl 10 MG SUPP PR PRN (09:16)
[2021-04-04] MEDS: Polyethylene Glycol 3350 17 GM Packet PO SCH (09:58)
[2021-04-04] MEDS: Magnesium Oxide 400 MG TAB PO SCH ×2 (09:59→21:43)
[2021-04-04] MEDS: Senokot S 8.6-50 MG TAB PO SCH ×2 (09:59→21:43)
[2021-04-04] MEDS: Ferrous Sulfate 325 MG TAB PO SCH ×2 (09:59→17:20)
[2021-04-04] MEDS: Pantoprazole 40 MG GRANULES PACKET PER TUBE SCH ×2 (09:59→21:43)
[2021-04-04] MEDS: Multivit, Therapeutic 1 TAB PO SCH (09:59)
[2021-04-04] MEDS: LACTINEX 1 TAB PO SCH ×2 (10:00→21:43)
[2021-04-04] MEDS: Metolazone 5 MG TAB PO SCH (10:00)
[2021-04-04] MEDS: Escitalopram Oxalate 10 mg Tablet PO SCH (10:08)
[2021-04-04] MEDS: Norepinephrine 8 MG/0.9% NS 250 ML IVPB SCH (13:32)
[2021-04-04] MEDS: Lantus 1000 UNITS/10 ML VIAL SC SCH (22:01)
[2021-04-04] MEDS: Fentanyl CADD 100 ML ONE ×2 (22:33→23:00)
[2021-04-04] MEDS: Fentanyl CADD 100 ML IV SCH (22:33)
[2021-04-05] MEDS: Ipratropium Bromide 2.5 ml Neb NEB SCH ×5 (01:43→23:29)
[2021-04-05 04:08] LABS: Anion Gap 12 mmol/L (10-20); BUN (Urea Nitrogen) 66 mg/dL (9.8-20.1); Calc. Creatinine Clearance 68 mL/min (70-130); Calcium 8.9 mg/dL (7.8-10.44); Carbon Dioxide 31 mmol/L (23-31); Chloride 101 mmol/L (98-107); Glucose 116 mg/dL (83-110); Magnesium 2.1 mg/dL (1.6-2.6); Potassium 3.5 mmol/L (3.5-5.1); Sodium 140 mmol/L (136-145)
[2021-04-05] MEDS ORDERED: Potassium Chloride 40 MEQ in Premix Bag 1 BAG IVPB SCH (05:30)
[2021-04-05 05:33] LABS: #Eosinphils 1.1 thou/uL (0.0-0.7); #Lymphocytes 1.8 thou/uL (1.20-3.40); #Monocytes 0.6 thou/uL (0.11-0.59); #Neutrophils 11.4 thou/uL (1.40-6.50); %Basophils 0.3 % (0.0-1.0); %Eosinophils 7.2 % (0.0-10.0); %Lymphocytes 12.2 % (21.0-51.0); %Monocytes 3.9 % (0.0-10.0); %Neutrophils 76.4 % (42.0-75.0); Mean Corpuscular HGB CONC 30.7 g/dL (32.0-36.0); Mean Corpuscular Hemoglobin 28.9 pg (27.0-31.0); Mean Corpuscular Volume 94.1 fL (78.0-98.0); Mean Platelet Volume 9.2 fL (7.4-10.4); Platelet Count 113 thou/uL (130-400); Platelet Morphology Comment Appears Decreased; RBC Distribution Width 17.7 % (11.5-14.5); Red Blood Cell (RBC) Count 3.11 mill/uL (4.20-5.40); White Blood Cell (WBC) Count 14.9 thou/uL (4.8-10.8)
[2021-04-05] MEDS: Levothyroxine Sodium 75 MCG TAB PO SCH (06:22)
[2021-04-05] MEDS: Furosemide 40 MG/4 ML VIAL SLOW IVP SCH ×3 (06:22→21:15)
[2021-04-05] MEDS: Polyethylene Glycol 3350 17 GM Packet PO SCH (09:17)
[2021-04-05] MEDS: Ferrous Sulfate 325 MG TAB PO SCH ×2 (09:34→16:22)
[2021-04-05] MEDS: Metolazone 5 MG TAB PO SCH (09:34)
[2021-04-05] MEDS: Pantoprazole 40 MG GRANULES PACKET PER TUBE SCH ×2 (09:35→21:14)
[2021-04-05] MEDS: LACTINEX 1 TAB PO SCH ×2 (09:35→21:15)
[2021-04-05] MEDS: Senokot S 8.6-50 MG TAB PO SCH ×2 (09:35→21:14)
[2021-04-05] MEDS: Escitalopram Oxalate 10 mg Tablet PO SCH (09:36)
[2021-04-05] MEDS: Multivit, Therapeutic 1 TAB PO SCH (09:36)
[2021-04-05] MEDS: Magnesium Oxide 400 MG TAB PO SCH ×2 (09:37→21:14)
[2021-04-05] MEDS: HumaLOG 300 UNITS/3 ML VIAL SC PRN ×2 (14:12→16:27)
[2021-04-05] MEDS: Lantus 1000 UNITS/10 ML VIAL SC SCH (21:54)
[2021-04-06 04:41] LABS: #Basophils 0.1 thou/uL (0.0-0.2); #Eosinphils 0.9 thou/uL (0.0-0.7); #Lymphocytes 1.9 thou/uL (1.20-3.40); #Monocytes 0.6 thou/uL (0.11-0.59); #Neutrophils 5.9 thou/uL (1.40-6.50); %Basophils 0.6 % (0.0-1.0); %Eosinophils 9.8 % (0.0-10.0); %Lymphocytes 20.1 % (21.0-51.0); %Neutrophils 63.5 % (42.0-75.0); Hemoglobin 8.9 g/dL (12.0-16.0); Mean Corpuscular HGB CONC 32.3 g/dL (32.0-36.0); Mean Corpuscular Hemoglobin 30.1 pg (27.0-31.0); Mean Corpuscular Volume 93.2 fL (78.0-98.0); Mean Platelet Volume 9.2 fL (7.4-10.4); Platelet Count 112 thou/uL (130-400); RBC Distribution Width 17.4 % (11.5-14.5); Red Blood Cell (RBC) Count 2.95 mill/uL (4.20-5.40); White Blood Cell (WBC) Count 9.4 thou/uL (4.8-10.8)
[2021-04-06 05:04] LABS: Anion Gap 10 mmol/L (10-20); BUN (Urea Nitrogen) 74 mg/dL (9.8-20.1); Calc. Creatinine Clearance 62 mL/min (70-130); Calcium 8.7 mg/dL (7.8-10.44); Carbon Dioxide 32 mmol/L (23-31); Chloride 101 mmol/L (98-107); Glucose 142 mg/dL (83-110); Magnesium 2.3 mg/dL (1.6-2.6); Potassium 3.2 mmol/L (3.5-5.1); Sodium 140 mmol/L (136-145)
[2021-04-06] MEDS ORDERED: Potassium Chloride 40 MEQ in Premix Bag 1 BAG IVPB SCH (05:15)
[2021-04-06] MEDS: Furosemide 40 MG/4 ML VIAL SLOW IVP SCH ×3 (06:19→21:48)
[2021-04-06] MEDS: Levothyroxine Sodium 75 MCG TAB PO SCH (06:19)
[2021-04-06] MEDS: Ipratropium Bromide 2.5 ml Neb NEB SCH ×3 (06:45→18:38)
[2021-04-06] MEDS: Metolazone 5 MG TAB PO SCH (08:54)
[2021-04-06] MEDS: Escitalopram Oxalate 10 mg Tablet PO SCH (08:54)
[2021-04-06] MEDS: Magnesium Oxide 400 MG TAB PO SCH ×2 (08:54→21:48)
[2021-04-06] MEDS: Ferrous Sulfate 325 MG TAB PO SCH (08:54)
[2021-04-06] MEDS: LACTINEX 1 TAB PO SCH ×2 (08:54→21:48)
[2021-04-06] MEDS: Polyethylene Glycol 3350 17 GM Packet PO SCH (08:55)
[2021-04-06] MEDS: Senokot S 8.6-50 MG TAB PO SCH ×2 (08:55→21:48)
[2021-04-06] MEDS: Multivit, Therapeutic 1 TAB PO SCH (08:55)
[2021-04-06] MEDS: Pantoprazole 40 MG GRANULES PACKET PER TUBE SCH ×2 (08:55→21:48)
[2021-04-06] MEDS: Lantus 1000 UNITS/10 ML VIAL SC SCH (21:58)
[2021-04-06] MEDS: HumaLOG 300 UNITS/3 ML VIAL SC PRN (22:03)
[2021-04-07] MEDS: Ipratropium Bromide 2.5 ml Neb NEB SCH ×4 (01:46→18:17)
[2021-04-07] MEDS: HumaLOG 300 UNITS/3 ML VIAL SC PRN ×2 (04:58→21:43)
[2021-04-07 05:23] LABS: #Basophils 0.1 thou/uL (0.0-0.2); #Eosinphils 0.4 thou/uL (0.0-0.7); #Monocytes 0.5 thou/uL (0.11-0.59); #Neutrophils 6.6 thou/uL (1.40-6.50); %Basophils 0.7 % (0.0-1.0); %Eosinophils 4.4 % (0.0-10.0); %Lymphocytes 20.5 % (21.0-51.0); %Monocytes 5.4 % (0.0-10.0); Hemoglobin 8.4 g/dL (12.0-16.0); Mean Corpuscular Hemoglobin 29.2 pg (27.0-31.0); Mean Corpuscular Volume 94.3 fL (78.0-98.0); Mean Platelet Volume 8.7 fL (7.4-10.4); Platelet Count 111 thou/uL (130-400); RBC Distribution Width 17.2 % (11.5-14.5); Red Blood Cell (RBC) Count 2.87 mill/uL (4.20-5.40); White Blood Cell (WBC) Count 9.5 thou/uL (4.8-10.8)
[2021-04-07] MEDS: Levothyroxine Sodium 75 MCG TAB PO SCH (05:33)
[2021-04-07] MEDS: Furosemide 40 MG/4 ML VIAL SLOW IVP SCH ×3 (05:33→21:31)
[2021-04-07 05:40] LABS: Anion Gap 12 mmol/L (10-20); BUN (Urea Nitrogen) 84 mg/dL (9.8-20.1); Calc. Creatinine Clearance 58 mL/min (70-130); Calcium 9.1 mg/dL (7.8-10.44); Carbon Dioxide 32 mmol/L (23-31); Chloride 99 mmol/L (98-107); Glucose 179 mg/dL (83-110); Potassium 3.5 mmol/L (3.5-5.1); Sodium 139 mmol/L (136-145)
[2021-04-07] MEDS ORDERED: Potassium Chloride 40 MEQ in Premix Bag 1 BAG IVPB SCH (05:45)
[2021-04-07] MEDS: Ferrous Sulfate 325 MG TAB PO SCH ×3 (07:51→16:21)
[2021-04-07] MEDS: Senokot S 8.6-50 MG TAB PO SCH ×2 (09:14→21:30)
[2021-04-07] MEDS: Polyethylene Glycol 3350 17 GM Packet PO SCH (09:14)
[2021-04-07] MEDS: Escitalopram Oxalate 10 mg Tablet PO SCH (09:19)
[2021-04-07] MEDS: Multivit, Therapeutic 1 TAB PO SCH (09:19)
[2021-04-07] MEDS: Pantoprazole 40 MG GRANULES PACKET PER TUBE SCH ×2 (09:19→21:30)
[2021-04-07] MEDS: Metolazone 5 MG TAB PO SCH (09:19)
[2021-04-07] MEDS: LACTINEX 1 TAB PO SCH ×2 (09:19→21:30)
[2021-04-07] MEDS: Magnesium Oxide 400 MG TAB PO SCH ×2 (09:20→21:31)
[2021-04-07] MEDS: Norepinephrine 8 MG/0.9% NS 250 ML IVPB SCH ×2 (16:22→23:55)
[2021-04-07] MEDS: Lantus 1000 UNITS/10 ML VIAL SC SCH (21:42)
[2021-04-08] MEDS: Ipratropium Bromide 2.5 ml Neb NEB SCH ×4 (01:17→18:19)
[2021-04-08] MEDS: Furosemide 40 MG/4 ML VIAL SLOW IVP SCH ×3 (06:17→21:56)
[2021-04-08] MEDS: Levothyroxine Sodium 75 MCG TAB PO SCH (06:17)
[2021-04-08] MEDS: Ferrous Sulfate 325 MG TAB PO SCH ×2 (09:28→17:06)
[2021-04-08] MEDS: LACTINEX 1 TAB PO SCH ×2 (09:28→21:56)
[2021-04-08] MEDS: Escitalopram Oxalate 10 mg Tablet PO SCH (09:29)
[2021-04-08] MEDS: Pantoprazole 40 MG GRANULES PACKET PER TUBE SCH ×2 (09:29→21:56)
[2021-04-08] MEDS: Multivit, Therapeutic 1 TAB PO SCH (09:29)
[2021-04-08] MEDS: Metolazone 5 MG TAB PO SCH (09:29)
[2021-04-08] MEDS: Magnesium Oxide 400 MG TAB PO SCH ×2 (09:29→21:56)
[2021-04-08] MEDS: Senokot S 8.6-50 MG TAB PO SCH ×2 (09:30→21:56)
[2021-04-08] MEDS: Polyethylene Glycol 3350 17 GM Packet PO SCH (09:30)
[2021-04-08] MEDS: HumaLOG 300 UNITS/3 ML VIAL SC PRN (16:45)
[2021-04-08] MEDS: Lantus 1000 UNITS/10 ML VIAL SC SCH (21:57)
[2021-04-09] MEDS: Ipratropium Bromide 2.5 ml Neb NEB SCH ×4 (01:25→18:16)
[2021-04-09] MEDS: HumaLOG 300 UNITS/3 ML VIAL SC PRN ×2 (04:26→21:30)
[2021-04-09] MEDS: Levothyroxine Sodium 75 MCG TAB PO SCH (05:24)
[2021-04-09] MEDS: Furosemide 40 MG/4 ML VIAL SLOW IVP SCH ×3 (05:24→21:25)
[2021-04-09] MEDS: Polyethylene Glycol 3350 17 GM Packet PO SCH (09:43)
[2021-04-09] MEDS: Senokot S 8.6-50 MG TAB PO SCH ×2 (09:43→21:25)
[2021-04-09] MEDS: LACTINEX 1 TAB PO SCH ×2 (09:43→21:25)
[2021-04-09] MEDS: Ferrous Sulfate 325 MG TAB PO SCH (09:44)
[2021-04-09] MEDS: Magnesium Oxide 400 MG TAB PO SCH ×2 (09:44→21:25)
[2021-04-09] MEDS: Escitalopram Oxalate 10 mg Tablet PO SCH (09:44)
[2021-04-09] MEDS: Metolazone 5 MG TAB PO SCH (09:44)
[2021-04-09] MEDS: Pantoprazole 40 MG GRANULES PACKET PER TUBE SCH ×2 (09:44→21:25)
[2021-04-09] MEDS: Multivit, Therapeutic 1 TAB PO SCH (09:45)
[2021-04-09 12:54] LABS: SARS-CoV-2 PCR by NAA DETECTED (NotDetected)
[2021-04-09] MEDS: Lantus 1000 UNITS/10 ML VIAL SC SCH (21:26)
[2021-04-10] MEDS: Ipratropium Bromide 2.5 ml Neb NEB SCH ×4 (01:00→18:18)
[2021-04-10 05:36] LABS: BUN (Urea Nitrogen) 87 mg/dL (9.8-20.1); Calc. Creatinine Clearance 69 mL/min (70-130); Calcium 9.6 mg/dL (7.8-10.44); Glucose 82 mg/dL (83-110)
[2021-04-10 05:37] LABS: Band 1 % (5-11); Eosinophils 15 % (0-10); Hemoglobin 8.3 g/dL (12.0-16.0); Hypochromia SLIGHT = 6-15 cells (100X) (0-5/hpf); Lymphocytes 16 % (21-51); MDiff Complete? YES; Mean Corpuscular HGB CONC 31.8 g/dL (32.0-36.0); Mean Corpuscular Hemoglobin 29.9 pg (27.0-31.0); Mean Corpuscular Volume 93.7 fL (78.0-98.0); Mean Platelet Volume 8.1 fL (7.4-10.4); Monocytes 5 % (0-10); Neutrophil 61 % (42-75); Platelet Count 119 thou/uL (130-400); Platelet Morphology Comment Appears Decreased; Reactive Lymphocytes 2 % (0-10); Red Blood Cell (RBC) Count 2.79 mill/uL (4.20-5.40); White Blood Cell (WBC) Count 8.8 thou/uL (4.8-10.8)
[2021-04-10 05:41] LABS: Potassium 2.8 mmol/L (3.5-5.1)
[2021-04-10 05:46] LABS: Anion Gap 11 mmol/L (10-20); Carbon Dioxide 39 mmol/L (23-31); Chloride 95 mmol/L (98-107); Sodium 142 mmol/L (136-145)
[2021-04-10] MEDS: Levothyroxine Sodium 75 MCG TAB PO SCH (06:11)
[2021-04-10] MEDS: Potassium Chloride 40 MEQ in Premix Bag 1 BAG IVPB SCH ×2 (06:11→12:00)
[2021-04-10] MEDS: Furosemide 40 MG/4 ML VIAL SLOW IVP SCH ×3 (06:11→22:28)
[2021-04-10] MEDS: Ferrous Sulfate 325 MG TAB PO SCH ×2 (08:42→17:05)
[2021-04-10] MEDS: LACTINEX 1 TAB PO SCH ×2 (08:42→22:29)
[2021-04-10] MEDS: Metolazone 5 MG TAB PO SCH (08:42)
[2021-04-10] MEDS: Escitalopram Oxalate 10 mg Tablet PO SCH (08:42)
[2021-04-10] MEDS: Multivit, Therapeutic 1 TAB PO SCH (08:43)
[2021-04-10] MEDS: Magnesium Oxide 400 MG TAB PO SCH ×2 (08:43→22:27)
[2021-04-10] MEDS: Pantoprazole 40 MG GRANULES PACKET PER TUBE SCH ×2 (08:43→22:27)
[2021-04-10] MEDS: Polyethylene Glycol 3350 17 GM Packet PO SCH (08:43)
[2021-04-10] MEDS: Senokot S 8.6-50 MG TAB PO SCH ×2 (08:44→22:39)
[2021-04-10] MEDS: Dextrose 50% Abboject 50 ML SYRINGE SLOW IVP PRN (22:31)
[2021-04-11] MEDS: Ipratropium Bromide 2.5 ml Neb NEB SCH ×5 (00:54→23:16)
[2021-04-11] MEDS: Levothyroxine Sodium 75 MCG TAB PO SCH (05:27)
[2021-04-11] MEDS: Furosemide 40 MG/4 ML VIAL SLOW IVP SCH ×2 (05:27→16:24)
[2021-04-11 07:02] LABS: Actual Bicarbonate (HCO3a) 40.6 mEq/L (22-28); Base Excess (BEa) 17.8 mEq/L (-2.0 to +3.0); CO2 Tension 39.9 mmHg (35.0-45.0); Calcium, Ionized (arterial) 1.25 mmol/L (1.12-1.30); Carboxyhemoglobin (COHb) 1.1 gm% (0.0-3.0); O2 Tension (PaO2), arterial 73.8 mmHg (> 60.0); Potassium - ABG Lab 3.06 mmol/L (3.70-5.30)
[2021-04-11 07:14] LABS: pH, Arterial 7.63 (7.35-7.45)
[2021-04-11 07:15] LABS: ALV-art Gradient 125.875 mmHg (0-20); Puncture Site RRA
[2021-04-11] MEDS: Ferrous Sulfate 325 MG TAB PO SCH ×2 (08:50→16:25)
[2021-04-11] MEDS: Metolazone 5 MG TAB PO SCH (08:51)
[2021-04-11] MEDS: Escitalopram Oxalate 10 mg Tablet PO SCH (08:52)
[2021-04-11] MEDS: LACTINEX 1 TAB PO SCH ×2 (08:52→20:53)
[2021-04-11] MEDS: Magnesium Oxide 400 MG TAB PO SCH ×2 (08:54→20:53)
[2021-04-11] MEDS: Pantoprazole 40 MG GRANULES PACKET PER TUBE SCH ×2 (08:55→20:53)
[2021-04-11] MEDS: Polyethylene Glycol 3350 17 GM Packet PO SCH (08:55)
[2021-04-11] MEDS: Multivit, Therapeutic 1 TAB PO SCH (08:55)
[2021-04-11] MEDS: Senokot S 8.6-50 MG TAB PO SCH ×2 (08:56→20:53)
[2021-04-11] MEDS: Lorazepam 2 MG/ML VIAL SLOW IVP PRN ×2 (09:07→20:54)
[2021-04-11] MEDS: Norepinephrine 8 MG/0.9% NS 250 ML IVPB SCH (10:20)
[2021-04-11 15:08] LABS: BUN (Urea Nitrogen) 88 mg/dL (9.8-20.1); Calc. Creatinine Clearance 61 mL/min (70-130); Calcium 9.7 mg/dL (7.8-10.44); Glucose 93 mg/dL (83-110)
[2021-04-11 15:18] LABS: Anion Gap 15 mmol/L (10-20); Carbon Dioxide 37 mmol/L (23-31); Chloride 96 mmol/L (98-107); Sodium 145 mmol/L (136-145)
[2021-04-11] MEDS ORDERED: Potassium Bicarbonate/Cit Ac 20 MEQ TAB PER TUBE SCH (21:15)
[2021-04-11] MEDS: Lantus 1000 UNITS/10 ML VIAL SC SCH (21:16)
[2021-04-12] MEDS: Lantus 1000 UNITS/10 ML VIAL SC SCH ×2 (02:34→21:28)
[2021-04-12] MEDS: Acetaminophen 325 MG TAB PO PRN (02:46)
[2021-04-12] MEDS: Norepinephrine 8 MG/0.9% NS 250 ML IVPB SCH (02:51)
[2021-04-12 05:24] LABS: BUN (Urea Nitrogen) 85 mg/dL (9.8-20.1); Calc. Creatinine Clearance 58 mL/min (70-130); Calcium 9.7 mg/dL (7.8-10.44); Glucose 141 mg/dL (83-110)
[2021-04-12 05:33] LABS: Anion Gap 14 mmol/L (10-20); Carbon Dioxide 39 mmol/L (23-31); Chloride 95 mmol/L (98-107); Potassium 3.3 mmol/L (3.5-5.1); Sodium 145 mmol/L (136-145)
[2021-04-12 05:39] LABS: Band 2 % (5-11); Eosinophils 8 % (0-10); Hemoglobin 8.9 g/dL (12.0-16.0); Lymphocytes 12 % (21-51); MDiff Complete? YES; Mean Corpuscular HGB CONC 32.7 g/dL (32.0-36.0); Mean Corpuscular Hemoglobin 30.6 pg (27.0-31.0); Mean Corpuscular Volume 93.7 fL (78.0-98.0); Mean Platelet Volume 7.8 fL (7.4-10.4); Monocytes 3 % (0-10); Neutrophil 73 % (42-75); Platelet Count 140 thou/uL (130-400); Platelet Morphology Comment Appears Adequate; RBC Distribution Width 16.8 % (11.5-14.5); Reactive Lymphocytes 1 % (0-10); Red Blood Cell (RBC) Count 2.92 mill/uL (4.20-5.40); White Blood Cell (WBC) Count 10.2 thou/uL (4.8-10.8)
[2021-04-12] MEDS: Levothyroxine Sodium 75 MCG TAB PO SCH (06:10)
[2021-04-12 06:50] LABS: Actual Bicarbonate (HCO3a) 42.7 mEq/L (22-28); Base Excess (BEa) 18.5 mEq/L (-2.0 to +3.0); CO2 Tension 49.7 mmHg (35.0-45.0); Calcium, Ionized (arterial) 1.25 mmol/L (1.12-1.30); Carboxyhemoglobin (COHb) 0.6 gm% (0.0-3.0); Hemoglobin (Hb) 8.3 g/dL (12.0-16.0); O2 Tension (PaO2), arterial 78.3 mmHg (> 60.0)
[2021-04-12] MEDS ORDERED: Potassium Bicarbonate/Cit Ac 20 MEQ TAB PER TUBE SCH (07:00)
[2021-04-12] MEDS: Ipratropium Bromide 2.5 ml Neb NEB SCH ×4 (07:08→23:57)
[2021-04-12 07:09] LABS: Puncture Site RRA; pH, Arterial 7.55 (7.35-7.45)
[2021-04-12 07:10] LABS: ALV-art Gradient 144.775 mmHg (0-20)
[2021-04-12] MEDS: Ferrous Sulfate 325 MG TAB PO SCH ×2 (09:51→16:35)
[2021-04-12] MEDS: Metolazone 5 MG TAB PO SCH (09:51)
[2021-04-12] MEDS: Multivit, Therapeutic 1 TAB PO SCH (09:52)
[2021-04-12] MEDS: Escitalopram Oxalate 10 mg Tablet PO SCH (09:52)
[2021-04-12] MEDS: Magnesium Oxide 400 MG TAB PO SCH ×2 (09:52→20:57)
[2021-04-12] MEDS: LACTINEX 1 TAB PO SCH ×2 (09:52→20:57)
[2021-04-12] MEDS: Senokot S 8.6-50 MG TAB PO SCH ×2 (09:53→20:57)
[2021-04-12] MEDS: Polyethylene Glycol 3350 17 GM Packet PO SCH (09:53)
[2021-04-12] MEDS: Pantoprazole 40 MG GRANULES PACKET PER TUBE SCH ×2 (09:53→20:58)
[2021-04-12] MEDS: Lorazepam 2 MG/ML VIAL SLOW IVP PRN (17:58)
[2021-04-12] MEDS: HumaLOG 300 UNITS/3 ML VIAL SC PRN (21:30)
[2021-04-13] MEDS: Levothyroxine Sodium 75 MCG TAB PO SCH (05:47)
[2021-04-13] MEDS: HumaLOG 300 UNITS/3 ML VIAL SC PRN ×2 (05:47→21:55)
[2021-04-13] MEDS: Ipratropium Bromide 2.5 ml Neb NEB SCH ×3 (07:39→19:53)
[2021-04-13] MEDS: Ferrous Sulfate 325 MG TAB PO SCH ×2 (08:17→16:43)
[2021-04-13] MEDS: Metolazone 5 MG TAB PO SCH (10:02)
[2021-04-13] MEDS: LACTINEX 1 TAB PO SCH ×2 (10:02→21:53)
[2021-04-13] MEDS: Escitalopram Oxalate 10 mg Tablet PO SCH (10:02)
[2021-04-13] MEDS: Magnesium Oxide 400 MG TAB PO SCH ×2 (10:03→21:53)
[2021-04-13] MEDS: Multivit, Therapeutic 1 TAB PO SCH (10:03)
[2021-04-13] MEDS: Senokot S 8.6-50 MG TAB PO SCH ×2 (10:04→21:52)
[2021-04-13] MEDS: Polyethylene Glycol 3350 17 GM Packet PO SCH (10:04)
[2021-04-13] MEDS: Pantoprazole 40 MG GRANULES PACKET PER TUBE SCH ×2 (10:04→21:52)
[2021-04-13] MEDS: Lactated Ringer's 1,000 ML IV SCH (17:10)
[2021-04-13] MEDS: Lorazepam 2 MG/ML VIAL SLOW IVP PRN (17:10)
[2021-04-13] MEDS: Lantus 1000 UNITS/10 ML VIAL SC SCH (21:59)
[2021-04-14] MEDS: Lorazepam 2 MG/ML VIAL SLOW IVP PRN (01:05)
[2021-04-14] MEDS: Lactated Ringer's 1,000 ML IV SCH ×3 (01:07→20:58)
[2021-04-14] MEDS: Ipratropium Bromide 2.5 ml Neb NEB SCH ×4 (01:57→19:17)
[2021-04-14 05:02] LABS: BUN (Urea Nitrogen) 73 mg/dL (9.8-20.1); Calc. Creatinine Clearance 66 mL/min (70-130); Calcium 9.2 mg/dL (7.8-10.44); Glucose 137 mg/dL (83-110)
[2021-04-14 05:11] LABS: Anion Gap 13 mmol/L (10-20); Carbon Dioxide 38 mmol/L (23-31); Chloride 99 mmol/L (98-107); Sodium 147 mmol/L (136-145)
[2021-04-14 05:15] LABS: Potassium 2.9 mmol/L (3.5-5.1)
[2021-04-14 05:16] LABS: Anisocytosis SLIGHT = 6-15 cells (100X) (0-5/hpf); Band 4 % (5-11); Eosinophils 6 % (0-10); Hemoglobin 8.1 g/dL (12.0-16.0); Hypochromia SLIGHT = 6-15 cells (100X) (0-5/hpf); Lymphocytes 8 % (21-51); MDiff Complete? YES; Mean Corpuscular HGB CONC 30.5 g/dL (32.0-36.0); Mean Corpuscular Hemoglobin 29.5 pg (27.0-31.0); Mean Corpuscular Volume 96.6 fL (78.0-98.0); Mean Platelet Volume 7.7 fL (7.4-10.4); Monocytes 5 % (0-10); Neutrophil 77 % (42-75); Platelet Count 190 thou/uL (130-400); Platelet Morphology Comment Appears Adequate; RBC Distribution Width 16.5 % (11.5-14.5); Red Blood Cell (RBC) Count 2.75 mill/uL (4.20-5.40); Schistocytes SLIGHT = 2-5 cells (100X) (0-1/hpf); White Blood Cell (WBC) Count 10.2 thou/uL (4.8-10.8)
[2021-04-14] MEDS: Potassium Chloride 40 MEQ in Premix Bag 1 BAG IVPB SCH ×2 (06:38→10:58)
[2021-04-14] MEDS: Levothyroxine Sodium 75 MCG TAB PO SCH (06:38)
[2021-04-14 07:31] LABS: Actual Bicarbonate (HCO3a) 42.4 mEq/L (22-28); Base Excess (BEa) 17.8 mEq/L (-2.0 to +3.0); CO2 Tension 51.2 mmHg (35.0-45.0); Calcium, Ionized (arterial) 1.28 mmol/L (1.12-1.30); Carboxyhemoglobin (COHb) 0.3 gm% (0.0-3.0); Hemoglobin (Hb) 8.9 g/dL (12.0-16.0); Potassium - ABG Lab 3.24 mmol/L (3.70-5.30); pH, Arterial 7.54 (7.35-7.45)
[2021-04-14 07:32] LABS: Puncture Site LRA
[2021-04-14] MEDS: Escitalopram Oxalate 10 mg Tablet PO SCH (08:55)
[2021-04-14] MEDS: Ferrous Sulfate 325 MG TAB PO SCH ×3 (08:55→17:16)
[2021-04-14] MEDS: LACTINEX 1 TAB PO SCH ×2 (08:55→20:59)
[2021-04-14] MEDS: Pantoprazole 40 MG GRANULES PACKET PER TUBE SCH ×2 (08:56→20:59)
[2021-04-14] MEDS: Multivit, Therapeutic 1 TAB PO SCH (08:56)
[2021-04-14] MEDS: Magnesium Oxide 400 MG TAB PO SCH ×2 (08:56→20:59)
[2021-04-14] MEDS: Senokot S 8.6-50 MG TAB PO SCH ×2 (08:57→20:59)
[2021-04-14] MEDS: Polyethylene Glycol 3350 17 GM Packet PO SCH (08:57)
[2021-04-14] MEDS: Lantus 1000 UNITS/10 ML VIAL SC SCH (20:59)
[2021-04-15] MEDS: Ipratropium Bromide 2.5 ml Neb NEB SCH ×4 (01:00→19:27)
[2021-04-15] MEDS: Lorazepam 2 MG/ML VIAL SLOW IVP PRN (01:48)
[2021-04-15] MEDS: Lactated Ringer's 1,000 ML IV SCH ×3 (02:47→20:12)
[2021-04-15 02:49] LABS: #Basophils 0.1 thou/uL (0.0-0.2); #Eosinphils 0.6 thou/uL (0.0-0.7); #Monocytes 0.8 thou/uL (0.11-0.59); #Neutrophils 6.7 thou/uL (1.40-6.50); %Basophils 0.5 % (0.0-1.0); %Eosinophils 5.3 % (0.0-10.0); %Monocytes 7.1 % (0.0-10.0); %Neutrophils 60.2 % (42.0-75.0); Hemoglobin 8.4 g/dL (12.0-16.0); Mean Corpuscular HGB CONC 32.7 g/dL (32.0-36.0); Mean Corpuscular Hemoglobin 31.6 pg (27.0-31.0); Mean Corpuscular Volume 96.4 fL (78.0-98.0); Mean Platelet Volume 7.7 fL (7.4-10.4); Platelet Count 179 thou/uL (130-400); RBC Distribution Width 16.5 % (11.5-14.5); Red Blood Cell (RBC) Count 2.66 mill/uL (4.20-5.40); White Blood Cell (WBC) Count 11.1 thou/uL (4.8-10.8)
[2021-04-15 03:11] LABS: Anion Gap 13 mmol/L (10-20); BUN (Urea Nitrogen) 62 mg/dL (9.8-20.1); Calc. Creatinine Clearance 62 mL/min (70-130); Calcium 9.3 mg/dL (7.8-10.44); Carbon Dioxide 35 mmol/L (23-31); Chloride 102 mmol/L (98-107); Glucose 170 mg/dL (83-110); Magnesium 2.4 mg/dL (1.6-2.6); Potassium 3.8 mmol/L (3.5-5.1); Sodium 146 mmol/L (136-145)
[2021-04-15] MEDS: Levothyroxine Sodium 75 MCG TAB PO SCH (06:17)
[2021-04-15] MEDS ORDERED: Digoxin 0.5 MG/2 ML AMP SLOW IVP SCH (08:15)
[2021-04-15] MEDS: Ferrous Sulfate 325 MG TAB PO SCH ×2 (09:10→17:26)
[2021-04-15] MEDS: Escitalopram Oxalate 10 mg Tablet PO SCH (09:14)
[2021-04-15] MEDS: LACTINEX 1 TAB PO SCH ×2 (09:14→21:23)
[2021-04-15] MEDS: Magnesium Oxide 400 MG TAB PO SCH ×2 (09:15→21:24)
[2021-04-15] MEDS: Multivit, Therapeutic 1 TAB PO SCH (09:15)
[2021-04-15] MEDS: Senokot S 8.6-50 MG TAB PO SCH ×2 (09:17→21:24)
[2021-04-15] MEDS: Polyethylene Glycol 3350 17 GM Packet PO SCH (09:17)
[2021-04-15] MEDS: Pantoprazole 40 MG GRANULES PACKET PER TUBE SCH ×2 (09:17→21:24)
[2021-04-15] MEDS: Lantus 1000 UNITS/10 ML VIAL SC SCH (21:23)
[2021-04-16] MEDS: Ipratropium Bromide 2.5 ml Neb NEB SCH ×4 (01:10→18:41)
[2021-04-16] MEDS: Lactated Ringer's 1,000 ML IV SCH ×3 (04:53→21:28)
[2021-04-16] MEDS: HumaLOG 300 UNITS/3 ML VIAL SC PRN ×2 (04:55→19:21)
[2021-04-16 05:00] LABS: Anisocytosis SLIGHT = 6-15 cells (100X) (0-5/hpf); Band 2 % (5-11); Eosinophils 7 % (0-10); Hemoglobin 7.8 g/dL (12.0-16.0); Hypochromia SLIGHT = 6-15 cells (100X) (0-5/hpf); Lymphocytes 10 % (21-51); MDiff Complete? YES; Mean Corpuscular HGB CONC 30.2 g/dL (32.0-36.0); Mean Corpuscular Hemoglobin 29.5 pg (27.0-31.0); Mean Corpuscular Volume 97.5 fL (78.0-98.0); Mean Platelet Volume 7.3 fL (7.4-10.4); Monocytes 2 % (0-10); Neutrophil 78 % (42-75); Platelet Count 221 thou/uL (130-400); Platelet Morphology Comment Appears Adequate; RBC Distribution Width 16.2 % (11.5-14.5); Reactive Lymphocytes 1 % (0-10); Red Blood Cell (RBC) Count 2.66 mill/uL (4.20-5.40); White Blood Cell (WBC) Count 11.2 thou/uL (4.8-10.8)
[2021-04-16 05:01] LABS: BUN (Urea Nitrogen) 55 mg/dL (9.8-20.1); Calc. Creatinine Clearance 69 mL/min (70-130); Calcium 9.2 mg/dL (7.8-10.44); Glucose 166 mg/dL (83-110)
[2021-04-16 05:10] LABS: Anion Gap 12 mmol/L (10-20); Carbon Dioxide 35 mmol/L (23-31); Chloride 102 mmol/L (98-107); Potassium 3.7 mmol/L (3.5-5.1); Sodium 145 mmol/L (136-145)
[2021-04-16] MEDS: Levothyroxine Sodium 75 MCG TAB PO SCH (06:13)
[2021-04-16] MEDS: Pantoprazole 40 MG GRANULES PACKET PER TUBE SCH ×2 (09:07→21:30)
[2021-04-16] MEDS: Escitalopram Oxalate 10 mg Tablet PO SCH (09:07)
[2021-04-16] MEDS: Multivit, Therapeutic 1 TAB PO SCH (09:07)
[2021-04-16] MEDS: Magnesium Oxide 400 MG TAB PO SCH ×2 (09:07→21:29)
[2021-04-16] MEDS: LACTINEX 1 TAB PO SCH ×2 (09:08→21:29)
[2021-04-16] MEDS: Ferrous Sulfate 325 MG TAB PO SCH ×2 (09:08→16:56)
[2021-04-16] MEDS: Digoxin 0.5 MG/2 ML AMP SLOW IVP SCH (09:14)
[2021-04-16] MEDS: Polyethylene Glycol 3350 17 GM Packet PO SCH ×2 (09:15→09:30)
[2021-04-16] MEDS: Senokot S 8.6-50 MG TAB PO SCH ×3 (09:15→21:30)
[2021-04-16 14:01] VITALS: BMI 31.6
[2021-04-16] MEDS: Lantus 1000 UNITS/10 ML VIAL SC SCH (21:29)
[2021-04-17] MEDS: Ipratropium Bromide 2.5 ml Neb NEB SCH ×4 (00:52→20:16)
[2021-04-17] MEDS: Lactated Ringer's 1,000 ML IV SCH (06:21)
[2021-04-17] MEDS: Levothyroxine Sodium 75 MCG TAB PO SCH (06:21)
[2021-04-17] MEDS: Ferrous Sulfate 325 MG TAB PO SCH ×2 (09:57→18:05)
[2021-04-17] MEDS: LACTINEX 1 TAB PO SCH (09:57)
[2021-04-17] MEDS: Digoxin 0.5 MG/2 ML AMP SLOW IVP SCH (09:58)
[2021-04-17] MEDS: Escitalopram Oxalate 10 mg Tablet PO SCH (09:58)
[2021-04-17] MEDS: Magnesium Oxide 400 MG TAB PO SCH (09:58)
[2021-04-17] MEDS: Multivit, Therapeutic 1 TAB PO SCH (09:59)
[2021-04-17] MEDS: Polyethylene Glycol 3350 17 GM Packet PO SCH (09:59)
[2021-04-17] MEDS: Pantoprazole 40 MG GRANULES PACKET PER TUBE SCH (09:59)
[2021-04-17] MEDS: Senokot S 8.6-50 MG TAB PO SCH (10:00)
[2021-04-17] MEDS ORDERED: NS 0.9% w/ 20 MEQ KCL 1,000 ML/1,000 ML BAG IV SCH (11:45)
[2021-04-17] MEDS ORDERED: Sodium Chloride 0.9% 1,000 ML IV SCH (11:45)
[2021-04-17] MEDS: Lorazepam 2 MG/ML VIAL SLOW IVP PRN (21:48)
[2021-04-17] MEDS: Morphine 4 MG/ML VIAL SLOW IVP PRN (21:49)
[2021-04-18] MEDS: Morphine 4 MG/ML VIAL SLOW IVP PRN ×6 (00:33→18:04)
[2021-04-18] MEDS: Lorazepam 2 MG/ML VIAL SLOW IVP PRN ×3 (02:19→15:48)
[2021-04-18] MEDS: Lantus 1000 UNITS/10 ML VIAL SC SCH (02:21)
[2021-04-18] MEDS: Pantoprazole 40 MG GRANULES PACKET PER TUBE SCH (02:21)
[2021-04-18] MEDS: LACTINEX 1 TAB PO SCH (02:21)
[2021-04-18] MEDS: Magnesium Oxide 400 MG TAB PO SCH (02:21)
[2021-04-18] MEDS: Senokot S 8.6-50 MG TAB PO SCH (02:22)
[2021-04-18 22:18] VITALS: BP 87/57; TEMP 97.7
== END 2021-04-19 02:30 | disposition expired | DRG 4 ==
LOC: ERS 16:14 → ERHOLD 18:48 → 2NO 21:07 → OBSVTOIN 03-12 07:27 → CCU 03-14 15:43 → T4-A 04-18 01:03
PROVIDERS: ADMIT Internal Medicine; ATTEND Internal Medicine
PROC: 0DB78ZX Excision of Stomach, Pylorus, Via Natural or Artificial Opening Endoscopic, Diagnostic (ICD-10-PCS; 2021-03-12)
PROC: 30233N1 Transfusion of Nonautologous Red Blood Cells into Peripheral Vein, Percutaneous Approach (ICD-10-PCS; principal; 2021-03-14)
PROC: 3E033XZ Introduction of Vasopressor into Peripheral Vein, Percutaneous Approach (ICD-10-PCS; 2021-03-14)
PROC: 5A12012 Performance of Cardiac Output, Single, Manual (ICD-10-PCS; 2021-03-14)
PROC: 0BH17EZ Insertion of Endotracheal Airway into Trachea, Via Natural or Artificial Opening (ICD-10-PCS; 2021-03-14)
PROC: 5A1955Z Respiratory Ventilation, Greater than 96 Consecutive Hours (ICD-10-PCS; 2021-03-14)
PROC: 02HV33Z Insertion of Infusion Device into Superior Vena Cava, Percutaneous Approach (ICD-10-PCS; 2021-03-27)
PROC: B548ZZA Ultrasonography of Superior Vena Cava, Guidance (ICD-10-PCS; 2021-03-27)
PROC: 0D9670Z Drainage of Stomach with Drainage Device, Via Natural or Artificial Opening (ICD-10-PCS; 2021-03-31)
PROC: 0B110F4 Bypass Trachea to Cutaneous with Tracheostomy Device, Open Approach (ICD-10-PCS; 2021-03-31)
PROC: 0DH63UZ Insertion of Feeding Device into Stomach, Percutaneous Approach (ICD-10-PCS; 2021-03-31)
DX: K25.4 Chronic or unspecified gastric ulcer with hemorrhage (principal); A41.02 Sepsis due to Methicillin resistant Staphylococcus aureus; L89.153 Pressure ulcer of sacral region, stage 3; J69.0 Pneumonitis due to inhalation of food and vomit; E43 Unspecified severe protein-calorie malnutrition; J80 Acute respiratory distress syndrome; R65.21 Severe sepsis with septic shock; J15.212 Pneumonia due to Methicillin resistant Staphylococcus aureus; U07.1 COVID-19; D62 Acute posthemorrhagic anemia; I24.8 Other forms of acute ischemic heart disease; I13.0 Hypertensive heart and chronic kidney disease with heart failure and stage 1 through stage 4 chronic kidney disease, or unspecified chronic kidney disease; N17.9 Acute kidney failure, unspecified; E87.2 Acidosis; R18.8 Other ascites; G93.40 Encephalopathy, unspecified; Z99.11 Dependence on respirator [ventilator] status; I50.30 Unspecified diastolic (congestive) heart failure; K29.81 Duodenitis with bleeding; Z66 Do not resuscitate; Z51.5 Encounter for palliative care; E78.5 Hyperlipidemia, unspecified; E03.9 Hypothyroidism, unspecified; K21.9 Gastro-esophageal reflux disease without esophagitis; F32.A Depression, unspecified; I95.89 Other hypotension; E86.1 Hypovolemia; R04.0 Epistaxis; I48.0 Paroxysmal atrial fibrillation; R13.12 Dysphagia, oropharyngeal phase; E11.51 Type 2 diabetes mellitus with diabetic peripheral angiopathy without gangrene; D50.9 Iron deficiency anemia, unspecified; K31.9 Disease of stomach and duodenum, unspecified; E11.22 Type 2 diabetes mellitus with diabetic chronic kidney disease; U09.9 Post COVID-19 condition, unspecified; N18.9 Chronic kidney disease, unspecified; I46.8 Cardiac arrest due to other underlying condition; R57.1 Hypovolemic shock; R34 Anuria and oliguria; E87.6 Hypokalemia; Y95 Nosocomial condition; Z79.01 Long term (current) use of anticoagulants; I25.2 Old myocardial infarction; Z91.040 Latex allergy status; Z88.0 Allergy status to penicillin; Z79.82 Long term (current) use of aspirin; Z79.890 Hormone replacement therapy; Z79.84 Long term (current) use of oral hypoglycemic drugs; Z79.4 Long term (current) use of insulin; I69.991 Dysphagia following unspecified cerebrovascular disease; Z90.49 Acquired absence of other specified parts of digestive tract; Z90.710 Acquired absence of both cervix and uterus; Z89.429 Acquired absence of other toe(s), unspecified side; Z95.0 Presence of cardiac pacemaker; Z74.01 Bed confinement status; Z98.890 Other specified postprocedural states; Z78.1 Physical restraint status
CPT/HCPCS: 36415; 36416; 36430; 36600; 71045; 71250; 74176; 74230; 80048; 80053; 80202; 81001; 82553; 82607; 82728; 82746; 82805; 83540; 83550; 83605; 83735; 84100; 84443; 84484; 85007; 85014; 85018; 85025; 85027; 85046; 85049; 85060; 85300; 85362; 85379; 85384; 85610; 85730; 86140; 86850; 86870; 86880; 86900; 86901; 86922; 87040; 87070; 87077; 87086; 87149; 87186; 87205; 88305; 93005; 93010; 93306; 94002; 94003; 94640; 94760; 96365; 96375; C9113; G0378; J0692; J0696; J1160; J1450; J1815; J1940; J1956; J2060; J2185; J2250; J2270; J2704; J3010; J3370; J3475; J3480; J3490; J7050; J7070; J7120; J7620; P9016; P9047; U0002; U0003; U0005